=== PATIENT | female | born 1955 | race Caucasian/White ===

== ENCOUNTER → 2018-04-02 10:24 | Outpatient (CLI) | payer SELFPAY ==
--- NOTE | 2018-04-02 10:29 | CT_ITS ---
STUDY: CT ABDOMEN AND PELVIS WITHOUT CONTRAST REASON FOR EXAM: Female, 62 years old. Left flank pain. RADIATION DOSAGE (If Supplied By Facility): CTDIvol = ( 15.55 ) mGy, DLP = ( 722.75 ) mGycm TECHNIQUE: Transaxial images were obtained from the dome of the diaphragm to the symphysis pubis without oral contrast, and without intravenous contrast. Sagittal and coronal images were reconstructed. Individualized dose optimization techniques were used for this CT. COMPARISON: None. FINDINGS: The visualized lung bases are unremarkable. Coronary artery calcification. Normal liver. The patient as a history of prior cholecystectomy. Multiple gallstones are seen in the gallbladder fossa most likely secondary to gallstones left behind during the surgical procedure. Normal spleen. Normal pancreas. Normal bilateral adrenal glands. There is evidence of bilateral staghorn calculi in both kidneys. This is worse on the left side. The staghorn calculi extend into the ureteropelvic junction bilaterally. No significant hydronephrosis is seen. Normal visualized stomach. Normal small intestine. There are multiple colonic diverticula consistent with diverticulosis. There are surgical clips in the region of the appendix consistent with a prior appendectomy. There is diffuse atherosclerotic calcification of the abdominal aorta and its major visceral ranch is, without a demonstrated aneurysm. Normal inferior vena cava. There is borderline retroperitoneal lymphadenopathy with enlarged nodes no greater than 10mm in the short axis diameter. Normal urinary bladder. Calcified uterine fibroids. Normal abdominal wall. Normal osseous structures. CT/Abdomen/Pelvis without Cont IMPRESSION: Bilateral staghorn calculi with no significant hydronephrosis. Gallstones are seen within the gallbladder fossa. The patient does have a history of prior cholecystectomy. Electronically Signed: Rogelio Perez MD at 11:08 EDT Tel [phone], Service support ,
== END ==
PROVIDERS: Family Provider Family Medicine; PCP Family Medicine; Referring Provider Nurse Practitioner Adult Health; Visit Provider Nurse Practitioner Adult Health
DX: R10.9 Unspecified abdominal pain (principal); N20.0 Calculus of kidney; R31.9 Hematuria, unspecified
CPT/HCPCS: 74176

== ENCOUNTER 2018-06-10 08:58 | Observation (INO) | payer SELFPAY ==
[2018-06-05 11:21] VITALS: BP 148/77; PULSE 76; RESP 17; TEMP 36.8; O2SAT 96; BMI 32.0
--- NOTE | 2018-06-05 11:55 | RAD_ITS ---
STUDY: X-RAY CHEST REASON FOR EXAM: Female, 62 years old. Shortness of breath and dyspnea. TECHNIQUE: PA and lateral views of the chest. COMPARISON: None. FINDINGS: The lungs are clear and expanded. There is no demonstrated pleural abnormality. Normal size heart. A left-sided dual-chamber pacemaker is seen. Normal mediastinum and cordell. Normal visualized pulmonary arteries. Normal visualized aortic arch and descending thoracic aorta. There are degenerative changes of the visualized thoracic spine. Calcific tendinitis of the left shoulder. Multiple calcified gallstones are seen in the gallbladder. RAD/Chest PA and Lateral IMPRESSION: No acute abnormality is seen. Electronically Signed: Rogelio Perez MD at 12:35 EST Tel [phone], Service support ,
[2018-06-05 12:14] LABS: Bacteria 0 SEEN /hpf (None Seen); Mucous, Urine 0 SEEN /hpf (<or=2+)
[2018-06-05 12:29] LABS: Absolute Lymphocyte Count 2.06 X10^3/ul (0.83-4.51); Absolute Neutrophil Count 5.9 X10^3/uL (2.0-7.7); Basophil# 0.05 X10^3/uL; Basophil% 0.6 % (0-1); Eosinophil# 0.44 X10^3/uL; Eosinophils% 4.9 % (0-5); Hematocrit 33.9 % (37-47); Hemoglobin 10.3 g/dl (12.0-15.0); Lymphocyte # 2.06 X10^3/ul (4.0); Lymphocyte % 22.7 % (19-41); Mean Corp Hgb Conc 30.4 g/gl (32-36); Mean Corpuscular Hgb 25.9 pg (27.0-32.0); Mean Corpuscular Volume 85.2 fL (81-99); Mean Platelet Vol. 9.3 fl (6.2-12.0); Monocyte# 0.57 X10^3/uL; Monocyte% 6.3 % (0-10); Neutrophil # 5.93 X10^3/uL (2.7-7.7); Neutrophil % 65.3 % (47-70); Platelet Count 347 K/mm3 (150-450); RBC Distribution Width CV 14.2 % (11.6-14.6); RBC Distribution Width SD 44.1 fl (35.1-43.9); Red Blood Count 3.98 M/mm3 (4.2-5.4); White Blood Count 9.1 K/mm3 (4.4-11.0)
[2018-06-05 12:32] LABS: POSITIVE COUNT NO; POSITIVE DIFFERENTIAL NO; POSITIVE MORPHOLOGY NO
[2018-06-05 12:44] LABS: Anion Gap 7 (5-15); BUN 23 mg/dL (7-18); BUN/Creat Ratio 25.8 RATIO (10-20); Chloride 109 mmol/L (98-107); Creatinine, Serum 0.89 mg/dL (0.55-1.02); EST Glomerular Filtration Rate 68 mL/min (>60); Est Glom Filt Rate - Afr Amer 83 mL/min (>60); Estimated Creatinine Clearance 49.46 ml/min; Glucose 147 mg/dL (74-106); Potassium 4.2 mmol/L (3.5-5.1); Sodium Level 143 mmol/L (136-145)
[2018-06-05 13:01] LABS: Color, Urine Yellow (Yellow); Glucose, Dipstick Normal (Normal); Ketone-Dipstick 5 mg/dl (Negative); Leukocyte Esterase-Dipstick 100 /ul (Negative); Nitrite-Dipstick Negative (Negative); Occult Blood-Urine 250 /ul (Negative); Protein-Dipstick 100 mg/dl (Negative); Urine Bilirubin Dipstick Negative (Negative); Urine Clarity Clear (Clear); Urine Urobilinogen Normal (Normal)
[2018-06-05 13:10] LABS: Red Blood Cells-Urine > 100 SEEN /hpf (0-5); Squamous Epithelial Cells - UA 5-10 SEEN /hpf (5-10); White Blood Cells 0-5 SEEN /hpf (0-5)
[2018-06-07] VITALS (10 sets, daily range): BP systolic 115–169; BP diastolic 57–77; PULSE 60–76; RESP 14–18; TEMP 35.9–36.7; O2SAT 93–100; BMI 32.0
[2018-06-07 10:06] LABS: Bedside Glucose 138 mg/dL (70-110)
[2018-06-07] MEDS: Cefazolin 2 GM in 0.9% Normal Saline 100 ML IV (13:20)
--- NOTE | 2018-06-07 17:16 | PCM.OPRPT ---
Report of Operation Date of Procedure: 06/07/18 Pre-Operative Diagnosis: Large left staghorn calculi branching Post-Operative Diagnosis: The same Surgery/Procedure Performed:: Cystoscopy left ureteroscopy laser lithotripsy of stone at the UPJ, percutaneous axis of the left kidney 2 tracts were performed, percutaneous nephrostolithotomy for a large staghorn branching calculus, nephrostogram, placement of a stent and placement of nephrostomy tube Description of Surgical Findings:: 62-year-old female has a very large stone in the left kidney she has a bifid system single ureter and then at the UPJ there was a stone and then she had stone fragments in the lower pole of the left kidney and then a long fragment in the upper pole of the left kidney. She was taken back to the operating room after smooth induction of general anesthesia was placed supine on the table I then went into the bladder with a 21 Senegalese rigid cystourethroscope advanced a wire all the way up wire hit the stone was impacted would go past the stone I then left the wire in place went in with a axis sheath but the access sheath up to the stone and then went in with the ureteroscope and then started lasering the stone, and then I tried to reposition the access sheath but in doing this small tear occurred in the renal pelvis near the UPJ junction area I then went back in with the laser lasered some more until is able to get past the stone blocking the UPJ area I found the upper pole of the left kidney we then left the axis sheath then we repositioned the patient then face down on the lithotripter table and then using to regulation technique I established the first axis tube to the upper pole of the kidney I then came down to the upper pole and using ultrasonic lithotripter remove the stone completely and once I did this in a went to the pelvis and remove the stone as much as possible the pelvis I then left the tract in and then performed a second track in the lower pole of the kidney this track went into the lower pole calyx with a lot of fragments in the lower pole calyx I used ultrasonic lithotripter to get rid of all these fragments and then went into the pelvis and then recognized that there was a tear in the pelvis and some of the fragments were migrated outside the kidney and through the tear on the outside the kidney did my best attempt to retrieve as many of the fragments as possible but was not able to get all the fragments of fragments escaped outside the kidney through this small tear in the renal pelvis right above the UPJ after completing laser lithotripsy and ultrasonic lithotripsy of all the stones in the lower pole and in the UPJ area I then attempted to place a stent top down but because of the disruption of the UPJ and disruption of the pelvis it was very difficult to do this so decided to leave the nephrostomy tube which we did a nephrostogram that confirmed extravasation from the renal pelvis and then flipped the patient back prone face up the urethra vaginal area prepped and draped in usual sterile fashion went into the bladder with a 21 Senegalese rigid ureteroscope advanced a wire up into the kidney on the left side however I wanted to make 100% sure that the wire was in the kidney and not in through the UPJ area of disruption so I performed ureteroscopy and I got to the upper pole of the kidney confirmed this by retrograde in the left the wire in there and then over the wire I was placed a 6 Senegalese by 26 cm stent pulled the wire the stent coiled in the kidney and the upper pole of the kidney and nicely this will bridge the area nicely allow the tear the renal pelvis to heal properly the stones that fell out to the renal pelvis would not be needed to be retrieved I explained this to the family. All the major fragments were removed at this point because of the tear in the UPJ probably will need to leave the stent in for at least 6 weeks to make sure that the kidney heals up properly and want to bring her back for ureteroscopy to inspect the kidney then make sure that there is no permanent injury to the kidney and to make sure that the kidney is repaired healed a properly over the stent. We left the nephrostomy tube and the patient left the catheter the patient patient's anesthetic is currently being reversed blood loss is relatively minimal and was able to get all the stones out few fragments are still in both kidneys I may have to these may require some subsequent treatment down the road probably will perform laser lithotripsy in about 6 weeks in the left kidney and then proceed with the treatment of the stones in the right kidney. Type of Anesthesia:: General Drains: nephrostomy tube, stent - Admit VTE Documentation VTE Present on Admission: No
[2018-06-07 17:50] LABS: Bedside Glucose 232 mg/dL (70-110)
[2018-06-07] MEDS: Insulin Lispro 100 UNIT/ML INSULN.PEN SC (18:00)
[2018-06-07 18:01] LABS: Hematocrit 29.2 % (37-47); Hemoglobin 8.9 g/dl (12.0-15.0); Mean Corp Hgb Conc 30.5 g/gl (32-36); Mean Corpuscular Volume 85.4 fL (81-99); Platelet Count 306 K/mm3 (150-450); RBC Distribution Width CV 14.3 % (11.6-14.6); RBC Distribution Width SD 44.3 fl (35.1-43.9); Red Blood Count 3.42 M/mm3 (4.2-5.4); Scan Indicated on CBC? Y/N NO; White Blood Count 14.3 K/mm3 (4.4-11.0)
[2018-06-07 18:12] LABS: Anion Gap 8 (5-15); BUN 19 mg/dL (7-18); BUN/Creat Ratio 20.6 RATIO (10-20); Calcium,Total 7.8 mg/dL (8.5-10.1); Chloride 109 mmol/L (98-107); Creatinine, Serum 0.92 mg/dL (0.55-1.02); EST Glomerular Filtration Rate 65 mL/min (>60); Est Glom Filt Rate - Afr Amer 79 mL/min (>60); Estimated Creatinine Clearance 47.84 ml/min; Glucose 256 mg/dL (74-106); Potassium 3.9 mmol/L (3.5-5.1); Sodium Level 142 mmol/L (136-145)
[2018-06-07] MEDS: Ketorolac 15 MG/ML Vial IV (18:41)
[2018-06-07] MEDS: Lactated Ringers 1,000 ML 125 ML IV (18:43)
[2018-06-07] MEDS: Metoclopramide 10 MG/2 ML Vial IV (19:29)
[2018-06-07] MEDS: Insulin Human 75/25 Kwickpen 20 UNIT SC (19:31)
[2018-06-07 19:45] LABS: Bedside Glucose 231 mg/dL (70-110)
[2018-06-07] MEDS: Cefazolin 1 GM/50 ML BAG IV (21:30)
[2018-06-07] MEDS: Ondansetron 4 MG/2 ML Vial IV (21:40)
[2018-06-07] MEDS: Lisinopril 20 MG Tablet PO (23:39)
[2018-06-08] VITALS (15 sets, daily range): BP systolic 111–147; BP diastolic 49–72; PULSE 71–92; RESP 16–83; TEMP 36.4–37.6; O2SAT 92–100
[2018-06-08] MEDS: Morphine 2 MG/ML Syringe IV (02:05)
[2018-06-08] MEDS: Lactated Ringers 1,000 ML 125 ML IV ×3 (02:06→22:36)
[2018-06-08] MEDS: Ketorolac 15 MG/ML Vial IV ×3 (05:38→22:23)
[2018-06-08] MEDS: Cefazolin 1 GM/50 ML BAG IV (05:38)
[2018-06-08] MEDS: Ondansetron 4 MG/2 ML Vial IV (05:49)
[2018-06-08 07:55] LABS: Hematocrit 23.7 % (37-47); Mean Corp Hgb Conc 29.5 g/gl (32-36); Mean Corpuscular Hgb 25.9 pg (27.0-32.0); Mean Corpuscular Volume 87.8 fL (81-99); Mean Platelet Vol. 9.8 fl (6.2-12.0); Platelet Count 274 K/mm3 (150-450); RBC Distribution Width CV 13.8 % (11.6-14.6); RBC Distribution Width SD 42.8 fl (35.1-43.9); Scan Indicated on CBC? Y/N NO
[2018-06-08 08:07] LABS: Anion Gap 8 (5-15); BUN 25 mg/dL (7-18); BUN/Creat Ratio 20.2 RATIO (10-20); Calcium,Total 7.7 mg/dL (8.5-10.1); Chloride 109 mmol/L (98-107); Creatinine, Serum 1.24 mg/dL (0.55-1.02); EST Glomerular Filtration Rate 47 mL/min (>60); Est Glom Filt Rate - Afr Amer 56 mL/min (>60); Glucose 223 mg/dL (74-106); Potassium 4.5 mmol/L (3.5-5.1); Sodium Level 144 mmol/L (136-145)
--- NOTE | 2018-06-08 08:58 | PCM.PN.BLA ---
Progress Note s/p perc for v large left kidney stone needed two percs to complete procedure had nephrostomy tube, and pollock urine is clear, no more bleeding but h/h very low plan to give her two units of PRBC then d/c pollock and can get around after blood leave Nephrostomy tube open and draining has a stent in as well.
[2018-06-08] MEDS: Insulin Human 75/25 Kwickpen 20 UNIT SC ×2 (09:11→17:10)
[2018-06-08] MEDS: amLODIPine 10 MG Tablet PO (09:12)
[2018-06-08] MEDS: Metoprolol(XL)Succ 25 MG Tablet PO (09:12)
[2018-06-08] MEDS: Docusate Sodium 100 MG Capsule 200 MG PO ×2 (09:12→22:25)
[2018-06-08] MEDS: Lisinopril 20 MG Tablet PO ×2 (09:13→22:28)
[2018-06-08 11:26] LABS: Bedside Glucose 172 mg/dL (70-110)
[2018-06-08] MEDS: 0.9% NaCl Peripheral Flush Adult/Peds IV (13:20)
--- NOTE | 2018-06-08 16:30 | NURSING ---
Charge nurse, Rosibel, assuming care of patient.
[2018-06-08 16:41] LABS: Bedside Glucose 214 mg/dL (70-110)
[2018-06-08] MEDS: Glucerna Shake 120 ML LIQUID PO ×2 (17:21→22:25)
[2018-06-08] MEDS: Atorvastatin Calcium 40 MG Tablet PO (22:25)
[2018-06-08] MEDS: Insulin Lispro 100 UNIT/ML INSULN.PEN SC (22:27)
[2018-06-08 22:50] LABS: Bedside Glucose 177 mg/dL (70-110)
[2018-06-09] VITALS (10 sets, daily range): BP systolic 121–171; BP diastolic 59–85; PULSE 79–95; RESP 14–16; TEMP 36.8–37.7; O2SAT 85–96
[2018-06-09 06:36] LABS: Bedside Glucose 180 mg/dL (70-110)
[2018-06-09 06:36] LABS: Absolute Lymphocyte Count 1.87 X10^3/ul (0.83-4.51); Absolute Neutrophil Count 8.9 X10^3/uL (2.0-7.7); Basophil# 0.03 X10^3/uL; Basophil% 0.3 % (0-1); Eosinophil# 0.11 X10^3/uL; Eosinophils% 0.9 % (0-5); Hematocrit 27.5 % (37-47); Hemoglobin 8.7 g/dl (12.0-15.0); Lymphocyte # 1.87 X10^3/ul (4.0); Lymphocyte % 15.6 % (19-41); Mean Corp Hgb Conc 31.6 g/gl (32-36); Mean Corpuscular Hgb 26.7 pg (27.0-32.0); Mean Corpuscular Volume 84.4 fL (81-99); Mean Platelet Vol. 9.4 fl (6.2-12.0); Monocyte# 1.05 X10^3/uL; Monocyte% 8.8 % (0-10); Neutrophil # 8.88 X10^3/uL (2.7-7.7); Neutrophil % 74.1 % (47-70); Platelet Count 235 K/mm3 (150-450); RBC Distribution Width CV 14.9 % (11.6-14.6); RBC Distribution Width SD 46.5 fl (35.1-43.9); Red Blood Count 3.26 M/mm3 (4.2-5.4)
[2018-06-09 07:09] LABS: POSITIVE COUNT NO; POSITIVE DIFFERENTIAL NO; POSITIVE MORPHOLOGY NO
[2018-06-09 07:28] LABS: Anion Gap 7 (5-15); BUN 19 mg/dL (7-18); BUN/Creat Ratio 23.1 RATIO (10-20); Chloride 107 mmol/L (98-107); Creatinine, Serum 0.82 mg/dL (0.55-1.02); EST Glomerular Filtration Rate 75 mL/min (>60); Est Glom Filt Rate - Afr Amer 90 mL/min (>60); Estimated Creatinine Clearance 53.68 ml/min; Glucose 190 mg/dL (74-106); Potassium 3.9 mmol/L (3.5-5.1); Sodium Level 141 mmol/L (136-145)
--- NOTE | 2018-06-09 08:37 | PCM.PN.BLA ---
Progress Note Postop day #2 status post percutaneous removal of large staghorn calculus yesterday received 2 units of packed red blood cells and some fluid overnight had to be straight cathed for 800 cc this morning has been able to urinate. Nephrostomy tube is not really putting out any urine must be some obstruction in the tip of the catheter. Schmidt catheter is out patient's been able to urinate this morning. Her creatinine is normal. H&H is stable. Plan to get a CAT scan to evaluate the kidney to make sure the kidney is okay stent is in good position and then will plan to remove remove the nephrostomy tube tomorrow she may be oh to go home tomorrow once she can wean off oxygen we will Hep-Lock her fluids regular diet and can she can ambulate.
--- NOTE | 2018-06-09 08:39 | CT_ITS ---
STUDY: CT ABDOMEN AND PELVIS WITHOUT CONTRAST REASON FOR EXAM: Female, 62 years old. Staghorn calculi removal RADIATION DOSAGE (If Supplied By Facility): CTDIvol = ( 19.37 ) mGy, DLP = ( 972.71 ) mGycm TECHNIQUE: Transaxial images were obtained from the dome of the diaphragm to the symphysis pubis without oral contrast, and without intravenous contrast. Sagittal and coronal images were reconstructed. Individualized dose optimization techniques were used for this CT. COMPARISON: April 02, 2018. FINDINGS: The visualized lung bases is a mild pleural effusions, left slightly more than right. Bilateral basilar atelectasis. The visualized portions of the heart are within normal limits. Normal liver. Patient has a history of cholecystectomy. Stable probable gallstones at the gallbladder fossa. No significant dilatation of the extrahepatic biliary system. Normal spleen. Normal pancreas. Normal bilateral adrenal glands. Stable staghorn calculi of the right kidney. Status post surgical removal of large staghorn calculus at the pelvis of the left kidney. Remaining calculi in the left kidney are noted measuring up to 1.2 cm. Left percutaneous nephrostomy catheter is noted with tip at the renal pelvis. A left ureteral stent is in place. Gas within the left pelvicalyceal system and the left retroperitoneal space, likely postsurgically related. Mild left perinephric stranding. Normal visualized stomach. Normal small intestine. Normal colon. The appendix is not visualized. Mildly calcified abdominal aorta. Normal inferior vena cava. Subcentimeter nodes in the retroperitoneum. There is a small amount of intraluminal gas in the urinary bladder. Normal abdominal wall. Degenerative vertebral changes. CT/Abdomen/Pelvis without Cont IMPRESSION: Stable right renal calculi. Postsurgical changes of the left kidney is noted with remaining nonobstructive calculi. Left percutaneous nephrostomy and left ureteral stents are in place. Postsurgical changes in the left retroperitoneum. Focal intraluminal gas in the urinary bladder may be post surgically related as well. Stable calculi within the gallbladder fossa with previous cholecystectomy. Small pleural effusions bilaterally with basilar atelectasis. Subcentimeter retroperitoneal nodes. Electronically Signed: Angel Craig DO at 10:28 EST Tel [phone], Service support ,
[2018-06-09] MEDS: Insulin Human 75/25 Kwickpen 20 UNIT SC ×2 (08:40→15:59)
[2018-06-09] MEDS: Docusate Sodium 100 MG Capsule 200 MG PO ×2 (08:40→21:44)
[2018-06-09] MEDS: Metoprolol(XL)Succ 25 MG Tablet PO (08:41)
[2018-06-09] MEDS: amLODIPine 10 MG Tablet PO (08:41)
[2018-06-09] MEDS: Lisinopril 20 MG Tablet PO ×2 (08:42→21:44)
[2018-06-09] MEDS: Insulin Lispro 100 UNIT/ML INSULN.PEN SC ×4 (08:45→21:44)
[2018-06-09] MEDS: Ketorolac 15 MG/ML Vial IV (08:45)
[2018-06-09] MEDS: 0.9% NaCl Peripheral Flush Adult/Peds IV (08:45)
[2018-06-09 08:46] LABS: Bedside Glucose 193 mg/dL (70-110)
[2018-06-09] MEDS: Glucerna Shake 120 ML LIQUID PO ×4 (09:51→21:43)
[2018-06-09 11:20] LABS: Bedside Glucose 301 mg/dL (70-110)
--- NOTE | 2018-06-09 14:00 | NURSING ---
Pt. ambulates with SBA of nurse one lap around [facility] hallway. Tolerates well.
[2018-06-09 16:15] LABS: Bedside Glucose 266 mg/dL (70-110)
[2018-06-09] MEDS: Acetaminophen 500 MG Tablet PO (17:16)
[2018-06-09] MEDS: Atorvastatin Calcium 40 MG Tablet PO (21:44)
[2018-06-09 21:51] LABS: Bedside Glucose 217 mg/dL (70-110)
--- NOTE | 2018-06-10 | CALC_PTH ---
PATIENT: LATOSHA LOYOLA LOC: [facility]2 U#:[id number] AGE/SX: 62/F ROOM: [facility] [place] RE06/10/[address]: Dr. Zenon Alvarado MD : 1955 BED: 1 DIS: 06/10/2018 SPEC #: [id number] RECD: 06/10/18 13:29 STATUS: MINOR CASTRO #: [id number] ANNA: 06/10/18 00:[address]: Zenon Alvarado DEPT: SURGICAL PATHOLOGY RECD BY: Adolfo Banda ENTERED: 06/10/18 13:29 SP TYPE: Calculi OTHR DR: Dr. Gianluca Sol, DO Tissues: CALCULI Procedures: Surgery Specimen Level I HEADER OPERATION: Left percutaneous nephrostolithomy, cysto, left ureteroscopy PRE-OP DIAGNOSIS: Calculus of kidney, microscopic hematuria TISSUE SUBMITTED: Calculus of kidney GROSS DIAGNOSIS Calculus of kidney, removal: Fragments of unremarkable calculi (gross diagnosis only). AM:chavo 06/11/18 COMMENT The calculus is submitted in its entirety for chemical stone analysis. The results from this study will be reported separately. GROSS DESCRIPTION Received in fixative is one container labeled with the patient's name and designated left kidney stones. The specimen consists of multiple irregular chalky-yellow calculi that in aggregate measure 1 x 0.5 x 0.4 cm. The specimen is submitted in its entirety for chemical stone analysis. / AM:chavo 06/10/18 CPT: 23861
[2018-06-10 02:34] VITALS: BP 158/78; PULSE 87; RESP 16; TEMP 37.2; O2SAT 93
[2018-06-10 07:44] VITALS: BP 159/81; PULSE 92; RESP 18; TEMP 37; O2SAT 94
--- NOTE | 2018-06-10 07:46 | DCINST_ITS ---
Discharge Diet: Light diet - advance as tolerated Discharge Activity: Return to Normal Activity Call your doctor if your incision/area has: Sudden Increased Bleeding Call your doctor if you observe: Fever of 101 or Higher Suture Line Care: Avoid Pulling/Pushing, Avoid Pinching/Bending Additional Instructions: keep back covered and dry. Allergies/Adverse Reactions: Allergies No Known Allergies Allergy (Verified 06/05/18 11:09) Medications to take at Discharge Amlodipine [Norvasc] 10 mg PO DAILY 06/05/18 Aspirin [Adult Aspirin] 81 mg PO DAILY 06/05/18 Atorvastatin Calcium [Lipitor] 40 mg PO QHS 06/05/18 Insulin NPH Hum/Reg Insulin Hm [Humulin 70/30 Kwikpen] 20 unit SQ BID 06/05/18 Lisinopril 20 mg PO BID 06/05/18 Metformin HCl 1,000 mg PO BID 06/05/18 Metoprolol Succinate [Toprol Xl] 25 mg PO DAILY 06/05/18 Nitroglycerin [Nitrostat] 0.4 mg SL PRN PRN 06/05/18 Prasugrel Hydrochloride [Effient] 10 mg PO DAILY 06/05/18 Primary Care Physician: Gianluca Sol DO [Primary Care Provider] - Test Results: Test results from this visit will be discussed in further detail at your follow- up appointment, if applicable. Please Follow Up With: Zenon Alvarado MD When: in 2 weeks, please call to make an appointment.
--- NOTE | 2018-06-10 07:47 | PCM.DC.SUM ---
Discharge Date and Diagnosis Date of Admission: 06/07/18 Date of Discharge: 06/10/18 Hospital Course and Treatment Operations: - - percutaneous remove of left large staghorn calculus Procedures: None Summary of Care Provided: The patient is a 62 year old female with complete staghorn calculus s/p perc, long difficult procedure with difficult anatomy , bifid system needed 2 units of PRBC after surgery. nephrostomy tube clamped. stent in place ct scan with no hydronephrosis, 3 fragments each 4mm in size still in the kidney will need ureteroscopy to clean up fragment later will go home today with stent and family. - Physical Exam General: Alert, Oriented x3, Cooperative HEENT: Atraumatic, PERRLA, EOMI, Normocephalic Neck: Supple, No JVD, Negative Carotid Bruits Lungs: Clear to auscultation, Normal air movement Cardiovascular: Regular rate, No murmurs Abdomen: Bowel Sounds Present, Soft, Non Tender Extremities: No edema, Capillary Refill Less than 3 Seconds Skin: No rashes, No breakdown Musculoskeletal: No Tenderness to Palpation of Joints or Extremities Neurological: Cranial nerves II-XII grossly intact Psych/Mental Status: Normal Affect, Appropriate Vital Signs Temp Pulse Resp BP Pulse Ox 98.6 F 92 18 159/81 H 94 06/10/18 07:44 06/10/18 07:44 06/10/18 07:44 06/10/18 07:44 06/10/18 07:44 Oxygen Flow Rate (L/min) 2 Oxygen Delivery Method Room Air Weight: 76.884 kg Body Mass Index (BMI) 32.0 Finger Stick Blood Glucose 232 Intake and Output for Last 24 Hours 06/08/18 06/09/18 06/10/18 23:59 23:59 23:59 Intake Total 3423 / 3423 3544 / 3544 400 / 400 Output Total 890 / 890 2385 / 2385 575 / 575 Balance 2533 / 2533 1159 / 1159 -175 / -175 POC Glucose 06/09/18 06/09/18 06/09/18 21:30 15:58 11:15 POC Glucose 217 H 266 H 301 H 06/09/18 08:29 POC Glucose 193 H Discharge Diet: Light diet - advance as tolerated Discharge Activity: Return to Normal Activity Call your doctor if your incision/area has: Sudden Increased Bleeding Call your doctor if you observe: Fever of 101 or Higher Suture Line Care: Avoid Pulling/Pushing, Avoid Pinching/Bending Home Medications: Medications to take at Discharge Amlodipine [Norvasc] 10 mg PO DAILY 06/05/18 Aspirin [Adult Aspirin] 81 mg PO DAILY 06/05/18 Atorvastatin Calcium [Lipitor] 40 mg PO QHS 06/05/18 Insulin NPH Hum/Reg Insulin Hm [Humulin 70/30 Kwikpen] 20 unit SQ BID 06/05/18 Lisinopril 20 mg PO BID 06/05/18 Metformin HCl 1,000 mg PO BID 06/05/18 Metoprolol Succinate [Toprol Xl] 25 mg PO DAILY 06/05/18 Nitroglycerin [Nitrostat] 0.4 mg SL PRN PRN 06/05/18 Prasugrel Hydrochloride [Effient] 10 mg PO DAILY 06/05/18 Acetaminophen [Tylenol Extra Strength] 500 mg PO Q4H PRN PRN #20 tablet 06/10/18 Ibuprofen 600 mg PO Q6H PRN PRN #20 tablet 06/10/18 Following Prescrptions Were Given to Patient: Acetaminophen [Tylenol Extra Strength] 500 mg PO Q4H PRN PRN #20 tablet PRN Reason: Pain Ibuprofen 600 mg PO Q6H PRN PRN #20 tablet PRN Reason: Pain Primary Care Physician: Gianluca Sol DO [Primary Care Provider] - Please Follow Up With: Zenon Alvarado MD When: in 2 weeks, please call to make an appointment. Additional Instructions: keep back covered and dry. Medical Necessity - Tobacco Use Smoking Status: Never smoker Meaningful Use Info Meaningful Use Diagnoses (Choose all that apply): None applicable
[2018-06-10 07:50] VITALS: O2SAT 94
[2018-06-10] MEDS: Docusate Sodium 100 MG Capsule 200 MG PO (07:52)
[2018-06-10] MEDS: Acetaminophen 500 MG Tablet PO (07:52)
[2018-06-10 07:53] VITALS: BP 159/81; PULSE 92
[2018-06-10] MEDS: Metoprolol(XL)Succ 25 MG Tablet PO (07:53)
[2018-06-10] MEDS: amLODIPine 10 MG Tablet PO (07:53)
[2018-06-10] MEDS: Lisinopril 20 MG Tablet PO (07:53)
[2018-06-10] MEDS: Insulin Lispro 100 UNIT/ML INSULN.PEN SC (07:54)
[2018-06-10] MEDS: Insulin Human 75/25 Kwickpen 20 UNIT SC (07:54)
[2018-06-10] MEDS: Glucerna Shake 120 ML LIQUID PO (07:55)
[2018-06-10 08:05] LABS: Bedside Glucose 192 mg/dL (70-110)
[2018-06-10 09:00] VITALS: BP 159/81; PULSE 92; RESP 18; TEMP 37; O2SAT 94
[2018-06-19 20:07] LABS: Ca Oxalate, Monohydrate 17 % (.); Uric Acid 80 % (.)
--- OUTSIDE RECORDS SUMMARY | 2018-08-02 04:09 | XMS RPT_ITS ---
:1955 Author Organization [place] Care Team Providers Name Role Phone CAROLA FREEMAN MD Admitting Unavailable CAROLA FREEMAN MD Attending Unavailable PHYSICIAN, NONE Primary Care Unavailable CAROLA FREEMAN MD Consulting Unavailable FATUMA QUESADA MD Consulting Unavailable RADHA JERONIMO MD Consulting Unavailable GIANLUCA QUARLES Admitting Unavailable GIANLUCA QUARLES Attending Unavailable GIANLUCA QUARLES Primary Care Unavailable GIANLUCA QUARLES Consulting Unavailable PROVIDER, UNKNOWN Consulting Unavailable DR YASH MICHAEL Admitting Unavailable DR YASH MICHAEL Attending Unavailable GIANLUCA QUARLES Referring Unavailable DR YASH MICHAEL Primary Care Unavailable GIANLUCA QUARLES Consulting Unavailable PROVIDER, UNKNOWN Consulting Unavailable Zenon Alvarado Attending Unavailable Zenon Alvarado Referring Unavailable Gianluca Quarles Primary Care Unavailable Zenon Alvarado Admitting Unavailable Gee, Lorrie Vu Attending Unavailable Gee, Lorrie M Referring Unavailable Gianluca Quarles Primary Care Unavailable PROBLEMS PROBLEMS DATE TYPE CONDITION / CODE ATTENDING STATUS SOURCE 04/08/2018 Unknown R10.9 - Unspecified Gee, Active [place] abdominal pain / Lorrie M [facility] R10.9(ICD-10) Hospital Repository 10/30/2017 Admitting Hydronephrosis with GIANLUCA QUARLES Active Leonel Garcia Diagnosis renal and ureteral [facility] obstruction / Repository N132(ICD-10) 10/30/2017 Principle Hydronephrosis with GIANLUCA QUARLES Active Leonel Garcia Diagnosis renal and ureteral [facility] obstruction / Repository N132(ICD-10) 10/30/2017 Secondary Fatty (change of) GIANLUCA QUARLES Active Leonel Garcia Diagnosis liver, not elsewhere [facility] Hospital K760(ICD-10) Repository PROCEDURES PROCEDURES No Procedure Records FoundRESULTS RESULTS DISCHARGE SUMMARY Observed: 06/16/2018 Status: F Source: [place] 1:18 PM [facility] REPOSITORY [facility] Medical Records Department [address] [place] [address] Discharge Summary 06/10/18 0747 MR#: [id number] Acct: [id number] Name: LATOSHA LOYOLA Rep #: [id number] : 1955 62 From: Zenon Alvarado MD PCP: Gianluca Quarles MD Status: DIS SOFYA Y Location: [place] [address] ADDENDUM by Zenon Alvarado MD on 06/16/18 at 1318 Code Visit stone was very large 5cm 06/16/18 1318 <Electronically signed by Zenon Alvarado MD> Date Zenon Alvarado MD cc: Zenon Alvarado MD; Gianlcua Quarles MD * Signed Discharge Date and Diagnosis Date of Admission: 06/07/18 Date of Discharge: 06/10/18 Hospital Course and Treatment Operations: - - percutaneous remove of left large staghorn calculus Procedures: None Summary of Care Provided: The patient is a 62 year old female with complete staghorn calculus s/p perc, long difficult procedure with difficult anatomy , bifid system needed 2 units of PRBC after surgery. nephrostomy tube clamped. stent in place ct scan with no hydronephrosis, 3 fragments each 4mm in size still in the kidney will need ureteroscopy to clean up fragment later will go home today with stent and family. - Physical Exam General: Alert, Oriented x3, Cooperative HEENT: Atraumatic, PERRLA, EOMI, Normocephalic Neck: Supple, No JVD, Negative Carotid Bruits Lungs: Clear to auscultation, Normal air movement Cardiovascular: Regular rate, No murmurs Abdomen: Bowel Sounds Present, Soft, Non Tender Extremities: No edema, Capillary Refill Less than 3 Seconds Skin: No rashes, No breakdown Musculoskeletal: No Tenderness to Palpation of Joints or Extremities Neurological: Cranial nerves II-XII grossly intact Psych/Mental Status: Normal Affect, Appropriate Vital Signs Temp Pulse Resp BP Pulse Ox 98.6 F 92 18 159/81 H 94 06/10/18 07:44 06/10/18 07:44 06/10/18 07:44 06/10/18 07:44 06/10/18 07:44 Oxygen Flow Rate (L/min) 2 Oxygen Delivery Method Room Air Weight: 76.884 kg Body Mass Index (BMI) 32.0 Finger Stick Blood Glucose 232 Intake and Output for Last 24 Hours Intake Total 3423 / 3423 3544 / 3544 400 / 400 Output Total 890 / 890 2385 / 2385 575 / 575 Balance 2533 / 2533 1159 / 1159 -175 / -175 POC Glucose POC Glucose 217 H 266 H 301 H POC Glucose 193 H Discharge Diet: Light diet - advance as tolerated Discharge Activity: Return to Normal Activity Call your doctor if your incision/area has: Sudden Increased Bleeding Call your doctor if you observe: Fever of 101 or Higher Suture Line Care: Avoid Pulling/Pushing, Avoid Pinching/Bending Home Medications: Medications to take at Discharge Amlodipine [Norvasc] 10 mg PO DAILY 06/05/18 Aspirin [Adult Aspirin] 81 mg PO DAILY 06/05/18 Atorvastatin Calcium [Lipitor] 40 mg PO QHS 06/05/18 Insulin NPH Hum/Reg Insulin Hm [Humulin 70/30 Kwikpen] 20 unit SQ BID 06/05/18 Lisinopril 20 mg PO BID 06/05/18 Metformin HCl 1,000 mg PO BID 06/05/18 Metoprolol Succinate [Toprol Xl] 25 mg PO DAILY 06/05/18 Nitroglycerin [Nitrostat] 0.4 mg SL PRN PRN 06/05/18 Prasugrel Hydrochloride [Effient] 10 mg PO DAILY 06/05/18 Acetaminophen [Tylenol Extra Strength] 500 mg PO Q4H PRN PRN #20 tablet 06/10/18 Ibuprofen 600 mg PO Q6H PRN PRN #20 tablet 06/10/18 Following Prescrptions Were Given to Patient: Acetaminophen [Tylenol Extra Strength] 500 mg PO Q4H PRN PRN #20 tablet PRN Reason: Pain Ibuprofen 600 mg PO Q6H PRN PRN #20 tablet PRN Reason: Pain Primary Care Physician: Gianluca Quarles, [Primary Care Provider] - Please Follow Up With: Zenon Alvarado MD When: in 2 weeks, please call to make an appointment. Additional Instructions: keep back covered and dry. Medical Necessity - Tobacco Use Smoking Status: Never smoker Meaningful Use Info Meaningful Use Diagnoses (Choose all that apply): None applicable 06/10/18 0750 <Electronically signed by Zenon Alvarado MD> Date Zenon Alvarado MD Cosigner Signature (if applicable): Date CC: Zenon Alvarado MD; Gianluca Quarles MD Signed DISCHARGE INSTRUCTION Observed: 06/10/2018 Status: F Source: [place] 7:46 AM [facility] REPOSITORY [facility] Medical Records Department [address] [place] [address] Instructions for Home/Discharge Instructions 06/10/18 0745 MR#: [id number] Acct: [id number] Name: LATOSHA LOYOLA Rep #: [id number] : 1955 62 From: Zenon Alvarado MD PCP: Gianluca Quarles MD Status: REG [facility] Discharge Diet: Light diet - advance as tolerated Discharge Activity: Return to Normal Activity Call your doctor if your incision/area has: Sudden Increased Bleeding Call your doctor if you observe: Fever of 101 or Higher Suture Line Care: Avoid Pulling/Pushing, Avoid Pinching/Bending Additional Instructions: keep back covered and dry. Allergies/Adverse Reactions: Allergies No Known Allergies Allergy (Verified 06/05/18 11:09) Medications to take at Discharge Amlodipine [Norvasc] 10 mg PO DAILY 06/05/18 Aspirin [Adult Aspirin] 81 mg PO DAILY 06/05/18 Atorvastatin Calcium [Lipitor] 40 mg PO QHS 06/05/18 Insulin NPH Hum/Reg Insulin Hm [Humulin 70/30 Kwikpen] 20 unit SQ BID 06/05/18 Lisinopril 20 mg PO BID 06/05/18 Metformin HCl 1,000 mg PO BID 06/05/18 Metoprolol Succinate [Toprol Xl] 25 mg PO DAILY 06/05/18 Nitroglycerin [Nitrostat] 0.4 mg SL PRN PRN 06/05/18 Prasugrel Hydrochloride [Effient] 10 mg PO DAILY 06/05/18 Primary Care Physician: Gianluca Quarles DO [Primary Care Provider] - Test Results: Test results from this visit will be discussed in further detail at your follow-up appointment, if applicable. Please Follow Up With: Zenon Alvarado MD When: in 2 weeks, please call to make an appointment. 06/10/18 0746 <Electronically signed by Zenon Alvarado MD> Date Zenon Alvarado MD CC: Gianluca Quarles MD BEDSIDE GLUCOSE Collected: 06/10/2018 Status: F Source: [place] 7:43 AM [facility] REPOSITORY TYPE CODE TESTS RESULT OUT OF REFERENCE UNITS RANGE LAB L501.080 70-110 mg/dL High BEDSIDE GLU 192 Result Comment: MANAGEMENT OF PATIENT CARE PER NURSING PROTOCOL Performed By: #### L501.080 #### [facility] Point of Care [address] [place] [address] CALCULI/STONE Observed: 06/10/2018 Status: F Source: [place] 12:00 AM [facility] REPOSITORY Patient: LATOSHA LOYOLA : 1955 (62/F) Acct Num: [id number] Phys: Christiano FERNANDES,Pablo Unit Num: [id number] Loc: MS2 [id number] Specimen: [id number] Received: 06/10/18 - 9 Spec Type: Calculi TISSUES 1 TISSUES: CALCULI COMMENT The calculus is submitted in its entirety for chemical stone analysis. The results from this study will be reported separately. GROSS DIAGNOSIS Calculus of kidney, removal: Fragments of unremarkable calculi (gross diagnosis only). AM: 06/11/18 GROSS DESCRIPTION Received in fixative is one container labeled with the patient's name and designated left kidney stones. The specimen consists of multiple irregular chalky-yellow calculi that in aggregate measure 1 x 0.5 x 0.4 cm. The specimen is submitted in its entirety for chemical stone analysis. / AM: 06/10/18 CPT: 78145 HEADER OPERATION: Left percutaneous nephrostolithomy, cysto, left ureteroscopy PRE-OP DIAGNOSIS: Calculus of kidney, microscopic hematuria TISSUE SUBMITTED: Calculus of kidney Signed [facility] 06/11/18 <signature on file> Performed By: #### PCALC #### [facility] [address] [place], [address] BEDSIDE GLUCOSE Collected: 06/09/2018 Status: F Source: [place] 9:30 PM [facility] REPOSITORY TYPE CODE TESTS RESULT OUT OF REFERENCE UNITS RANGE LAB L501.080 70-110 mg/dL High BEDSIDE GLU 217 Result Comment: MANAGEMENT OF PATIENT CARE PER NURSING PROTOCOL Performed By: #### L501.080 #### [facility] Point of Care [address] [place] [address] BEDSIDE GLUCOSE Collected: 06/09/2018 Status: F Source: [place] 3:58 PM [facility] REPOSITORY TYPE CODE TESTS RESULT OUT OF REFERENCE UNITS RANGE LAB L501.080 70-110 mg/dL High BEDSIDE GLU 266 Result Comment: MANAGEMENT OF PATIENT CARE PER NURSING PROTOCOL Performed By: #### L501.080 #### [facility] Point of Care [address] [place] [address] BEDSIDE GLUCOSE Collected: 06/09/2018 Status: F Source: [place] 11:15 AM [facility] REPOSITORY TYPE CODE TESTS RESULT OUT OF REFERENCE UNITS RANGE LAB L501.080 70-110 mg/dL High BEDSIDE GLU 301 Result Comment: MANAGEMENT OF PATIENT CARE PER NURSING PROTOCOL Performed By: #### L501.080 #### [facility] Point of Care [address] [place] [address] ABDOMEN/PELVIS WITHOUT Observed: 06/09/2018 Status: F Source: [place] CONT 8:41 AM [facility] REPOSITORY [facility] Imaging Services [address] [place] [address] Abdomen/Pelvis without Cont MR#: [id number] Acct: [id number] Name: LATOSHA LOYOLA Rep #: [id number] : 1955 F 62 From: Angel Craig DO PCP: Gianluca Quarles MD Status: [facility] Study: Abdomen/Pelvis without Cont Date of Exam: 06/09/18 Exam# [id number] Ordering Dr: Zenon Alvarado MD STUDY: CT ABDOMEN AND PELVIS WITHOUT CONTRAST REASON FOR EXAM: Female, 62 years old. Staghorn calculi removal RADIATION DOSAGE (If Supplied By Facility): CTDIvol = ( 19.37 ) mGy, DLP = ( 972.71 ) mGycm TECHNIQUE: Transaxial images were obtained from the dome of the diaphragm to the symphysis pubis without oral contrast, and without intravenous contrast. Sagittal and coronal images were reconstructed. Individualized dose optimization techniques were used for this CT. COMPARISON: April 02, 2018. FINDINGS: The visualized lung bases is a mild pleural effusions, left slightly more than right. Bilateral basilar atelectasis. The visualized portions of the heart are within normal limits. Normal liver. Patient has a history of cholecystectomy. Stable probable gallstones at the gallbladder fossa. No significant dilatation of the extrahepatic biliary system. Normal spleen. Normal pancreas. Normal bilateral adrenal glands. Stable staghorn calculi of the right kidney. Status post surgical removal of large staghorn calculus at the pelvis of the left kidney. Remaining calculi in the left kidney are noted measuring up to 1.2 cm. Left percutaneous nephrostomy catheter is noted with tip at the renal pelvis. A left ureteral stent is in place. Gas within the left pelvicalyceal system and the left retroperitoneal space, likely postsurgically related. Mild left perinephric stranding. Normal visualized stomach. Normal small intestine. Normal colon. The appendix is not visualized. Mildly calcified abdominal aorta. Normal inferior vena cava. Subcentimeter nodes in the retroperitoneum. There is a small amount of intraluminal gas in the urinary bladder. Normal abdominal wall. Degenerative vertebral changes. CT/Abdomen/Pelvis without Cont IMPRESSION: Stable right renal calculi. Postsurgical changes of the left kidney is noted with remaining nonobstructive calculi. Left percutaneous nephrostomy and left ureteral stents are in place. Postsurgical changes in the left retroperitoneum. Focal intraluminal gas in the urinary bladder may be post surgically related as well. Stable calculi within the gallbladder fossa with previous cholecystectomy. Small pleural effusions bilaterally with basilar atelectasis. Subcentimeter retroperitoneal nodes. Electronically Signed: Angel Craig DO at 10:28 EST Tel [phone], Service support , CC: Zenon Alvarado MD; Gianluca Quarles MD Career Coach: Signed BEDSIDE GLUCOSE Collected: 06/09/2018 Status: F Source: [place] 8:29 AM [facility] REPOSITORY TYPE CODE TESTS RESULT OUT OF REFERENCE UNITS RANGE LAB L501.080 70-110 mg/dL High BEDSIDE GLU 193 Result Comment: MANAGEMENT OF PATIENT CARE PER NURSING PROTOCOL Performed By: #### L501.080 #### [facility] Point of Care [address] [place], [place] [id number] BEDSIDE GLUCOSE Collected: 06/09/2018 Status: F Source: [place] 6:28 AM [facility] REPOSITORY TYPE CODE TESTS RESULT OUT OF REFERENCE UNITS RANGE LAB L501.080 70-110 mg/dL High BEDSIDE GLU 180 Result Comment: MANAGEMENT OF PATIENT CARE PER NURSING PROTOCOL Performed By: #### L501.080 #### [facility] Point of Care [address] [place], [place] [id number] CBC W/DIFF, AUTOMATED Collected: 06/09/2018 Status: F Source: [place] 5:50 AM [facility] REPOSITORY TYPE CODE TESTS RESULT OUT OF RANGE REFERENCE UNITS LAB L100.1000 4.4-11.0 K/mm3 High WBC 12.0 LAB L100.1200 4.2-5.4 M/mm3 Low RBC 3.26 LAB L100.1300 12.0-15.0 g/dl Low HGB 8.7 LAB L100.1400 37-47 % Low HCT 27.5 LAB L100.1500 81-99 fL Normal MCV 84.4 LAB L100.1600 27.0-32.0 pg Low MCH 26.7 LAB L100.1700 32-36 g/gl Low MCHC 31.6 LAB L100.1810 11.6-14.6 % High RDW CV 14.9 LAB L100.1820 35.1-43.9 fl High RDW SD 46.5 LAB L100.1900 150-450 K/mm3 Normal PLT 235 LAB L100.2000 6.2-12.0 fl Normal MPV 9.4 LAB L100.2100 47-70 % High NEUT% 74.1 LAB L100.2200 19-41 % Low LY% 15.6 LAB L100.2300 0-10 % Normal MONO% 8.8 LAB L100.2400 0-5 % Normal EO% 0.9 LAB L100.2500 0-1 % Normal BASO% 0.3 LAB L100.2550 0.0-0.9 % Normal IM GRAN % 0.300 Result Comment: IG% - Immature Granulocytes (promyelocytes, myelocytes and metamyelocytes) > 1% indicates that a LEFT SHIFT is Present. LAB L100.2620 2.0-7.7 X10 3/uL High Absolute Neut 8.9 LAB L100.2720 0.83-4.51 X10 3/ul Normal Absolute Lymph 1.87 Performed By: #### L100.0100 #### [facility] [address] [facility] [place], [address] BASIC METABOLIC Collected: 06/09/2018 Status: F Source: [place] PROFILE (BMP) 5:50 AM [facility] REPOSITORY TYPE CODE TESTS RESULT OUT OF RANGE REFERENCE UNITS LAB L501.0100 74-106 mg/dL High GLU 190 Result Comment: Fasting Glucose result greater than or equal to 126 mg/dL suggests DIABETES MELLITUS per A.D.A. criteria. Please note revised GLUCOSE reference range effective 2017. LAB L501.1000 7-18 mg/dL High BUN 19 LAB L501.1100 0.55-1.02 mg/dL Normal CREAT,SERUM 0.82 Result Comment: The validity of the calculated GFR AND GFRAA in patients over 70 years has not been determined. Clinical correlation is essential. LAB L501.1110 >60 mL/min Normal EST GFR 75 Result Comment: Non- GFR Calc LAB L501.1115 >60 mL/min Normal EST GFR - AA 90 Result Comment: GFR Calc LAB L501.1255 ml/min Normal Estimated CRCL 53.68 LAB L501.1300 10-20 RATIO High BUN/CRE 23.1 LAB L501.2200 8.5-10 mg/dL Low .1 CA 8.0 LAB L501.5300 136-14 mmol/L Normal 5 NA 141 LAB L501.5600 3.5-5. mmol/L Normal 1 K 3.9 LAB L501.5900 98-107 mmol/L Normal CL 107 LAB L501.6100 21.0-3 mmol/L Normal 2.0 CO2 27.0 LAB L501.6200 5-15 Normal GAP 7 Performed By: #### L500.2500 #### [facility] [address] [place], [address] BEDSIDE GLUCOSE Collected: 06/08/2018 Status: F Source: [place] 10:22 PM [facility] REPOSITORY TYPE CODE TESTS RESULT OUT OF REFERENCE UNITS RANGE LAB L501.080 70-110 mg/dL High BEDSIDE GLU 177 Result Comment: MANAGEMENT OF PATIENT CARE PER NURSING PROTOCOL Performed By: #### L501.080 #### [facility] Point of Care [address] [place] [address] BEDSIDE GLUCOSE Collected: 06/08/2018 Status: F Source: [place] 4:19 PM [facility] REPOSITORY TYPE CODE TESTS RESULT OUT OF REFERENCE UNITS RANGE LAB L501.080 70-110 mg/dL High BEDSIDE GLU 214 Result Comment: MANAGEMENT OF PATIENT CARE PER NURSING PROTOCOL Performed By: #### L501.080 #### [facility] Point of Care [address] [address] BEDSIDE GLUCOSE Collected: 06/08/2018 Status: F Source: [place] 11:18 AM [facility] REPOSITORY TYPE CODE TESTS RESULT OUT OF REFERENCE UNITS RANGE LAB L501.080 70-110 mg/dL High BEDSIDE GLU 172 Result Comment: MANAGEMENT OF PATIENT CARE PER NURSING PROTOCOL Performed By: #### L501.080 #### [facility] Point of Care [address] [place] [address] CBC-COMPLETE BLOOD CNT Collected: 06/08/2018 Status: F Source: [place] NO DIFF 7:04 AM [facility] REPOSITORY TYPE CODE TESTS RESULT OUT OF RANGE REFERENCE UNITS LAB L100.1000 4.4-11.0 K/mm3 High WBC 13.0 LAB L100.1200 4.2-5.4 M/mm3 Low RBC 2.70 LAB L100.1300 12.0-15.0 g/dl Low HGB 7.0 LAB L100.1400 37-47 % Low HCT 23.7 LAB L100.1500 81-99 fL Normal MCV 87.8 LAB L100.1600 27.0-32.0 pg Low MCH 25.9 LAB L100.1700 32-36 g/gl Low MCHC 29.5 LAB L100.1810 11.6-14.6 % Normal RDW CV 13.8 LAB L100.1820 35.1-43.9 fl Normal RDW SD 42.8 LAB L100.1900 150-450 K/mm3 Normal PLT 274 LAB L100.2000 6.2-12.0 fl Normal MPV 9.8 Performed By: #### L100.0500 #### [facility] [address] [place], [place], [address] BASIC METABOLIC Collected: 06/08/2018 Status: F Source: [place] PROFILE (BMP) 7:04 AM [facility] REPOSITORY TYPE CODE TESTS RESULT OUT OF RANGE REFERENCE UNITS LAB L501.0100 74-106 mg/dL High GLU 223 Result Comment: Glucose result greater than or equal to 200 mg/dL suggests DIABETES MELLITUS per A.D.A. criteria. Please note revised GLUCOSE reference range effective 2017. LAB L501.1000 7-18 mg/dL High BUN 25 LAB L501.1100 0.55-1.02 mg/dL High CREAT,SERUM 1.24 Result Comment: The validity of the calculated GFR AND GFRAA in patients over 70 years has not been determined. Clinical correlation is essential. LAB L501.1110 >60 mL/min Low EST GFR 47 Result Comment: Non- GFR Calc LAB L501.1115 >60 mL/min Low EST GFR - AA 56 Result Comment: GFR Calc LAB L501.1255 ml/min Normal Estimated CRCL 35.50 LAB L501.1300 10-20 RATIO High BUN/CRE 20.2 LAB L501.2200 8.5-10 mg/dL Low .1 CA 7.7 LAB L501.5300 136-14 mmol/L Normal 5 NA 144 LAB L501.5600 3.5-5. mmol/L Normal 1 K 4.5 LAB L501.5900 98-107 mmol/L High CL 109 LAB L501.6100 21.0-3 mmol/L Normal 2.0 CO2 27.0 LAB L501.6200 5-15 Normal GAP 8 Performed By: #### L500.2500 #### [facility] [address] [place], [address] BEDSIDE GLUCOSE Collected: 06/07/2018 Status: F Source: [place] 7:25 PM [facility] REPOSITORY TYPE CODE TESTS RESULT OUT OF REFERENCE UNITS RANGE LAB L501.080 70-110 mg/dL High BEDSIDE GLU 231 Result Comment: MANAGEMENT OF PATIENT CARE PER NURSING PROTOCOL Performed By: #### L501.080 #### [facility] Point of Care [address] [place], [place] [id number] CBC-COMPLETE BLOOD CNT Collected: 06/07/2018 Status: F Source: [place] NO DIFF 5:54 PM [facility] REPOSITORY Order Comment: Comments: To be done in PACU TYPE CODE TESTS RESULT OUT OF RANGE REFERENCE UNITS LAB L100.1000 4.4-11.0 K/mm3 High WBC 14.3 LAB L100.1200 4.2-5.4 M/mm3 Low RBC 3.42 LAB L100.1300 12.0-15.0 g/dl Low HGB 8.9 LAB L100.1400 37-47 % Low HCT 29.2 LAB L100.1500 81-99 fL Normal MCV 85.4 LAB L100.1600 27.0-32.0 pg Low MCH 26.0 LAB L100.1700 32-36 g/gl Low MCHC 30.5 LAB L100.1810 11.6-14.6 % Normal RDW CV 14.3 LAB L100.1820 35.1-43.9 fl High RDW SD 44.3 LAB L100.1900 150-450 K/mm3 Normal PLT 306 LAB L100.2000 6.2-12.0 fl Normal MPV 9.0 Performed By: #### L100.0500 #### [facility] [address] [place], [place], [address] BASIC METABOLIC Collected: 06/07/2018 Status: F Source: [place] PROFILE (BMP) 5:54 PM [facility] REPOSITORY Order Comment: Comments: To be done in PACU TYPE CODE TESTS RESULT OUT OF RANGE REFERENCE UNITS LAB L501.0100 74-106 mg/dL High GLU 256 Result Comment: Glucose result greater than or equal to 200 mg/dL suggests DIABETES MELLITUS per A.D.A. criteria. Please note revised GLUCOSE reference range effective 2017. LAB L501.1000 7-18 mg/dL High BUN 19 LAB L501.1100 0.55-1.02 mg/dL Normal CREAT,SERUM 0.92 Result Comment: The validity of the calculated GFR AND GFRAA in patients over 70 years has not been determined. Clinical correlation is essential. LAB L501.1110 >60 mL/min Normal EST GFR 65 Result Comment: Non- GFR Calc LAB L501.1115 >60 mL/min Normal EST GFR - AA 79 Result Comment: GFR Calc LAB L501.1255 ml/min Normal Estimated CRCL 47.84 LAB L501.1300 10-20 RATIO High BUN/CRE 20.6 LAB L501.2200 8.5-10 mg/dL Low .1 CA 7.8 LAB L501.5300 136-14 mmol/L Normal 5 NA 142 LAB L501.5600 3.5-5. mmol/L Normal 1 K 3.9 LAB L501.5900 98-107 mmol/L High CL 109 LAB L501.6100 21.0-3 mmol/L Normal 2.0 CO2 25.0 LAB L501.6200 5-15 Normal GAP 8 Performed By: #### L500.2500 #### [facility] [address] [facility] [place], [address] BEDSIDE GLUCOSE Collected: 06/07/2018 Status: F Source: [place] 5:46 PM [facility] REPOSITORY TYPE CODE TESTS RESULT OUT OF REFERENCE UNITS RANGE LAB L501.080 70-110 mg/dL High BEDSIDE GLU 232 Result Comment: MANAGEMENT OF PATIENT CARE PER NURSING PROTOCOL Performed By: #### L501.080 #### [facility] Point of Care [address] [facility] [place] [address] OPERATIVE REPORT Observed: 06/07/2018 Status: F Source: [place] 5:23 PM [facility] REPOSITORY [facility] Medical Records Department [address] [place] [address] Operative Report 06/07/18 1716 MR#: [id number] Acct: [id number] Name: LATOSHA LOYOLA Rep #: [id number] : 1955 62 From: Zenon Alvarado MD PCP: Gianluca Quarles MD Status: REG [facility] Location: [place] [address] Report of Operation Date of Procedure: 06/07/18 Pre-Operative Diagnosis: Large left staghorn calculi branching Post-Operative Diagnosis: The same Surgery/Procedure Performed:: Cystoscopy left ureteroscopy laser lithotripsy of stone at the UPJ, percutaneous axis of the left kidney 2 tracts were performed, percutaneous nephrostolithotomy for a large staghorn branching calculus, nephrostogram, placement of a stent and placement of nephrostomy tube Description of Surgical Findings:: 62-year-old female has a very large stone in the left kidney she has a bifid system single ureter and then at the UPJ there was a stone and then she had stone fragments in the lower pole of the left kidney and then a long fragment in the upper pole of the left kidney. She was taken back to the operating room after smooth induction of general anesthesia was placed supine on the table I then went into the bladder with a 21 [place] rigid cystourethroscope advanced a wire all the way up wire hit the stone was impacted would go past the stone I then left the wire in place went in with a axis sheath but the access sheath up to the stone and then went in with the ureteroscope and then started lasering the stone, and then I tried to reposition the access sheath but in doing this small tear occurred in the renal pelvis near the UPJ junction area I then went back in with the laser lasered some more until is able to get past the stone blocking the UPJ area I found the upper pole of the left kidney we then left the axis sheath then we repositioned the patient then face down on the lithotripter table and then using to regulation technique I established the first axis tube to the upper pole of the kidney I then came down to the upper pole and using ultrasonic lithotripter remove the stone completely and once I did this in a went to the pelvis and remove the stone as much as possible the pelvis I then left the tract in and then performed a second track in the lower pole of the kidney this track went into the lower pole calyx with a lot of fragments in the lower pole calyx I used ultrasonic lithotripter to get rid of all these fragments and then went into the pelvis and then recognized that there was a tear in the pelvis and some of the fragments were migrated outside the kidney and through the tear on the outside the kidney did my best attempt to retrieve as many of the fragments as possible but was not able to get all the fragments of fragments escaped outside the kidney through this small tear in the renal pelvis right above the UPJ after completing laser lithotripsy and ultrasonic lithotripsy of all the stones in the lower pole and in the UPJ area I then attempted to place a stent top down but because of the disruption of the UPJ and disruption of the pelvis it was very difficult to do this so decided to leave the nephrostomy tube which we did a nephrostogram that confirmed extravasation from the renal pelvis and then flipped the patient back prone face up the urethra vaginal area prepped and draped in usual sterile fashion went into the bladder with a 21 [place] rigid ureteroscope advanced a wire up into the kidney on the left side however I wanted to make 100% sure that the wire was in the kidney and not in through the UPJ area of disruption so I performed ureteroscopy and I got to the upper pole of the kidney confirmed this by retrograde in the left the wire in there and then over the wire I was placed a 6 [place] by 26 cm stent pulled the wire the stent coiled in the kidney and the upper pole of the kidney and nicely this will bridge the area nicely allow the tear the renal pelvis to heal properly the stones that fell out to the renal pelvis would not be needed to be retrieved I explained this to the family. All the major fragments were removed at this point because of the tear in the UPJ probably will need to leave the stent in for at least 6 weeks to make sure that the kidney heals up properly and want to bring her back for ureteroscopy to inspect the kidney then make sure that there is no permanent injury to the kidney and to make sure that the kidney is repaired healed a properly over the stent. We left the nephrostomy tube and the patient left the catheter the patient patient's anesthetic is currently being reversed blood loss is relatively minimal and was able to get all the stones out few fragments are still in both kidneys I may have to these may require some subsequent treatment down the road probably will perform laser lithotripsy in about 6 weeks in the left kidney and then proceed with the treatment of the stones in the right kidney. Type of Anesthesia:: General Drains: nephrostomy tube, stent - Admit VTE Documentation VTE Present on Admission: No 06/07/18 8630 <Electronically signed by Zenon Alvarado MD> Date Zenon Alvarado MD CC: Zenon Alvarado MD; Gianluca Quarles MD Signed BEDSIDE GLUCOSE Collected: 06/07/2018 Status: F Source: [place] 9:54 AM [facility] REPOSITORY TYPE CODE TESTS RESULT OUT OF REFERENCE UNITS RANGE LAB L501.080 70-110 mg/dL High BEDSIDE GLU 138 Result Comment: MANAGEMENT OF PATIENT CARE PER NURSING PROTOCOL Performed By: #### L501.080 #### [facility] Point of Care Marvel Cardenas [place], [place] [id number] CALCULI, URINARY W / Collected: 06/07/2018 Status: F Source: [place] PHOTO 12:00 AM [facility] REPOSITORY Order Comment: Comments: LEFT KIDNEY STONE TYPE CODE TESTS RESULT OUT OF RANGE REFERENCE UNITS LAB L3650.0200 . Normal COLOR [place] LAB L3650.0300 . mm Normal SIZE Comment Result Comment: Specimens received as a mixture of whole stones and fragments. LAB L3650.0400 . mg Normal WEIGHT 248.8 LAB L3650.0500 . Normal . Comment Result Comment: Percentage (Represents the % composition) LAB L3650.0600 . CA OXAL DIHYDR Test not Normal performed LAB L3650.0700 . % CA OXAL 17 Normal [place] LAB L3650.0800 . % CA PHOSPHATE 03 Normal LAB L3650.0900 . MAG POLI PHOS Test not Normal performed LAB L3650.1000 . % URIC ACID 80 Normal LAB L3650.1100 . URIC ACID Test not Normal DIHYD performed LAB L3650.1200 . AMM ACID URATE Test not Normal performed LAB L3650.1300 . NA ACID URATE Test not Normal performed LAB L3650.1400 . CA HYDROG PHOS Test not Normal performed LAB L3650.1500 . CYSTINE Test not Normal performed LAB L3650.1600 . CHOLESTEROL Test not Normal performed LAB L3650.1700 . CA Test not Normal BILIRUBINATE performed LAB L3650.1800 . CA CARBONATE Test not Normal performed LAB L3650.1900 . TRIAMTERENE Test not Normal performed LAB L3650.2000 . NEWBERYITE Test not Normal performed LAB L3650.2100 . DRIED BLOOD Test not Normal performed LAB L3650.2200 . CELL MATERIAL Test not Normal performed LAB L3650.2250 . NIDUS No Nidus Normal visualized LAB L3650.2325 . SHELL Test not Normal performed LAB L3650.2350 . SURFACE Test not Normal CRYSTAL performed LAB L3650.2400 . COMMENT Test not Normal performed LAB L3650.2500 . COMMENT Test not Normal performed LAB L3650.2600 . PHOTO Comment Normal Result Comment: Photograph will follow under separate cover. LAB L3650.2700 . Normal COMMENT Comment Result Comment: Physician questions regarding Calculi Analysis contact [facility] at: [phone]. LAB L3650.2800 . Normal COMMENT Comment Result Comment: Calculi report with photograph will follow via computer, mail or development administrator delivery. LAB L3650.2900 . Normal Disclaimer Comment Result Comment: This test was developed and its performance characteristics determined by [facility]. It has not been cleared or approved by the Food and Drug Administration. Performed at: [address] [id number] [employer]: Mc Cortez MD, Phone: [phone] Performed By: #### L3650.0100 #### [facility] (refer to report for specific site) refer to report for address and phone number CBC W/DIFF, AUTOMATED Collected: 06/05/2018 Status: F Source: [place] 12:00 PM [facility] REPOSITORY TYPE CODE TESTS RESULT OUT OF RANGE REFERENCE UNITS LAB L100.1000 4.4-11.0 K/mm3 Normal WBC 9.1 LAB L100.1200 4.2-5.4 M/mm3 Low RBC 3.98 LAB L100.1300 12.0-15.0 g/dl Low HGB 10.3 LAB L100.1400 37-47 % Low HCT 33.9 LAB L100.1500 81-99 fL Normal MCV 85.2 LAB L100.1600 27.0-32.0 pg Low MCH 25.9 LAB L100.1700 32-36 g/gl Low MCHC 30.4 LAB L100.1810 11.6-14.6 % Normal RDW CV 14.2 LAB L100.1820 35.1-43.9 fl High RDW SD 44.1 LAB L100.1900 150-450 K/mm3 Normal PLT 347 LAB L100.2000 6.2-12.0 fl Normal MPV 9.3 LAB L100.2100 47-70 % Normal NEUT% 65.3 LAB L100.2200 19-41 % Normal LY% 22.7 LAB L100.2300 0-10 % Normal MONO% 6.3 LAB L100.2400 0-5 % Normal EO% 4.9 LAB L100.2500 0-1 % Normal BASO% 0.6 LAB L100.2550 0.0-0.9 % Normal IM GRAN % 0.200 Result Comment: IG% - Immature Granulocytes (promyelocytes, myelocytes and metamyelocytes) > 1% indicates that a LEFT SHIFT is Present. LAB L100.2620 2.0-7.7 X10 3/uL Normal Absolute Neut 5.9 LAB L100.2720 0.83-4.51 X10 3/ul Normal Absolute Lymph 2.06 Performed By: #### L100.0100 #### [facility] [address] [place], [address] BASIC METABOLIC Collected: 06/05/2018 Status: F Source: [place] PROFILE ([facility]) 12:00 PM [facility] REPOSITORY TYPE CODE TESTS RESULT OUT OF RANGE REFERENCE UNITS LAB L501.0100 74-106 mg/dL High GLU 147 Result Comment: Fasting Glucose result greater than or equal to 126 mg/dL suggests DIABETES MELLITUS per A.D.A. criteria. Please note revised GLUCOSE reference range effective 2017. LAB L501.1000 7-18 mg/dL High BUN 23 LAB L501.1100 0.55-1.02 mg/dL Normal CREAT,SERUM 0.89 Result Comment: The validity of the calculated GFR AND GFRAA in patients over 70 years has not been determined. Clinical correlation is essential. LAB L501.1110 >60 mL/min Normal EST GFR 68 Result Comment: Non- GFR Calc LAB L501.1115 >60 mL/min Normal EST GFR - AA 83 Result Comment: GFR Calc LAB L501.1255 ml/min Normal Estimated CRCL 49.46 LAB L501.1300 10-20 RATIO High BUN/CRE 25.8 LAB L501.2200 8.5-10 mg/dL Normal .1 CA 9.0 LAB L501.5300 136-14 mmol/L Normal 5 NA 143 LAB L501.5600 3.5-5. mmol/L Normal 1 K 4.2 LAB L501.5900 98-107 mmol/L High CL 109 LAB L501.6100 21.0-3 mmol/L Normal 2.0 CO2 27.0 LAB L501.6200 5-15 Normal GAP 7 Performed By: #### L500.2500 #### [facility] [address] [place], [address] URINALYSIS, COMPLETE Collected: 06/05/2018 Status: F Source: [place] 12:00 PM [facility] REPOSITORY Order Comment: How was Urine Obtained? CLEAN CATCH TYPE CODE TESTS RESULT OUT OF RANGE REFERENCE UNITS LAB L400.3000 Yellow COLOR Normal Yellow LAB L400.3050 Clear Normal CLARITY Clear LAB L400.3200 Normal mg/dl Normal GLUCOSE, UR Normal LAB L400.3300 Negative mg/dL Normal BILIRUBIN URINE Negative LAB L400.3400 Negative mg/dl High 5 KETONE UR LAB L400.3465 1.002-1.030 Normal SP.GR. DIPSTX 1.020 LAB L400.3550 5.0 - 8.0 pH UR Normal 5.0 LAB L400.3600 Negative mg/dl High PROT DIPSTX 100 LAB L400.3700 Normal mg/dl Normal UROBILI Normal LAB L400.3750 Negative Normal NITRITE UR Negative LAB L400.3780 Negative /ul High OCCULT BLOOD-UR 250 LAB L400.3800 Negative /ul High LEUK ESTERASE 100 LAB L400.4050 0-5 /hpf WBC Normal 0-5 SEEN LAB L400.4100 0-5 /hpf > Normal RBC-UA 100 SEEN LAB L400.4150 5-10 /hpf SQUAM Normal EPI 5-10 SEEN LAB L400.4300 None Seen /hpf 0 Normal BACTERIA SEEN LAB L400.4350 <or=2+ /hpf 0 Normal MUCUS, URINE SEEN Performed By: #### L400.0001 #### [facility] [address] [place], [place], [address] TYPE AND SCREEN Collected: 06/05/2018 Status: F Source: [place] 12:00 PM [facility] REPOSITORY Order Comment: CMV NEG? N Reason for Ordering Blood: Acute Are the blood/blood products to be transfused? N Is the patient having/had surgery? Y Irradiated? N Leukodepleted? Y Type of Surgery: OTHER TYPE CODE TESTS RESULT OUT OF RANGE REFERENCE UNITS LAB B10.0800 B Normal BLOOD TYPE GEL POSITIVE LAB B100.4000 Normal Antibody NEGATIVE Screen Performed By: #### B101.7450 #### [facility] [address] [place], [address] Collected: 06/05/2018 Status: F Source: [place] 12:00 PM [facility] REPOSITORY TYPE CODE TESTS RESULT OUT OF REFERENCE UNITS RANGE LAB U100.0000 [id number] TRANSFUSED PRODUCT: T AND S with Crossmatch, Red Cells COUNT: 2 Performed By: #### U100.0000 #### Non-[facility] - refer to report for specific site CHEST PA AND LATERAL Observed: 06/05/2018 Status: F Source: [place] 11:59 AM [facility] REPOSITORY [facility] Services [address] [place] [address] Chest PA and Lateral MR#: [id number] Acct: [id number] Name: LATOSHA LOYOLA Rep #: [id number] : 1955 F 62 From: Rogelio Perez MD PCP: Gianluca Quarles MD Status: PRE [facility] Study: Chest PA and Lateral Date of Exam: 06/05/18 Exam# [id number] Ordering Dr: Zenon Alvarado MD STUDY: X-RAY CHEST REASON FOR EXAM: Female, 62 years old. Shortness of breath and dyspnea. TECHNIQUE: PA and lateral views of the chest. COMPARISON: None. FINDINGS: The lungs are clear and expanded. There is no demonstrated pleural abnormality. Normal size heart. A left-sided dual-chamber pacemaker is seen. Normal mediastinum and cordell. Normal visualized pulmonary arteries. Normal visualized aortic arch and descending thoracic aorta. There are degenerative changes of the visualized thoracic spine. Calcific tendinitis of the left shoulder. Multiple calcified gallstones are seen in the gallbladder. RAD/Chest PA and Lateral IMPRESSION: No acute abnormality is seen. Electronically Signed: Rogelio Perez MD at 12:35 EST Tel [phone], Service support , CC: Zenon Alvarado MD; Gianluca Quarles MD Career Coach: Signed XR CHEST 2 VIEWS Observed: 05/16/2018 Status: F Source: [facility] 9:38 AM [facility] REPOSITORY ORIGINAL XR CHEST 2 VIEWS CLINICAL STATEMENT: Evaluate for pneumothorax/lead position post pacer/ICD insertion. COMPARISON: 05/15/2018 FINDINGS: The cardiomediastinal contours are normal. The aorta is atherosclerotic. There is a left-sided pacemaker with leads projecting over the RIGHT atrium and RIGHT ventricle. No focal consolidation , pleural effusion, vascular congestion, or pneumothorax is identified. There are mild degenerative changes present in the spine. IMPRESSION: No pneumothorax status post pacer placement. Interpreted By: Sherrell Begum MD Preliminary Report By: Sherrell Begum MD Electronically Signed By: Sherrell Begum MD Dictated Date: 05/16/2018 9:49:12 AM Prelim Date: 05/16/2018 9:49:12 AM Sign Date: 05/16/2018 9:49:52 AM CBC Collected: 05/16/2018 Status: F Source: [facility] 7:04 AM [facility] REPOSITORY TYPE CODE TESTS RESULT OUT OF REFERENCE UNITS RANGE LAB WBC(LOINC) 4.50-10.80 10 3/mcL WBC 10.30 LAB RBCCT(LOINC 4.10-5.30 10 6/mcL ) RBC 4.47 LAB HGB(LOINC) 12.0-16.0 G/dL Hgb 12.1 LAB HCT(LOINC) 34.0-46.0 % Hct 37.3 LAB MCV(LOINC) 80.0-99.0 fL MCV 83.5 LAB MCH(LOINC) 27.0-33.0 pg MCH 27.0 LAB MCHC(LOINC) 32.0-36.0 G/dL MCHC 32.3 LAB RDW(LOINC) 11.5-15.5 % RDW 14.7 LAB PLT(LOINC) 150-450 10 3/mcL Platelet 355 LAB MPV(LOINC) 6.6-10.5 fL MPV 7.9 Performed By: #### ANEU, BMP, CBC, ADIFF, GFR #### [address] [address] .AUTO DIFF Collected: 05/16/2018 Status: F Source: [facility] 7:04 AM [facility] REPOSITORY TYPE CODE TESTS RESULT OUT OF REFERENCE UNITS RANGE LAB LONA(LOINC) 50.0-75.0 % Neutrophil % 62.3 LAB LYM(LOINC) 20.0-40.0 % Lymphocyte % 25.7 LAB MON(LOINC) 2.0-13.0 % Monocyte % 8.7 LAB EO(LOINC) 0.0-6.0 % Eosinophil % 2.5 LAB BAS(LOINC) 0.0-2.5 % Basophil % 0.8 LAB ABLYM(LOIN 0.90-4.32 10 3/mcL C) Lymphocyte, 2.70 Absolute LAB THONG(LOINC 0.09-1.40 10 3/mcL ) Monocyte, 0.90 Absolute LAB AEOS(LOINC 0.00-0.65 10 3/mcL ) Eosinophil, 0.30 Absolute LAB ABAS(LOINC 0.00-0.27 10 3/mcL ) Basophil, 0.10 Absolute Performed By: #### ANEU, BMP, CBC, ADIFF, GFR #### [address] [address] .NEUABS Collected: 05/16/2018 Status: F Source: [facility] 7:04 [facility] REPOSITORY TYPE CODE TESTS RESULT OUT OF REFERENCE UNITS RANGE LAB ANEU(LOINC) 2.25-8.10 10 3/mcL Neutrophil, 6.40 Absolute Performed By: #### ANEU, BMP, CBC, ADIFF, GFR #### [place] [address] BMP Collected: 05/16/2018 Status: F Source: [facility] 7:04 [facility] REPOSITORY TYPE CODE TESTS RESULT OUT OF REFERENCE UNITS RANGE LAB GLU(LOINC) 82-115 mg/dL Glucose High Level 166 LAB NA(LOINC) 136-145 mEq/L Sodium Level 142 LAB K(LOINC) 3.5-5.0 mEq/L Potassium Level 4.2 LAB CL(LOINC) 98-110 mEq/L Chloride 107 LAB CO2(LOINC) 22-32 mEq/L CO2 25 LAB EBAL(LOINC 4.0-15.0 mEq/L ) Electrolyte Balance 10.0 LAB BUN(LOINC) 8.0-22.0 mg/dL BUN 21.0 LAB CRE(LOINC) 0.50-1.20 mg/dL Creatinine Lvl (s) 0.74 LAB BC(LOINC) 10.0-22.0 ratio High BUN/Creatinine 28.4 Ratio LAB CA(LOINC) 8.4-10.1 mg/dL Calcium Lvl 8.5 Performed By: #### ANEU, BMP, CBC, ADIFF, GFR #### [place] [address] .GFR Collected: 05/16/2018 Status: F Source: [facility] 7:04 AM [facility] REPOSITORY TYPE CODE TESTS RESULT OUT OF REFERENCE UNITS RANGE LAB GFRAA(LOINC ml/min/1.73 ) sqm GFR >60 Citizen Of [place] Result Comment: GFR Population mean for , Non- Americans Ages 20-29 = 116 mL/min/1.73 sq.m. Ages 30-39 = 107 mL/min/1.73 sq.m. Ages 40-49 = 99 mL/min/1.73 sq.m. Ages 50-59 = 93 mL/min/1.73 sq.m. Ages 60-69 = 85 mL/min/1.73 sq.m. Ages 70+ = 75 mL/min/1.73 sq.m. Chronic Kidney Disease: Less than 60 mL/min/1.73 square meters End Stage Renal Disease: Less than 15 mL/min/1.73 square meters LAB GFRNO(LOINC) ml/min/1.73sqm GFR Non- >60 Result Comment: GFR Population mean for , Non- Americans Ages 20-29 = 116 mL/min/1.73 sq.m. Ages 30-39 = 107 mL/min/1.73 sq.m. Ages 40-49 = 99 mL/min/1.73 sq.m. Ages 50-59 = 93 mL/min/1.73 sq.m. Ages 60-69 = 85 mL/min/1.73 sq.m. Ages 70+ = 75 mL/min/1.73 sq.m. Chronic Kidney Disease: Less than 60 mL/min/1.73 square meters End Stage Renal Disease: Less than 15 mL/min/1.73 square meters Performed By: #### ANEU, BMP, CBC, ADIFF, GFR #### [place] [id number] [address] [place] [id number] XR CHEST 1 VIEW Observed: 05/15/2018 Status: F Source: [facility] 4:30 PM [facility] REPOSITORY ORIGINAL Chest one view 3:44 PM 05/15/2018 HISTORY: ICD insertion COMPARISON: Outside exam 05/13/2018 ICD overlies axillary aspect of the LEFT upper lobe. Wires are at the RIGHT atrium and the RIGHT ventricular apex. No pneumothorax is visible. The heart and pulmonary vessels are normal. The lungs are c lear and there is no pleural fluid seen. Interpreted By: Darren Copeland MD Preliminary Report By: Darren Copeland MD Electronically Signed By: Darren Copeland MD Dictated Date: 05/15/2018 4:06:07 PM Prelim Date: 05/15/2018 4:06:07 PM Sign Date: 05/15/2018 4:06:43 PM MG Collected: 05/15/2018 Status: F Source: [facility] 7:11 AM [facility] REPOSITORY TYPE CODE TESTS RESULT OUT OF REFERENCE UNITS RANGE LAB MG(LOINC) 1.6-2.4 mg/dL Magnesium Lvl 1.7 Performed By: #### TSH, THYAB, CBC, ANEU, FT4, MG, ADIFF, TSIG, FT3, CMP, GFR #### [place] [id number] [address] [place] [id number] CMP Collected: 05/15/2018 Status: F Source: [facility] 7:11 AM [facility] REPOSITORY TYPE CODE TESTS RESULT OUT OF REFERENCE UNITS RANGE LAB GLU(LOINC) 82-115 mg/dL Glucose High Level 178 LAB NA(LOINC) 136-145 mEq/L Sodium Level 144 LAB K(LOINC) 3.5-5.0 mEq/L Potassium Level 3.9 LAB CL(LOINC) 98-110 mEq/L Chloride 109 LAB CO2(LOINC) 22-32 mEq/L CO2 28 LAB EBAL(LOINC 4.0-15.0 mEq/L ) Electrolyte Balance 7.0 LAB BUN(LOINC) 8.0-22.0 mg/dL BUN 20.0 LAB CRE(LOINC) 0.50-1.20 mg/dL Creatinine Lvl (s) 0.80 LAB BC(LOINC) 10.0-22.0 ratio High BUN/Creatinine 25.0 Ratio LAB CA(LOINC) 8.4-10.1 mg/dL Low Calcium Lvl 8.1 LAB PROT(LOINC 6.0-8.5 G/dL ) Total Protein 6.5 LAB ALB(LOINC) 3.2-4.8 G/dL Low Albumin Level 3.0 LAB GLB(LOINC) 1.5-3.8 G/dL Globulin 3.5 LAB AG(LOINC) 0.9-1.6 ratio A/G Ratio 0.9 LAB BILT(LOINC 0.2-1.2 mg/dL ) Bili Total 0.3 LAB AP(LOINC) 38-126 U/L Alk Phos 72 LAB AST(LOINC) 8-34 U/L AST/SGOT 13 LAB ALT(LOINC) 10-49 U/L ALT/SGPT 29 Performed By: #### TSH, THYAB, CBC, ANEU, FT4, MG, ADIFF, TSIG, FT3, CMP, GFR #### [place] [address] .GFR Collected: 05/15/2018 Status: F Source: [facility] 7:11 AM [facility] REPOSITORY TYPE CODE TESTS RESULT OUT OF REFERENCE UNITS RANGE LAB GFRAA(LOINC ml/min/1.73 ) sqm GFR >60 Citizen Of [place] Result Comment: GFR Population mean for , Non- Americans Ages 20-29 = 116 mL/min/1.73 sq.m. Ages 30-39 = 107 mL/min/1.73 sq.m. Ages 40-49 = 99 mL/min/1.73 sq.m. Ages 50-59 = 93 mL/min/1.73 sq.m. Ages 60-69 = 85 mL/min/1.73 sq.m. Ages 70+ = 75 mL/min/1.73 sq.m. Chronic Kidney Disease: Less than 60 mL/min/1.73 square meters End Stage Renal Disease: Less than 15 mL/min/1.73 square meters LAB GFRNO(LOINC) ml/min/1.73sqm GFR Non- >60 Result Comment: GFR Population mean for , Non- Americans Ages 20-29 = 116 mL/min/1.73 sq.m. Ages 30-39 = 107 mL/min/1.73 sq.m. Ages 40-49 = 99 mL/min/1.73 sq.m. Ages 50-59 = 93 mL/min/1.73 sq.m. Ages 60-69 = 85 mL/min/1.73 sq.m. Ages 70+ = 75 mL/min/1.73 sq.m. Chronic Kidney Disease: Less than 60 mL/min/1.73 square meters End Stage Renal Disease: Less than 15 mL/min/1.73 square meters Performed By: #### TSH, THYAB, CBC, ANEU, FT4, MG, ADIFF, TSIG, FT3, CMP, GFR #### [place] [address] CBC Collected: 05/15/2018 Status: F Source: [facility] 7:11 AM [facility] REPOSITORY TYPE CODE TESTS RESULT OUT OF REFERENCE UNITS RANGE LAB WBC(LOINC) 4.50-10.80 10 3/mcL WBC 9.00 LAB RBCCT(LOINC 4.10-5.30 10 6/mcL ) Low RBC 3.94 LAB HGB(LOINC) 12.0-16.0 G/dL Low Hgb 10.4 LAB HCT(LOINC) 34.0-46.0 % Low Hct 32.6 LAB MCV(LOINC) 80.0-99.0 fL MCV 82.8 LAB MCH(LOINC) 27.0-33.0 pg Low MCH 26.3 LAB MCHC(LOINC) 32.0-36.0 G/dL Low MCHC 31.8 LAB RDW(LOINC) 11.5-15.5 % RDW 14.5 LAB PLT(LOINC) 150-450 10 3/mcL Platelet 333 LAB MPV(LOINC) 6.6-10.5 fL MPV 8.1 Performed By: #### TSH, THYAB, CBC, ANEU, FT4, MG, ADIFF, TSIG, FT3, CMP, GFR #### [place] [id number] .AUTO DIFF Collected: 05/15/2018 Status: F Source: [facility] 7:11 AM [facility] REPOSITORY TYPE CODE TESTS RESULT OUT OF REFERENCE UNITS RANGE LAB LONA(LOINC) 50.0-75.0 % Neutrophil % 59.9 LAB LYM(LOINC) 20.0-40.0 % Lymphocyte % 28.2 LAB MON(LOINC) 2.0-13.0 % Monocyte % 7.4 LAB EO(LOINC) 0.0-6.0 % Eosinophil % 3.9 LAB BAS(LOINC) 0.0-2.5 % Basophil % 0.6 LAB ABLYM(LOIN 0.90-4.32 10 3/mcL C) Lymphocyte, 2.50 Absolute LAB THONG(LOINC 0.09-1.40 10 3/mcL ) Monocyte, 0.70 Absolute LAB AEOS(LOINC 0.00-0.65 10 3/mcL ) Eosinophil, 0.30 Absolute LAB ABAS(LOINC 0.00-0.27 10 3/mcL ) Basophil, 0.10 Absolute Performed By: #### TSH, THYAB, CBC, ANEU, FT4, MG, ADIFF, TSIG, FT3, CMP, GFR #### [address] [address] .NEUABS Collected: 05/15/2018 Status: F Source: [facility] 7:11 AM [facility] REPOSITORY TYPE CODE TESTS RESULT OUT OF REFERENCE UNITS RANGE LAB ANEU(LOINC) 2.25-8.10 10 3/mcL Neutrophil, 5.40 Absolute Performed By: #### TSH, THYAB, CBC, ANEU, FT4, MG, ADIFF, TSIG, FT3, CMP, GFR #### [address] [address] TSH Collected: 05/15/2018 Status: F Source: [facility] 7:11 AM [facility] REPOSITORY TYPE CODE TESTS RESULT OUT OF RANGE REFERENCE UNITS LAB TSH(LOINC) 0.360-3.740 mcIU/mL TSH 0.880 Result Comment: Please note as of 01/20/17 new pediatric reference intervals were added for this test. Performed By: #### TSH, THYAB, CBC, ANEU, FT4, MG, ADIFF, TSIG, FT3, CMP, GFR #### [address] [address] FT4 Collected: 05/15/2018 Status: F Source: [facility] 7:11 AM [facility] REPOSITORY TYPE CODE TESTS RESULT OUT OF RANGE REFERENCE UNITS LAB FT4(LOINC) 0.60-1.70 ng/dL Free T4 1.22 Result Comment: Please note as of 01/20/17 new pediatric reference intervals were added for this test. Performed By: #### TSH, THYAB, CBC, ANEU, FT4, MG, ADIFF, TSIG, FT3, CMP, GFR #### [place] [id number] FT3 Collected: 05/15/2018 Status: F Source: [facility] 7:11 AM [facility] REPOSITORY TYPE CODE TESTS RESULT OUT OF RANGE REFERENCE UNITS LAB FT3(LOINC) 2.30-4.20 pg/mL Free T3 2.69 Result Comment: Please note as of 01/20/17 new pediatric reference intervals were added for this test. Performed By: #### TSH, THYAB, CBC, ANEU, FT4, MG, ADIFF, TSIG, FT3, CMP, GFR #### [place] [id number] THYAB Collected: 05/15/2018 Status: F Source: [facility] 7:11 AM [facility] REPOSITORY TYPE CODE TESTS RESULT OUT OF REFERENCE UNITS RANGE LAB THYRG(LOIN 0-40 IU/mL C) Thyroglobulin Ab <20 LAB MCRSO(LOIN 0-35 IU/mL C) Microsomal Ab <10 Result Comment: This result represents Anti-TPO antibodies which are synonymous with microsomal antibodies. Performed By: #### TSH, THYAB, CBC, ANEU, FT4, MG, ADIFF, TSIG, FT3, CMP, GFR #### [address] [address] TSI Collected: 05/15/2018 Status: F Source: [facility] 7:11 AM [facility] REPOSITORY TYPE CODE TESTS RESULT OUT OF REFERENCE UNITS RANGE LAB TSI(LOINC) <150 Thyroid Stim. <13 Imm-Glob. Result Comment: Performed By: [facility] [address] [place] [address] [employer]: Tonia Harris#: [id number] Phone#: Performed By: #### TSH, THYAB, CBC, ANEU, FT4, MG, ADIFF, TSIG, FT3, CMP, GFR #### [place] [address] MG Collected: 05/14/2018 Status: F Source: [facility] 11:04 AM [facility] REPOSITORY Order Comment: Add to prev blood draw TYPE CODE TESTS RESULT OUT OF REFERENCE UNITS RANGE LAB MG(LOINC) 1.6-2.4 mg/dL Magnesium Lvl 1.7 Performed By: #### MG, PHOS #### [place] [address] PHOS Collected: 05/14/2018 Status: F Source: [facility] 11:04 AM [facility] REPOSITORY Order Comment: Add to prev blood draw TYPE CODE TESTS RESULT OUT OF REFERENCE UNITS RANGE LAB PHOS(LOINC 2.5-4.5 mg/dL ) Phosphorus 3.4 Performed By: #### MG, PHOS #### [place] [address] TROPI Collected: 05/14/2018 Status: F Source: [facility] 9:22 AM [facility] REPOSITORY TYPE CODE TESTS RESULT OUT OF REFERENCE UNITS RANGE LAB TROPI(LOINC 0.000-0.040 ng/mL ) Troponin I 0.028 Result Comment: Troponin I reference ranges (03/16/14): 0.00-0.040 ng/mL Negative and non-diagnostic. >0.040 ng/mL Consistent with cardiac damage, increased clinical risk and possibility of myocardial infarction. Serial measurements, a rise & fall in test results, clinical history, appropriate symptoms and/or ECG changes may help assess possibility of MN. *Other non-acute coronary syndrome conditions such as CHF, myocarditis, pulmonary emboli, sepsis and cardiac surgery could result in myocardial damage and increased troponin levels. Performed By: #### TROPI #### [place] [address] CBC Collected: 05/14/2018 Status: F Source: [facility] 3:09 AM [facility] REPOSITORY TYPE CODE TESTS RESULT OUT OF REFERENCE UNITS RANGE LAB WBC(LOINC) 4.50-10.80 10 3/mcL WBC 8.90 LAB RBCCT(LOINC 4.10-5.30 10 6/mcL ) Low RBC 3.80 LAB HGB(LOINC) 12.0-16.0 G/dL Low Hgb 10.3 LAB HCT(LOINC) 34.0-46.0 % Low Hct 31.5 LAB MCV(LOINC) 80.0-99.0 fL MCV 82.9 LAB MCH(LOINC) 27.0-33.0 pg MCH 27.0 LAB MCHC(LOINC) 32.0-36.0 G/dL MCHC 32.5 LAB RDW(LOINC) 11.5-15.5 % RDW 14.3 LAB PLT(LOINC) 150-450 10 3/mcL Platelet 314 LAB MPV(LOINC) 6.6-10.5 fL MPV 8.0 Performed By: #### TROPI, ADIFF, ANEU, A1C, GFR, LIPID, CBC, BMP, TSH #### [place] [address] .AUTO DIFF Collected: 05/14/2018 Status: F Source: [facility] 3:09 AM [facility] REPOSITORY TYPE CODE TESTS RESULT OUT OF REFERENCE UNITS RANGE LAB LONA(LOINC) 50.0-75.0 % Neutrophil % 65.5 LAB LYM(LOINC) 20.0-40.0 % Lymphocyte % 24.4 LAB MON(LOINC) 2.0-13.0 % Monocyte % 7.3 LAB EO(LOINC) 0.0-6.0 % Eosinophil % 2.2 LAB BAS(LOINC) 0.0-2.5 % Basophil % 0.6 LAB ABLYM(LOIN 0.90-4.32 10 3/mcL C) Lymphocyte, 2.20 Absolute LAB THONG(LOINC 0.09-1.40 10 3/mcL ) Monocyte, 0.60 Absolute LAB AEOS(LOINC 0.00-0.65 10 3/mcL ) Eosinophil, 0.20 Absolute LAB ABAS(LOINC 0.00-0.27 10 3/mcL ) Basophil, 0.00 Absolute Performed By: #### TROPI, ADIFF, ANEU, A1C, GFR, LIPID, CBC, BMP, TSH #### [address] [address] .NEUABS Collected: 05/14/2018 Status: F Source: [facility] 3:09 AM [facility] REPOSITORY TYPE CODE TESTS RESULT OUT OF REFERENCE UNITS RANGE LAB ANEU(LOINC) 2.25-8.10 10 3/mcL Neutrophil, 5.80 Absolute Performed By: #### TROPI, ADIFF, ANEU, A1C, GFR, LIPID, CBC, BMP, TSH #### [place] [address] BMP Collected: 05/14/2018 Status: F Source: [facility] 3:09 AM [facility] REPOSITORY TYPE CODE TESTS RESULT OUT OF REFERENCE UNITS RANGE LAB GLU(LOINC) 82-115 mg/dL Glucose High Level 211 LAB NA(LOINC) 136-145 mEq/L Sodium Level 143 LAB K(LOINC) 3.5-5.0 mEq/L Potassium Level 3.7 LAB CL(LOINC) 98-110 mEq/L Chloride 106 LAB CO2(LOINC) 22-32 mEq/L CO2 27 LAB EBAL(LOINC 4.0-15.0 mEq/L ) Electrolyte Balance 10.0 LAB BUN(LOINC) 8.0-22.0 mg/dL BUN 21.0 LAB CRE(LOINC) 0.50-1.20 mg/dL Creatinine Lvl (s) 0.81 LAB BC(LOINC) 10.0-22.0 ratio High BUN/Creatinine 25.9 Ratio LAB CA(LOINC) 8.4-10.1 mg/dL Low Calcium Lvl 8.0 Performed By: #### TROPI, ADIFF, ANEU, A1C, GFR, LIPID, CBC, BMP, TSH #### [address] [address] .GFR Collected: 05/14/2018 Status: F Source: [facility] 3:09 AM [facility] REPOSITORY TYPE CODE TESTS RESULT OUT OF REFERENCE UNITS RANGE LAB GFRAA(LOINC ml/min/1.73 ) sqm GFR >60 Citizen Of [place] Result Comment: GFR Population mean for , Non- Americans Ages 20-29 = 116 mL/min/1.73 sq.m. Ages 30-39 = 107 mL/min/1.73 sq.m. Ages 40-49 = 99 mL/min/1.73 sq.m. Ages 50-59 = 93 mL/min/1.73 sq.m. Ages 60-69 = 85 mL/min/1.73 sq.m. Ages 70+ = 75 mL/min/1.73 sq.m. Chronic Kidney Disease: Less than 60 mL/min/1.73 square meters End Stage Renal Disease: Less than 15 mL/min/1.73 square meters LAB GFRNO(LOINC) ml/min/1.73sqm GFR Non- >60 Result Comment: GFR Population mean for , Non- Americans Ages 20-29 = 116 mL/min/1.73 sq.m. Ages 30-39 = 107 mL/min/1.73 sq.m. Ages 40-49 = 99 mL/min/1.73 sq.m. Ages 50-59 = 93 mL/min/1.73 sq.m. Ages 60-69 = 85 mL/min/1.73 sq.m. Ages 70+ = 75 mL/min/1.73 sq.m. Chronic Kidney Disease: Less than 60 mL/min/1.73 square meters End Stage Renal Disease: Less than 15 mL/min/1.73 square meters Performed By: #### TROPI, ADIFF, ANEU, A1C, GFR, LIPID, CBC, BMP, TSH #### [place] [address] TROPI Collected: 05/14/2018 Status: F Source: [facility] 3:09 AM [facility] REPOSITORY TYPE CODE TESTS RESULT OUT OF REFERENCE UNITS RANGE LAB TROPI(LOINC 0.000-0.040 ng/mL ) Troponin I 0.034 Result Comment: Troponin I reference ranges (03/16/14): 0.00-0.040 ng/mL Negative and non-diagnostic. >0.040 ng/mL Consistent with cardiac damage, increased clinical risk and possibility of myocardial infarction. Serial measurements, a rise & fall in test results, clinical history, appropriate symptoms and/or ECG changes may help assess possibility of MN. *Other non-acute coronary syndrome conditions such as CHF, myocarditis, pulmonary emboli, sepsis and cardiac surgery could result in myocardial damage and increased troponin levels. Performed By: #### TROPI, ADIFF, ANEU, A1C, GFR, LIPID, CBC, BMP, TSH #### [address] [address] TSH Collected: 05/14/2018 Status: F Source: [facility] 3:09 AM [facility] REPOSITORY TYPE CODE TESTS RESULT OUT OF RANGE REFERENCE UNITS LAB TSH(LOINC) 0.360-3.740 mcIU/mL Low TSH 0.330 Result Comment: Please note as of 01/20/17 new pediatric reference intervals were added for this test. Performed By: #### TROPI, ADIFF, ANEU, A1C, GFR, LIPID, CBC, BMP, TSH #### [address] [address] LIPID Collected: 05/14/2018 Status: F Source: [facility] 3:09 AM [facility] REPOSITORY TYPE CODE TESTS RESULT OUT OF REFERENCE UNITS RANGE LAB CHOL(LOINC 50-199 mg/dL ) Cholesterol 85 Result Comment: Cholesterol Reference Interval: Less than 200 Desirable 200-239 Borderline high risk 240 and above High risk LAB TRIG(LOINC) 3-149 mg/dL Triglycerides High 198 Result Comment: Triglyceride Reference Interval: Less than 150 Normal 150-199 Borderline high risk 200-499 High risk 500 or higher Very high risk LAB HD(LOINC) 40-59 mg/dL HDL Low Cholesterol 22 Result Comment: HDL Reference Interval: Less than 40 Low - high risk 60 or above Optimal/lowers risk LAB LDL(LOINC) 0-129 mg/dL LDL Cholesterol 23 Result Comment: LDL is a calculated result and requires a 12-hr fast. LDL Reference Interval: Less than 100 Optimal 100-129 Near or above optimal 130-159 Borderline high risk 160-189 High risk 190 and above Very high risk Performed By: #### TROPI, ADIFF, ANEU, A1C, GFR, LIPID, CBC, BMP, TSH #### [address] [address] A1C Collected: 05/14/2018 Status: F Source: [facility] 3:09 AM [facility] REPOSITORY TYPE CODE TESTS RESULT OUT OF RANGE REFERENCE UNITS LAB A1C(LOINC) 4.0-6.0 % High Hgb A1c 8.9 Performed By: #### TROPI, ADIFF, ANEU, A1C, GFR, LIPID, CBC, BMP, TSH #### [address] [address] FT4 Collected: 05/14/2018 Status: F Source: [facility] 3:09 AM [facility] REPOSITORY TYPE CODE TESTS RESULT OUT OF RANGE REFERENCE UNITS LAB FT4(LOINC) 0.60-1.70 ng/dL Free T4 1.20 Result Comment: Please note as of 01/20/17 new pediatric reference intervals were added for this test. Performed By: #### FT3, FT4 #### [address] [address] FT3 Collected: 05/14/2018 Status: F Source: [facility] 3:09 AM [facility] REPOSITORY TYPE CODE TESTS RESULT OUT OF RANGE REFERENCE UNITS LAB FT3(LOINC) 2.30-4.20 pg/mL Low Free T3 2.06 Result Comment: Please note as of 01/20/17 new pediatric reference intervals were added for this test. Performed By: #### FT3, FT4 #### [place] [address] CBC Collected: 05/13/2018 Status: F Source: [facility] 10:46 PM [facility] REPOSITORY TYPE CODE TESTS RESULT OUT OF REFERENCE UNITS RANGE LAB WBC(LOINC) 4.50-10.80 10 3/mcL WBC 10.20 LAB RBCCT(LOINC 4.10-5.30 10 6/mcL ) Low RBC 3.63 LAB HGB(LOINC) 12.0-16.0 G/dL Low Hgb 9.8 LAB HCT(LOINC) 34.0-46.0 % Low Hct 30.2 LAB MCV(LOINC) 80.0-99.0 fL MCV 83.1 LAB MCH(LOINC) 27.0-33.0 pg MCH 27.0 LAB MCHC(LOINC) 32.0-36.0 G/dL MCHC 32.5 LAB RDW(LOINC) 11.5-15.5 % RDW 14.2 LAB PLT(LOINC) 150-450 10 3/mcL Platelet 308 LAB MPV(LOINC) 6.6-10.5 fL MPV 7.9 Performed By: #### GFR, ADIFF, ANEU, CBC, BMP #### [place] [address] .AUTO DIFF Collected: 05/13/2018 Status: F Source: [facility] 10:46 PM [facility] REPOSITORY TYPE CODE TESTS RESULT OUT OF REFERENCE UNITS RANGE LAB LOAN(LOINC) 50.0-75.0 % Neutrophil % 71.7 LAB LYM(LOINC) 20.0-40.0 % Lymphocyte % 20.4 LAB MON(LOINC) 2.0-13.0 % Monocyte % 6.2 LAB EO(LOINC) 0.0-6.0 % Eosinophil % 1.4 LAB BAS(LOINC) 0.0-2.5 % Basophil % 0.3 LAB ABLYM(LOIN 0.90-4.32 10 3/mcL C) Lymphocyte, 2.10 Absolute LAB THONG(LOINC 0.09-1.40 10 3/mcL ) Monocyte, 0.60 Absolute LAB AEOS(LOINC 0.00-0.65 10 3/mcL ) Eosinophil, 0.10 Absolute LAB ABAS(LOINC 0.00-0.27 10 3/mcL ) Basophil, 0.00 Absolute Performed By: #### GFR, ADIFF, ANEU, CBC, BMP #### [place] [address] .NEUABS Collected: 05/13/2018 Status: F Source: [facility] 10:46 [facility] REPOSITORY TYPE CODE TESTS RESULT OUT OF REFERENCE UNITS RANGE LAB ANEU(LOINC) 2.25-8.10 10 3/mcL Neutrophil, 7.30 Absolute Performed By: #### GFR, ADIFF, ANEU, CBC, BMP #### [place] [address] BMP Collected: 05/13/2018 Status: F Source: [facility] 10:46 [facility] REPOSITORY TYPE CODE TESTS RESULT OUT OF REFERENCE UNITS RANGE LAB GLU(LOINC) 82-115 mg/dL Glucose High Level 272 LAB NA(LOINC) 136-145 mEq/L Sodium Level 142 LAB K(LOINC) 3.5-5.0 mEq/L Potassium Level 3.7 LAB CL(LOINC) 98-110 mEq/L Chloride 105 LAB CO2(LOINC) 22-32 mEq/L CO2 25 LAB EBAL(LOINC 4.0-15.0 mEq/L ) Electrolyte Balance 12.0 LAB BUN(LOINC) 8.0-22.0 mg/dL BUN High 23.0 LAB CRE(LOINC) 0.50-1.20 mg/dL Creatinine Lvl (s) 0.91 LAB BC(LOINC) 10.0-22.0 ratio High BUN/Creatinine 25.3 Ratio LAB CA(LOINC) 8.4-10.1 mg/dL Low Calcium Lvl 7.9 Performed By: #### GFR, ADIFF, ANEU, CBC, BMP #### [place] [address] .GFR Collected: 05/13/2018 Status: F Source: [facility] 10:46 PM [facility] REPOSITORY TYPE CODE TESTS RESULT OUT OF REFERENCE UNITS RANGE LAB GFRAA(LOINC ml/min/1.73 ) sqm GFR >60 Citizen Of [place] Result Comment: GFR Population mean for , Non- Americans Ages 20-29 = 116 mL/min/1.73 sq.m. Ages 30-39 = 107 mL/min/1.73 sq.m. Ages 40-49 = 99 mL/min/1.73 sq.m. Ages 50-59 = 93 mL/min/1.73 sq.m. Ages 60-69 = 85 mL/min/1.73 sq.m. Ages 70+ = 75 mL/min/1.73 sq.m. Chronic Kidney Disease: Less than 60 mL/min/1.73 square meters End Stage Renal Disease: Less than 15 mL/min/1.73 square meters LAB GFRNO(LOINC) ml/min/1.73sqm GFR Non- >60 Result Comment: GFR Population mean for , Non- Americans Ages 20-29 = 116 mL/min/1.73 sq.m. Ages 30-39 = 107 mL/min/1.73 sq.m. Ages 40-49 = 99 mL/min/1.73 sq.m. Ages 50-59 = 93 mL/min/1.73 sq.m. Ages 60-69 = 85 mL/min/1.73 sq.m. Ages 70+ = 75 mL/min/1.73 sq.m. Chronic Kidney Disease: Less than 60 mL/min/1.73 square meters End Stage Renal Disease: Less than 15 mL/min/1.73 square meters Performed By: #### GFR, ADIFF, ANEU, CBC, BMP #### [facility] [address] [place] [id number] TROPI Collected: 05/13/2018 Status: F Source: [facility] 10:46 PM [facility] REPOSITORY TYPE CODE TESTS RESULT OUT OF REFERENCE UNITS RANGE LAB TROPI(LOINC 0.000-0.040 ng/mL ) Troponin I 0.028 Result Comment: Troponin I reference ranges (03/16/14): 0.00-0.040 ng/mL Negative and non-diagnostic. >0.040 ng/mL Consistent with cardiac damage, increased clinical risk and possibility of myocardial infarction. Serial measurements, a rise & fall in test results, clinical history, appropriate symptoms and/or ECG changes may help assess possibility of MN. *Other non-acute coronary syndrome conditions such as CHF, myocarditis, pulmonary emboli, sepsis and cardiac surgery could result in myocardial damage and increased troponin levels. Performed By: #### TROPI #### [place] [address] TSH Collected: 05/13/2018 Status: F Source: [facility] 10:46 PM [facility] REPOSITORY TYPE CODE TESTS RESULT OUT OF RANGE REFERENCE UNITS LAB TSH(LOINC) 0.360-3.740 mcIU/mL Low TSH 0.260 Result Comment: Please note as of 01/20/17 new pediatric reference intervals were added for this test. Performed By: #### TSH #### [address] [address] TROPONIN Collected: 05/13/2018 Status: F Source: [facility] 4:35 PM [facility] REPOSITORY TYPE CODE TESTS RESULT OUT OF REFERENCE UNITS RANGE LAB TROPONIN 0.00 - 0.05 ng/ml I(LOINC) TROPONIN I 0.01 Result Comment: Elevated troponin (above the 99th percentile) usually indicates myocardial ischemia. Results must be interpreted within the clinical setting. 1.Non-ischemic pathology can also cause elevated troponin levels (e.g., acute pulmonary embolism, myocarditis, pericarditis, heart failure, intracranial injury, rhabdomyolisis, sepsis, shock and renal insufficiency). 2.Approximately 1% of healthy adults have elevated troponin levels. 3.Analytical false positive results rarely occur(due to multiple interferences such as heterophile antibodies). Performed By: #### [id number] #### [facility],[address] [place] [address] CHEST 1 VIEW Observed: 05/13/2018 Status: F [facility] REPOSITORY [place] [address] Patient: LATOSHA LOYOLA Phone#: : [phone] Age: 62 Gender: F Pt. Type: ER Account: [id number] Location: [id number] Ordering: YASH MICHAEL Exam Date: 05/13/2018/13:26 Family Phys: GIANLUCA QUARLES Charge Code: 370249 Physician: [place] Order #: [id number] DLP Dose#: PROCEDURE: X-RAY CHEST 1 VIEW COMPARISON: [facility], XR, CHEST AP, 12/21/2016, 3:13. INDICATIONS: Shortness of breath FINDINGS: LUNGS: Streaky right lower lobe infiltrate or atelectasis is present. No other acute abnormality is identified. VASCULATURE: Normal. Unremarkable pulmonary vasculature. CARDIAC: Normal. No cardiac silhouette abnormality or cardiomegaly. MEDIASTINUM: Normal. No visible mass or adenopathy. PLEURA: Normal. No effusion or pleural thickening. BONES: Normal. No fracture or visible bony lesion. OTHER: Negative. CONCLUSION: 1. Streaky right lower lobe infiltrate and/or atelectasis. Dictated by: Nubia Nguyen MD on 05/13/2018 at 13:49 Approved by: Nubia Nguyen MD on 05/13/2018 at 13:49 CBC Collected: 05/13/2018 Status: F Source: [facility] 1:36 PM [facility] REPOSITORY TYPE CODE TESTS RESULT OUT OF RANGE REFERENCE UNITS LAB CBC(LOINC) CBC Result Comment: CBC-COMPLETE BLOOD COUNT LAB WBC(LOINC) 4.5 - 10.8 x 10EE3/UL WBC High 14.4 LAB RBC(LOINC) 4.10 - x 10EE6/UL 5.30 RBC Low 3.84 LAB HEMOGLOBIN(LOINC 12.0 - g/dl ) 16.0 Low HEMOGLOBIN 10.4 LAB HEMATOCRIT(LOINC 34.0 - % ) 46.0 Low HEMATOCRIT 31.6 LAB MCV(LOINC) 80 - 99 fl MCV 82 LAB MCH(LOINC) 27 - 33 pg MCH 27 LAB MCHC(LOINC) 32 - 36 X10 3 MCHC 33 LAB RDW/CV(LOINC) 12.0 - % 15.6 RDW/CV 14.5 LAB PLATELET(LOINC) 150 - 450 x10EE3/UL PLATELET 350 LAB MPV(LOINC) 6.6 - 10.5 fl MPV 7.7 Result Comment: AUTOMATED DIFFERENTIAL LAB NEUT %(LOINC) 46.0 - 76.0 % NEUT % High 76.3 LAB LYMPH %(LOINC) 20.0 - 45.0 % Low LYMPH % 14.2 LAB MONOS %(LOINC) 0.0 - 10.0 % MONOS % 5.8 LAB EO %(LOINC) 0.0 - 7.0 % EO % 2.4 LAB BASO %(LOINC) 0.0 - 2.0 % BASO % 1.3 LAB Lymph #(LOINC) 0.80 - 2.80 x10EE3/U L Lymph # 2.00 LAB Neut #(LOINC) 1.50 - 7.10 x10EE3/U L Neut # High 11.00 LAB [place] #(LOINC) 0.20 - 1.00 x10EE3/U L [place] # 0.80 LAB EO #(LOINC) 0.00 - 0.50 x10EE3/U L EO # 0.30 LAB Baso #(LOINC) 0.00 - 0.10 x10EE3/U L Baso # High 0.20 LAB MANUAL DIFF(LOINC) MANUAL DIFF N/A LAB MORPHOLOGY(LOINC ) MORPHOLOGY N/A Result Comment: {CD] Performed By: #### [id number] #### [facility],[address] [place] [address] TROPONIN Collected: 05/13/2018 Status: F Source: [facility] 1:36 PM [facility] REPOSITORY TYPE CODE TESTS RESULT OUT OF REFERENCE UNITS RANGE LAB TROPONIN 0.00 - 0.05 ng/ml I(LOINC) TROPONIN I 0.01 Result Comment: Elevated troponin (above the 99th percentile) usually indicates myocardial ischemia. Results must be interpreted within the clinical setting. 1.Non-ischemic pathology can also cause elevated troponin levels (e.g., acute pulmonary embolism, myocarditis, pericarditis, heart failure, intracranial injury, rhabdomyolisis, sepsis, shock and renal insufficiency). 2.Approximately 1% of healthy adults have elevated troponin levels. 3.Analytical false positive results rarely occur(due to multiple interferences such as heterophile antibodies). Performed By: #### [id number] #### [facility],[address] [place] [address] CMP WITH EGFR Collected: 05/13/2018 Status: F Source: [facility] 1:36 PM [facility] REPOSITORY TYPE CODE TESTS RESULT OUT OF RANGE REFERENCE UNITS LAB CMP with eGFR(LOINC) CMP with eGFR Result Comment: COMPREHENSIVE METABOLIC PANEL LAB SODIUM(LOINC) 136 - 145 mmol/l SODIUM 137 LAB POTASSIUM(LOINC) 3.5 - 5.1 mmol/L POTASSIUM 3.9 LAB CHLORIDE(LOINC) 98 - 107 mmol/L CHLORIDE 101 LAB CO2(LOINC) 21.0 - mmol/L 31.0 CO2 25.5 LAB GLUCOSE(LOINC) 74 - 106 mg/dl GLUCOSE High 210 LAB BUN(LOINC) 6 - 20 mg/dl BUN High 21 LAB CREATININE(LOINC) 0.6 - 1.2 mg/dl CREATININE 0.9 LAB AST/SGOT(LOINC) 13 - 39 U/L AST/SGOT 27 LAB ALK PHOS(LOINC) 38 - 126 U/L ALK PHOS 58 LAB CALCIUM(LOINC) 8.6 - mg/dl 10.2 CALCIUM 8.8 LAB TOTAL 6.4 - 8.3 g/dl PROTEIN(LOINC) TOTAL PROTEIN 6.6 LAB ALBUMIN(LOINC) 3.4 - 4.8 g/dL ALBUMIN 3.8 LAB GLOBULIN(LOINC) 1.5 - 3.8 G/DL GLOBULIN 2.8 LAB A/G RATIO(LOINC) 0.9 - 1.6 A/G RATIO 1.4 LAB TOTAL BILI(LOINC) 0.0 - 1.5 mg/dl TOTAL BILI 0.4 LAB B/C RATIO(LOINC) 0 - 30 ratio B/C RATIO 23 LAB ALT/SGPT(LOINC) 8 - 35 U/L ALT/SGPT 32 LAB ANION GAP(LOINC) 10 - 20 mmol/L ANION GAP 14 LAB AGE(LOINC) years AGE 62 LAB eGFR(LOINC) 60 - 999 ML/MINUTE eGFR >60 LAB eGFR(AA)(LOINC) 60 - 999 ML/MINUTE eGFR(AA) >60 Result Comment: ACCORDING TO THE NATIONAL KIDNEY DISEASE EDUCATION PROGRAM(NKDE), A NORMAL eGFR IS A VALUE GREATER THAN OR EQUAL TO 60 ML/MIN/1.73 SQ METERS. CHRONIC KIDNEY DISEASE: <60mL/MIN/1.73 SQ METERS KIDNEY FAILURE: <15mL/MIN/1.73 SQ METERS THIS TEST SHOULD ONLY BE USED FOR PATIENTS 18 YEARS OF AGE AND OLDER. Performed By: #### [id number] #### [place] [address] MAGNESIUM Collected: 05/13/2018 Status: F Source: [facility] 1:36 PM [facility] REPOSITORY TYPE CODE TESTS RESULT OUT OF REFERENCE UNITS RANGE LAB MAGNESIUM( 1.6 - 2.6 mg/dl LOINC) Low MAGNESIUM 1.2 Performed By: #### [id number] #### [place] [address] D-DIMER, QUANTITATIVE Collected: 05/13/2018 Status: F Source: [facility] 1:36 PM [facility] REPOSITORY TYPE CODE TESTS RESULT OUT OF REFERENCE UNITS RANGE LAB D-DIMER, QUANTITATI VE(LOINC) D-DIMER, QUANTITATIVE Result Comment: QUANT D-DIMER LAB D-DIMER QUANT(LOINC) 0 - 230 ng/ml D-DIMER QUANT 173 Performed By: #### [id number] #### [place] [address] BNP (B-TYPE NATRIURETIC Collected: 05/13/2018 Status: F Source: [facility] PEPTIDE) 1:36 PM [facility] REPOSITORY TYPE CODE TESTS RESULT OUT OF RANGE REFERENCE UNITS LAB BNP(LOINC) 1 - 100 pg/ml BNP 90 Performed By: #### [id number] #### [place] [address] EMERGENCY REPORT Observed: 05/13/2018 Status: F Source: [facility] 1:02 PM [facility] EMERGENCY ROOM REPORT NAME ACCOUNT SEX AGE ADMIT DISCHARGE PT MED. RECORD# NUMBER DATE DATE TYPE LATOSHA LYOOLA [id number] F 62 05/13/18 05/13/18 3 [place] [id number] ROOM: ER DATE OF : 1955 DICTATING PHYSICIAN: Yash Michael CHIEF COMPLAINT: Chest pain and dizziness. HISTORY OF PRESENT ILLNESS: The patient states that this morning she felt fine, but earlier this afternoon she began getting a little bit of chest discomfort, but more significantly weakness, dizziness, and lightheadedness. She took a nitroglycerin and then felt worse after that. Squad was called, and upon their arrival she had a heart rate in the 30s, blood pressure was generally okay. She has not had any recent injury or trauma, fever or chills, nausea or vomiting. She was up and around earlier in the day without complaints. PAST MEDICAL HISTORY: Significant for coronary artery disease. She has a history of hypertension, diabetes. She has had stents placed at [facility] earlier this year. PAST SURGICAL HISTORY: She has had previous cholecystectomy, , and coronary stent placement. MEDICATIONS: Per med rec list. ALLERGIES: No known drug allergies. SOCIAL HISTORY: She is Zoroastrian. She lives at home. She does not smoke or drink alcohol. REVIEW OF SYSTEMS: Negative for any lung disease, bowel or bladder symptoms. No pain or swelling to her extremities. No bleeding disorders. PHYSICAL EXAMINATION: This is a 62-year-old mildly obese female awake, alert, appropriate, appears pale, but not toxic appearing. Her skin is pink, warm, and dry. HEENT: All within normal limits. Neck is supple without any JVD. Lungs are clear without crackles or wheezes. Cardiac exam is very slow regular rhythm without any ectopy or murmurs. No chest wall tenderness. Abdomen is soft and nontender. She moves all extremities appropriately without any focal weaknesses. Good peripheral pulses. Good capillary refill. Vital signs: Temperature 97.1, pulse 35, respirations 16, blood pressure 147/58. DIAGNOSTIC DATA: EKG showed Mobitz type II second-degree block with about a 3:1 Page 1 of 2 [facility] Report rate. No obvious acute ST or T changes. A number of laboratory studies was obtained and showed a CBC with a white count of 14,400, unremarkable differential, H&H 10.4 and 31.6. Troponin was 0.01. D-dimer was 170. CMP: Glucose 210, otherwise essentially all normal. EMERGENCY DEPARTMENT COURSE AND TREATMENT: Her O2 saturation was 95%. She had an IV placed. She was given a 500 mL bolus. DIAGNOSIS: Mobitz type II second-degree block. PLAN/DISPOSITION: I discussed the case with Dr. Freeman at [facility]. The patient will be transferred there for further management, possible pacemaker placement. Dictated By: Yash Michael MD 05/13/18 17:14 JOB #: [id number] Transcribed By: am 05/13/18 19:59 Electronically signed by: HAYDEE Michael M.D. 05/31/18 07:29 Page 2 of 2 NIRSUYAPA ANSARIHELEN RAMEY Emergency Room Report ABDOMEN/PELVIS WITHOUT Observed: 04/02/2018 Status: F Source: LEILANI CONT 10:29 AM [facility] REPOSITORY 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 Left flank pain. RADIATION DOSAGE (If Supplied By Facility): CTDIvol = ( 15.55 ) mGy, DLP = ( 722.75 ) mGycm TECHNIQUE: Transaxial images were obtained from the dome of the diaphragm to the symphysis pubis without oral contrast, and without intravenous contrast. Sagittal and coronal images were reconstructed. Individualized dose optimization techniques were used for this CT. COMPARISON: None. FINDINGS: The visualized lung bases are unremarkable. Coronary artery calcification. Normal liver. The patient as a history of prior cholecystectomy. Multiple gallstones are seen in the gallbladder fossa most likely secondary to gallstones left behind during the surgical procedure. Normal spleen. Normal pancreas. Normal bilateral adrenal glands. There is evidence of bilateral staghorn calculi in both kidneys. This is worse on the left side. The staghorn calculi extend into the ureteropelvic junction bilaterally. No significant hydronephrosis is seen. Normal visualized stomach. Normal small intestine. There are multiple colonic diverticula consistent with diverticulosis. There are surgical clips in the region of the appendix consistent with a prior appendectomy. There is diffuse atherosclerotic calcification of the abdominal aorta and its major visceral ranch is, without a demonstrated aneurysm. Normal inferior vena cava. There is borderline retroperitoneal lymphadenopathy with enlarged nodes no greater than 10mm in the short axis diameter. Normal urinary bladder. Calcified uterine fibroids. Normal abdominal wall. Normal osseous structures. CT/Abdomen/Pelvis without Cont IMPRESSION: Bilateral staghorn calculi with no significant hydronephrosis. Gallstones are seen within the gallbladder fossa. The patient does have a history of prior cholecystectomy. Electronically Signed: Rogelio Perez MD at 11:08 EDT Tel [phone], Service support , CC: Gianluca Quarles MD; Lorrie Flynn NP Career Coach: Signed US KIDNEY Observed: 10/30/2017 Status: F Source: LEONEL JOSE 9:42 AM [place] [id number] Patient: LATOSHA LOYOLA Phone#: : 1955 Age: 61 Gender: F Pt. Type: Out Account: [id number] Location: [facility] Ordering: GIANLUCA QUARLES Exam Date: 10/30/2017/8:45 Family Phys: Charge Code: [id number] Physician: [place] Order #: [id number] DLP Dose#: PROCEDURE: KIDNEY ULTRASOUND COMPARISON: [facility], [place], KUB W/O CON, 10/12/2013, 5:18. INDICATIONS: Kidney Stones TECHNIQUE: Ultrasound examination was performed of the kidneys and bladder. FINDINGS: RIGHT KIDNEY: There is normal renal parenchymal echogenicity. There are shadowing stones in the kidney. These stones very in size between 1.2 and 2.5 cm. LEFT KIDNEY: Normal renal parenchymal echogenicity. Shadowing stones in the left kidney. Stones measure between 1.2 x 1.7 cm. There is mild hydronephrosis. OTHER: Diffuse hepatic increased parenchymal echogenicity is incidentally noted, this finding is nonspecific but most often associated with fatty infiltration. CONCLUSION: 1. Bilateral nephrolithiasis. 2. Mild left hydronephrosis. 3. Fat infiltration of liver. Dictated by: Osiris Sams MD on 10/30/2017 at 13:10 Approved by: Osiris Sams MD on 10/30/2017 at 13:10 ALLERGIES ALLERGIES DATE TYPE / CODE NAME / CODE REACTION SEVERITY SOURCE 06/05/2018 Drug No Known Unknown [place] Allergy/044657295(S Allergies/F0019 [facility] NOMED CT) 80202(RXNORM) Hospital Repository Miscellaneous No Known Moderate [facility] Allergy/[id number](S Allergies (Severity [facility] NOMED CT) Modifier) Hospital (Qualifier Repository Value) ENCOUNTERS ENCOUNTERS ADMIT/DISCHARGE ACCOUNT NUMBER ADMITTING ENCOUNTER LOCATION SOURCE CLASS 06/10/2018/06/10/20 [id number] [facility] [address] ding:[id number] Repository : [id number]: 1 05/13/2018/05/16/20 [id number] [facility] Inpatient ABuilding:SAM Grady MD, [facility] Encounter URoom: Health 0315Bed: A [facility] Repository 05/13/2018/05/13/[id number] ALEC Emergency [facility]in[address] [place] [address] Room: ERBed: [facility] Repository 04/02/2018 [id number] [facility] ding:CT Repository 10/30/2017/10/31/19 [id number] GIANLUCA QUARLES Ambulatory [address] Repository PAYERS PAYERS ENCOUNTER GUARANTOR PAYER SUBSCRIBER SOURCE 06/10/2018 LATOSHA A Primary Insurance:[facility] LATOSHA A [place] [id number] TR PACKAGE PLANPolicy RABERDOB: [address], Number: [id number] [address]Iks: [id number] Repository Date:2018-04-08 (HP) 06/10/2018 Secondary NOT GIVENUNK [place] Insurance:SELF PAY [facility] [place] Number: Effective Repository Date:2018-04-08 05/13/2018 LATOSHA KAROLINE Primary LATOSHA [facility] RABERDOB: Insurance:SELF RABERDOB: [facility] [place] [id number] PAYPolicy Number: [id number] Repository [facility] Effective [address], Date:2018-05-[address] [place] [id number]: [id number] Name:[id number] [place] [id number]: (HP) (HP) () 04/02/2018 LATOSHA A Primary NOT GIVENUNK [place] [id number] TR Insurance:SELF PAY [address] [address]Oab: Number: Effective Repository Date:2018-04-02 (HP) 10/30/2017 LATOSHA KAROLINE Primary LATOSHA [facility]INE [facility] RAB[facility]: Insurance:RADIOLOGY RABERDOB: [facility] [id number] PACKAGEPolicy Number: [id number] Effective Date: [address] Repository [address] [place] [address] [id number]: [phone] [phone] ()
== END 2018-06-10 08:59 | disposition home or self-care (01) ==
LOC: SDC 09:02
PROVIDERS: Admitting Provider Urology; Family Provider Family Medicine; PCP Family Medicine; Referring Provider Urology; Visit Provider Urology
PROC: (CPT 50081; principal; 2018-06-07 11:20)
DX: N20.0 Calculus of kidney (principal); N20.2 Calculus of kidney with calculus of ureter; E11.9 Type 2 diabetes mellitus without complications; Z79.899 Other long term (current) drug therapy; Z79.4 Long term (current) use of insulin; Z79.82 Long term (current) use of aspirin; E78.49 Other hyperlipidemia; I10 Essential (primary) hypertension
CPT/HCPCS: 00862; 50081; 50395; 36415; 36430; 71046; 74176; 76000; 80048; 81001; 82360; 82962; 85025; 85027; 86850; 86900; 86920; 86922; 88300; 96361; 96365; 96366; 96375; 96376; 97802; 99218; J7120; P9040; A4216; C1758; C1769; C2617; G0378; G0379; J2405

== ENCOUNTER → 2018-09-16 07:41 | Outpatient (CLI) | payer SELFPAY, OTHER ==
[2018-06-07 19:34] VITALS: BMI 32.0
--- NOTE | 2018-09-16 07:50 | CT_ITS ---
STUDY: CT ABDOMEN AND PELVIS WITHOUT CONTRAST REASON FOR EXAM: Female, 62 years old. History of kidney stones. History of recent lithotripsy. RADIATION DOSAGE (If Supplied By Facility): CTDIvol = ( 13.22 ) mGy, DLP = ( 660.99 ) mGycm TECHNIQUE: Transaxial images were obtained from the dome of the diaphragm to the symphysis pubis without oral contrast, and without intravenous contrast. Sagittal and coronal images were reconstructed. Individualized dose optimization techniques were used for this CT. COMPARISON: Comparison is made with prior study dated June 09, 2018. FINDINGS: Minimal linear scarring along the posterior medial segment of the right lower lobe. Coronary artery calcification. A pacemaker device is seen. Normal liver. There are multiple gallstones. Stable 1 cm hypodensity in the superior anterior aspect of the spleen. Calcified splenic granulomas. Normal pancreas. Normal bilateral adrenal glands. There is a 1.2 cm calculus in the upper pole of the right kidney. Adjacent to this, there is a 2 mm calculus. There is evidence of a large staghorn calculus involving the right renal pelvis extending to the mid and lower pole calyces of the right kidney. 2 mm calculus in the upper pole Q except left kidney. Linear scarring with calcification in the posterior aspect of the left kidney at the level of the midpole. Nonobstructive calculi are also seen in the lower pole calyx of the left kidney. The calculus seen in the lower pole calyx of the left kidney has decreased in size as compared to prior study. Normal visualized stomach. Normal small intestine. There are multiple colonic diverticula consistent with diverticulosis. The appendix is visualized and appears normal. There is diffuse atherosclerotic calcification of the abdominal aorta and the major visceral branches, without a demonstrated aneurysm. Normal inferior vena cava. There is borderline retroperitoneal lymphadenopathy with enlarged nodes no greater than 10mm in the short axis diameter. Normal urinary bladder. Calcified fibroid uterus. There is a small umbilical hernia containing fat. There are mild degenerative changes of the visualized lumbar spine. CT/Abdomen/Pelvis without Cont IMPRESSION: Stable appearance of the large right staghorn calculus. Stable calculus in the upper pole of the right kidney. Interval decrease in size of the calculus in the lower pole of the left kidney. There is no evidence of ureteral obstruction at this time. Multiple gallstones. Electronically Signed: Rogelio Perez, at 8:35 EDT , Service support ,
== END ==
PROVIDERS: Family Provider Family Medicine; PCP Family Medicine; Referring Provider Urology; Visit Provider Urology
DX: N20.0 Calculus of kidney (principal)
CPT/HCPCS: 74176

== ENCOUNTER 2020-07-15 23:58 | Emergency (ER) | payer OTHER, SELFPAY ==
[2018-06-07 19:34] VITALS: BMI 32.0
[2020-07-15 23:59] VITALS: BP 142/73; PULSE 96; RESP 22; TEMP 36.2; O2SAT 85; BMI 33.2
[2020-07-16] VITALS (9 sets, daily range): BP systolic 118–131; BP diastolic 67–74; PULSE 79–89; RESP 16–93; TEMP 36.1–36.6; O2SAT 16–96
--- NOTE | 2020-07-16 00:20 | RAD_ITS ---
STUDY: X-RAY CHEST REASON FOR EXAM: Female, 64 years old. Sob TECHNIQUE: Single AP portable view of the chest. COMPARISON: June 05, 2019 chest x-ray FINDINGS: There is a patchy right lower lobe infiltrate. There is no demonstrated pleural abnormality. There is mild cardiac enlargement. There is a left-sided pacemaker with leads overlying the region of ventricle. Normal mediastinum and cordell. Normal visualized pulmonary arteries. There is atherosclerotic calcification of the aortic arch with tortuosity. Normal visualized thoracic spine. Normal visualized ribs, clavicles, and shoulders. There is no demonstrated abnormality of the visualized soft tissue structures of the upper abdomen. RAD/Chest 1 View (Portable) IMPRESSION: Right lower lobe infiltrate. Pacemaker Mild cardiomegaly. Electronically Signed: Tamara Foote MD at 1:14 EST Tel , Service support ,
--- NOTE | 2020-07-16 00:20 | EKG12_ITS ---
Test Reason : DYSRHYTHMIA Blood Pressure : / mmHG Vent. Rate : 096 BPM Atrial Rate : 096 BPM P-R Int : 138 ms QRS Dur : 204 ms QT Int : 452 ms P-R-T Axes : 075 -77 090 degrees QTc Int : 571 ms Atrial-sensed ventricular-paced rhythm Abnormal ECG Confirmed by ANA PAULA FERNANDES, LALO ([id number]), rewrite editor LYNN MAYBERRY ([id number]) on 07/19/2020 9:53:32 AM Referred By: Confirmed By:LALO GOSS MD
--- NOTE | 2020-07-16 00:20 | ED.VIS.GEN ---
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 She tells me that she was laying in bed but not asleep when she is developed a sudden onset of shortness of breath with cough and a rattling in her chest. She denies feeling like she aspirated. She states her symptoms have gotten significantly better but she still feels a tight in her chest. Nursing notes she was about 85% on room air upon arrival. She denies any pain. She felt fine throughout the day. No history of DVT PE. She cannot tell me why she has a pacemaker other than she had a mild heart attack. She sees cardiology at [facility]. Past Medical History - Allergies and Home Meds Allergies/Adverse Reactions: Allergies No Known Allergies Allergy (Verified 07/15/20 23:58) Primary Care Physician: Gianluca Sol DO [Primary Care Provider] - 1 Week Past Medical History: - - Pretension diabetes coronary artery disease Surgical History: pacemaker implantation Lives: Spouse/ Significant Other Smoking Status: Never smoker Drugs: None Review of Systems General: Denies: Chills, Fever, Sweats Eyes: Denies: Visual changes - bilaterally, Diplopia ENT: Denies: Rhinorrhea, Sore throat Cardiovascular: Denies: Chest pain, Palpitations Respiratory: Reports: Dyspnea, Cough. Denies: Dyspnea on exertion Gastrointestinal: Denies: Abdominal pain, Nausea, Vomiting, Diarrhea, Melena, Hematochezia Genitourinary: Denies: Dysuria, Hematuria, Frequency Musculoskeletal: Denies: Back pain, Extremity Pain Skin: Denies: Rash, Wounds Neurological: Denies: Headache, Weakness, Numbness Physical Exam Vital Signs/Narrative: Vital Signs Temp Pulse Resp BP Pulse Ox 07/16/20 00:13 18 93 07/15/20 23:59 97.2 F L 96 22 H 142/73 H 85 Inital Vital Signs reviewed: Yes General: Well nourished, Well developed, No Acute Distress Head: Normocephalic, Atraumatic Eyes: Perrl, EOMI ENT: Moist mucous membranes, No rhinorrhea Neck: Supple, Nontender Cardiovascular: Regular rate, Regular rhythm, No murmurs Respiratory: No distress, CTA bilaterally, Chest nontender Abdomen: Soft, Nontender, Nondistended, Normal bowel sounds Back: Nontender, Normal Inspection Extremities: Nontender, No edema Skin: Normal color, No rash Neurological: Alert, Oriented x3, Cranial nerves II-XII grossly intact, Normal Strength, Normal Sensation Psychological: Normal affect, Normal Mood Diagnostic/Tx/Re-eval Clinical Impression(s) from Imaging Studies Chest X-Ray 07/16/20 00:20 IMPRESSION: Right lower lobe infiltrate. Pacemaker Mild cardiomegaly. Electronically Signed: Tamara Foote MD at 1:14 EST Tel , Service support , Laboratory Last Values WBC 11.9 K/mm3 (4.4-11.0) H 07/16/20 00:08 RBC 4.20 M/mm3 (4.2-5.4) 07/16/20 00:08 Hgb 11.1 g/dL (12.0-15.0) L 07/16/20 00:08 Hct 37.5 % (37-47) 07/16/20 00:08 MCV 89.3 fL (81-99) 07/16/20 00:08 MCH 26.4 pg (27.0-32.0) L 07/16/20 00:08 MCHC 29.6 g/dL (32-36) L 07/16/20 00:08 RDW Std Deviation 45.8 fl (35.1-43.9) H 07/16/20 00:08 RDW Coeff of Brianne 14.1 % (11.6-14.6) 07/16/20 00:08 Plt Count 312 K/mm3 (150-450) 07/16/20 00:08 MPV 9.9 fl (6.2-12.0) 07/16/20 00:08 Immature Gran % (Auto) 0.700 % (0.0-0.9) 07/16/20 00:08 Neut % (Auto) 73.3 % (47-70) H 07/16/20 00:08 Lymph % (Auto) 17.2 % (19-41) L 07/16/20 00:08 [place] % (Auto) 5.4 % (0-10) 07/16/20 00:08 Eos % (Auto) 2.9 % (0-5) 07/16/20 00:08 Baso % (Auto) 0.5 % (0-1) 07/16/20 00:08 Absolute Neuts (auto) 8.7 X10^3/uL (2.0-7.7) H 07/16/20 00:08 Absolute Lymphs (auto) 2.04 X10^3/uL (0.83-4.51) 07/16/20 00:08 Nucleated RBC % 0 % (0-5) 07/16/20 00:08 D-Dimer Quant (PE/DVT) 0.59 FEU/ug/m (0.27-0.49) H* 07/16/20 00:08 Sodium 136 mmol/L (136-145) 07/16/20 00:08 Potassium 4.3 mmol/L (3.5-5.1) 07/16/20 00:08 Chloride 104 mmol/L (98-107) 07/16/20 00:08 Carbon Dioxide 27.0 mmol/L (21.0-32.0) 07/16/20 00:08 Anion Gap 5 (5-15) 07/16/20 00:08 BUN 23 mg/dL (7-18) H 07/16/20 00:08 Creatinine 1.08 mg/dL (0.55-1.02) H 07/16/20 00:08 Estim Creat Clear Calc 39.71 ml/min 07/16/20 00:08 Est GFR (MDRD) Af Amer 66 mL/min (>60) 07/16/20 00:08 Est GFR (MDRD) Non-Af 54 mL/min (>60) L 07/16/20 00:08 BUN/Creatinine Ratio 21.3 RATIO (10-20) H 07/16/20 00:08 Glucose 260 mg/dL (74-106) H 07/16/20 00:08 Lactic Acid 3.5 mmol/L (0.4-1.9) H* 07/16/20 00:08 Calcium 8.9 mg/dL (8.5-10.1) 07/16/20 00:08 Total Bilirubin 0.30 mg/dL (0.20-1.00) 07/16/20 00:08 AST 27 U/L (15-37) 07/16/20 00:08 ALT 53 U/L (13-56) 07/16/20 00:08 Alkaline Phosphatase 83 U/L (45-117) 07/16/20 00:08 Troponin I 0.077 ng/mL (<0.045) H 07/16/20 00:08 Total Protein 7.2 g/dL (6.4-8.2) 07/16/20 00:08 Albumin 3.5 g/dL (3.2-5.0) 07/16/20 00:08 Globulin 3.7 g/dL (2.2-4.2) 07/16/20 00:08 Albumin/Globulin Ratio 0.9 RATIO (0.9-2.4) 07/16/20 00:08 - EKG Initial EKG Interpretation: - - EKG demonstrates a atrially sensed ventricularly paced rhythm at a rate of 96. - Medical Decision Making My interpretation of the single view portable chest x-ray is right lower lobe infiltrate. Covid test is negative. White count slightly elevated 11.5. Lactic acid is elevated at 3.5. She does not appear to be in shock so I suspect that this is more likely due to her hypoxia. Her troponin is slightly elevated which I would again suspect is related to the hypoxia (type II). Patient received Rocephin azithromycin. Her breathing was significantly improved after a breathing treatment. At rest she is 90 to 91% now. Plan will be admission into the hospital. Upon the hospitalist evaluation patient is now 99% on room air. She ambulated without hypoxemia. Hospitalist recommends outpatient management with albuterol MDI and Augmentin. I think that this is reasonable. ED Disposition - Plan for ED Patient: Diagnosis: Pneumonia, Bronchospasm, acute Instructions: ED Pneumonia (Adult) Prescriptions: Amox/Clavulanate Tablet [Augmentin Tablet] 875 mg PO Q12H #20 tab Prescription Printed Referrals: Gianluca Sol DO [Primary Care Provider] - 1 Week
[2020-07-16] MEDS: Ipratropium/Albuterol Sulfate 3 ML AMPUL.NEB INHALATION (00:25)
[2020-07-16 00:26] LABS: Absolute Lymphocyte Count 2.04 X10^3/uL (0.83-4.51); Absolute Neutrophil Count 8.7 X10^3/uL (2.0-7.7); Basophil# 0.06 X10^3/uL; Basophil% 0.5 % (0-1); Eosinophil# 0.34 X10^3/uL; Eosinophils% 2.9 % (0-5); Hematocrit 37.5 % (37-47); Hemoglobin 11.1 g/dL (12.0-15.0); Lymphocyte # 2.04 X10^3/ul (4.0); Lymphocyte % 17.2 % (19-41); Mean Corp Hgb Conc 29.6 g/dL (32-36); Mean Corpuscular Hgb 26.4 pg (27.0-32.0); Mean Corpuscular Volume 89.3 fL (81-99); Mean Platelet Vol. 9.9 fl (6.2-12.0); Monocyte# 0.64 X10^3/uL; Monocyte% 5.4 % (0-10); NRBC Flagged by Analyzer 0 % (0-5); Neutrophil # 8.69 X10^3/uL (2.7-7.7); Neutrophil % 73.3 % (47-70); Platelet Count 312 K/mm3 (150-450); RBC Distribution Width CV 14.1 % (11.6-14.6); RBC Distribution Width SD 45.8 fl (35.1-43.9); White Blood Count 11.9 K/mm3 (4.4-11.0)
[2020-07-16 00:34] LABS: D-Dimer Quantitative (DVT/PE) 0.59 FEU/ug/m (0.27-0.49)
[2020-07-16 00:39] LABS: ALB/GLOB Ratio 0.9 RATIO (0.9-2.4); AST(SGOT) 27 U/L (15-37); Alanine Aminotransfer ALT/SGPT 53 U/L (13-56); Albumin, Serum 3.5 g/dL (3.2-5.0); Alkaline Phosphatase 83 U/L (45-117); Anion Gap 5 (5-15); BUN 23 mg/dL (7-18); BUN/Creat Ratio 21.3 RATIO (10-20); Calcium,Total 8.9 mg/dL (8.5-10.1); Chloride 104 mmol/L (98-107); Creatinine, Serum 1.08 mg/dL (0.55-1.02); EST Glomerular Filtration Rate 54 mL/min (>60); Est Glom Filt Rate - Afr Amer 66 mL/min (>60); Estimated Creatinine Clearance 39.71 ml/min; Globulin 3.7 g/dL (2.2-4.2); Glucose 260 mg/dL (74-106); Potassium 4.3 mmol/L (3.5-5.1); Protein, Total 7.2 g/dL (6.4-8.2); Sodium Level 136 mmol/L (136-145)
[2020-07-16] MEDS: Ceftriaxone 1 GM/50 ML BAG IV (01:36)
[2020-07-16 01:44] LABS: Lactic Acid 3.5 mmol/L (0.4-1.9)
--- NOTE | 2020-07-16 03:17 | HP.PCM_ITS ---
History of Present Illness The patient is a 64 year old F [] Past Medical History Allergies No Known Allergies Allergy (Verified 07/15/20 23:58) Home Medications: Ambulatory Orders Medication Instructions Recorded Amlodipine [Norvasc] 10 mg PO DAILY 06/05/18 Aspirin [Adult Aspirin] 81 mg PO DAILY 06/05/18 Atorvastatin Calcium [Lipitor] 40 mg PO QHS 06/05/18 Insulin NPH Hum/Reg Insulin Hm 2 - 2.5 unit SQ DAILY 06/05/18 [Humulin 70/30 Kwikpen] Lisinopril 20 mg PO BID 06/05/18 Metformin HCl 1,000 mg PO BID 06/05/18 Metoprolol Succinate [Toprol Xl] 25 mg PO DAILY 06/05/18 Nitroglycerin [Nitrostat] 0.4 mg SL PRN PRN 06/05/18 Acetaminophen [Tylenol Extra 500 mg PO Q4H PRN PRN #20 tablet 06/10/18 Strength] Ibuprofen 600 mg PO Q6H PRN PRN #20 tablet 06/10/18 glipiZIDE [Glucotrol] 10 mg PO BIDAC 07/16/20 Surgical History: pacemaker implantation Lives: Spouse/ Significant Other Smoking Status: Never smoker Tobacco Use: Non-smoker Drugs: None - Physical Exam Vitals/I&O's: Vital Signs Temp Pulse Resp BP Pulse Ox 97.8 F 86 20 H 131/67 H 94 07/16/20 01:05 07/16/20 01:05 07/16/20 01:05 07/16/20 01:05 07/16/20 01:05 Oxygen Flow Rate (L/min) 3 Oxygen Delivery Method Nasal Cannula Weight: 79.8 kg Body Mass Index (BMI) 33.2 Finger Stick Blood Glucose 232 Intake and Output for Last 24 Hours 07/14/20 07/15/20 07/16/20 23:59 23:59 23:59 Intake Total 50 / 50 Balance 50 / 50 Microbiology Past 72 Hours 07/16/20 01:35 Mucosa - Nose SARS-CoV-2 Antigen (Rapid) - Final Laboratory Results 07/16/20 00:08: WBC 11.9 H, RBC 4.20, Hgb 11.1 L, Hct 37.5, MCV 89.3, MCH 26.4 L , MCHC 29.6 L, RDW Std Deviation 45.8 H, RDW Coeff of Brianne 14.1, Plt Count 312, MPV 9.9, Immature Gran % (Auto) 0.700, Neut % (Auto) 73.3 H, Lymph % (Auto) 17.2 L, [place] % (Auto) 5.4, Eos % (Auto) 2.9, Baso % (Auto) 0.5, Absolute Neuts (auto) 8.7 H, Absolute Lymphs (auto) 2.04, Nucleated RBC % 0 07/16/20 00:08: D-Dimer Quant (PE/DVT) 0.59 H* 07/16/20 00:08: Sodium 136, Potassium 4.3, Chloride 104, Carbon Dioxide 27.0, Anion Gap 5, BUN 23 H, Creatinine 1.08 H, Estim Creat Clear Calc 39.71, Est GFR (MDRD) Af Amer 66, Est GFR (MDRD) Non-Af 54 L, BUN/Creatinine Ratio 21.3 H, Glucose 260 H, Calcium 8.9, Total Bilirubin 0.30, AST 27, ALT 53, Alkaline Phosphatase 83, Troponin I 0.077 H, Total Protein 7.2, Albumin 3.5, Globulin 3.7, Albumin/Globulin Ratio 0.9 07/16/20 00:08: Lactic Acid 3.5 H* 07/16/20 01:35: Troponin I 0.095 H Assessment/Plan All Active Problems Pneumonia (Acute) Bronchospasm, acute (Acute)
[2020-07-16] MEDS: INHALER, ASSIST DEVICES 1 EACH SPACER INHALATION (03:59)
[2020-07-16 05:18] LABS: Reflex Lactate? Y
--- NOTE | 2020-07-16 07:09 | ED.RN ---
pt was d/c, sepsis screen cancelled per md.
[2020-07-16 08:33] LABS: Bedside Glucose 243 mg/dL (70-110)
== END 2020-07-16 08:26 | disposition home or self-care (01) ==
PROVIDERS: Emergency Provider Emergency Medicine; PCP Family Medicine
DX: J18.9 Pneumonia, unspecified organism (principal); J98.01 Acute bronchospasm; R09.02 Hypoxemia; I25.10 Atherosclerotic heart disease of native coronary artery without angina pectoris; E11.9 Type 2 diabetes mellitus without complications; Z79.82 Long term (current) use of aspirin; Z79.4 Long term (current) use of insulin; Z79.899 Other long term (current) drug therapy; I25.2 Old myocardial infarction; Z95.0 Presence of cardiac pacemaker
CPT/HCPCS: 71045; 80053; 82962; 83605; 84484; 85025; 85379; 87040; 87426; 93005; 94640; 96365; 96366; 96367; 99251; 99285; J7050; A4216; G0463

== ENCOUNTER 2020-11-20 22:32 | Inpatient (IN) | payer OTHER, SELFPAY ==
[2020-11-20 22:33] VITALS: BP 173/94; PULSE 91; RESP 25; TEMP 36.1; O2SAT 95; BMI 26.7
[2020-11-20 22:35] VITALS: BP 173/94; PULSE 83; PULSE 91; RESP 12; RESP 25; RESP 28; TEMP 36.1; O2SAT 95; O2SAT 97
[2020-11-20 22:41] VITALS: O2SAT 95
--- NOTE | 2020-11-20 22:44 | CPS ---
pt placed on bipap on arrival to er-pt was on 10 l/p cpap -
--- NOTE | 2020-11-20 22:49 | EKG12_ITS ---
Test Reason : SOB Blood Pressure : / mmHG Vent. Rate : 083 BPM Atrial Rate : 083 BPM P-R Int : 150 ms QRS Dur : 210 ms QT Int : 502 ms P-R-T Axes : 074 -75 086 degrees QTc Int : 589 ms Atrial-sensed ventricular-paced rhythm Abnormal ECG Confirmed by SANJANA FERNANDES, MU ([id number]), visual effects editor LYNN MAYBERRY ([id number]) on 11/23/2020 9:17:50 AM Referred By: LUCINA Confirmed By:MU ALLAN MD
--- NOTE | 2020-11-20 22:51 | EDS_ITS ---
HPI History of Present Illness Chief Complaint: Shortness of Breath Narrative Narrative: Patient comes emergency department with 1 hour of shortness of breath. She stated she did have shortness of breath prior to this last hour. It came on gradually. She feels like she has some wheezing and tightness. Called EMS who brought her in on BiPAP as her pulse ox was in the 70s. Patient denies a history of smoking or COPD. Recent visit to the emergency department in July of this year for acute bronchospasm. Had a full work-up and was able to be discharged home. She followed up with her steel box toe inserter. She had a cardiac cath in early September with 2 stents. She had a history of 2 stents prior to this. She has been taking her medications normally. She does have a cardiac pacemaker. She sees her steel box toe inserter in [facility]. She denies any chest pain at this time. She feels much relieved on BiPAP. Denies any recent leg swelling. [facility] Medical History Diabetes ICD (implantable cardioverter-defibrillator) in place Home Medications aspirin [Adult Aspirin] 81 mg PO DAILY 06/05/18 [History Last Taken 06/02/18] atorvastatin 40 mg PO QHS 06/05/18 [History Last Taken Unknown] insulin NPH and regular human [Humulin 70/30 Kwikpen] 2 - 2.5 unit SQ DAILY 06/05/18 [History Last Taken Unknown] metformin 1,000 mg PO BID 06/05/18 [History Last Taken Unknown] metoprolol succinate [Toprol Xl] 25 mg PO DAILY 06/05/18 [History Last Taken 06/07/18 07:00] nitroglycerin [Nitrostat] 0.4 mg SUBLINGUAL PRN PRN 06/05/18 [History Last Taken Unknown] acetaminophen 500 mg PO Q4H PRN PRN #20 tablet 06/10/18 [Rx Last Taken Unknown] ibuprofen 600 mg PO Q6H PRN PRN #20 tab 06/10/18 [Rx Last Taken Unknown] amoxicillin-pot clavulanate 875 mg PO Q12H #20 tab 07/16/20 [Rx Last Taken Unknown] glipizide 10 mg PO BIDAC 07/16/20 [History Last Taken Unknown] clopidogrel 75 mg PO DAILY 11/21/20 [History Last Taken Unknown] Allergy/AdvReac Type Severity Reaction Status Date / Time No Known Allergies Allergy Verified 11/20/20 22:35 Surgical History History of cardiac catheterization History of cardiac defibrillator placement History of heart artery stent Social History Smoking Status: Never smoker ROS ROS ED ROS Narrative ROS General: Denies fever, chills, sweats Eyes: Denies visual changes, blurred vision, double vision ENT: Denies ear pain, rhinorrhea, sore throat Cardiovascular: Denies chest pain, palpitations, heart racing Respiratory: See HPI GI: Denies abdominal pain, nausea, vomiting, diarrhea, constipation, melena : Denies dysuria, hematuria, frequency Musculoskeletal: Denies myalgias, arthralgias, neck pain, back pain Skin: Denies rash, abscess, abrasions Neuro: Denies headache, weakness, paresthesia Psych: Denies depression, anxiety Endo: Denies polyuria, polydipsia, polyphagia Heme: Denies easy bruising, easy bleeding, lymphadenopathy Allergy: Denies hives, swelling EXAM Physical Exam Narrative Exam Narrative: Vital signs reviewed General: Well-nourished well-developed Head: Normocephalic atraumatic Eyes: Pupils equal round and reactive to light extraocular movements intact ENT: TMs clear no hemotympanum no trauma Neck: Nontender full range of motion Cardiovascular: Regular rate rhythm no murmurs normal S1-S2 Respiratory: Patient is on BiPAP and does not appear in severe distress while on BiPAP. She has diffuse wheezes and suspected crackles throughout all lung silva. Able to speak in short sentences while on BiPAP. Abdomen: Soft nontender nondistended normal bowel sounds no masses Back: Nontender no CVA tenderness Extremities: Nontender active range of motion ?4 extremities no trauma Skin: Normal color no trauma Neuro alert oriented cranial nerves II through XII intact normal strength sensation reflexes Const Vital Signs: 11/20/20 22:33 11/20/20 22:35 11/20/20 22:41 Temperature 97 F L 97 F L Temperature Source Temporal Temporal Pulse Rate 91 83 Respiratory Rate 25 H 28 H Respiratory Effort Short of Breath Accessory Muscle Use Respiratory Pattern Tachypnea Blood Pressure 173/94 H 173/94 H Blood Pressure Mean 120 120 Pulse Ox 95 97 Oxygen Delivery Method Bi-pap Bi-pap Bi-pap Oxygen Flow Rate (L/min) 10 10 Fraction of Inspired Oxygen (FIO2) 50 11/20/20 22:53 11/20/20 23:01 11/20/20 23:05 Temperature Temperature Source Pulse Rate 91 Respiratory Rate 16 Respiratory Effort Respiratory Pattern Blood Pressure Blood Pressure Mean Pulse Ox 95 Oxygen Delivery Method Bi-pap Oxygen Flow Rate (L/min) Fraction of Inspired Oxygen (FIO2) 35 11/20/20 23:35 11/21/20 00:34 Temperature 97.8 F 97.9 F Temperature Source Temporal Temporal Pulse Rate 90 70 Respiratory Rate 20 H 18 Respiratory Effort Respiratory Pattern Blood Pressure 142/60 H 143/66 H Blood Pressure Mean 87 91 Pulse Ox 100 100 Oxygen Delivery Method Bi-pap Bi-pap Oxygen Flow Rate (L/min) Fraction of Inspired Oxygen (FIO2) MDM MDM MDM Narrative Medical decision making narrative: EKG obtained upon arrival shows a paced rhythm at a rate of 83. Lab work and chest x-ray obtained. Patient continued on BiPAP and given albuterol nebulizer treatment x3 and Atrovent nebulizer treatment x1. Given dose of Lasix IV. On reevaluation after treatment the patient's lungs are completely clear. Lab work shows a chronic leukocytosis just above 12,000. She has a chronically elevated troponin of 0.09. Chest x- ray shows suspected right lower lobe pneumonia interpreted by myself. I do not see any acute evidence of heart failure. BNP is pending however. Patient given a dose of Rocephin and azithromycin. Remains on BiPAP. On reevaluation she feels much better satting 99%. At this time due to the fact that the patient had respiratory failure with significant bronchospasm and a suspected pneumonia I feel she will need to be admitted. Covid testing was negative. Discussed with the hospitalist will be admitted Lab Data Labs: Laboratory Results - last 24 hr 11/20/20 11/20/20 22:50 22:50 WBC 12.0 H RBC 3.82 L Hgb 10.1 L Hct 33.6 L MCV 88.0 MCH 26.4 L MCHC 30.1 L RDW Std Deviation 49.4 H RDW Coeff of Brianne 15.5 H Plt Count 295 MPV 9.9 Immature Gran % (Auto) 1.300 H Neut % (Auto) 75.8 H Lymph % (Auto) 14.5 L [place] % (Auto) 4.7 Eos % (Auto) 3.4 Baso % (Auto) 0.3 Absolute Neuts (auto) 9.1 H Absolute Lymphs (auto) 1.75 Nucleated RBC % 0 Sodium 141 Potassium 3.9 Chloride 107 Carbon Dioxide 24.0 Anion Gap 10 BUN 41 H Creatinine 1.43 H Estim Creat Clear Calc 40.09 Est GFR (MDRD) Af Amer 47 L Est GFR (MDRD) Non-Af 39 L BUN/Creatinine Ratio 28.7 H Glucose 222 H Calcium 9.0 Troponin I 0.092 H Radiography Diagnostic Testing: Radiology Impression Chest X-Ray 11/20/20 22:55 IMPRESSION: Right basilar airspace opacity probably representing pneumonia. Electronically Signed: Ramon Kennedy MD at 23:42 EDT , Service support , Critical Care Time Critical Care Time: Yes Critical care time (excluding procedures): 30-74 minutes, Including time spent:, Discussing w/Patient &/or Family/Glove Machine Operator, Discussing w/Consultants and Performing Direct Patient Care at Bedside Discharge Plan Triage Chief Complaint: Shortness of Breath ED Provider: Shayan Jacobs Dx/Rx/DC Orders Prescriptions: No Action atorvastatin 40 MG tablet 40 mg PO QHS RF: 0 aspirin [Adult Aspirin Regimen] 81 MG tablet,delayed release (DR/EC) 81 mg PO DAILY RF: 0 metformin 1,000 MG tablet 1,000 mg PO BID RF: 0 nitroglycerin [Nitrostat] 0.4 MG tablet, sublingual 0.4 mg sublingual PRN PRN (Reason: CHEST PAIN) RF: 0 metoprolol succinate [Toprol XL] 25 MG tablet extended release 24 hr 25 mg PO DAILY RF: 0 Humulin 70/30 U-100 KwikPen 100 UNIT/ML insulin pen 2 - 2.5 unit SQ DAILY RF: 0 acetaminophen 500 MG tablet 500 mg PO Q4H PRN PRN (Reason: Pain) Qty: 20 RF: 0 ibuprofen 600 MG tablet 600 mg PO Q6H PRN PRN (Reason: Pain) Qty: 20 RF: 0 glipizide 10 MG tablet 10 mg PO BIDAC RF: 0 amoxicillin-pot clavulanate 875 MG tablet 875 mg PO Q12H Qty: 20 RF: 0 clopidogrel 75 mg tablet 75 mg PO DAILY RF: 0 Primary Care Provider: Gianluca Sol
[2020-11-20 22:53] VITALS: O2SAT 95
--- NOTE | 2020-11-20 22:55 | RAD_ITS ---
STUDY: X-RAY CHEST REASON FOR EXAM: Female, 64 years old. chest pain TECHNIQUE: AP portable chest. COMPARISON: July 16, 2020. June 05, 2018. FINDINGS: Patchy opacity right lung base. No effusions. No pneumothorax. Normal size heart. Normal mediastinum and cordell. Normal visualized pulmonary arteries. Normal visualized aortic arch and descending thoracic aorta. Normal visualized thoracic spine. Normal visualized ribs, clavicles, and shoulders. Cardiac pacemaker left hemithorax. There is no demonstrated abnormality of the visualized soft tissue structures of the upper abdomen. RAD/Chest 1 View (Portable) IMPRESSION: Right basilar airspace opacity probably representing pneumonia. Electronically Signed: Ramon Kennedy MD at 23:42 EDT , Service support ,
[2020-11-20] MEDS: Albuterol 2.5 MG/3 ML VIAL.NEB. INHALATION ×3 (23:00)
[2020-11-20] MEDS: Ipratropium/Albuterol Sulfate 3 ML AMPUL.NEB INHALATION (23:00)
[2020-11-20 23:01] VITALS: PULSE 91; RESP 16
[2020-11-20] MEDS: Aspirin 81 MG TAB.CHEW 324 MG PO (23:03)
[2020-11-20] MEDS: Furosemide 40 MG/4 ML Vial IV (23:04)
[2020-11-20 23:19] LABS: Absolute Lymphocyte Count 1.75 X10^3/uL (0.83-4.51); Absolute Neutrophil Count 9.1 X10^3/uL (2.0-7.7); Basophil# 0.04 X10^3/uL; Basophil% 0.3 % (0-1); Eosinophil# 0.41 X10^3/uL; Eosinophils% 3.4 % (0-5); Hematocrit 33.6 % (37-47); Hemoglobin 10.1 g/dL (12.0-15.0); Lymphocyte # 1.75 X10^3/ul (0.83-4.51); Lymphocyte % 14.5 % (19-41); Mean Corp Hgb Conc 30.1 g/dL (32-36); Mean Corpuscular Hgb 26.4 pg (27.0-32.0); Mean Platelet Vol. 9.9 fl (6.2-12.0); Monocyte# 0.56 X10^3/uL; Monocyte% 4.7 % (0-10); NRBC Flagged by Analyzer 0 % (0-5); Neutrophil # 9.11 X10^3/uL (2.7-7.7); Neutrophil % 75.8 % (47-70); Platelet Count 295 K/mm3 (150-450); RBC Distribution Width CV 15.5 % (11.6-14.6); RBC Distribution Width SD 49.4 fl (35.1-43.9); Red Blood Count 3.82 M/mm3 (4.2-5.4)
[2020-11-20 23:20] LABS: Anion Gap 10 (5-15); BUN 41 mg/dL (7-18); BUN/Creat Ratio 28.7 RATIO (10-20); Chloride 107 mmol/L (98-107); Creatinine, Serum 1.43 mg/dL (0.55-1.02); EST Glomerular Filtration Rate 39 mL/min (>60); Est Glom Filt Rate - Afr Amer 47 mL/min (>60); Estimated Creatinine Clearance 40.09 ml/min; Glucose 222 mg/dL (74-106); Potassium 3.9 mmol/L (3.5-5.1); Sodium Level 141 mmol/L (136-145)
[2020-11-20 23:35] VITALS: BP 142/60; PULSE 90; RESP 20; TEMP 36.6; O2SAT 100
[2020-11-20] MEDS: Morphine 2 MG/ML Syringe IV (23:59)
[2020-11-21] VITALS (17 sets, daily range): BP systolic 116–143; BP diastolic 54–72; PULSE 67–89; RESP 12–20; TEMP 36.1–36.7; O2SAT 97–100; BMI 31.7
[2020-11-21 01:04] LABS: BNP,B-Type NATRIURETIC PEPTIDE 1369.9 pg/mL (0-100)
--- NOTE | 2020-11-21 01:06 | HP.PCM.HOS_ITS ---
HPI - General General Date of Admission: 11/21/20 HPI Narrative LATOSHA LOYOLA, is a 64 F with a significant history of CAD status post 4 stents; permanent pacemaker with ICD; diabetes mellitus; and hypertension who presents with shortness of breath that started on the same day of presentation. Her shortness of breath started gradually and and worsen precipitously while sitting in a chair. When paramedics arrived her oxygen saturation was 70%. Patient was placed on BiPAP and arrived to the hospital. Associated with symptoms is wheezes. Patient had no chills or fever. For the past 2 weeks patient has noticed swelling of her bilateral legs. Also she has a wound on her left andrews. Patient was on the BiPAP and signaled his to provide information. [facility] Medical History Diabetes ICD (implantable cardioverter-defibrillator) in place Home Medications aspirin [Adult Aspirin] 81 mg PO DAILY 06/05/18 [History Last Taken 06/02/18] atorvastatin 40 mg PO QHS 06/05/18 [History Last Taken Unknown] insulin NPH and regular human [Humulin 70/30 Kwikpen] 2 - 2.5 unit SQ DAILY 06/05/18 [History Last Taken Unknown] metformin 1,000 mg PO BID 06/05/18 [History Last Taken Unknown] metoprolol succinate [Toprol Xl] 25 mg PO DAILY 06/05/18 [History Last Taken 06/07/18 07:00] nitroglycerin [Nitrostat] 0.4 mg SUBLINGUAL PRN PRN 06/05/18 [History Last Taken Unknown] acetaminophen 500 mg PO Q4H PRN PRN #20 tablet 06/10/18 [Rx Last Taken Unknown] ibuprofen 600 mg PO Q6H PRN PRN #20 tab 06/10/18 [Rx Last Taken Unknown] amoxicillin-pot clavulanate 875 mg PO Q12H #20 tab 07/16/20 [Rx Last Taken Unknown] glipizide 10 mg PO BIDAC 07/16/20 [History Last Taken Unknown] clopidogrel 75 mg PO DAILY 11/21/20 [History Last Taken Unknown] Allergy/AdvReac Type Severity Reaction Status Date / Time No Known Allergies Allergy Verified 11/20/20 22:35 Family History (Updated 11/21/20 @ 01:[address] Shane Jerome MD) Other Brain aneurysm CVA (cerebral vascular accident) Diabetes Surgical History History of cardiac catheterization History of cardiac defibrillator placement History of heart artery stent Social History Smoking Status: Never smoker ROS ROS Narrative 12 point review of system is negative except as stated in HPI Vital Signs Vital Signs Vital Signs: 11/20/20 22:33 11/20/20 22:35 11/20/20 22:41 Temperature 97 F L 97 F L Temperature Source Temporal Temporal Pulse Rate 91 83 Respiratory Rate 25 H 28 H Respiratory Effort Short of Breath Accessory Muscle Use Respiratory Pattern Tachypnea Blood Pressure 173/94 H 173/94 H Blood Pressure Mean 120 120 Pulse Ox 95 97 Oxygen Delivery Method Bi-pap Bi-pap Bi-pap Oxygen Flow Rate (L/min) 10 10 Fraction of Inspired Oxygen (FIO2) 50 11/20/20 22:53 11/20/20 23:01 11/20/20 23:05 Temperature Temperature Source Pulse Rate 91 Respiratory Rate 16 Respiratory Effort Respiratory Pattern Blood Pressure Blood Pressure Mean Pulse Ox 95 Oxygen Delivery Method Bi-pap Oxygen Flow Rate (L/min) Fraction of Inspired Oxygen (FIO2) 35 11/20/20 23:35 11/21/20 00:34 Temperature 97.8 F 97.9 F Temperature Source Temporal Temporal Pulse Rate 90 70 Respiratory Rate 20 H 18 Respiratory Effort Respiratory Pattern Blood Pressure 142/60 H 143/66 H Blood Pressure Mean 87 91 Pulse Ox 100 100 Oxygen Delivery Method Bi-pap Bi-pap Oxygen Flow Rate (L/min) Fraction of Inspired Oxygen (FIO2) Physical Exam Narrative Alert and oriented x3 Nontraumatic; normocephalic Lung with mild rales Heart sounds S1-S2. No murmur, gallop or rubs. Abdomen bowel sounds present soft, nontender nondistended Extremity without edema cyanosis or clubbing. Lab / Micro Data Result Diagrams: 11/20/20 22:50 11/20/20 22:50 Labs: Laboratory Results - last 24 hr 11/20/20 11/20/20 11/20/20 22:50 22:50 22:50 WBC 12.0 H RBC 3.82 L Hgb 10.1 L Hct 33.6 L MCV 88.0 MCH 26.4 L MCHC 30.1 L RDW Std Deviation 49.4 H RDW Coeff of Brianne 15.5 H Plt Count 295 MPV 9.9 Immature Gran % (Auto) 1.300 H Neut % (Auto) 75.8 H Lymph % (Auto) 14.5 L [place] % (Auto) 4.7 Eos % (Auto) 3.4 Baso % (Auto) 0.3 Absolute Neuts (auto) 9.1 H Absolute Lymphs (auto) 1.75 Nucleated RBC % 0 Sodium 141 Potassium 3.9 Chloride 107 Carbon Dioxide 24.0 Anion Gap 10 BUN 41 H Creatinine 1.43 H Estim Creat Clear Calc 40.09 Est GFR (MDRD) Af Amer 47 L Est GFR (MDRD) Non-Af 39 L BUN/Creatinine Ratio 28.7 H Glucose 222 H Calcium 9.0 Troponin I 0.092 H B-Natriuretic Peptide 1369.9 H Micro: Microbiology 11/20/20 22:56 SARS-CoV-2 Antigen (Rapid) - Final Interface Orders Radiology Impression Chest X-Ray 11/20/20 22:55 IMPRESSION: Right basilar airspace opacity probably representing pneumonia. Electronically Signed: Ramon Kennedy MD at 23:42 EDT , Service support , Assessment & Plan Assessment/Plan (1) Respiratory failure: QUALIFIERS: Chronicity: acute Respiratory failure complication: hypoxia Qualified Code(s): J96.01 - Acute respiratory failure with hypoxia (2) Acute hypoxemic respiratory failure: (3) Heart failure: QUALIFIERS: Heart failure chronicity: acute Heart failure type: unspecified Qualified Code(s): I50.9 - Heart failure, unspecified (4) Acute renal insufficiency: (5) Diabetes: QUALIFIERS: Diabetes mellitus complication status: without complication Diabetes mellitus intermediate manager insulin use: with half-way use Diabetes mellitus type: type 2 Qualified Code(s): E11.9 - Type 2 diabetes mellitus without complications; Z79.4 - exterminator helper termite (current) use of insulin PLAN: Acute hypoxemic respiratory failure secondary to acute heart failure CXR independently interpreted by myself showed bibasilar infiltrates and near consolidation at's right base. Radiologist impression of chest x-ray: Right basilar airspace opacity probably representing pneumonia. Place on monitored bed on PCU BiPAP started pre-Hospitalization continued. Get ABG. Received ceftriaxone and azithromycin at the emergency department. Received breathing treatment at the emergency department. Get procalcitonin. Emergency department lab reviewed showed elevated BNP. Received Lasix 40 mg IV in the emergency department. Lasix 40 mg twice daily ordered. Supplement potassium. Per patient's patient had echocardiogram at [facility] around July 2020. Obtain records from [facility]. Weight on admission to the floor; and then daily Strict I&O's EKG independently reviewed confirms paced rhythm Monitor electrolytes and renal function Fluid restriction of 1500 mls daily Cardiac and diabetic diet as ordered CHRIS Creatinine of 1.43 up. Review of old records show creatinine of 07/16/2020 was 1.08. CHRIS likely secondary to cardiorenal syndrome. Lasix as above. Trend BMP. Elevated troponin Received aspirin 325 mg at the emergency department. Aspirin and Plavix continued. Trend troponin Left leg wound Declined examination at the emergency department. Wound care consult. Diabetes mellitus Patient with hyperglycemia on presentation Glipizide continued Accu-Chek with correction scale insulin ordered. Cardiac and diabetic diet as ordered DVT prophylaxis Subcutaneous Lovenox. Visit Charges Inpatient E&M: 92267 Init Hosp L3
[2020-11-21] MEDS: Ceftriaxone 1 GM/50 ML BAG IV (01:14)
[2020-11-21 01:40] LABS: Allen Test Positive; Base Excess -3 mmol/L (-2 to +2); Bicarbonate 22.3 mmol/L (22-26); Blood Gas Specimen Type ART; FI02 35; O2 Delivery Device BiPAP; PO2 124 mmHG (75-100); SITE L Radial; SO2 99 % (95-99); Total Carbon Dioxide 24 mmol/L; pCO2 39.8 mmHg (35-45); pH 7.36 (7.35-7.45)
[2020-11-21] MEDS: Acetaminophen 500 MG Tablet PO ×5 (02:02→21:10)
[2020-11-21 05:39] LABS: Absolute Lymphocyte Count 1.46 X10^3/uL (0.83-4.51); Absolute Neutrophil Count 8.6 X10^3/uL (2.0-7.7); Basophil# 0.03 X10^3/uL; Basophil% 0.3 % (0-1); Eosinophil# 0.08 X10^3/uL; Eosinophils% 0.7 % (0-5); Hematocrit 31.8 % (37-47); Hemoglobin 9.6 g/dL (12.0-15.0); Lymphocyte # 1.46 X10^3/ul (0.83-4.51); Lymphocyte % 13.5 % (19-41); Mean Corp Hgb Conc 30.2 g/dL (32-36); Mean Corpuscular Hgb 26.3 pg (27.0-32.0); Mean Corpuscular Volume 87.1 fL (81-99); Mean Platelet Vol. 9.2 fl (6.2-12.0); Monocyte% 5.5 % (0-10); NRBC Flagged by Analyzer 0 % (0-5); Neutrophil # 8.61 X10^3/uL (2.7-7.7); Neutrophil % 79.5 % (47-70); Platelet Count 278 K/mm3 (150-450); RBC Distribution Width CV 15.4 % (11.6-14.6); RBC Distribution Width SD 48.9 fl (35.1-43.9); Red Blood Count 3.65 M/mm3 (4.2-5.4); White Blood Count 10.8 K/mm3 (4.4-11.0)
[2020-11-21 05:54] LABS: Anion Gap 9 (5-15); BUN 42 mg/dL (7-18); BUN/Creat Ratio 32.6 RATIO (10-20); Calcium,Total 8.9 mg/dL (8.5-10.1); Chloride 108 mmol/L (98-107); Creatinine, Serum 1.29 mg/dL (0.55-1.02); EST Glomerular Filtration Rate 44 mL/min (>60); Est Glom Filt Rate - Afr Amer 53 mL/min (>60); Estimated Creatinine Clearance 33.25 ml/min; Glucose 184 mg/dL (74-106); Potassium 3.3 mmol/L (3.5-5.1); Sodium Level 141 mmol/L (136-145)
[2020-11-21] MEDS: Enoxaparin 80 MG/0.8 ML Syringe SC ×2 (06:18→21:06)
[2020-11-21] MEDS: Potassium Chloride Oral Tablet 20 MEQ 40 MEQ PO ×2 (06:18→17:16)
[2020-11-21 06:37] LABS: Magnesium 1.5 mg/dL (1.6-2.6)
[2020-11-21] MEDS: Magnesium Sulfate 4gm/100mL 4 GM/100 ML IV.SOLN. IV (06:58)
[2020-11-21] MEDS: Insulin Lispro 100 UNIT/ML INSULN.PEN SC ×3 (06:58→21:05)
[2020-11-21 07:11] LABS: Bedside Glucose 155 mg/dL (70-110)
[2020-11-21] MEDS: Metoprolol(XL)Succ 25 MG Tablet PO (08:45)
[2020-11-21] MEDS: 0.9% Saline Lock 10 ML Syringe IV (08:45)
[2020-11-21] MEDS: glipiZIDE 10 MG Tablet PO ×2 (08:46→17:16)
[2020-11-21] MEDS: Clopidogrel Bisulfate 75 MG Tablet PO (08:46)
[2020-11-21] MEDS: Furosemide 40 MG/4 ML Vial IV ×2 (08:46→17:16)
[2020-11-21] MEDS: Aspirin 81 MG TAB.CHEW PO (08:46)
--- NOTE | 2020-11-21 11:24 | PCM.CONS.C ---
Assessment & Plan Assessment/Plan (1) NSTEMI (non-ST elevated myocardial infarction): PLAN: 64-year-old patient, admitted with symptoms of chest pain As known cardiac history with a history of PCI. And a pacemaker done at [facility] She had a history of diabetes, hypertension history of acute hypoxic respiratory failure and acute renal insufficiency Patient seen and evaluated today at bedside at bedside at time of evaluation She has no active symptoms of chest pain. On review of the electrocardiogram she had a paced cardiac rhythm And the cardiac biomarkers showed elevated high sensitive troponin 3.9 Plan and recommendation; 1. I reviewed and discussed all her current medication will continue the current treatment including the Lovenox 2. Requested the record of the pacemaker as well as the coronary stent from [place] 3. Patient will be evaluated with coronary angiography to assess for progression of CAD and evaluate for patency of coronary stent. (2) Diabetes: QUALIFIERS: Diabetes mellitus type: type 2 Diabetes mellitus intermediate teacher insulin use: with care home use Diabetes mellitus complication status: without complication Qualified Code(s): E11.9 - Type 2 diabetes mellitus without complications; Z79.4 - nursing home (current) use of insulin (3) Acute hypoxemic respiratory failure: (4) Acute renal insufficiency: HPI Consult Data Date of Consult: 11/21/20 HPI Narrative HPI Narrative: LATOSHA LOYOLA, is a 64 F who presents symptoms of chest pain shortness of breath Cardiac consultation requested for evaluation of CAD and assessment for progression of coronary artery disease Patient had a history of PCI and stent. In a different facility no records available. [facility] Medical History Diabetes ICD (implantable cardioverter-defibrillator) in place Home Medications aspirin [Adult Aspirin] 81 mg PO DAILY 06/05/18 [History Last Taken 06/02/18] atorvastatin 40 mg PO QHS 06/05/18 [History Last Taken Unknown] insulin NPH and regular human [Humulin 70/30 Kwikpen] 2 - 2.5 unit SQ DAILY 06/05/18 [History Last Taken Unknown] metformin 1,000 mg PO BID 06/05/18 [History Last Taken Unknown] metoprolol succinate [Toprol Xl] 25 mg PO DAILY 06/05/18 [History Last Taken 06/07/18 07:00] nitroglycerin [Nitrostat] 0.4 mg SUBLINGUAL PRN PRN 06/05/18 [History Last Taken Unknown] acetaminophen 500 mg PO Q4H PRN PRN #20 tablet 06/10/18 [Rx Last Taken Unknown] ibuprofen 600 mg PO Q6H PRN PRN #20 tab 06/10/18 [Rx Last Taken Unknown] amoxicillin-pot clavulanate 875 mg PO Q12H #20 tab 07/16/20 [Rx Last Taken Unknown] glipizide 10 mg PO BIDAC 07/16/20 [History Last Taken Unknown] clopidogrel 75 mg PO DAILY 11/21/20 [History Last Taken Unknown] Allergy/AdvReac Type Severity Reaction Status Date / Time No Known Allergies Allergy Verified 11/20/20 22:35 Family History (Updated 11/21/20 @ 01:[address] Shane Jerome MD) Other Brain aneurysm CVA (cerebral vascular accident) Diabetes Surgical History History of cardiac catheterization History of cardiac defibrillator placement History of heart artery stent Social History Smoking Status: Never smoker ROS ROS Narrative 12 point review of system is negative except as stated in HPI Physical Exam Const no apparent distress HEENT hearing grossly normal bilaterally Neck supple Chest inspection of chest normal and palpation of chest normal Resp Resp Narrative: Chest examination diminished air entry bilateral with mild bilateral inspiratory rales Auscultation: rales bilateral and diminished lung sounds Cardio Cardio Narrative: Cardiac examination underlying cardiac rhythm is paced rhythm patient had a history of a pacemaker in the left into the infraclavicular area. There is no murmur No gallop or pericardial rub GI normal to inspection, nondistended, normoactive bowel sounds and soft to palpation Neuro oriented x3, moves all extremities and no focal motor deficits
[2020-11-21 11:51] LABS: Bedside Glucose 221 mg/dL (70-110)
--- NOTE | 2020-11-21 15:05 | PCM.PN.HOSP ---
Subjective Subjective Patient was seen and examined. Denied any chest pain. at the bedside. All questions answered. No dizziness or palpitation. Objective Data Objective Data Vital Signs: Vital Signs Temp Pulse Resp BP Pulse Ox 98.1 F 69 18 116/54 L 97 11/21/20 14:22 11/21/20 14:22 11/21/20 14:22 11/21/20 14:22 11/21/20 14:22 Oxygen Flow Rate (L/min) 2 Oxygen Delivery Method Room Air Weight: 75.9 kg Body Mass Index (BMI) 31.7 Intake & Output: Intake and Output for Last 24 Hours 11/19/20 11/20/20 11/21/20 23:59 23:59 23:59 Intake Total 765 / 765 Balance 765 / 765 Lab / Micro Data Result Diagrams: 11/21/20 05:26 11/21/20 05:26 Labs: Laboratory Results - last 24 hr 11/20/20 11/20/20 11/20/20 22:50 22:50 22:50 WBC 12.0 H RBC 3.82 L Hgb 10.1 L Hct 33.6 L MCV 88.0 MCH 26.4 L MCHC 30.1 L RDW Std Deviation 49.4 H RDW Coeff of Brianne 15.5 H Plt Count 295 MPV 9.9 Immature Gran % (Auto) 1.300 H Neut % (Auto) 75.8 H Lymph % (Auto) 14.5 L Candler % (Auto) 4.7 Eos % (Auto) 3.4 Baso % (Auto) 0.3 Absolute Neuts (auto) 9.1 H Absolute Lymphs (auto) 1.75 Nucleated RBC % 0 Sodium 141 Potassium 3.9 Chloride 107 Carbon Dioxide 24.0 Anion Gap 10 BUN 41 H Creatinine 1.43 H Estim Creat Clear Calc 40.09 Est GFR (MDRD) Af Amer 47 L Est GFR (MDRD) Non-Af 39 L BUN/Creatinine Ratio 28.7 H Glucose 222 H Calcium 9.0 Magnesium Troponin I 0.092 H B-Natriuretic Peptide 1369.9 H Procalcitonin POC Glucose 11/21/20 11/21/20 11/21/20 02:40 02:40 05:26 WBC 10.8 RBC 3.65 L Hgb 9.6 L Hct 31.8 L MCV 87.1 MCH 26.3 L MCHC 30.2 L RDW Std Deviation 48.9 H RDW Coeff of Brianne 15.4 H Plt Count 278 MPV 9.2 Immature Gran % (Auto) 0.500 Neut % (Auto) 79.5 H Lymph % (Auto) 13.5 L Candler % (Auto) 5.5 Eos % (Auto) 0.7 Baso % (Auto) 0.3 Absolute Neuts (auto) 8.6 H Absolute Lymphs (auto) 1.46 Nucleated RBC % 0 Sodium Potassium Chloride Carbon Dioxide Anion Gap BUN Creatinine Estim Creat Clear Calc Est GFR (MDRD) Af Amer Est GFR (MDRD) Non-Af BUN/Creatinine Ratio Glucose Calcium Magnesium Troponin I 1.380 H* B-Natriuretic Peptide Procalcitonin 0.10 H POC Glucose 11/21/20 11/21/20 11/21/20 05:26 05:26 05:26 WBC RBC Hgb Hct MCV MCH MCHC RDW Std Deviation RDW Coeff of Brianne Plt Count MPV Immature Gran % (Auto) Neut % (Auto) Lymph % (Auto) Candler % (Auto) Eos % (Auto) Baso % (Auto) Absolute Neuts (auto) Absolute Lymphs (auto) Nucleated RBC % Sodium 141 Potassium 3.3 L Chloride 108 H Carbon Dioxide 24.0 Anion Gap 9 BUN 42 H Creatinine 1.29 H Estim Creat Clear Calc 33.25 Est GFR (MDRD) Af Amer 53 L Est GFR (MDRD) Non-Af 44 L BUN/Creatinine Ratio 32.6 H Glucose 184 H Calcium 8.9 Magnesium 1.5 L Troponin I 3.320 H* B-Natriuretic Peptide Procalcitonin POC Glucose 11/21/20 11/21/20 11/21/20 06:55 08:00 11:40 WBC RBC Hgb Hct MCV MCH MCHC RDW Std Deviation RDW Coeff of Brianne Plt Count MPV Immature Gran % (Auto) Neut % (Auto) Lymph % (Auto) Candler % (Auto) Eos % (Auto) Baso % (Auto) Absolute Neuts (auto) Absolute Lymphs (auto) Nucleated RBC % Sodium Potassium Chloride Carbon Dioxide Anion Gap BUN Creatinine Estim Creat Clear Calc Est GFR (MDRD) Af Amer Est GFR (MDRD) Non-Af BUN/Creatinine Ratio Glucose Calcium Magnesium Troponin I 3.990 H* B-Natriuretic Peptide Procalcitonin POC Glucose 155 H 221 H Micro: Microbiology 11/20/20 22:56 Interface Orders SARS-CoV-2 Antigen (Rapid) - Final ABG Data ABG results: ABG 11/21/20 01:36 Specimen Type ART Sample Site L Radial pH 7.36 Bicarbonate Actual 22.3 Total CO2 24 Base Excess -3 L O2 Saturation 99 O2 % 35 ABG pCO2 39.8 ABG pO2 124 H Jj Test Positive O2 Delivery Device BiPAP Clinical Comments bipap 21/02. 35% Radiography Diagnostic Testing: Radiology Impression Chest X-Ray 11/20/20 22:55 IMPRESSION: Right basilar airspace opacity probably representing pneumonia. Electronically Signed: Ramon Kennedy MD at 23:42 EDT , Service support , Physical Exam Narrative Physical exam: General: Alert, Oriented x3, Cooperative, No apparent distress, Well developed HEENT: Atraumatic Oral: Moist Mucosa Neck: Supple Lungs: Clear to auscultation Cardiovascular: HS I+II, regular, no murmurs Abdomen: Bowel Sounds Present, Soft, Non Tender Extremities: Bilateral leg edema, Kalia wraps on Skin: No rashes, No breakdown Neurological: Grossly intact Psych/Mental Status: Appropriate Assessment & Plan Assessment/Plan (1) Respiratory failure: QUALIFIERS: Chronicity: acute Respiratory failure complication: hypoxia Qualified Code(s): J96.01 - Acute respiratory failure with hypoxia (2) Acute hypoxemic respiratory failure: (3) Heart failure: QUALIFIERS: Heart failure type: unspecified Heart failure chronicity: acute Qualified Code(s): I50.9 - Heart failure, unspecified (4) Acute renal insufficiency: (5) Diabetes: QUALIFIERS: Diabetes mellitus type: type 2 Diabetes mellitus fci insulin use: with keno terminal operator use Diabetes mellitus complication status: without complication Qualified Code(s): E11.9 - Type 2 diabetes mellitus without complications; Z79.4 - long term care social worker (current) use of insulin (6) NSTEMI (non-ST elevated myocardial infarction): (7) Anemia: (8) Hypokalemia: PLAN: 1. Acute hypoxemic respiratory failure secondary to acute heart failure, resolving Off BiPAP, on 2 L of oxygen, wean off oxygen for SPO2 more than 94 2. Acute NSTEMI, EKG shows no acute ST changes, paced rhythmn Cardiology consulted; patient will be going for cardiac cath in a.m. Continue on Lovenox, aspirin, beta-eric, statin 3. Acute on chronic CHF, unknown EF Admitting BNP of is elevated Patient has improved on Lasix, continue with CHF protocol Will get 2d-ECHO in am 4. CHRIS on CKD, unclear stage Creatinine appears to be improving; currently 1.29, improved from 1.43 We will continue to trend in a.m. 5. Hypokalemia, replace, recheck in a.m. 6. Chronic left leg wound, wound RN consulted 7. Type 2 DM, blood sugars are slightly elevated, glipizide, will add insulin sliding scale Continue on a cardiac-calorie controlled diet Visit Charges Inpatient E&M: 73879 Subs Hosp L2
--- NOTE | 2020-11-21 15:14 | ECHOCS_ITS ---
Reason For Study: CHF Procedure This was a 2D Doppler, Color Flow transthoracic echocardiogram. The study was technically difficult. Contrast injection was performed. Exam performed portable in patient room. Left Ventricle Normal LV size. Moderate concentric left ventricular hypertrophy. The estimated ejection fraction is 30 %. There is moderate global hypokinesis of the left ventricle. Right Ventricle Normal RV size. ICD or pacer leads identified within the right ventricle. Normal systolic function. Atria Normal left atrium. Normal right atrium. Mitral Valve There is mild to moderate mitral annular calcification. Mild-Moderate (1-2+) eccentric mitral valve insufficiency. Tricuspid Valve Normal tricuspid valve. Mild (1+) tricuspid valve insufficiency. Pulmonary artery systolic pressure is 34 mmHg. Aortic Valve Trisinus/trileaflet aortic valve. Mild focal aortic valve calcification. Pulmonic Valve Normal pulmonic valve. Great Vessels Normal aortic root. The pulmonary artery is normal size. Inferior vena cava collapse with respiration. Pericardium/Pleural No pericardial effusion. Medication Diluted definity 4ml given slow IV push to enhance endocardial definition. MMode/2D Measurements & Calculations LVIDd: 5.9 cm IVSd: 1.4 cm LVOT diam: 2.0 cm LVIDs: 5.0 cm LVPWd: 1.4 cm FS: 14.5 % LVOT area: 3.2 cm2 Ao root diam: 3.0 cm LAV(MOD-bp): 57.3 ml LA A4 area: 18.6 cm2 LA dimension: 4.2 cm LAV(MOD-bp) Indexed: 32.8 ml/m2 LAV(MOD-sp2): 62.9 ml LAV(MOD-sp4): 53.4 ml RA A4 area: 12.2 cm2 Time Measurements MV dec time: 0.16 sec Doppler Measurements & Calculations MV E max gonzalez: 101.6 cm/sec Lat Peak E' Gonzalez: 3.1 cm/sec Med Peak E' Gonzalez: 4.6 cm/sec MV A max gonzalez: 111.6 cm/sec E/E' lat: 32.4 E/E' med: 22.1 MV E/A: 0.91 MV V2 max: 142.8 cm/sec MV P1/2t max gonzalez: 139.8 cm/sec Ao V2 max: 219.4 cm/sec MV max P.2 mmHg MV P1/2t: 48.0 msec Ao max P.3 mmHg MV V2 mean: 83.3 cm/sec MV dec slope: 853.9 cm/sec2 Ao V2 mean: 137.7 cm/sec MV mean P.4 mmHg Ao mean P.0 mmHg MV V2 VTI: 31.0 cm MVA(P1/2t): 4.6 cm2 Ao V2 VTI: 46.1 cm MVA(VTI): 2.3 cm2 ERNESTINA(I,D): 1.6 cm2 ERNESTINA(V,D): 1.5 cm2 LV V1 max: 99.6 cm/sec MR max gonzalez: 431.8 cm/sec SV(LVOT): 71.9 ml LV V1 max P.0 mmHg MR max P.6 mmHg LV V1 mean P.8 mmHg MR mean gonzalez: 320.0 cm/sec LV V1 mean: 60.1 cm/sec MR mean P.2 mmHg LV V1 VTI: 22.3 cm MR VTI: 167.4 cm PA V2 max: 73.2 cm/sec TR max gonzalez: 270.1 cm/sec TR max P.2 mmHg ECHO/Echo Complete W/ Contrast Interpretation Summary Normal LV size. Moderate concentric left ventricular hypertrophy. The estimated ejection fraction is 30 %. There is moderate global hypokinesis of the left ventricle. Pulmonary artery systolic pressure is 34 mmHg. Mild-Moderate (1-2+) eccentric mitral valve insufficiency. Contrast injection was performed. Ordering Physician: Bernice Hernandez Referring Physician: Gianluca Sol Performed By: Evans Daniels RCS
[2020-11-21 17:36] LABS: Bedside Glucose 157 mg/dL (70-110)
[2020-11-21] MEDS: Atorvastatin Calcium 40 MG Tablet PO (21:06)
[2020-11-21 21:21] LABS: Bedside Glucose 217 mg/dL (70-110)
[2020-11-22] VITALS (20 sets, daily range): BP systolic 131–156; BP diastolic 58–105; PULSE 62–80; RESP 12–18; TEMP 36.1–36.8; O2SAT 95–99
[2020-11-22] MEDS: Acetaminophen 500 MG Tablet PO ×5 (02:15→21:36)
[2020-11-22 05:39] LABS: Absolute Lymphocyte Count 1.87 X10^3/uL (0.83-4.51); Absolute Neutrophil Count 3.8 X10^3/uL (2.0-7.7); Basophil# 0.04 X10^3/uL; Basophil% 0.6 % (0-1); Eosinophil# 0.56 X10^3/uL; Hematocrit 34.9 % (37-47); Hemoglobin 10.4 g/dL (12.0-15.0); Lymphocyte # 1.87 X10^3/ul (0.83-4.51); Lymphocyte % 26.8 % (19-41); Mean Corp Hgb Conc 29.8 g/dL (32-36); Mean Corpuscular Hgb 26.1 pg (27.0-32.0); Mean Corpuscular Volume 87.5 fL (81-99); Mean Platelet Vol. 9.6 fl (6.2-12.0); Monocyte# 0.65 X10^3/uL; Monocyte% 9.3 % (0-10); NRBC Flagged by Analyzer 0 % (0-5); Neutrophil # 3.83 X10^3/uL (2.7-7.7); Neutrophil % 54.7 % (47-70); Platelet Count 308 K/mm3 (150-450); RBC Distribution Width CV 15.8 % (11.6-14.6); RBC Distribution Width SD 50.2 fl (35.1-43.9); Red Blood Count 3.99 M/mm3 (4.2-5.4)
[2020-11-22] MEDS: Aspirin 81 MG TAB.CHEW PO (05:51)
[2020-11-22] MEDS: Metoprolol(XL)Succ 25 MG Tablet PO (05:51)
[2020-11-22] MEDS: Clopidogrel Bisulfate 75 MG Tablet PO (05:51)
--- NOTE | 2020-11-22 05:55 | EKG12_ITS ---
Test Reason : AM EKG Blood Pressure : / mmHG Vent. Rate : 076 BPM Atrial Rate : 076 BPM P-R Int : 160 ms QRS Dur : 210 ms QT Int : 498 ms P-R-T Axes : 054 -82 084 degrees QTc Int : 560 ms Normal sinus rhythm with sinus arrhythmia Left axis deviation Left bundle branch block Abnormal ECG When compared with ECG of 20-NOV-2020 22:38, MANUAL COMPARISON REQUIRED, DATA IS UNCONFIRMED Confirmed by SANJANA FERNANDES, MU ([id number]), newspaper editor LYNN MAYBERRY ([id number]) on 11/23/2020 9:47:33 AM Referred By: FEI Confirmed By:MU ALLAN MD
[2020-11-22 06:00] LABS: ALB/GLOB Ratio 0.9 RATIO (0.9-2.4); AST(SGOT) 33 U/L (15-37); Alanine Aminotransfer ALT/SGPT 43 U/L (13-56); Albumin, Serum 3.2 g/dL (3.2-5.0); Alkaline Phosphatase 39 U/L (45-117); Anion Gap 7 (5-15); BUN 42 mg/dL (7-18); BUN/Creat Ratio 40.8 RATIO (10-20); Calcium,Total 8.8 mg/dL (8.5-10.1); Chloride 110 mmol/L (98-107); Creatinine, Serum 1.03 mg/dL (0.55-1.02); EST Glomerular Filtration Rate 57 mL/min (>60); Est Glom Filt Rate - Afr Amer 69 mL/min (>60); Estimated Creatinine Clearance 41.64 ml/min; Globulin 3.7 g/dL (2.2-4.2); Glucose 122 mg/dL (74-106); Potassium 3.4 mmol/L (3.5-5.1); Protein, Total 6.9 g/dL (6.4-8.2); Sodium Level 141 mmol/L (136-145)
[2020-11-22 06:06] LABS: Bedside Glucose 122 mg/dL (70-110)
[2020-11-22] MEDS: Potassium Chloride Oral Tablet 20 MEQ 40 MEQ PO ×2 (06:12→17:33)
[2020-11-22] MEDS: 0.9% Normal Saline 1,000 ML 15 ML IV (08:48)
[2020-11-22] MEDS: 0.9% Saline Lock 10 ML Syringe IV ×2 (08:48→17:36)
--- NOTE | 2020-11-22 08:57 | NURSING ---
Report called to Circulation Man.
--- NOTE | 2020-11-22 09:51 | PN.CARD_ITS ---
Subjective Subjective Patient seen and evaluated. Appears to be doing well. Objective Data Vital Signs: Vital Signs Temp Pulse Resp BP Pulse Ox 97.2 F L 73 18 137/74 H 99 11/22/20 05:49 11/22/20 07:54 11/22/20 05:49 11/22/20 05:49 11/22/20 05:49 Oxygen Flow Rate (L/min) 2 Oxygen Delivery Method Room Air Weight: 166 lb 0.129 oz Body Mass Index (BMI) 31.7 Intake & Output: Intake and Output for Last 24 Hours 11/20/20 11/21/20 11/22/20 23:59 23:59 23:59 Intake Total 1245 / 1245 45 / 45 Output Total 450 / 450 Balance 795 / 795 45 / 45 Lab / Micro Data Result Diagrams: 11/22/20 05:14 11/22/20 05:14 Labs: Laboratory Results - last 24 hr 11/21/20 11/21/20 11/21/20 11:40 17:11 21:01 WBC RBC Hgb Hct MCV MCH MCHC RDW Std Deviation RDW Coeff of Brianne Plt Count MPV Immature Gran % (Auto) Neut % (Auto) Lymph % (Auto) Todd % (Auto) Eos % (Auto) Baso % (Auto) Absolute Neuts (auto) Absolute Lymphs (auto) Nucleated RBC % Sodium Potassium Chloride Carbon Dioxide Anion Gap BUN Creatinine Estim Creat Clear Calc Est GFR (MDRD) Af Amer Est GFR (MDRD) Non-Af BUN/Creatinine Ratio Glucose Calcium Total Bilirubin AST ALT Alkaline Phosphatase Total Protein Albumin Globulin Albumin/Globulin Ratio POC Glucose 221 H 157 H 217 H 11/22/20 11/22/20 11/22/20 05:14 05:14 05:54 WBC 7.0 RBC 3.99 L Hgb 10.4 L Hct 34.9 L MCV 87.5 MCH 26.1 L MCHC 29.8 L RDW Std Deviation 50.2 H RDW Coeff of Brianne 15.8 H Plt Count 308 MPV 9.6 Immature Gran % (Auto) 0.600 Neut % (Auto) 54.7 Lymph % (Auto) 26.8 Todd % (Auto) 9.3 Eos % (Auto) 8.0 H Baso % (Auto) 0.6 Absolute Neuts (auto) 3.8 Absolute Lymphs (auto) 1.87 Nucleated RBC % 0 Sodium 141 Potassium 3.4 L Chloride 110 H Carbon Dioxide 24.0 Anion Gap 7 BUN 42 H Creatinine 1.03 H Estim Creat Clear Calc 41.64 Est GFR (MDRD) Af Amer 69 Est GFR (MDRD) Non-Af 57 L BUN/Creatinine Ratio 40.8 H Glucose 122 H Calcium 8.8 Total Bilirubin 0.30 AST 33 ALT 43 Alkaline Phosphatase 39 L Total Protein 6.9 Albumin 3.2 Globulin 3.7 Albumin/Globulin Ratio 0.9 POC Glucose 122 H Micro: Microbiology 11/20/20 22:56 Interface Orders SARS-CoV-2 Antigen (Rapid) - Final Cardiology Labs/Tests 11/22/20 05:14: WBC 7.0, RBC 3.99 L, Hgb 10.4 L, Hct 34.9 L, MCV 87.5, MCH 26.1 L, MCHC 29.8 L, Plt Count 308, MPV 9.6, Immature Gran % (Auto) 0.600, Neut % (Auto) 54.7, Lymph % (Auto) 26.8, Todd % (Auto) 9.3, Eos % (Auto) 8.0 H, Baso % (Auto) 0.6, Absolute Neuts (auto) 3.8, Nucleated RBC % 0 11/22/20 05:14: Sodium 141, Potassium 3.4 L, Chloride 110 H, Carbon Dioxide 24.0, Anion Gap 7, BUN 42 H, Creatinine 1.03 H, Est GFR (MDRD) Af Amer 69, Est GFR (MDRD) Non-Af 57 L, BUN/Creatinine Ratio 40.8 H, Glucose 122 H, Calcium 8.8, Total Bilirubin 0.30 Rhythm: EKG: ECHO: Stress Test: Cardiac Cath: PCI: CT Surgery: Holter monitor: EPS: PPM: CXR: Chest CT Scan: Physical Exam Const oriented x3 and healthy appearing Orientation / Consciousness: awake HEENT normocephalic Eyes PERRL and conjunctivae normal Neck supple, no JVD and no carotid bruits Chest inspection of chest normal Resp normal respiratory effort and clear to auscultation bilaterally Cardio Palpation: normal PMI Rate: regular rate Rhythm: regular rhythm Heart Sounds: S1 normal and S2 normal Peripheral Pulses: pulses 2+ throughout GI normal to inspection, nondistended, normoactive bowel sounds Extremity normal to inspection and no clubbing, cyanosis or edema Psych mental status grossly normal Assessment & Plan Assessment/Plan (1) NSTEMI (non-ST elevated myocardial infarction): PLAN: Patient presented with a non-ST elevation myocardial infarction and underwent a cardiac catheterization which demonstrated the following: Normal left main coronary artery. Left anterior descending artery with previously placed stent which is patent. Left circumflex artery with mid 70% stenosis. Dominant right coronary artery with no high-grade stenosis. Left ventricular systolic dysfunction with anterior hypokinesis present. Based on the above angiographic findings the patient will be considered for angioplasty and stenting of the left circumflex artery. (2) Heart failure: QUALIFIERS: Heart failure type: unspecified Heart failure chronicity: acute Qualified Code(s): I50.9 - Heart failure, unspecified PLAN: Patient appears to have had systolic heart failure and underwent diuresis. Appears to be doing better at this time. * We will continue with low-dose diuretics as well as an FRANDY inhibitor. * We will also continue with the beta-eric. * * Thank you for allowing me to participate in the care of your patient. Please don't hesitate to call if any issues arise.
--- NOTE | 2020-11-22 10:45 | EKG12_ITS ---
Test Reason : PCI Blood Pressure : / mmHG Vent. Rate : 074 BPM Atrial Rate : 074 BPM P-R Int : 158 ms QRS Dur : 208 ms QT Int : 500 ms P-R-T Axes : 061 -78 086 degrees QTc Int : 555 ms Normal sinus rhythm Left axis deviation Left bundle branch block Abnormal ECG When compared with ECG of 22-NOV-2020 06:05, MANUAL COMPARISON REQUIRED, DATA IS UNCONFIRMED Confirmed by SANJANA FERNANDES, MU ([id number]), legal editor LYNN MAYBERRY ([id number]) on 11/23/2020 9:40:34 AM Referred By: ANN Confirmed By:MU ALLAN MD
[2020-11-22] MEDS: Furosemide 40 MG/4 ML Vial IV ×2 (10:53→17:33)
--- NOTE | 2020-11-22 10:56 | CL.I_ITS ---
Patient Name: LATOSHA LOYOLA Study Date: 11/22/2020 Performing: Sue Mcfarland MD Ht: 61 inches 155 cm : 1955 Wt: 165.6 lbs 75 kg Age: 64 Gender: female BSA: 1.74 PROCEDURE(S) PERFORMED [id number] W OR WO PTCA, SINGLE CORONARY ARTERY CLINICAL PROFILE AND CO-MORBIDITIES Indications: Suspected CAD Heart Failure: NYHA Class: 3, Newly Diagnosed: Yes, Heart Failure Type: Systolic CONCLUSIONS Successful JOLLY to mLCx RECOMMENDATIONS DESCRIPTION OF PROCEDURE The patient arrived to the procedure lab. The risks and benefits of the procedure as well as a full d escription of our services here and current unavailability of surgical backup were fully explained to the patient and/or their significant other prior to the catheterization. The Timeout was completed, verifying the correct patient and procedure. The patient's procedural site was prepped and draped in the usual fashion. Local anesthetic was given subcutaneously to right radial region with Lidocaine 2% Using a modified Seldinger technique,arterial access was obtained via the right radial artery, a 6Fr sheath was inserted. Left Coronary Artery selective angiography was performed in multiple views usin g a 5 Fr. 4.0 Henry catheter. Right Coronary Artery selective angiography was then performed in multi ple views using a 5 Fr. 4.0 Henry catheter. Left Ventriculography was performed in SMITH projection usi ng a 5 Fr. Pigtail catheter. LV to AO pullback pressures were then recorded.The images were reviewed and options discussed. A decision was then made to proceed with an Intervention, IVUS o r other adjunct procedure. XB 3.0 Guide catheter was inserted and engaged into the LCA. BMW Guide wire was advanced to the 1 st OM. [id number] ORSIRO Drug Eluting stent was inserted. Drug Eluting stent was advanced across the lesi on in the first obtuse marginal, proximal. Angiogram performed post stent deployment. The arterial sheath was pulled and a TR Band was applied for hemostasis-10cc air INTERVENTION INFORMATION LESION SITE: Circumflex (Mid) Lesion Complexity: High/C, chronic total occlusion: No, lesion at bifurcation: Yes, thrombus present: No, lesion length: 10 mm, culprit lesion: Yes, Previously treated lesion: No Pre Stenosis: 80 % Pre intervention IWONA flow: 3 PROCEDURE: Drug Eluting Stent Post Stenosis: 0 % Post intervention IWONA flow: 3 Lesion Devices: Esqueda .014 BMW [place] Straight 190cm Cardinal 6 Fr XB3.0 100cm Guide Catheter COMPLICATIONS No Complications PROCEDURE MEDICATIONS Versed 1 mg IV Fentanyl 50 mcg IV Fentanyl 25 mcg IV Fentanyl 25 mcg IV Oxygen: 2 L/min via nasal cannula Heparin diluted in 23cc Heparinized saline. Patient given 10cc IA of this solution. 11/22/2020 09:36: 42 Heparin 5000 unit(s) IV 11/22/2020 09:52:41 Verapamil 2.5mg, Ntg 100mcgs, 2000 units of Heparin diluted in 23cc Heparinized saline. Patient give n 10cc IA of this solution. 11/22/2020 09:36:42 SUMMARY OF HEMODYNAMIC DATA Time AIR REST ECG 09:18:37 AO 135/69 (98) SA 09:38:39 LV 156/13, 26 09:45:44 LV 157/13, 24 09:45:51 LV 157/15, 27 09:46:50 LVp 159/13, 09:46:58 AOp 154/71 (105) 09:47:03 Signed By Sue Mcfarland MD On 11/22/2020 10:56:00 Sue Mcfarland MD
[2020-11-22] MEDS: 0.9% Normal Saline 1,000 ML 80 ML IV (11:29)
[2020-11-22 11:55] LABS: Bedside Glucose 137 mg/dL (70-110)
[2020-11-22] MEDS: glipiZIDE 10 MG Tablet PO ×2 (12:04→17:32)
--- NOTE | 2020-11-22 13:23 | CRPHASE1 ---
Patient Communication PHII Cardiac Rehab Discussed with Patient:: Yes Guide to Cardiac Rehab Given to Patient:: Yes Cardiac Rehab Facility Choice List Given to Patient:: Yes Choice Program [facility] PHII:: Communication Given to CR, Refer to [facility] Choice Program Other:: Communication Given to CR, With permission faxed order and referral information Media Manager:: Karly Mcfarland Refer Phase II Cardiac Rehab:: Yes Sessions:: 36 sessions - 3 days/wk, 12 weeks Cardiac Rehabilitation Info Cardiac Rehabilitation Program Information: Cardiac Rehabilitation is important for patients like you who are recovering from a heart problem. Cardiac rehabilitation programs are recognized as integral to the continued care of the patient with coronary heart disease. The cardiac rehabilitation program is designed to optimize a patient's physical, psychological, and social functioning. Health care team coordinator scheduler work in cardiac rehabilitation programs and assist you with getting the treatments you need to get stronger and healthier - like exercise, healthy eating habits, and medications. Cardiac rehabilitation has been show to help people with heart problems live longer and have better life enjoyment than people who do not go to cardiac rehabilitation. Please contact the Cardiac Rehabilitation Program at [facility] at in two weeks if you have not heard from them.
--- NOTE | 2020-11-22 13:23 | CRPH1.INSTRU ---
General Education CAD and cardiac anatomy and function:: Patient communicates acknowledgment Explanation of diagnoses and procedures:: Patient communicates acknowledgment Sign/Symptoms of OR:: Patient communicates acknowledgment Antiplatelet therapy: Patient communicates acknowledgment Proper use of NTG-SL: Patient communicates acknowledgment Emergency procedures and activation of EMS: Patient communicates acknowledgment Compliance of all prescribed medications: Patient communicates acknowledgment Dyslipidemia Patient Dyslipidemia Risk Factors Are:: Total Cholesterol, Triglycerides, HDL, LDL Recommendations Include:: Lipid profile not available Dyslipidemia Response Code:: Patient communicates acknowledgment Overweight/Obesity Patient Overweight/Obesity Risk Factors Are:: Obesity - > or = 30 Recommendations Include:: Weight loss of 5-10%, Reduced calorie diet, Exercise 5-7 times/week Overweight/Obesity:: Patient communicates acknowledgment Diabetes Patient Diabetes Risk Factors Are:: Elevated blood sugars, Post-op hyperglycemia Recommendations Include:: Maintain fasting blood sugars 70-110 md/dL, Maintain HgbA1c of 6% or less, Monitor blood sugar as prescribed, Diabetic dietary guidelines, Decrease/maintain body weight Diabetes:: Patient communicates acknowledgment
--- NOTE | 2020-11-22 13:24 | NURSING ---
wound photo: left lower leg
--- NOTE | 2020-11-22 14:05 | CASEMGMT ---
IAN PONCE Assessment: Face to Face with pt for initial transition planning/care coordination assessment. RN ROSARIO introduced self and role at [facility], pt voices understanding and consents to assessment. Pt is A/O x4 and answers all questions appropriately at this time. Pt sitting up in chair with at bedside in no distress. Care providers, pharmacy, and demographics verified/updated. Admitting Dx: acute hypoxemic resp failure PCP: Sweta Specialists: lonnie Luna Preferred Pharmacy: [facility] Insurance: [employer] Prescription Benefit: no LW/HPOA: Pt denies having a LW/DPOA. LNOK: Yahir Yan, ; Kristen Bustos, friend Living Arrangements: Pt lives with and 4 children in a two story house with no steps to enter. Pt is I in ADL's and denies concerns at home. 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 DME/HHC/SNF: Pt denies having any DME at home, denies previous SNF stays or HHC. Pt has wound that she was supposed to see for for the first time tomorrow. Pt states she has been using creams at home. Denies need for HHC upon dc for wound. Pt states no concerns with going home at time of dc. Pt states no further concerns/needs. CM to follow. Advised pt to ask CM if any further question/concerns/needs arise, voices understanding. Pt Goal: Home Plan: Home with family support.
[2020-11-22 16:46] LABS: Bedside Glucose 175 mg/dL (70-110)
--- NOTE | 2020-11-22 17:12 | PCM.CONS.GEN ---
Assessment & Plan Assessment/Plan (1) Chronic ulcer of left leg with fat layer exposed: (2) Eschar of lower leg: (3) Other specified peripheral vascular diseases: (4) Venous insufficiency of both lower extremities: PLAN: I reviewed and discussed his case today. Her diagnostic data was also reviewed. It appears she has a chronic ulcer without infection. The following work up and care recommendations were made: Dressing: Daily dressing change left leg with Santyl applied nickel thickness covered with gauze Wash: Soap and water Debridement: This procedure will be considered after I gain a better understanding of her limb perfusion. Offload: Avoid direct pressure to the ulcer site. It is okay to apply light compression and to alternate between elevation for edema management and dangling due Vascular: She has nonpalpable pulses and evidence of tissue loss to left leg in combination with hairless presentation of the lower extremities. I recommend noninvasive arterial vascular study; ordered. She does not appear to have critical limb ischemia. If she is staying in the hospital this time will be ordered for in-house. If she is going to be discharged today or tomorrow this can also be done in outpatient setting. She understands pending the results, additional testing. intervention, or consults may be warranted. Edema: Her edema may be secondary to venous insufficiency versus cardiac etiology (acute on chronic CHF). I recommend venous Doppler with reflux evaluation; the exam with reflux can only be done in the outpatient setting. Infection: She was reassured no local signs of infection are noted today. She will be monitored for redness, systemic illness, streaking or odor development. Antibiotics are not recommended. Pain: Reviewed options and she will continue to dangle the involved limb as needed Imaging: X-ray of the left leg ordered due to chronicity of ulcer Labs: No leukocytosis noted (WBC 7.0). Host factors: Her medical comorbidities complicate her case and healing potential. It is noted she is a diabetic (hemoglobin A1c results pending), kidney injury, and recent acute cardiac issues. I also recommend nutritional supplementation to optimize healing. She understands she is at risk for continued delayed healing and even limb loss. Medical and management per hospitalist and cardiology are noted. It is noted she had a cardiac cath performed and is on anticoagulation medication at this time. I answered all the patient's questions. I will continue to follow her closely while in house and her wound management plan will be initiated. At time of discharge, I recommend she follows up at the wound healing center. Thank you for the consultation. Please not hesitate to call if you have any questions. Komal Riley DPM, [facility] [phone] HPI Consult Data Date of Consult: 11/22/20 HPI Narrative HPI Narrative: LATOSHA LOYOLA, is a 64 F who was seen bedside this evening for chronic left leg ulcer. The onset was mid June 2020. She denies trauma. Her discomfort is aching and intermittent. She had a wound that slowly and progressively increased in size over the past several months. She denies redness or odor. Direct pressure irritates this site. Partial relief is noted by dangling the leg. She denies claudication however reports she is not able to ambulate for even 1 block at a time due to fatigue and chest discomfort. It is noted she was admitted for cardiac issues and had a cardiac cath performed this morning. [facility] Medical History (Updated 11/22/20 @ 17:[address] Komal Riley DPM) Atherosclerosis of coronary artery without angina pectoris Diabetes ICD (implantable cardioverter-defibrillator) in place Home Medications aspirin [Adult Aspirin] 81 mg PO DAILY 06/05/18 [History Last Taken 06/02/18] atorvastatin 40 mg PO QHS 06/05/18 [History Last Taken Unknown] insulin NPH and regular human [Humulin 70/30 Kwikpen] 2 - 2.5 unit SQ DAILY 06/05/18 [History Last Taken Unknown] metformin 1,000 mg PO BID 06/05/18 [History Last Taken Unknown] metoprolol succinate [Toprol Xl] 25 mg PO DAILY 06/05/18 [History Last Taken 06/07/18 07:00] nitroglycerin [Nitrostat] 0.4 mg SUBLINGUAL PRN PRN 06/05/18 [History Last Taken Unknown] acetaminophen 500 mg PO Q4H PRN PRN #20 tablet 06/10/18 [Rx Last Taken Unknown] ibuprofen 600 mg PO Q6H PRN PRN #20 tab 06/10/18 [Rx Last Taken Unknown] amoxicillin-pot clavulanate 875 mg PO Q12H #20 tab 07/16/20 [Rx Last Taken Unknown] glipizide 10 mg PO BIDAC 07/16/20 [History Last Taken Unknown] clopidogrel 75 mg PO DAILY 11/21/20 [History Last Taken Unknown] Allergy/AdvReac Type Severity Reaction Status Date / Time No Known Allergies Allergy Verified 11/20/20 22:35 Family History (Updated 11/21/20 @ 01:[address] Shane Jerome MD) Other Brain aneurysm CVA (cerebral vascular accident) Diabetes Surgical History (Updated 11/22/20 @ 12:27 by Isaura Yang) History of cardiac catheterization History of cardiac defibrillator placement History of coronary artery stent placement Social History Smoking Status: Never smoker ROS Constitutional Constitutional: Reports fatigue; Denies chills Cardiovascular Cardiovascular: Reports edema and pedal edema; Denies vomiting Gastrointestinal Gastrointestinal: Denies nausea or vomiting Musculoskeletal Musculoskeletal: Reports difficulty walking, extremity pain and muscle cramps Neurologic Neurologic: Reports paresthesias Physical Exam Const alert and oriented x3 General Appearance: cooperative HEENT normocephalic Extremity Extremity Narrative: No calf tenderness Non palpable pulses DP and PT bilateral Toes are warm to palpate and the capillary fill time is less than 3 seconds to all digits bilateral Muscle wasting noted General Extremity: edema and no tenderness to palpation of joints or extremities; Negative for cyanosis Skin Skin Narrative: no purulence, no streaking, no odor, no infection. Skin discontinuity anterior lateral mid left leg with eschar well adhered without bogginess. There is also peripheral fibrous tissue. There is no adjacent crepitus. The adjacent skin is hairless and atrophic distal to the tibial tuberosity bilateral General Skin Exam: Negative for erythema Neuro Neuro Narrative: lack of normal epicritic sensation via light touch is consistent with neuropathy status Psych cooperative and affect normal Lab / Micro Data Result Diagrams: 11/22/20 05:14 11/22/20 05:14 Labs: Laboratory Results - last 24 hr 11/21/20 11/21/20 11/22/20 17:11 21:01 05:14 WBC 7.0 RBC 3.99 L Hgb 10.4 L Hct 34.9 L MCV 87.5 MCH 26.1 L MCHC 29.8 L RDW Std Deviation 50.2 H RDW Coeff of Brianne 15.8 H Plt Count 308 MPV 9.6 Immature Gran % (Auto) 0.600 Neut % (Auto) 54.7 Lymph % (Auto) 26.8 [place] % (Auto) 9.3 Eos % (Auto) 8.0 H Baso % (Auto) 0.6 Absolute Neuts (auto) 3.8 Absolute Lymphs (auto) 1.87 Nucleated RBC % 0 Sodium Potassium Chloride Carbon Dioxide Anion Gap BUN Creatinine Estim Creat Clear Calc Est GFR (MDRD) Af Amer Est GFR (MDRD) Non-Af BUN/Creatinine Ratio Glucose Calcium Total Bilirubin AST ALT Alkaline Phosphatase Total Protein Albumin Globulin Albumin/Globulin Ratio POC Glucose 157 H 217 H 11/22/20 11/22/20 11/22/20 05:14 05:54 11:47 WBC RBC Hgb Hct MCV MCH MCHC RDW Std Deviation RDW Coeff of Brianne Plt Count MPV Immature Gran % (Auto) Neut % (Auto) Lymph % (Auto) [place] % (Auto) Eos % (Auto) Baso % (Auto) Absolute Neuts (auto) Absolute Lymphs (auto) Nucleated RBC % Sodium 141 Potassium 3.4 L Chloride 110 H Carbon Dioxide 24.0 Anion Gap 7 BUN 42 H Creatinine 1.03 H Estim Creat Clear Calc 41.64 Est GFR (MDRD) Af Amer 69 Est GFR (MDRD) Non-Af 57 L BUN/Creatinine Ratio 40.8 H Glucose 122 H Calcium 8.8 Total Bilirubin 0.30 AST 33 ALT 43 Alkaline Phosphatase 39 L Total Protein 6.9 Albumin 3.2 Globulin 3.7 Albumin/Globulin Ratio 0.9 POC Glucose 122 H 137 H 11/22/20 16:41 WBC RBC Hgb Hct MCV MCH MCHC RDW Std Deviation RDW Coeff of Brianne Plt Count MPV Immature Gran % (Auto) Neut % (Auto) Lymph % (Auto) [place] % (Auto) Eos % (Auto) Baso % (Auto) Absolute Neuts (auto) Absolute Lymphs (auto) Nucleated RBC % Sodium Potassium Chloride Carbon Dioxide Anion Gap BUN Creatinine Estim Creat Clear Calc Est GFR (MDRD) Af Amer Est GFR (MDRD) Non-Af BUN/Creatinine Ratio Glucose Calcium Total Bilirubin AST ALT Alkaline Phosphatase Total Protein Albumin Globulin Albumin/Globulin Ratio POC Glucose 175 H
--- NOTE | 2020-11-22 17:20 | PCM.PN.HOSP ---
Subjective Subjective Patient complain of ulcer over the left leg mainly on the medial side ongoing for 3 to 4 months states worsening. Patient had cardiac cath in the morning and had PCI of circumflex artery. Denies any chest pain or shortness of breath. Objective Data Objective Data Vital Signs: Vital Signs Temp Pulse Resp BP Pulse Ox 98.2 F 74 16 140/71 H 97 11/22/20 16:42 11/22/20 16:42 11/22/20 16:42 11/22/20 16:42 11/22/20 16:42 Oxygen Flow Rate (L/min) 2 Oxygen Delivery Method Room Air Weight: 166 lb 0.129 oz Body Mass Index (BMI) 31.7 Intake & Output: Intake and Output for Last 24 Hours 11/20/20 11/21/20 11/22/20 23:59 23:59 23:59 Intake Total 1245 / 1245 200.5 / 200.5 Output Total 450 / 450 Balance 795 / 795 200.5 / 200.5 Lab / Micro Data Result Diagrams: 11/22/20 05:14 11/22/20 05:14 Labs: Laboratory Results - last 24 hr 11/21/20 11/21/20 11/22/20 17:11 21:01 05:14 WBC 7.0 RBC 3.99 L Hgb 10.4 L Hct 34.9 L MCV 87.5 MCH 26.1 L MCHC 29.8 L RDW Std Deviation 50.2 H RDW Coeff of Brianne 15.8 H Plt Count 308 MPV 9.6 Immature Gran % (Auto) 0.600 Neut % (Auto) 54.7 Lymph % (Auto) 26.8 [place] % (Auto) 9.3 Eos % (Auto) 8.0 H Baso % (Auto) 0.6 Absolute Neuts (auto) 3.8 Absolute Lymphs (auto) 1.87 Nucleated RBC % 0 Sodium Potassium Chloride Carbon Dioxide Anion Gap BUN Creatinine Estim Creat Clear Calc Est GFR (MDRD) Af Amer Est GFR (MDRD) Non-Af BUN/Creatinine Ratio Glucose Calcium Total Bilirubin AST ALT Alkaline Phosphatase Total Protein Albumin Globulin Albumin/Globulin Ratio POC Glucose 157 H 217 H 11/22/20 11/22/20 11/22/20 05:14 05:54 11:47 WBC RBC Hgb Hct MCV MCH MCHC RDW Std Deviation RDW Coeff of Brianne Plt Count MPV Immature Gran % (Auto) Neut % (Auto) Lymph % (Auto) [place] % (Auto) Eos % (Auto) Baso % (Auto) Absolute Neuts (auto) Absolute Lymphs (auto) Nucleated RBC % Sodium 141 Potassium 3.4 L Chloride 110 H Carbon Dioxide 24.0 Anion Gap 7 BUN 42 H Creatinine 1.03 H Estim Creat Clear Calc 41.64 Est GFR (MDRD) Af Amer 69 Est GFR (MDRD) Non-Af 57 L BUN/Creatinine Ratio 40.8 H Glucose 122 H Calcium 8.8 Total Bilirubin 0.30 AST 33 ALT 43 Alkaline Phosphatase 39 L Total Protein 6.9 Albumin 3.2 Globulin 3.7 Albumin/Globulin Ratio 0.9 POC Glucose 122 H 137 H 11/22/20 16:41 WBC RBC Hgb Hct MCV MCH MCHC RDW Std Deviation RDW Coeff of Brianne Plt Count MPV Immature Gran % (Auto) Neut % (Auto) Lymph % (Auto) [place] % (Auto) Eos % (Auto) Baso % (Auto) Absolute Neuts (auto) Absolute Lymphs (auto) Nucleated RBC % Sodium Potassium Chloride Carbon Dioxide Anion Gap BUN Creatinine Estim Creat Clear Calc Est GFR (MDRD) Af Amer Est GFR (MDRD) Non-Af BUN/Creatinine Ratio Glucose Calcium Total Bilirubin AST ALT Alkaline Phosphatase Total Protein Albumin Globulin Albumin/Globulin Ratio POC Glucose 175 H Micro: Microbiology 11/20/20 22:56 Interface Orders SARS-CoV-2 Antigen (Rapid) - Final Radiography Diagnostic Testing: Radiology Impression Echocardiogram 11/21/20 15:14 Interpretation Summary Normal LV size. Moderate concentric left ventricular hypertrophy. The estimated ejection fraction is 30 %. There is moderate global hypokinesis of the left ventricle. Pulmonary artery systolic pressure is 34 mmHg. Mild-Moderate (1-2+) eccentric mitral valve insufficiency. Contrast injection was performed. Ordering Physician: Bernice Hernandez Referring Physician: Gianluca Sol Performed By: Evans Daniels RCS Physical Exam Narrative General: Alert, Oriented x3, Cooperative HEENT: Atraumatic, PERRLA, EOMI, Normocephalic Oral: No Gingival or Mucosal Lesions/ Ulcerations Neck: Supple, No JVD, Negative Carotid Bruits Lungs: Air entry diminished in bilateral lung bases. No crepitation/rhonchi Cardiovascular: Regular rate, Regular Rhythm, Normal S1, Normal S2, No murmurs Abdomen: Bowel Sounds Present, Soft, Non Tender, Non-Distended : No renal angle tenderness. No suprapubic tenderness. Extremities: No edema, Capillary Refill Less than 3 Seconds Skin: Ulcer covered with slough and black necrotic patch just proximal to left ankle surrounding with redness consistent with a venous stasis ulcer. Tenderness present. Wound dressing done. Musculoskeletal: No Tenderness to Palpation of Joints or Extremities Neurological: Cranial nerves II-XII grossly intact, Deep Tendon Reflexes 2+/4 and Symmetrical, Neuro grossly intact Psych/Mental Status: Normal Affect, Appropriate. Assessment & Plan Assessment/Plan (1) Respiratory failure: QUALIFIERS: Chronicity: acute Respiratory failure complication: hypoxia Qualified Code(s): J96.01 - Acute respiratory failure with hypoxia (2) Acute hypoxemic respiratory failure: (3) Heart failure: QUALIFIERS: Heart failure type: unspecified Heart failure chronicity: acute Qualified Code(s): I50.9 - Heart failure, unspecified (4) Acute renal insufficiency: (5) Diabetes: QUALIFIERS: Diabetes mellitus type: type 2 Diabetes mellitus exterminator termite insulin use: with exterminator termite use Diabetes mellitus complication status: without complication Qualified Code(s): E11.9 - Type 2 diabetes mellitus without complications; Z79.4 - terminal carman (current) use of insulin (6) NSTEMI (non-ST elevated myocardial infarction): (7) Anemia: (8) Hypokalemia: PLAN: 1. Acute hypoxemic respiratory failure secondary to acute heart failure, resolving Off BiPAP, on 2 L of oxygen, wean off oxygen for SPO2 more than 94 2. Acute NSTEMI, EKG shows no acute ST changes, paced rhythmn Cardiology consulted; patient had cardiac cath in the morning which showed mid left circumflex 70% stenosis. LAD with previous stent patent. Dominant RCA with no high-grade stenosis. LV systolic dysfunction with anterior hypokinesis. PCI Continue on aspirin, beta-eric, statin Lovenox held for cardiac cath. 3. Acute on chronic systolic heart failure with EF 30%. Patient had echo which showed concentric moderate LVH with global hypokinesis, RVSP 34 mmHg. Mild to moderate MR. Admitting BNP of is elevated Patient has improved on Lasix, continue with CHF protocol 4. CHRIS on CKD, stage IIIb Creatinine appears to be improving; currently 1.03, improved from 1.43 Monitor kidney function. 5. Hypokalemia, K3.4 potassium replaced. 6. Chronic left leg andrews anterior venous stasis ulcer: Wound photo reviewed. Horizontal Boring Mill Operator consulted. 7. Type 2 DM, blood sugars are slightly elevated, glipizide, will add insulin sliding scale Continue on a cardiac-calorie controlled diet Visit Charges Inpatient E&M: 92369 Subs Hosp L2
[2020-11-22] MEDS: Insulin Lispro 100 UNIT/ML INSULN.PEN SC ×2 (17:31→21:35)
--- NOTE | 2020-11-22 18:20 | RAD_ITS ---
STUDY: X-RAY - LEFT TIBIA AND FIBULA REASON FOR EXAM: Female, 64 years old. Leg pain, chronic ulcer TECHNIQUE: 2 view(s) of the tibia and fibula were obtained. COMPARISON: None. FINDINGS: Normal visualized tibia. Normal visualized fibula. Atherosclerotic vascular calcifications noted RAD/Tibia & Fibula 2 Views IMPRESSION: No demonstrated fracture or suspicious osseous lesion Electronically Signed: Arjun Sutton MD at 8:53 EDT , Service support ,
[2020-11-22] MEDS: Atorvastatin Calcium 40 MG Tablet PO (21:36)
[2020-11-22 21:46] LABS: Bedside Glucose 232 mg/dL (70-110)
[2020-11-23] VITALS (7 sets, daily range): BP systolic 122–132; BP diastolic 55–74; PULSE 66–87; RESP 12–18; TEMP 35.6–36.8; O2SAT 95–98
[2020-11-23] MEDS: Acetaminophen 500 MG Tablet PO ×3 (02:09→10:36)
[2020-11-23 06:04] LABS: Hematocrit 35.1 % (37-47); Hemoglobin 10.7 g/dL (12.0-15.0); Mean Corp Hgb Conc 30.5 g/dL (32-36); Mean Corpuscular Hgb 26.4 pg (27.0-32.0); Mean Corpuscular Volume 86.5 fL (81-99); Mean Platelet Vol. 9.3 fl (6.2-12.0); Platelet Count 313 K/mm3 (150-450); RBC Distribution Width CV 15.7 % (11.6-14.6); RBC Distribution Width SD 49.7 fl (35.1-43.9); Red Blood Count 4.06 M/mm3 (4.2-5.4); White Blood Count 7.9 K/mm3 (4.4-11.0)
[2020-11-23 06:46] LABS: Bedside Glucose 144 mg/dL (70-110)
[2020-11-23 06:49] LABS: ALB/GLOB Ratio 0.9 RATIO (0.9-2.4); AST(SGOT) 24 U/L (15-37); Alanine Aminotransfer ALT/SGPT 38 U/L (13-56); Albumin, Serum 3.4 g/dL (3.2-5.0); Alkaline Phosphatase 42 U/L (45-117); Anion Gap 5 (5-15); BUN 38 mg/dL (7-18); BUN/Creat Ratio 38.2 RATIO (10-20); Calcium,Total 8.8 mg/dL (8.5-10.1); Chloride 109 mmol/L (98-107); EST Glomerular Filtration Rate 60 mL/min (>60); Est Glom Filt Rate - Afr Amer 72 mL/min (>60); Estimated Creatinine Clearance 42.89 ml/min; Globulin 3.8 g/dL (2.2-4.2); Glucose 169 mg/dL (74-106); Potassium 3.8 mmol/L (3.5-5.1); Protein, Total 7.2 g/dL (6.4-8.2); Sodium Level 143 mmol/L (136-145)
--- NOTE | 2020-11-23 06:50 | PN_ITS ---
Subjective Subjective This 64-year-old female was seen bedside this morning for follow-up of left leg ulcer with rest pain. She denies fever, chill, nausea, vomiting. She has continued left leg pain that is moderate and constant. She continues to dangle her left leg for pain control. Objective Data Objective Data Vital Signs: Vital Signs Temp Pulse Resp BP Pulse Ox 96.0 F L 71 18 131/71 H 98 11/23/20 03:30 11/23/20 03:30 11/23/20 03:30 11/23/20 03:30 11/23/20 03:30 Oxygen Flow Rate (L/min) 2 Oxygen Delivery Method Room Air Weight: 71.1 kg Body Mass Index (BMI) 31.7 Intake & Output: Intake and Output for Last 24 Hours 11/21/20 11/22/20 11/23/20 23:59 23:59 23:59 Intake Total 1245 / 1245 1040.5 / 1440.5 600 / 600 Output Total 450 / 450 Balance 795 / 795 1040.5 / 1440.5 600 / 600 Lab / Micro Data Result Diagrams: 11/23/20 05:42 11/23/20 05:42 Labs: Laboratory Results - last 24 hr 11/22/20 11/22/20 11/22/20 11:47 16:41 21:31 WBC RBC Hgb Hct MCV MCH MCHC RDW Std Deviation RDW Coeff of Brianne Plt Count MPV Sodium Potassium Chloride Carbon Dioxide Anion Gap BUN Creatinine Estim Creat Clear Calc Est GFR (MDRD) Af Amer Est GFR (MDRD) Non-Af BUN/Creatinine Ratio Glucose Calcium Total Bilirubin AST ALT Alkaline Phosphatase Total Protein Albumin Globulin Albumin/Globulin Ratio POC Glucose 137 H 175 H 232 H 11/23/20 11/23/20 11/23/20 05:42 05:42 06:33 WBC 7.9 RBC 4.06 L Hgb 10.7 L Hct 35.1 L MCV 86.5 MCH 26.4 L MCHC 30.5 L RDW Std Deviation 49.7 H RDW Coeff of Brianne 15.7 H Plt Count 313 MPV 9.3 Sodium 143 Potassium 3.8 Chloride 109 H Carbon Dioxide 29.0 Anion Gap 5 BUN 38 H Creatinine 1.00 Estim Creat Clear Calc 42.89 Est GFR (MDRD) Af Amer 72 Est GFR (MDRD) Non-Af 60 BUN/Creatinine Ratio 38.2 H Glucose 169 H Calcium 8.8 Total Bilirubin 0.30 AST 24 ALT 38 Alkaline Phosphatase 42 L Total Protein 7.2 Albumin 3.4 Globulin 3.8 Albumin/Globulin Ratio 0.9 POC Glucose 144 H Micro: Microbiology 11/20/20 22:56 Interface Orders SARS-CoV-2 Antigen (Rapid) - Final Radiography Diagnostic Testing: Radiology Impression Echocardiogram 11/21/20 15:14 Interpretation Summary Normal LV size. Moderate concentric left ventricular hypertrophy. The estimated ejection fraction is 30 %. There is moderate global hypokinesis of the left ventricle. Pulmonary artery systolic pressure is 34 mmHg. Mild-Moderate (1-2+) eccentric mitral valve insufficiency. Contrast injection was performed. Ordering Physician: Bernice Hernandez Referring Physician: Gianluca Sol Performed By: Evans Daniels RCS Physical Exam Const alert and oriented x3 General Appearance: cooperative HEENT normocephalic Extremity Extremity Narrative: No calf tenderness (neg gabby and wu signs, left) Muscle wasting noted General Extremity: edema Skin Skin Narrative: no purulence, no streaking, no odor, no infection. Dressing to left lower extremity is clean, dry, and intact without strikethrough. General Skin Exam: Negative for erythema Psych cooperative and affect normal Assessment & Plan Assessment/Plan (1) Chronic ulcer of left leg with fat layer exposed: (2) Eschar of lower leg: (3) Other specified peripheral vascular diseases: (4) Venous insufficiency of both lower extremities: PLAN: I reviewed and discussed his case today. Her diagnostic data was also reviewed. It appears she has a chronic ulcer without infection. The following work up and care recommendations were made: Dressing: Daily dressing change left leg with Santyl applied nickel thickness covered with gauze. This order was placed yesterday. Wash: Soap and water Debridement: This procedure will be considered after I gain a better understanding of her limb perfusion. Offload: Avoid direct pressure to the ulcer site. It is okay to apply light compression and to alternate between elevation for edema management and dangling due Vascular: She has nonpalpable pulses and evidence of tissue loss to left leg in combination with hairless presentation of the lower extremities. I recommend noninvasive arterial vascular study; ordered and the test is still pending. Edema: Her edema may be secondary to venous insufficiency versus cardiac etiology (acute on chronic CHF). I recommend venous Doppler with reflux e valuation; the exam with reflux can only be done in the outpatient setting. Infection: She was reassured no local signs of infection are noted today. She will be monitored for redness, systemic illness, streaking or odor development. Antibiotics are not recommended. Pain: Reviewed options and she will continue to dangle the involved limb as needed Imaging: X-ray of the left leg were reviewed and there is no fracture, dislocation, soft tissue emphysema, foreign body, or adjacent osseous destruc tion near the ulcer site. It is noted she has significant vessel calcification but the leg and thigh level. Labs: No leukocytosis noted (WBC 7.9). Host factors: Her medical comorbidities complicate her case and healing potential. It is noted she is a diabetic (hemoglobin A1c results still pending) , kidney injury, and recent acute cardiac issues. She had a recent cardiac cath with PCI of circumflex artery. She continues on anticoagulation medication. It is noted her EF is 30%. Nutrition: I also recommend nutritional supplementation to optimize healing; Mani ordered. She understands she is at risk for continued delayed healing and even limb loss. Medical and management per hospitalist and cardiology are noted. It is noted she had a cardiac cath performed during this admission, and is on anticoagulation medication at this time. I answered all the patient's questions. I will continue to follow her closely while in house. At time of discharge, I recommend she follows up at the wound healing center. Discharge planning process. Her lower extremity limb is stable. If possible, I recommend completion of arterial studies prior to discharge. Please do not hesitate to call if you have any questions. Komal Riley DPM, [facility] [phone]
--- NOTE | 2020-11-23 08:16 | PN.CARD_ITS ---
Subjective Subjective Patient seen and evaluated. Appears to be doing well. Objective Data Vital Signs: Vital Signs Temp Pulse Resp BP Pulse Ox 96.0 F L 69 18 131/71 H 98 11/23/20 03:30 11/23/20 07:18 11/23/20 03:30 11/23/20 03:30 11/23/20 03:30 Oxygen Flow Rate (L/min) 2 Oxygen Delivery Method Room Air Weight: 156 lb 11.979 oz Body Mass Index (BMI) 31.7 Intake & Output: Intake and Output for Last 24 Hours 11/21/20 11/22/20 11/23/20 23:59 23:59 23:59 Intake Total 1245 / 1245 1040.5 / 1440.5 600 / 600 Output Total 450 / 450 Balance 795 / 795 1040.5 / 1440.5 600 / 600 Lab / Micro Data Result Diagrams: 11/23/20 05:42 11/23/20 05:42 Labs: Laboratory Results - last 24 hr 11/22/20 11/22/20 11/22/20 11:47 16:41 21:31 WBC RBC Hgb Hct MCV MCH MCHC RDW Std Deviation RDW Coeff of Brianne Plt Count MPV Sodium Potassium Chloride Carbon Dioxide Anion Gap BUN Creatinine Estim Creat Clear Calc Est GFR (MDRD) Af Amer Est GFR (MDRD) Non-Af BUN/Creatinine Ratio Glucose Calcium Total Bilirubin AST ALT Alkaline Phosphatase Total Protein Albumin Globulin Albumin/Globulin Ratio POC Glucose 137 H 175 H 232 H 11/23/20 11/23/20 11/23/20 05:42 05:42 06:33 WBC 7.9 RBC 4.06 L Hgb 10.7 L Hct 35.1 L MCV 86.5 MCH 26.4 L MCHC 30.5 L RDW Std Deviation 49.7 H RDW Coeff of Brianne 15.7 H Plt Count 313 MPV 9.3 Sodium 143 Potassium 3.8 Chloride 109 H Carbon Dioxide 29.0 Anion Gap 5 BUN 38 H Creatinine 1.00 Estim Creat Clear Calc 42.89 Est GFR (MDRD) Af Amer 72 Est GFR (MDRD) Non-Af 60 BUN/Creatinine Ratio 38.2 H Glucose 169 H Calcium 8.8 Total Bilirubin 0.30 AST 24 ALT 38 Alkaline Phosphatase 42 L Total Protein 7.2 Albumin 3.4 Globulin 3.8 Albumin/Globulin Ratio 0.9 POC Glucose 144 H Micro: Microbiology 11/20/20 22:56 Interface Orders SARS-CoV-2 Antigen (Rapid) - Final Cardiology Labs/Tests 11/23/20 05:42: WBC 7.9, RBC 4.06 L, Hgb 10.7 L, Hct 35.1 L, MCV 86.5, MCH 26.4 L, MCHC 30.5 L, Plt Count 313, MPV 9.3 11/23/20 05:42: Sodium 143, Potassium 3.8, Chloride 109 H, Carbon Dioxide 29.0, Anion Gap 5, BUN 38 H, Creatinine 1.00, Est GFR (MDRD) Af Amer 72, Est GFR (MDRD) Non-Af 60, BUN/Creatinine Ratio 38.2 H, Glucose 169 H, Calcium 8.8, Total Bilirubin 0.30 Rhythm: EKG: ECHO: Stress Test: Cardiac Cath: PCI: CT Surgery: Holter monitor: EPS: PPM: CXR: Chest CT Scan: Radiography Diagnostic Testing: Radiology Impression Echocardiogram 11/21/20 15:14 Interpretation Summary Normal LV size. Moderate concentric left ventricular hypertrophy. The estimated ejection fraction is 30 %. There is moderate global hypokinesis of the left ventricle. Pulmonary artery systolic pressure is 34 mmHg. Mild-Moderate (1-2+) eccentric mitral valve insufficiency. Contrast injection was performed. Ordering Physician: Bernice Hernandez Referring Physician: Gianluca Sol Performed By: Evans Daniels RCS Assessment & Plan Assessment/Plan (1) History of coronary artery stent placement: PLAN: Patient is status post angioplasty and stenting of the left circumflex artery. Did well and will be discharged for outpatient follow-up. Cardiac rehab instructions given. (2) NSTEMI (non-ST elevated myocardial infarction): PLAN: Patient presented with a non-ST elevation myocardial infarction and underwent a cardiac catheterization which demonstrated the following: Normal left main coronary artery. Left anterior descending artery with previously placed stent which is patent. Left circumflex artery with mid 70% stenosis. Dominant right coronary artery with no high-grade stenosis. Left ventricular systolic dysfunction with anterior hypokinesis present. Based on the above angiographic findings the patient underwent angioplasty and stenting of the left circumflex artery. (3) Heart failure: QUALIFIERS: Heart failure type: unspecified Heart failure chronicity: acute Qualified Code(s): I50.9 - Heart failure, unspecified PLAN: Patient appears to have had systolic heart failure and underwent diuresis. Appears to be doing better at this time. * We will continue with low-dose diuretics as well as an FRANDY inhibitor. * We will also continue with the beta-eric. * * Thank you for allowing me to participate in the care of your patient. Please don't hesitate to call if any issues arise.
[2020-11-23 08:30] LABS: Hemoglobin A1c 7.8 % (3.8-5.6)
[2020-11-23] MEDS: Potassium Chloride Oral Tablet 20 MEQ 40 MEQ PO (08:30)
[2020-11-23] MEDS: glipiZIDE 10 MG Tablet PO (08:30)
[2020-11-23] MEDS: Aspirin 81 MG TAB.CHEW PO (08:31)
[2020-11-23] MEDS: Juven (unflavored) Packet 1 PACKET PO (08:31)
[2020-11-23] MEDS: Collagenase 30gm Tube 1 APPLIC TOPICAL (09:43)
--- NOTE | 2020-11-23 09:56 | NURSING ---
Left message with Jl at the wound healing center for referral. Jl to call patient with appt time.
--- NOTE | 2020-11-23 10:00 | EKG12_ITS ---
Test Reason : AM EKG Blood Pressure : / mmHG Vent. Rate : 069 BPM Atrial Rate : 069 BPM P-R Int : 168 ms QRS Dur : 208 ms QT Int : 526 ms P-R-T Axes : 040 -73 091 degrees QTc Int : 563 ms Normal sinus rhythm Left axis deviation Left bundle branch block Abnormal ECG Confirmed by ANA PAULA FERNANDES, LALO ([id number]), tape editor LYNN MAYBERRY ([id number]) on 11/24/2020 10:22:03 AM Referred By: MARTHA Confirmed By:LALO GOSS MD
[2020-11-23] MEDS: Metoprolol(XL)Succ 25 MG Tablet PO (10:05)
[2020-11-23] MEDS: Clopidogrel Bisulfate 75 MG Tablet PO (10:05)
[2020-11-23] MEDS: Furosemide 40 MG Tablet PO (10:06)
--- NOTE | 2020-11-23 11:18 | PCM.DC ---
Discharge Instructions Diet Discharge Diet: Low fat / Low cholesterol, 1800 Calorie Control Diet and 2000 mg Sodium Diet Activity Discharge Activity: Return to Normal Activity and May Not Drive Dressing / Incision Call your doctor if you observe: Fever of 101 or Higher, Coldness, Increased Pain, Numbness or Tingling, Change in Color, Inability to urinate, Inability to have a bowel movement, Using more than one pad per hour, Shortness of breath, Dizziness, Fainting spells, Swelling in the ankles, Chest pain, Increased palpitations (irregular heartbeat), Calf discomfort and Uncontrolled pain Follow Up Care Test Results: Test results from this visit will be discussed in further detail at your follow-up appointment, if applicable. Discharge Plan Admission Admit Date/Time: 11/21/20 01:03 Primary Reason for Your Visit: NSTEMI Attending Provider: Howie Corona Primary Care Provider: Gianluca Sol Consulting Providers: Jez Jim ; Komal Riley Instructions Patient Instructions: Wound Care Additional Instructions / Restrictions: Change left leg dressing daily; apply santyl (nickel thickness) and cover with gauze and kerlix. Alternate between left leg elevation and dangling to control both edema and lower limb pain. Weightbear as tolerated with protective shoes. Take nutritional supplementation 1-2 times daily to optimize your healing. Follow up at the wound healing center within 1-2 weeks after hospital discharge; call [phone]. Discharge Orders/Prescriptions Prescriptions: New furosemide 40 mg Tablet 40 mg PO BID@1000,1800 Qty: 60 RF: 0 spironolactone 25 mg tablet 12.5 mg PO DAILY 30 Days Qty: 30 RF: 0 Continued atorvastatin 40 MG tablet 40 mg PO QHS RF: 0 nitroglycerin [Nitrostat] 0.4 MG tablet, sublingual 0.4 mg sublingual PRN PRN (Reason: CHEST PAIN) RF: 0 metoprolol succinate [Toprol XL] 25 MG tablet extended release 24 hr 25 mg PO DAILY RF: 0 Humulin 70/30 U-100 KwikPen 100 UNIT/ML insulin pen 2 - 2.5 unit SQ DAILY RF: 0 acetaminophen 500 MG tablet 500 mg PO Q4H PRN PRN (Reason: Pain) Qty: 20 RF: 0 glipizide 10 MG tablet 10 mg PO BIDAC RF: 0 clopidogrel 75 mg tablet 75 mg PO DAILY RF: 0 aspirin [Adult Aspirin Regimen] 81 MG tablet,delayed release (DR/EC) 81 mg PO DAILY Qty: 30 RF: 1 metformin 1,000 MG tablet 1,000 mg PO BID Qty: 0 RF: 0 Discontinued ibuprofen 600 MG tablet 600 mg PO Q6H PRN PRN (Reason: Pain) Qty: 20 RF: 0 amoxicillin-pot clavulanate 875 MG tablet 875 mg PO Q12H Qty: 20 RF: 0 Referrals / Follow Up: Gianluca Sol, [Primary Care Provider] - In 1 Week Komal Riley DPM [STAFF PHYSICIAN] - In 1 Week (In wound center) Óscar Dickinson MD [STAFF PHYSICIAN] - Within 2 Weeks (FOR NSTEMI) Disposition Disposition (needs filled in before D/C Order can be placed): Home, self care
[2020-11-23 11:36] LABS: Bedside Glucose 345 mg/dL (70-110)
[2020-11-23] MEDS: Insulin Lispro 100 UNIT/ML INSULN.PEN SC (12:06)
--- NOTE | 2020-11-23 12:37 | PHA.DC.MC ---
Pharmacy Service has performed discharge medication reconciliation and counseling for this patient. 1. FUROSEMIDE 40MG PO BID 2. SPIRONOLACTONE 12.5MG PO DAILY The patient's discharge medication list was reviewed for discrepancies and discrepancies were resolved. Home Medications Humulin 70/30 U-100 KwikPen 2 - 2.5 unit SQ DAILY 06/05/18 atorvastatin 40 mg PO QHS 06/05/18 metoprolol succinate [Toprol XL] 25 mg PO DAILY 06/05/18 nitroglycerin [Nitrostat] 0.4 mg SUBLINGUAL PRN PRN 06/05/18 acetaminophen 500 mg PO Q4H PRN PRN #20 tablet 06/10/18 glipizide 10 mg PO BIDAC 07/16/20 clopidogrel 75 mg PO DAILY 11/21/20 aspirin [Adult Aspirin Regimen] 81 mg PO DAILY #30 tab 11/23/20 furosemide 40 mg PO BID@1000,1800 #60 tab 11/23/20 metformin 1,000 mg PO BID #0 tab 11/23/20 spironolactone 12.5 mg PO DAILY 30 Days #30 tab 11/23/20 The patient was counseled on the following discharge medications and changes in medications for homegoing were reviewed. The Reason for Use, instructions for use, and potential side effects were reviewed for all new medications. The patient's questions regarding all of their medications were answered. The patient was able to verbally demonstrate an understanding of their discharge medications. Patient counseled by pharmacy intake technician
--- NOTE | 2020-11-23 16:57 | PCM.DC.SUM ---
Providers Date of Admission: 11/21/20 Primary Care Physician: Dr. Gianluca Sol, Consultations 11/21/20 01:40 Consult: Onc/Wound/equipment installation professional Routine Comment: Reason for Consult:: left leg wound 11/21/20 04:32 Consult: Cardiology Routine Consulting Provider: Jez Jim Reason for Consult: nstemi EMERGENT Consult: No MD Notified: Yes Date Notified:: 11/21/20 Time Notified: 04:33 Method of Notification: Verbal Method of Consult:: In-Person 11/22/20 13:21 Consult: Podiatry Routine Consulting Provider: Komal Riley Reason for Consult: Left leg wound around ankle.chornic for 3-4 months EMERGENT Consult: No MD Notified: Yes Date Notified:: 11/22/20 Time Notified: 13:22 Method of Notification: Text Reason For Visit: ACUTE HYPOXEMIC RESPIRATORY FAILURE Diagnosis Discharge Diagnosis (1) History of coronary artery stent placement: Status: Acute Code(s): Z95.5 - Presence of coronary angioplasty implant and graft (2) NSTEMI (non-ST elevated myocardial infarction): Status: Acute Code(s): I21.4 - Non-ST elevation (NSTEMI) myocardial infarction (3) Heart failure: Status: Acute Code(s): I50.9 - Heart failure, unspecified Qualifiers: Heart failure type: unspecified Heart failure chronicity: acute Qualified Code(s): I50.9 - Heart failure, unspecified Medications at Discharge Home Medications Humulin 70/30 U-100 KwikPen 2 - 2.5 unit SQ DAILY 06/05/18 atorvastatin 40 mg PO QHS 06/05/18 metoprolol succinate [Toprol XL] 25 mg PO DAILY 06/05/18 nitroglycerin [Nitrostat] 0.4 mg SUBLINGUAL PRN PRN 06/05/18 acetaminophen 500 mg PO Q4H PRN PRN #20 tablet 06/10/18 glipizide 10 mg PO BIDAC 07/16/20 clopidogrel 75 mg PO DAILY 11/21/20 aspirin [Adult Aspirin Regimen] 81 mg PO DAILY #30 tab 11/23/20 furosemide 40 mg PO BID@1000,1800 #60 tab 11/23/20 metformin 1,000 mg PO BID #0 tab 11/23/20 spironolactone 12.5 mg PO DAILY 30 Days #30 tab 11/23/20 Hospital Course Summary of Care Provided Minutes Spent on Discharge: 35 Hospital Course: This is a 64-year-old [employer] woman who came to ER with shortness of breath, pulse ox 70% on room air further admitted with acute hypoxic respiratory failure. Patient has history of coronary artery status post 4 stents, permanent pacemaker. ? ? 1. Acute hypoxemic respiratory failure secondary to acute heart failure, resolved Off BiPAP, on 2 L of oxygen, wean off oxygen for SPO2 more than 94. Hypoxia resolved. 2. Acute NSTEMI, EKG shows no acute ST changes, paced rhythmn Cardiology consulted; patient had cardiac cath in the morning which showed mid left circumflex 70% stenosis.? LAD with previous stent patent.? Dominant RCA with no high-grade stenosis.? LV systolic dysfunction with anterior hypokinesis.? PCI Continue on? aspirin, beta-darwin, statin Lovenox held for cardiac cath. Patient has above medications. 3. Acute on chronic systolic heart failure with EF 30%.? Patient had echo which showed concentric moderate LVH with global hypokinesis, RVSP 34 mmHg.? Mild to moderate MR. Admitting BNP of is elevated Patient has improved on Lasix, continue with CHF protocol. His prescription given for Lasix and spironolactone. ? 4. CHRIS on CKD, stage IIIb Creatinine appears to be improving; currently 1.03, improved from 1.43 Monitor kidney function. 5. Hypokalemia, K3.4 potassium replaced. Potassium supplement discontinued 6. Chronic left leg andrews anterior venous stasis ulcer: Wound photo reviewed.? Automotive T[employer] Technician consulted. 7. Type 2 DM, blood sugars are slightly elevated, glipizide, will add insulin sliding scale Continue on a cardiac-calorie controlled diet Discharge medication reconciliation done. Discharge follow-up instructions completed. Discharge process discussed with the patient and all questions were answered to patient's satisfaction. Discharge medications discussed with the patient and the . Total time spent, exact 35 minutes on discharge meds reconciliation, examination, coordination of care with nurses and ancillary staff, review of imaging and blood test and discussion with the patient on follow-up instructions Physical Exam Narrative Seen and examined. Does not have acute chest pain or shortness of breath. Patient and her 's questions regarding cardiac medications and wound care explained in detail. General: Alert, Oriented x3, Cooperative HEENT: Atraumatic, PERRLA, EOMI, Normocephalic Oral: No Gingival or Mucosal Lesions/ Ulcerations Neck: Supple, No JVD, Negative Carotid Bruits Lungs: Air entry diminished in bilateral lung bases. No crepitation/rhonchi Cardiovascular: Regular rate, Regular Rhythm, Normal S1, Normal S2, No murmurs Abdomen: Bowel Sounds Present, Soft, Non Tender, Non-Distended : No renal angle tenderness. No suprapubic tenderness. Extremities: No edema, Capillary Refill Less than 3 Seconds Skin: Venous ulcer proximal to left ankle surrounding with redness. Debridement done. Wound dressing with saline irrigation, Santyl ointment and Adaptic dressing.. Musculoskeletal: No Tenderness to Palpation of Joints or Extremities Neurological: Cranial nerves II-XII grossly intact, Deep Tendon Reflexes 2+/4 and Symmetrical, Neuro grossly intact Psych/Mental Status: Normal Affect, Appropriate. ABG / Lab / Microbiology Data Result Diagrams: 11/23/20 05:42 11/23/20 05:42 Laboratory: Laboratory Results - last 24 hr 11/22/20 11/23/20 11/23/20 21:31 05:42 05:42 WBC 7.9 RBC 4.06 L Hgb 10.7 L Hct 35.1 L MCV 86.5 MCH 26.4 L MCHC 30.5 L RDW Std Deviation 49.7 H RDW Coeff of Brianne 15.7 H Plt Count 313 MPV 9.3 Sodium 143 Potassium 3.8 Chloride 109 H Carbon Dioxide 29.0 Anion Gap 5 BUN 38 H Creatinine 1.00 Estim Creat Clear Calc 42.89 Est GFR (MDRD) Af Amer 72 Est GFR (MDRD) Non-Af 60 BUN/Creatinine Ratio 38.2 H Glucose 169 H Hemoglobin A1c Calcium 8.8 Total Bilirubin 0.30 AST 24 ALT 38 Alkaline Phosphatase 42 L Total Protein 7.2 Albumin 3.4 Globulin 3.8 Albumin/Globulin Ratio 0.9 POC Glucose 232 H 11/23/20 11/23/20 11/23/20 05:42 06:33 11:23 WBC RBC Hgb Hct MCV MCH MCHC RDW Std Deviation RDW Coeff of Brianne Plt Count MPV Sodium Potassium Chloride Carbon Dioxide Anion Gap BUN Creatinine Estim Creat Clear Calc Est GFR (MDRD) Af Amer Est GFR (MDRD) Non-Af BUN/Creatinine Ratio Glucose Hemoglobin A1c 7.8 H Calcium Total Bilirubin AST ALT Alkaline Phosphatase Total Protein Albumin Globulin Albumin/Globulin Ratio POC Glucose 144 H 345 H Microbiology: Microbiology 11/20/20 22:56 Interface Orders SARS-CoV-2 Antigen (Rapid) - Final Radiography Diagnostic Testing: Radiology Impression Echocardiogram 11/21/20 15:14 Interpretation Summary Normal LV size. Moderate concentric left ventricular hypertrophy. The estimated ejection fraction is 30 %. There is moderate global hypokinesis of the left ventricle. Pulmonary artery systolic pressure is 34 mmHg. Mild-Moderate (1-2+) eccentric mitral valve insufficiency. Contrast injection was performed. Ordering Physician: Bernice Hernandez Referring Physician: Gianluca Sol Performed By: Evans Daniels RCS Tibia/Fibula X-Ray 11/22/20 18:20 IMPRESSION: No demonstrated fracture or suspicious osseous lesion Electronically Signed: Arjun Sutton MD at 8:53 EDT , Service support , D/C Instructions Discharge Diet: Low fat / Low cholesterol, 1800 Calorie Control Diet and 2000 mg Sodium Diet Discharge Activity: Return to Normal Activity and May Not Drive Call your doctor if you observe: Fever of 101 or Higher, Coldness, Increased Pain, Numbness or Tingling, Change in Color, Inability to urinate, Inability to have a bowel movement, Using more than one pad per hour, Shortness of breath, Dizziness, Fainting spells, Swelling in the ankles, Chest pain, Increased palpitations (irregular heartbeat), Calf discomfort and Uncontrolled pain Meaningful Use Info Meaningful Use Diagnoses (Choose all that apply): AMI AMI/Post PCI/Angioplasty Aspirin given w/in 24hrs of arrival?: Yes ASA at discharge?: Yes Antiplatelet Therapy at Discharge:: Yes Statins at discharge?: Yes Kalia/ARB at discharge?: No Reason Kalia/ARB not ordered:: Worsening renal dysfunctn and Worsening renal function Beta Darwin at discharge?: Yes Done w/ Acute VA measure.: Yes Documented LVEF (%): 30 Discharge Plan Admission Admit Date/Time: 11/21/20 01:03 Primary Reason for Your Visit: NSTEMI Attending Provider: Howie Corona Primary Care Provider: Gianluca Sol Consulting Providers: Jez Jim ; Komal Riley Instructions Patient Instructions: Wound Care Additional Instructions / Restrictions: Change left leg dressing daily; apply santyl (nickel thickness) and cover with gauze and kerlix. Alternate between left leg elevation and dangling to control both edema and lower limb pain. Weightbear as tolerated with protective shoes. Take nutritional supplementation 1-2 times daily to optimize your healing. Follow up at the wound healing center within 1-2 weeks after hospital discharge; call [phone]. Discharge Orders/Prescriptions Prescriptions: New furosemide 40 mg Tablet 40 mg PO BID@1000,1800 Qty: 60 RF: 0 spironolactone 25 mg tablet 12.5 mg PO DAILY 30 Days Qty: 30 RF: 0 Continued atorvastatin 40 MG tablet 40 mg PO QHS RF: 0 nitroglycerin [Nitrostat] 0.4 MG tablet, sublingual 0.4 mg sublingual PRN PRN (Reason: CHEST PAIN) RF: 0 metoprolol succinate [Toprol XL] 25 MG tablet extended release 24 hr 25 mg PO DAILY RF: 0 Humulin 70/30 U-100 KwikPen 100 UNIT/ML insulin pen 2 - 2.5 unit SQ DAILY RF: 0 acetaminophen 500 MG tablet 500 mg PO Q4H PRN PRN (Reason: Pain) Qty: 20 RF: 0 glipizide 10 MG tablet 10 mg PO BIDAC RF: 0 clopidogrel 75 mg tablet 75 mg PO DAILY RF: 0 aspirin [Adult Aspirin Regimen] 81 MG tablet,delayed release (DR/EC) 81 mg PO DAILY Qty: 30 RF: 1 metformin 1,000 MG tablet 1,000 mg PO BID Qty: 0 RF: 0 Discontinued ibuprofen 600 MG tablet 600 mg PO Q6H PRN PRN (Reason: Pain) Qty: 20 RF: 0 amoxicillin-pot clavulanate 875 MG tablet 875 mg PO Q12H Qty: 20 RF: 0 Referrals / Follow Up: Óscar Dickinson MD [STAFF PHYSICIAN] - 12/24/20 11:30 am (FOR NSTEMI) Komal Riley DPM [STAFF PHYSICIAN] - 12/01/20 9:00 am (Please come 15 minutes early to your appointment. ) Gianluca Sol DO [Primary Care Provider] - 11/29/20 10:00 am Disposition Disposition (needs filled in before D/C Order can be placed): Home, self care Visit Charges Inpatient E&M: 33255 Disch Hosp
--- NOTE | 2020-11-24 14:53 | CASEMGMT ---
RN CM Discharge Follow Up Phone Call: IRENA: Durga Strata: 3 Call Date: 11.24.20 Discharge Date: 11.23.20 Time of Call:[id number] Duration:<1 min Admitting Dx: acute hypoxemic resp failure RN CM completed follow up phone call after recent hospitalization. Pt stated while in the hospital that the phone number is a message phone and ok to leave messages on it, but no one will answer it. Left message with call back info for this CM.
--- NOTE | 2020-11-29 10:51 | CL.D_ITS ---
Patient Name: LATOSHA LOYOLA Study Date: 11/22/2020 Performing: Óscar Dickinson MD Ht: 61.02 inches 155 cm : 1955 Wt: 165.35 lbs 75 kg Age: 64 Gender: female BSA: 1.74 PROCEDURE(S) PERFORMED [id number] W OR WO PTCA, SINGLE CORONARY ARTERY CLINICAL PROFILE AND INDICATIONS Indications: Suspected CAD Heart Failure: NYHA Class: 3, Newly Diagnosed: Yes, Heart Failure Type: Systolic CONCLUSIONS Moderate left ventricular systolic dysfunction with anterior hypokinesis and apical hypokinesis. RECOMMENDATIONS Referred for immediate PCI DESCRIPTION OF PROCEDURE The patient arrived to the procedure lab. The risks and benefits of the procedure as well as a full d escription of our services here and current unavailability of surgical backup were fully explained to the patient and/or their significant other prior to the catheterization. The Timeout was completed, verifying the correct patient and procedure. The patient's procedural site was prepped and draped in the usual fashion. Local anesthetic was given subcutaneously to right radial region with Lidocaine 2% . Using a modified Seldinger technique, arterial access was obtained via the right radial artery, a 6 Fr sheath was inserted. Left Coronary Artery selective angiography was performed in multiple views u sing a 5 Fr. 4.0 [place] catheter. Right Coronary Artery selective angiography was then performed in mu ltiple views using a 5 Fr. 4.0 [place] catheter. Left Ventriculography was performed in SMITH projection using a 5 Fr. Pig[place] catheter. LV to AO pullback pressures were then recorded.The arterial sheath was pulled and a TR Band was applied for hemostasis-10cc air CORONARY ANGIOGRAPHY DOMINANCE: Right Dominant LEFT HEART ASSESSMENT Left Ventricular Ejection Fraction: by LV Gram 40 % Anterior Hypokinesis - Moderate Depressed Left Ventricular systolic function LEFT MAIN: No significant disease noted LEFT ANTERIOR DESCENDING ARTERY: Previously placed stent is patent CIRCUMFLEX ARTERY: MID CIRC: 75 % Stenosis RIGHT CORONARY ARTERY: Mild luminal irregularities less than 30% COMPLICATIONS No Complications PROCEDURE MEDICATIONS Versed 1 mg IV Fentanyl 50 mcg IV Fentanyl 25 mcg IV Fentanyl 25 mcg IV Oxygen: 2 L/min via nasal cannula Heparin diluted in 23cc Heparinized saline. Patient given 10cc IA of this solution. 11/22/2020 09:36: 42 Heparin 5000 unit(s) IV 11/22/2020 09:52:41 Verapamil 2.5mg, Ntg 100mcgs, 2000 units of Heparin diluted in 23cc Heparinized saline. Patient give n 10cc IA of this solution. 11/22/2020 09:36:42 SUMMARY OF HEMODYNAMIC DATA Time AIR REST ECG 09:18:37 AO 135/69 (98) SA 09:38:39 LV 156/13, 09:45:44 LV 157/13, 09:45:51 LV 157/15, 27 09:46:50 LVp 159/13, 09:46:58 AOp 154/71 (105) 09:47:03 Signed By Óscar Dickinson MD On 11/29/2020 10:50:35 Óscar Dickinson MD
== END 2020-11-23 14:32 | disposition home or self-care (01) | DRG 246 ==
LOC: ED 11-21 01:04 → PCU 11-21 01:05
PROVIDERS: Internal Medicine; Podiatrist; Specialist; Admitting Provider Hospitalist; Emergency Provider Emergency Medicine; PCP Family Medicine; Visit Provider Internal Medicine
DX: I21.4 Non-ST elevation (NSTEMI) myocardial infarction (principal); J96.01 Acute respiratory failure with hypoxia; I50.23 Acute on chronic systolic (congestive) heart failure; I13.0 Hypertensive heart and chronic kidney disease with heart failure and stage 1 through stage 4 chronic kidney disease, or unspecified chronic kidney disease; N17.9 Acute kidney failure, unspecified; L97.822 Non-pressure chronic ulcer of other part of left lower leg with fat layer exposed; E11.22 Type 2 diabetes mellitus with diabetic chronic kidney disease; N18.32 Chronic kidney disease, stage 3b; I83.028 Varicose veins of left lower extremity with ulcer other part of lower leg; E11.51 Type 2 diabetes mellitus with diabetic peripheral angiopathy without gangrene; E11.65 Type 2 diabetes mellitus with hyperglycemia; E87.6 Hypokalemia; I25.10 Atherosclerotic heart disease of native coronary artery without angina pectoris; Z20.822 Contact with and (suspected) exposure to COVID-19; Z79.82 Long term (current) use of aspirin; Z79.4 Long term (current) use of insulin; Z79.899 Other long term (current) drug therapy; Z95.5 Presence of coronary angioplasty implant and graft; Z95.810 Presence of automatic (implantable) cardiac defibrillator
CPT/HCPCS: 36415; 36600; 71045; 73590; 80048; 80053; 82803; 82962; 83036; 83735; 83880; 84145; 84484; 85025; 85027; 87426; 92928; 93005; 93306; 93458; 94002; 94640; 97162; 97165; 97802; 99152; 99153; 99251; 99285; J7030; J7050; Q9957; A4216; C1769; C1874; C1887; C1894; C8929; C9600; G0463; J1940; Q9967

== ENCOUNTER 2020-12-01 09:13 | Outpatient (RCR) | payer OTHER, SELFPAY ==
[2020-11-21 01:54] VITALS: BMI 31.7
[2020-12-01 09:45] VITALS: BP 131/57; PULSE 75; RESP 18; TEMP 36.3; BMI 31.7
--- NOTE | 2020-12-01 10:52 | PCM.WC.PN ---
History of Present Illness Date of Service: 12/01/20 Chief Complaint: left leg ulcer History of Wound: This 65-year-old patient with multiple comorbidities was previously seen at [facility] for chronic left leg ulcer that started this past winter approximately 5 months ago. She has had delays in healing. She has rest pain and claudication. The ulcer looks like a scab and is also yellow. She did not get her noninvasive vascular studies yet. She needs an updated order. She has been applying Santyl daily as advised. She denies odor, redness, fever, chill, nausea, vomiting. She has to dangle her legs to control the pain. Progress of Wound: stable Objective Data Objective Data Vital Signs: Vital Signs Temp Pulse Resp BP 97.3 F L 75 18 131/57 H 12/01/20 09:45 12/01/20 09:45 12/01/20 09:45 12/01/20 09:45 Body Mass Index (BMI) 31.7 Physical Exam Const alert and oriented x3 General Appearance: cooperative HEENT normocephalic Extremity Extremity Narrative: No calf tenderness Diminished pulses Muscle wasting noted General Extremity: edema and no tenderness to palpation of joints or extremities; Negative for cyanosis Skin Skin Narrative: no purulence, no streaking, no odor, no infection. No hair. Skin is atrophic and thin. Ulcer is fibrous with partial central moist eschar which was removed with underlying fibrous tissue. No deep tissue exposure. No bogginess or fluctuance on palpation. General Skin Exam: Negative for erythema Neuro Neuro Narrative: Epicritic sensation intact to light touch Psych cooperative and affect normal Debridement Note Debridement Note Post-Debridement Measurements and Additional Note: Post-Debridement Measurements/Treatment - Nurse 1 - General Ulcer Assessment Start: 12/01/20 09:20 Freq: Status: Active Protocol: [email or web address].LOWEXT Activity Type Activity Date Activity User E-Sign Co-Sign Detail Recorded Client Recorded Date Recorded By Document 12/01/20 09:45 DL Desktop 12/01/20 09:58 DL 12/01/20 09:45 - Today's Visit Information Type of service Initial Visit Arrival Mode Ambulatory Transfer Assistance None Patient Identification Verified (Name & Yes ) Patient Requires Transmission-Based No Precautions Finger Stick Blood Sugar(mg/dl) (if 71 indicated): Blood Sugar Stated by Patient Height and Weight Body Mass Index (BMI) 31.7 BMI Classification Obese Vital Signs Temperature (97.8 F-99.1 F) 97.3 F L Temperature Source Temporal Pulse Rate (60-100) 75 Pulse Location Monitor Respiratory Rate (12-18) 18 Respiratory rate source Observation Blood Pressure (90/60-120/80) 131/57 H Blood Pressure Mean (mm Hg) 81 Source Monitor Pain Scale: 0-10 Numeric Is Patient Pain Free? Yes Communication Assessment Preferred language Macedonian Able to Read Yes Able to Write Yes Communication Tools None Right Hearing Abillity Normal Left Hearing Abillity Normal Visual Assistive Devices Glasses Teaching Assessment Preferences Verbal,Written, Demonstration Barriers to Learning None Readiness To Learn Good Willingness to Engage in Self Management Med Activies Readiness to Engage in Self Management Med Activities Anxiety Level Calm Cooperation Cooperative Perception Coherent Interest in Health Problem Asks Questions Education Importance Acknowledges Need Does Patient Smoke tobacco or other No substances Smoking Status Never smoker Is Patient Diabetic Yes Functional Assessment Recent Decline in Ability to Perform Denies Any Declines Culture/Worship/Real Estate Account Executive Cultural/Worship Needs that may affect No Treatment Plan Would you allow our hospital child's nurse to No meet you for the purpose of spiritual/ emotional support? Real Estate Account Executive to contact place of moravian No Teaching: Wound Center Discharge Instructions -Person Taught Patient,Family Dressing Your Wound -Person Taught Patient,Family *Infection -Person Taught Patient,Family *Welcome to the Wound Center -Person Taught Patient,Family WC - Nurse 1 - General Ulcer Measurement Start: 12/01/20 09:20 Freq: Status: Active Protocol: Activity Type Activity Date Activity User E-Sign Co-Sign Detail Recorded Client Recorded Date Recorded By Document 12/01/20 09:45 DL Desktop 12/01/20 09:58 DL 12/01/20 09:45 Wound Center Nurse 1 #1 LLE -Current Size (cm) - Length 6.4 -Current Size (cm) - Width 7 -Current Size (cm) - Depth 0.1 -Total Square Cm 44.8 -Photo Taken Yes -Exudate Amt Medium -Exudate Type Serosanguineous -Wound Margin Distinct, Outline Attached -Granulation Amt None Present (0 %) -Necrosis Amt Small (1-33%) -Necrotic Tissue Type Adherent Slough -Structure Exposed N/A -Texture (Gloria-wound Skin Appearance) Localized Edema ,Scarring -Moisture (Gloria-wound Skin Appearance) No Abnormality -Color (Gloria-wound Skin Appearance) Erythema -Temperature (Gloria-wound Skin No Abnormality Appearance) (Pt Warm) -Tenderness on Palpation (Gloria-wound No Skin Appearance) -Ulcer Cleansing Wound Cleanser -Foul Odor after Cleansing No -Anesthetic Used 5% Lidocaine Gel Right Calf (cm) 31 Right Ankle (cm) 20 Left Calf (cm) 32.5 Left Ankle (cm) 22 WC - Nurse 2 - General Ulcer CM Notes Start: 12/01/20 09:20 Freq: Status: Active Protocol: Activity Type Activity Date Activity User E-Sign Co-Sign Detail Recorded Client Recorded Date Recorded By Document 12/01/20 10:24 PL [id number] 12/01/20 10:26 PL 12/01/20 10:24 Wound Center Nurse 2 #1 LLE -Time 09:39 -Correct Patient Yes -Correct Side, Site, Position Yes -Correct Procedure Yes -Procedure Performed Yes -Type of Procedure Debridement -Clinical Debridement Epidermis / Dermis -Tissue Removed Epidermis, Dermis -Post Debridement (cm) - Length 6.4 -Post Debridement (cm) - Width 7.0 -Post Debridement (cm) - Depth 0.1 -Total Square (Post) (cm) 44.80 -Area of Debridement (cm) - Length 6.4 -Area of Debridement (cm) - Width 7.0 -Total Square (Area) (cm) 44.80 -Tunneling No -Undermining/Tunneling No -Circular Undermining No -Wound/Ulcer Outcome Not Healed -Ulcer Cleansing Rinsed/ Irrigated with Saline -Foul Odor after Cleansing No -Bioengineered Tissue No -Debridement - Open, 1st 20sq cm Yes -Debridement, Open, ea addt'l 20sq cm 2 or part thereof Pain Scale: 0-10 Numeric Is Patient Pain Free? Yes Wound debrided: Wound Grade/Stage: Type of Debridement: Selective debridement Anesthesia Used: 4% Lidocaine Solution Depth: in the subcutaneous layer Percentage of wound debrided: 100 Instrument Used: #15 blade Tissue Removed: fibrous, devitalized eschar, biofilm, slough Severity: Fat Layer Exposed Amount of bleeding with debridement: Mild Bleeding Controlled with: Pressure Patient tolerated procedure: Patient tolerated procedure well Assessment/Plan Assessment/Plan (1) Other specified peripheral vascular diseases: CODE(S): I73.89 - Other specified peripheral vascular diseases (2) Chronic ulcer of left leg with fat layer exposed: CODE(S): L97.922 - Non-pressure chronic ulcer of unspecified part of left lower leg with fat layer exposed (3) Eschar of lower leg: CODE(S): R23.4 - Changes in skin texture PLAN: I reviewed and discussed her case today. The following work up and care recommendations were made: Dressing: Daily dressing change left leg with Santyl applied nickel thickness covered with gauze.? An updated prescription was provided for refills. Wash: Soap (antibacterial) and water Debridement: Selective debridement was performed as noted. The remaining eschar was crosshatched to allow better collagenase penetration. Offload: Avoid direct pressure to the ulcer site.? It is okay to apply light compression and to alternate between elevation for edema management and dangling due? Vascular: She has nonpalpable pulses and evidence of tissue loss to left leg in combination with hairless presentation of the lower extremities.? I recommend noninvasive arterial vascular study; the order was previously provided and she does not know what happened. I provided her with an updated order that we will help her get scheduled. Edema: Her edema may be secondary to venous insufficiency versus cardiac etiology (acute on chronic CHF).? I recommend venous Doppler with reflux evaluation; the exam with reflux can only be done in the outpatient setting. Infection: She was reassured no local signs of infection are noted today.? She will be monitored for redness, systemic illness, streaking or odor development.? Antibiotics are not recommended. Pain: Reviewed options and she will continue to dangle the involved limb as needed. She will take [id number] Tylenol occasionally as needed for pain. She was advised on safe use. Imaging: X-ray of the left leg were reviewed and there is no fracture, dislocation, soft tissue emphysema, foreign body, or adjacent osseous destruction near the ulcer site.? It is noted she has significant vessel calcification but the leg and thigh level. Labs: No leukocytosis noted (WBC 7.9). Host factors: Her medical comorbidities complicate her case and healing potential.? It is noted she is a diabetic (hemoglobin A1c results still pending), kidney injury, and recent acute cardiac issues.? She had a recent cardiac cath with PCI of circumflex artery.? She continues on anticoagulation medication.? It is noted her EF is 30%. Nutrition: I also recommend nutritional supplementation to optimize healing; Mani ordered. To return to the wound healing center in 1 week or sooner if she has any infection development which is not noted today. I answered all of her questions. Note: [employer] speech recognition ham smoker software was used to create portions of this document. Sound-alike and misspelled words, as well as other ham smoker errors may be contained in the documentation. The medical decision making level is limited based on data including the review of prior external notes, review of a prior test, or ordering a test. The problems addressed require a low medical decision making level which includes two or more minor problems, a stable chronic illness, or an acute uncomplicated illness or injury.
== END 2020-12-06 23:59 ==
LOC: WC 09:13
PROVIDERS: PCP Family Medicine; Visit Provider Podiatrist
DX: E11.622 Type 2 diabetes mellitus with other skin ulcer (principal); E11.51 Type 2 diabetes mellitus with diabetic peripheral angiopathy without gangrene; L97.822 Non-pressure chronic ulcer of other part of left lower leg with fat layer exposed; R23.4 Changes in skin texture
CPT/HCPCS: 97597; 97598; 99213; G0463

== ENCOUNTER 2020-12-29 10:00 | Outpatient (RCR) | payer SELFPAY ==
[2020-12-07 00:45] VITALS: BP 131/57; PULSE 75; RESP 18; TEMP 36.3
--- NOTE | 2020-12-13 12:53 | ART_ITS ---
Reason For Study: Ulcer left leg Procedure A bilateral lower extremity continuous wave Doppler with analog waveform analysis,segmental pressures,and ankle brachial indexes without exercise. Left Segmental Pressures Left brachial= 132mmHg. Left posterior tibial artery = >254mmHg. Left dorsalis pedis artery = >254mmHg. Left digit = 27 mmHg. The left dorsalis pedis waveforms are monophasic. The left posterior tibial artery waveforms are monophasic. Right Segmental Pressures Right brachial= 148mmHg. Right posterior tibial artery = 85mmHg. Right dorsalis pedis artery = >254mmHg. Right digit = 33 mmHg. The right dorsalis pedis waveforms are monophasic. The right posterior tibial artery waveforms are monophasic. Indices The right ankle brachial index by the dorsalis pedis is NC. The right ankle brachial index by the posterior tibial artery is 0.57. The right digital-brachial index is 0.22. The left ankle brachial index by the dorsalis pedis is NC. The left ankle brachial index by the posterior tibial artery is NC. The left digital-brachial index is 0.18. 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 Abnormal bilateral digital brachial indices Ordering Physician: Komal Riley Referring Physician: Gianluca Sol Performed By: Kristen Evans RVT
[2020-12-15 09:04] VITALS: BP 118/84; PULSE 69; RESP 18; TEMP 35.9; BMI 31.7
--- NOTE | 2020-12-15 11:16 | PCM.WC.PN ---
History of Present Illness Date of Service: 12/15/20 Chief Complaint: left leg ulcer History of Wound: This 65-year-old patient with multiple comorbidities was previously seen at [facility] for chronic left leg ulcer that started this past winter approximately 6 months ago. She has had delays in healing. She has rest pain and claudication. The ulcer looks like a scab and is also yellow. She has been applying Santyl daily as advised. She denies odor, redness, fever, chill, nausea, vomiting. She has to dangle her legs to control the pain. She had her noninvasive vascular studies completed and was promptly referred to vascular surgeon. She reports that she has been contacted by Dr. Chan's office however did not call back yet. Progress of Wound: stable Objective Data Objective Data Vital Signs: Vital Signs Temp Pulse Resp BP 96.6 F L 69 18 118/84 H 12/15/20 09:04 12/15/20 09:04 12/15/20 09:04 12/15/20 09:04 Body Mass Index (BMI) 31.7 Physical Exam Const alert and oriented x3 General Appearance: cooperative HEENT normocephalic Extremity Extremity Narrative: No calf tenderness Diminished pulses Muscle wasting noted General Extremity: edema and no tenderness to palpation of joints or extremities; Negative for cyanosis Skin Skin Narrative: no purulence, no streaking, no odor, no infection. fibrous based ulcer without deep tissue exposure. The skin is atrophic and hairless with adjacent progressive skin discontinuity. Less than 5% of the ulcer is granular. There is no demetria necrosis, bogginess or fluctuance General Skin Exam: Negative for erythema Neuro Neuro Narrative: Hypersensitivity to light touch Psych cooperative and affect normal Debridement Note Debridement Note Post-Debridement Measurements and Additional Note: Post-Debridement Measurements/Treatment - Nurse 1 - General Ulcer Assessment Start: 12/15/20 09:04 Freq: Status: Active Protocol: GALLITO.REBECA Activity Type Activity Date Activity User E-Sign Co-Sign Detail Recorded Client Recorded Date Recorded By Document 12/15/20 09:04 HOLLIS [id number] 12/15/20 09:06 HOLLIS 12/15/20 09:04 - Today's Visit Information Type of service Follow-up Visit (Physician/CLOTH SHRINKER ) Arrival Mode Ambulatory Transfer Assistance None Patient Identification Verified (Name & Yes ) Patient Requires Transmission-Based No Precautions Height and Weight Body Mass Index (BMI) 31.7 BMI Classification Obese Vital Signs Temperature (97.8 F-99.1 F) 96.6 F L Temperature Source Temporal Pulse Rate (60-100) 69 Pulse Location Monitor Respiratory Rate (12-18) 18 Respiratory rate source Observation Blood Pressure (90/60-120/80) 118/84 H Blood Pressure Mean (mm Hg) 95 Source Monitor Position Semi-Fowlers Blood Pressure Location Left Arm History Since Last Visit- (Skip if this is Patient's initial visit) Have you changed medications since your No last visit? Any new allergies or adverse reactions No Had a fall/change in ADL's that may No increase risk of falls Signs or symptoms of abuse and/or No neglect since last visit Have you been in the hospital since your No last visit? Has dressing in place as prescribed Yes Has compression in place as prescribed No Has offloadiing in place as prescribed No Experienced any changes in pain level or No management Left Footwear Regular Shoe Right Footwear Regular Shoe Pain Scale: 0-10 Numeric Is Patient Pain Free? Yes WC - Nurse 1 - General Ulcer Measurement Start: 12/15/20 09:04 Freq: Status: Active Protocol: Activity Type Activity Date Activity User E-Sign Co-Sign Detail Recorded Client Recorded Date Recorded By Document 12/15/20 09:04 HOLLIS [id number] 12/15/20 09:06 HOLLIS 12/15/20 09:04 Wound Center Nurse 1 #1 LLE -Combined with other wound No -Current Size (cm) - Length 6.8 -Current Size (cm) - Width 8 -Current Size (cm) - Depth 0.1 -Total Square Cm 54.4 -Tunneling No -Undermining/Tunneling No -Circular Undermining No -Exudate Amt Medium -Exudate Type Serosanguineous -Wound Margin Distinct, Outline Attached -Granulation Amt Medium (34-66%) -Granulation Quality Supreme,Red -Slough/Fibrin Yes -Necrosis Amt Small (1-33%) -Necrotic Tissue Type Adherent Slough -Structure Exposed N/A -Texture (Gloria-wound Skin Appearance) Assessed -Moisture (Gloria-wound Skin Appearance) Assessed -Color (Gloria-wound Skin Appearance) Assessed, Erythema -Temperature (Gloria-wound Skin No Abnormality Appearance) (Pt Warm) -Tenderness on Palpation (Gloria-wound No Skin Appearance) -Ulcer Cleansing Wound Cleanser -Foul Odor after Cleansing No -Anesthetic Used 4% Lidocaine Solution WC - Nurse 2 - General Ulcer CM Notes Start: 12/15/20 09:04 Freq: Status: Active Protocol: Activity Type Activity Date Activity User E-Sign Co-Sign Detail Recorded Client Recorded Date Recorded By Document 12/15/20 09:10 ALEE [id number] 12/15/20 09:16 ALEE 12/15/20 09:10 Wound Center Nurse 2 -Correct Patient No -Correct Side, Site, Position No -Correct Procedure No -Procedure Performed No -Wound/Ulcer Outcome Not Healed -Debridement - Subq, 1st 20sq cm No Pain Scale: 0-10 Numeric Is Patient Pain Free? Yes WC - Nurse 3 - General Ulcer D/C NN Start: 12/15/20 09:04 Freq: Status: Active Protocol: Activity Type Activity Date Activity User E-Sign Co-Sign Detail Recorded Client Recorded Date Recorded By Document 12/15/20 09:38 DL [id number] 12/15/20 09:40 DL 12/15/20 09:38 Wound Care Nurse 3 #1 LLE -Ulcer Cleansing Rinsed/ Irrigated with Saline -Foul Odor after Cleansing No -Primary Dressing Applied NonAdherent Contact Layer -Primary Dressing Covered/Secured with Dry Gauze & Roll Gauze, Secured with Tape Treatment Response Procedure Tolerated Well Pain Scale: 0-10 Numeric Is Patient Pain Free? No WC - Visit Discharge Discharge Condition Stable Ambulatory Status Ambulatory Accompanied by family Notes: Pt to resume Santyl at home. Assessment/Plan Assessment/Plan (1) Chronic ulcer of left leg with fat layer exposed: CODE(S): L97.922 - Non-pressure chronic ulcer of unspecified part of left lower leg with fat layer exposed (2) Other specified peripheral vascular diseases: CODE(S): I73.89 - Other specified peripheral vascular diseases (3) Left leg pain: CODE(S): M79.605 - Pain in left leg PLAN: I reviewed and discussed her case today. The following work up and care recommendations were made: Dressing: Daily dressing change left leg with Santyl applied nickel thickness covered with gauze. Wash: Soap (antibacterial) and water Debridement: Not performed today Offload: Avoid direct pressure to the ulcer site. It is okay to apply light compression and to alternate between elevation for edema management and dangling due Vascular: She has nonpalpable pulses and evidence of tissue loss to left leg in combination with hairless presentation of the lower extremities. Significant abnormalities noted consistent with severe disease process. Bilateral monophasic waveforms at ankle level with noncompressible vessels. MARY right 0.57 and non compressible left. Right toe brachial index 0.22 and left 0.18. Referral to Dr. Chan provided and she is scheduled for this upcoming Sunday. Edema: Her edema may be secondary to venous insufficiency versus cardiac etiology (acute on chronic CHF). I recommend venous Doppler with reflux evaluation; the exam with reflux can only be done in the outpatient setting. Infection: She was reassured no local signs of infection are noted today. She will be monitored for redness, systemic illness, streaking or odor development. Antibiotics are not recommended. Pain: Reviewed options and she will continue to dangle the involved limb as needed. She will take [id number] Tylenol occasionally as needed for pain. She was advised on safe and proper use. Imaging: X-ray of the left leg were reviewed and there is no fracture, dislocation, soft tissue emphysema, foreign body, or adjacent osseous destruction near the ulcer site. It is noted she has significant vessel calcification but the leg and thigh level. Labs: No leukocytosis noted (WBC 7.9). Host factors: Her medical comorbidities complicate her case and healing potential. It is noted she is a diabetic (hemoglobin A1c results still pending), kidney injury, and recent acute cardiac issues. She had a recent cardiac cath with PCI of circumflex artery. She continues on anticoagulation medication. It is noted her EF is 30%. Nutrition: I also recommend nutritional supplementation to optimize healing; Mani ordered previously provided. To return to the wound healing center in 1 week or sooner if she has any infection development which is not noted today. I answered all of her questions. Note: [employer] speech recognition panama hat hydraulic press operator software was used to create portions of this document. Sound-alike and misspelled words, as well as other panama hat hydraulic press operator errors may be contained in the documentation. The medical decision making level is limited based on data including the review of prior external notes, review of a prior test, or ordering a test. Her daughter is present and helps with her evaluation. The medical decision making level is low. There is noted low risk of morbidity after considering this treatment plan and diagnostic data. The problems addressed require a low medical decision making level which includes two or more minor problems, a stable chronic illness, or an acute uncomplicated illness or injury.
[2020-12-29 10:08] VITALS: BP 138/58; PULSE 79; RESP 18; TEMP 36.3; BMI 31.7
--- NOTE | 2020-12-29 10:22 | WC ---
PT APPLIED EURCERCIN CREAM TO OPEN WOUND THIS WEEK PT STATES SHE STOPPED SANTYL BECAUSE SHE THOUGHT IT MADE THE WOUND LARGER.
--- NOTE | 2020-12-29 10:39 | PCM.WC.PN ---
History of Present Illness Date of Service: 12/29/20 Chief Complaint: left leg ulcer History of Wound: This 65-year-old patient with multiple comorbidities was previously seen at [facility] for chronic left leg ulcer that started this past winter approximately 6 months ago. She has had delays in healing. She has rest pain and claudication. The ulcer looks like a scab and is also yellow. She denies odor, redness, fever, chill, nausea, vomiting. She has to dangle her legs to control the pain. She had her noninvasive vascular studies completed and was promptly referred to vascular surgeon. She completed her appointment with Dr. Chan and did not follow-up for the procedure as advised. She stopped using Santyl and applies Eucerin lotion directly over the wound. She is with her family member today. Progress of Wound: stable Objective Data Objective Data Vital Signs: Vital Signs Temp Pulse Resp BP 97.3 F L 79 18 138/58 H 12/29/20 10:08 12/29/20 10:08 12/29/20 10:08 12/29/20 10:08 Body Mass Index (BMI) 31.7 Physical Exam Const alert and oriented x3 General Appearance: cooperative HEENT normocephalic Extremity Extremity Narrative: No calf tenderness Diminished pulses Muscle wasting noted General Extremity: edema and no tenderness to palpation of joints or extremities; Negative for cyanosis Skin Skin Narrative: no purulence, no streaking, no odor, no infection. fibrous based ulcer without deep tissue exposure. The skin is atrophic and hairless with adjacent progressive skin discontinuity. Less than 5% of the ulcer is granular. There is no demetria necrosis, bogginess or fluctuance General Skin Exam: Negative for erythema Neuro Neuro Narrative: Hypersensitivity to light touch Psych cooperative and affect normal Debridement Note Debridement Note Post-Debridement Measurements and Additional Note: Post-Debridement Measurements/Treatment - Nurse 1 - General Ulcer Assessment Start: 12/15/20 09:04 Freq: Status: Active Protocol: CHEPE Activity Type Activity Date Activity User E-Sign Co-Sign Detail Recorded Client Recorded Date Recorded By Document 12/15/20 09:04 RB [id number] 12/15/20 09:06 RB Document 12/29/20 10:08 RB Desktop 12/29/20 10:18 RB 12/15/20 12/29/20 09:04 10:08 WC - Today's Visit Information Type of service Follow-up Visit Follow-up Visit (Physician/COMPARISON SHOPPER (Physician/COMPARISON SHOPPER ) ) Arrival Mode Ambulatory Ambulatory Transfer Assistance None None Patient Identification Verified (Name & Yes Yes ) Patient Requires Transmission-Based No No Precautions Height and Weight Body Mass Index (BMI) 31.7 31.7 BMI Classification Obese Obese Vital Signs Temperature (97.8 F-99.1 F) 96.6 F L 97.3 F L Temperature Source Temporal Temporal Pulse Rate (60-100) 69 79 Pulse Location Monitor Monitor Respiratory Rate (12-18) 18 18 Respiratory rate source Observation Observation Blood Pressure (90/60-120/80) 118/84 H 138/58 H Blood Pressure Mean (mm Hg) 95 84 Source Monitor Monitor Position Semi-Fowlers Semi-Fowlers Blood Pressure Location Left Arm Left Arm History Since Last Visit- (Skip if this is Patient's initial visit) Have you changed medications since your No No last visit? Any new allergies or adverse reactions No No Had a fall/change in ADL's that may No No increase risk of falls Signs or symptoms of abuse and/or No No neglect since last visit Have you been in the hospital since your No No last visit? Has dressing in place as prescribed Yes Yes Has compression in place as prescribed No No Has offloadiing in place as prescribed No No Experienced any changes in pain level or No No management Left Footwear Regular Shoe Right Footwear Regular Shoe Pain Scale: 0-10 Numeric Is Patient Pain Free? Yes No bilat LE -Description Aching -Intensity 9 -Duration (hours) Chronic -Pain Behavior Rubbing Site -Pain Aggravating Factors ADL's,Sitting -Alleviating Factors/Interventions Medication WC - Nurse 1 - General Ulcer Measurement Start: 12/15/20 09:04 Freq: Status: Active Protocol: Activity Type Activity Date Activity User E-Sign Co-Sign Detail Recorded Client Recorded Date Recorded By Document 12/15/20 09:04 RB [id number] 12/15/20 09:06 RB Document 12/29/20 10:08 RB Desktop 12/29/20 10:18 RB 12/15/20 12/29/20 09:04 10:08 Wound Center Nurse 1 #1 LLE -Combined with other wound No No -Current Size (cm) - Length 6.8 11 -Current Size (cm) - Width 8 11 -Current Size (cm) - Depth 0.1 0.1 -Total Square Cm 54.4 121 -Tunneling No No -Undermining/Tunneling No No -Circular Undermining No No -Exudate Amt Medium Large -Exudate Type Serosanguineous Serosanguineous -Wound Margin Distinct, Flat & Intact Outline Attached -Granulation Amt Medium (34-66%) Medium (34-66%) -Granulation Quality [place],Red [place] -Slough/Fibrin Yes No -Necrosis Amt Small (1-33%) Large (67-100%) -Necrotic Tissue Type Adherent Slough -Structure Exposed N/A N/A -Texture (Gloria-wound Skin Appearance) Assessed Assessed -Moisture (Gloria-wound Skin Appearance) Assessed Assessed -Color (Gloria-wound Skin Appearance) Assessed, Assessed, Erythema Erythema -Temperature (Gloria-wound Skin No Abnormality No Abnormality Appearance) (Pt Warm) (Pt Warm) -Tenderness on Palpation (Gloria-wound No No Skin Appearance) -Ulcer Cleansing Wound Cleanser Wound Cleanser -Foul Odor after Cleansing No No -Anesthetic Used 4% Lidocaine 4% Lidocaine Solution Solution - Nurse 2 - General Ulcer CM Notes Start: 12/15/20 09:04 Freq: Status: Active Protocol: Activity Type Activity Date Activity User E-Sign Co-Sign Detail Recorded Client Recorded Date Recorded By Document 12/15/20 09:10 [id number] 12/15/20 09:16 Document 12/29/20 10:24 [id number] 12/29/20 10:28 12/15/20 12/29/20 09:10 10:24 Wound Center Nurse 2 #1 LLE -Correct Patient No No -Correct Side, Site, Position No No -Correct Procedure No No -Procedure Performed No No -Wound/Ulcer Outcome Not Healed Not Healed -Debridement - Subq, 1st 20sq cm No No Pain Scale: 0-10 Numeric Is Patient Pain Free? Yes Yes - Nurse 3 - General Ulcer D/C NN Start: 12/15/20 09:04 Freq: Status: Active Protocol: Activity Type Activity Date Activity User E-Sign Co-Sign Detail Recorded Client Recorded Date Recorded By Document 12/15/20 09:38 DL [id number] 12/15/20 09:40 DL 12/15/20 09:38 Wound Care Nurse 3 #1 LLE -Ulcer Cleansing Rinsed/ Irrigated with Saline -Foul Odor after Cleansing No -Primary Dressing Applied NonAdherent Contact Layer -Primary Dressing Covered/Secured with Dry Gauze & Roll Gauze, Secured with Tape Treatment Response Procedure Tolerated Well Pain Scale: 0-10 Numeric Is Patient Pain Free? No WC - Visit Discharge Discharge Condition Stable Ambulatory Status Ambulatory Accompanied by family Notes: Pt to resume Santyl at home. Assessment/Plan Assessment/Plan (1) Chronic ulcer of left leg with fat layer exposed: CODE(S): L97.922 - Non-pressure chronic ulcer of unspecified part of left lower leg with fat layer exposed (2) Other specified peripheral vascular diseases: CODE(S): I73.89 - Other specified peripheral vascular diseases (3) Left leg pain: CODE(S): M79.605 - Pain in left leg PLAN: I reviewed and discussed her case today. Her treatment recommendations are as follows: Dressing: Daily dressing change left leg with Santyl applied nickel thickness covered with gauze. Wash: Soap (antibacterial) and water Debridement: Not performed today Offload: Avoid direct pressure to the ulcer site. It is okay to apply light compression and to alternate between elevation for edema management and dangling due Vascular: She has nonpalpable pulses and evidence of tissue loss to left leg in combination with hairless presentation of the lower extremities. Significant abnormalities noted consistent with severe disease process. Bilateral monophasic waveforms at ankle level with noncompressible vessels. MARY right 0.57 and non compressible left. Right toe brachial index 0.22 and left 0.18. Referral to Dr. Chan provided and she completed her consultation. I reviewed his clinical documentation which is noted she does have severe peripheral arterial disease and a left angiogram of the lower extremity is planned. Edema: Her edema may be secondary to venous insufficiency versus cardiac etiology (acute on chronic CHF). I recommend venous Doppler with reflux evaluation; the exam with reflux can only be done in the outpatient setting. Infection: She was reassured no local signs of infection are noted today. She will be monitored for redness, systemic illness, streaking or odor development. Antibiotics are not recommended. Pain: Reviewed options and she will continue to dangle the involved limb as needed. She will take [id number] Tylenol occasionally as needed for pain. She was advised on safe and proper use. Imaging: X-ray of the left leg were reviewed and there is no fracture, dislocation, soft tissue emphysema, foreign body, or adjacent osseous destruction near the ulcer site. It is noted she has significant vessel calcification but the leg and thigh level. Labs: No leukocytosis noted (WBC 7.9). Host factors: Her medical comorbidities complicate her case and healing potential. It is noted she is a diabetic (hemoglobin A1c results still pending), kidney injury, and recent acute cardiac issues. She had a recent cardiac cath with PCI of circumflex artery. She continues on anticoagulation medication. It is noted her EF is 30%. Nutrition: I also recommend nutritional supplementation to optimize healing; Mani ordered previously provided. To return to the wound healing center in 2 week or sooner if she has any infection development which is not noted today. I answered all of her questions. Note: [employer] speech recognition conche loader and unloader software was used to create portions of this document. Sound-alike and misspelled words, as well as other conche loader and unloader errors may be contained in the documentation. 20 minutes was spent on this encounter. This included face to face and non face to face care including preparing for the visit, reviewing the history, performing the exam, counseling and providing education to the patient, family, or caregiver, ordering medications/test/ procedures if indicated as documented, communicating with other healthcare providers, documenting information in the medical record, interpreting / sharing this information when indicated as documented, and care coordination. The medical decision making level is limited based on data including the review of prior external notes, review of a prior test, or ordering a test.
== END 2021-01-05 23:59 ==
LOC: WC 10:00
PROVIDERS: PCP Family Medicine; Referring Provider Podiatrist; Visit Provider Podiatrist
DX: L97.922 Non-pressure chronic ulcer of unspecified part of left lower leg with fat layer exposed (principal); I73.89 Other specified peripheral vascular diseases; E66.9 Obesity, unspecified; Z68.31 Body mass index [BMI] 31.0-31.9, adult
CPT/HCPCS: 93923; 99213; G0463

== ENCOUNTER → 2021-04-21 10:59 | Outpatient (CLI) | payer SELFPAY ==
--- NOTE | 2021-04-21 11:11 | VDLE_ITS ---
Reason For Study: Lag pain RIGHT CFV is compressible, spontaneous, phasic, competent and demonstrates normal augmentation. FV is compressible, spontaneous, phasic, competent and demonstrates normal augmentation. POP V is compressible, spontaneous, phasic, competent and demonstrates normal augmentation. T/P Trunk is compressible. PTV is compressible. RT PerV is compressible. SFJ is competent and measures 0.80 x 0.97 cm. GSV proximal thigh measures 0.36 x 0.38 cm. GSV above knee is competent. GSV at knee measures 0.43 x 0.45 cm. GSV below knee is INCOMPETENT for greater than 0.5 seconds. ASV proximal thigh is INCOMPETENT for greater than 0.5 seconds and measures 0.23 x 0.26 cm. SSV proximal calf is competent and measures 0.17 x 0.18 cm. Procedure This is a venous duplex using B-mode, color flow and spectral Doppler. Exam performed in department. VL/Venous Duplex US, Unilateral Interpretation Summary Right leg with no DVT. Right above-knee greater saphenous is competent. There i s reflux noted below the knee. Accessory saphenous with some reflux but a small measuring 2.6 mm. Ordering Physician: Phillip Chan Referring Physician: Gianluca Sol Performed By: Kristen Evans RVT
== END ==
PROVIDERS: PCP Family Medicine; Referring Provider Surgery Vascular Surgery; Visit Provider Surgery Vascular Surgery
DX: I83.892 Varicose veins of left lower extremity with other complications (principal); I77.1 Stricture of artery; M79.605 Pain in left leg; M79.601 Pain in right arm; L98.8 Other specified disorders of the skin and subcutaneous tissue; I12.0 Hypertensive chronic kidney disease with stage 5 chronic kidney disease or end stage renal disease; I51.9 Heart disease, unspecified; E11.59 Type 2 diabetes mellitus with other circulatory complications
CPT/HCPCS: 93971

== ENCOUNTER → 2021-11-14 | Outpatient (CLI) | payer SELFPAY, OTHER ==
--- NOTE | 2021-11-14 10:07 | ECHOCS_ITS ---
Reason For Study: DYSPNEA/SOB Procedure This was a 2D Doppler, Color Flow transthoracic echocardiogram. The study was technically difficult. Exam performed in department. Left Ventricle Moderately dilated left ventricle. Moderately severe global left ventricular systolic dysfunction. The estimated ejection fraction is 25 %. Stage 1 diastolic dysfunction. There is moderate to severe global hypokinesis of the left ventricle. Right Ventricle Normal RV size. ICD or pacer leads identified within the right ventricle. Normal systolic function. Atria Normal left atrium. Normal right atrium. Mitral Valve There is mild mitral annular calcification. Mild (1+) eccentric mitral valve insufficiency. Tricuspid Valve Normal tricuspid valve. Aortic Valve Trisinus/trileaflet aortic valve. Moderate focal aortic valve calcification. Pulmonic Valve Normal pulmonic valve. Great Vessels Normal aortic root. The pulmonary artery is normal size. Normal inferior vena cava. Pericardium/Pleural No pericardial effusion. Medication 22 gauge I.V. with prn adaptor inserted into right arm. Diluted definity 3ml given slow IV push to enhance endocardial definition. MMode/2D Measurements & Calculations LVIDd: 6.0 cm IVSd: 0.96 cm LVOT diam: 2.0 cm LVIDs: 4.8 cm LVPWd: 1.0 cm RVDd: 3.0 cm FS: 20.0 % LVOT area: 3.2 cm2 Ao root diam: 3.1 cm LAV(MOD-bp): 39.2 ml LVAd ap4: 45.0 cm2 LAV(MOD-bp) Indexed: 23.7 ml/m2 LVLd ap4: 8.8 cm LAV(MOD-sp2): 38.8 ml EDV(MOD-sp4): 188.8 ml LAV(MOD-sp4): 35.9 ml EDV(sp4-el): 195.0 ml LVAs ap4: 37.5 cm2 LVLs ap4: 8.8 cm ESV(MOD-sp4): 129.7 ml ESV(sp4-el): 136.1 ml EF(MOD-sp4): 31.3 % EF(sp4-el): 30.2 % SV(MOD-sp4): 59.1 ml SV(sp4-el): 58.9 ml LA A4 area: 14.8 cm2 LA dimension(2D): 3.4 cm RA A4 area: 10.1 cm2 Time Measurements MV dec time: 0.12 sec Doppler Measurements & Calculations MV E max gonzalez: 50.8 cm/sec Lat Peak E' Gonzalez: 9.6 cm/sec Med Peak E' Gonzalez: 11.5 cm/sec MV A max gonzalez: 128.4 cm/sec E/E' lat: 5.3 E/E' med: 4.4 MV E/A: 0.40 Ao V2 max: 289.9 cm/sec LV V1 max: 83.4 cm/sec SV(LVOT): 57.5 ml Ao max P.7 mmHg LV V1 max P.8 mmHg Ao V2 mean: 206.5 cm/sec LV V1 mean P.4 mmHg Ao mean P.8 mmHg LV V1 mean: 54.7 cm/sec Ao V2 VTI: 65.7 cm LV V1 VTI: 17.9 cm ERNESTINA(I,D): 0.88 cm2 ERNESTINA(V,D): 0.93 cm2 PA V2 max: 98.1 cm/sec ECHO/Echo Complete W/ Contrast Interpretation Summary Moderately dilated left ventricle. Moderately severe global left ventricular systolic dysfunction. The estimated ejection fraction is 25 %. There is moderate to severe global hypokinesis of the left ventricle. Stage 1 diastolic dysfunction. ICD or pacer leads identified within the right ventricle. Contrast injection was performed. Ordering Physician: Óscar Dickinson Referring Physician: SEBASTIEN QUARLES Performed By: Chuyita Lopez RDCS
== END | disposition home or self-care (01) ==
PROVIDERS: PCP Family Medicine; Referring Provider Internal Medicine Cardiovascular Disease; Visit Provider Internal Medicine Cardiovascular Disease
DX: I50.20 Unspecified systolic (congestive) heart failure (principal); R06.00 Dyspnea, unspecified; R06.02 Shortness of breath
CPT/HCPCS: 93306; Q9957; A4216; C8929

== ENCOUNTER → 2022-02-13 | Outpatient (CLI) | payer SELFPAY ==
--- NOTE | 2022-02-13 07:41 | ECHOL_ITS ---
Version 2 Reason For Study: CHf Procedure This was a limited 2D transthoracic echocardiogram. PT scanned in wheelchair, unable to lie down for exam. Re-evaluate EF post Entresto increase. Exam performed in department. Left Ventricle Normal LV size. The estimated ejection fraction is 25 %. There is moderate to severe global hypokinesis of the left ventricle. Right Ventricle Normal RV size. ICD or pacer leads identified within the right ventricle. Normal systolic function. Atria Normal left atrium. Normal right atrium. Mitral Valve There is moderate mitral annular calcification. Mild (1+) eccentric mitral valve insufficiency. Tricuspid Valve Normal tricuspid valve. Mild tricuspid valve insufficiency. Pulmonary artery systolic pressure is 21 mmHg. Aortic Valve Trisinus/trileaflet aortic valve. Pulmonic Valve Normal pulmonic valve. Great Vessels Normal aortic root. The pulmonary artery is normal size. Normal inferior vena cava. Pericardium/Pleural No pericardial effusion. MMode/2D Measurements & Calculations LVIDd: 5.7 cm IVSd: 1.2 cm Ao root diam: 3.2 cm LVIDs: 4.0 cm LVPWd: 1.2 cm RVDd: 3.0 cm FS: 29.1 % LAV(MOD-bp): 38.4 ml LVAd ap4: 32.2 cm2 LVAd ap2: 25.9 cm2 LAV(MOD-bp) Indexed: 23.6 ml/m2 LVLd ap4: 7.3 cm LVLd ap2: 6.8 cm LAV(MOD-sp2): 37.6 ml EDV(MOD-sp4): 123.8 ml EDV(MOD-sp2): 86.6 ml LAV(MOD-sp4): 37.4 ml EDV(sp4-el): 121.2 ml EDV(sp2-el): 84.4 ml LVAs ap4: 23.9 cm2 LVAs ap2: 19.7 cm2 LVLs ap4: 6.6 cm LVLs ap2: 6.7 cm ESV(MOD-sp4): 73.7 ml ESV(MOD-sp2): 52.0 ml ESV(sp4-el): 73.4 ml ESV(sp2-el): 49.7 ml EF(MOD-sp4): 40.4 % EF(MOD-sp2): 40.0 % EF(sp4-el): 39.5 % SV(MOD-sp4): 50.1 ml SV(MOD-sp2): 34.6 ml SV(sp4-el): 47.8 ml LA dimension(2D): 4.0 cm LA A4 area: 13.6 cm2 RA A4 area: 11.3 cm2 Doppler Measurements & Calculations Ao V2 max: 280.6 cm/sec TR max paddy: 217.3 cm/sec Ao max P.5 mmHg TR max P.9 mmHg ECHO/Echo, Limited Study Interpretation Summary Normal LV size. The estimated ejection fraction is 25 %. There is moderate to severe global hypokinesis of the left ventricle. Compared to previous study, the left ventricular systolic function is the same. . Ordering Physician: Saqib Feldman Referring Physician: Gianluca Sol Performed By: Leann Bhat, EZEQUIEL, RVT
== END | disposition home or self-care (01) ==
PROVIDERS: PCP Family Medicine; Referring Provider Nurse Practitioner Family; Visit Provider Nurse Practitioner Family
DX: I50.9 Heart failure, unspecified (principal); I25.2 Old myocardial infarction; I38 Endocarditis, valve unspecified; Z95.0 Presence of cardiac pacemaker
CPT/HCPCS: 93308

== ENCOUNTER 2022-03-07 18:53 | Inpatient (IN) | payer OTHER, SELFPAY ==
[2022-03-07] VITALS (7 sets, daily range): BP systolic 89–101; BP diastolic 52–60; PULSE 86–91; RESP 13–20; TEMP 36.5–36.7; O2SAT 94–99; BMI 26.2
--- NOTE | 2022-03-07 20:51 | EKG12_ITS ---
Test Reason : DYSRHYTHMIA Blood Pressure : / mmHG Vent. Rate : 087 BPM Atrial Rate : 087 BPM P-R Int : 154 ms QRS Dur : 208 ms QT Int : 474 ms P-R-T Axes : 066 -78 100 degrees QTc Int : 570 ms Atrial-sensed ventricular-paced rhythm Abnormal ECG Confirmed by ANA PAULA FERNANDES, LALO ([id number]), editor farm journal LYNN MAYBERRY ([id number]) on 03/09/2022 8:13:19 AM Referred By: TL Confirmed By:LALO GOSS MD
--- NOTE | 2022-03-07 20:53 | EX.ED.DYSGE1 ---
HPI History of Present Illness Chief Complaint: Weakness Informant: patient and family Narrative Narrative: Here with family increasing weakness for the past few days, 2 near syncopal episodes today. No chest pains. No shortness of breath. She has been dealing with right leg wound for the past 10 months followed by podiatry Dr. Valenzuela. Last seen 2 weeks ago. Stated had debridement there. No current antibiotics. History of complete heart block with a pacemaker. History of coronary disease on aspirin and Plavix. The stools are darker however does not look at it. Unclear of any blood. She does take aspirin and Plavix. No history of transfusions. No vomiting or diarrhea. No cough. Prior similar symptoms: No PFSH [facility] Medical History Acute hypoxemic respiratory failure (11/21/20) Atherosclerosis of coronary artery without angina pectoris Chronic ulcer of left leg with fat layer exposed Complete heart block Diabetes Eschar of lower leg HFrEF (heart failure with reduced ejection fraction) History of non-ST elevation myocardial infarction (NSTEMI) (11/21/20) Ischemic cardiomyopathy Old anterior wall myocardial infarction (12/21/16) Peripheral vascular occlusive disease ST elevation (STEMI) myocardial infarction involving left anterior descending coronary artery (12/21/16) Symptomatic bradycardia Venous insufficiency of both lower extremities Home Medications nitroglycerin 0.4 mg sublingual tablet (Nitrostat) 0.4 mg sublingual PRN PRN CHEST PAIN 06/05/18 [History Last Taken Unknown] acetaminophen 500 mg tablet 500 mg PO Q4H PRN PRN Pain #20 TABLETS 06/10/18 [Rx Last Taken Unknown] glipizide 10 mg tablet 10 mg PO BIDAC 07/16/20 [History Last Taken Unknown] metformin 1,000 mg tablet 1,000 mg PO BID DIABETES #0 tabs 11/23/20 [Rx Last Taken Unknown] atorvastatin 40 mg tablet 40 mg PO QHS CHOLESTEROL #90 tabs 03/29/21 [Rx Last Taken Unknown] metoprolol succinate 25 mg tablet,extended release 24 hr (Toprol XL) 25 mg PO DAILY BP #90 tabs 09/27/21 [Rx Last Taken Unknown] sacubitril 49 mg-valsartan 51 mg tablet (Entresto) 1 tab PO BID this is a dose increase #180 tabs 11/17/21 [Rx Last Taken Unknown] clopidogrel 75 mg tablet 75 mg PO DAILY blood thinner 03/08/22 [History Last Taken Unknown] furosemide 40 mg tablet 40 mg PO BID water pill 03/08/22 [History Last Taken Unknown] Allergy/AdvReac Type Severity Reaction Status Date / Time No Known Allergies Allergy Verified 03/07/22 18:53 Family History Other Brain aneurysm CVA (cerebral vascular accident) Diabetes Surgical History History of angioplasty of peripheral vessel (07/26/21) History of cardiac catheterization History of coronary artery stent placement (11/22/20) History of permanent cardiac pacemaker placement (05/15/18) Social History Smoking Status: Never smoker alcohol intake: never substance use type: does not use caffeine: Yes Type: coffee Number of servings: 1 ROS ROS ED Constitutional Constitutional ED: Denies chills, fever(s) or sweats Eyes Eyes: Denies change in vision ENT ENT ED: Denies dysphagia or sore throat Cardiovascular Cardiovascular: Reports other Details: Near syncope ; Denies chest pain, leg edema, palpitations or racing heartbeat Respiratory/Chest Respiratory/Chest: Denies cough, dyspnea or dyspnea on exertion Gastrointestinal Gastrointestinal: Denies abdominal pain, diarrhea, nausea or vomiting Genitourinary Genitourinary ED: Denies dysuria, hematuria or urinary frequency Musculoskeletal Musculoskeletal: Denies back pain, extremity pain or neck pain Integumentary Denies rash or wounds Neurologic Neurologic: Reports weakness; Denies headache(s) or paresthesias EXAM Physical Exam Const Vital Signs: 03/07/22 18:55 03/07/22 19:38 03/07/22 20:36 Temperature 98.1 F 97.7 F L Temperature Source Temporal Temporal Pulse Rate 91 87 89 Respiratory Rate 18 20 H 19 H Blood Pressure 97/58 L 89/52 L Blood Pressure Mean 71 64 Pulse Ox 99 94 98 Oxygen Delivery Method Room Air Room Air 03/07/22 20:51 03/07/22 20:51 03/07/22 21:05 Temperature Temperature Source Pulse Rate 88 87 Respiratory Rate 18 17 Blood Pressure 99/56 L 101/60 Blood Pressure Mean 70 73 Pulse Ox 98 97 98 Oxygen Delivery Method Room Air Room Air Room Air 03/07/22 22:36 03/07/22 23:17 Temperature Temperature Source Pulse Rate 91 86 Respiratory Rate 13 16 Blood Pressure 100/53 L 92/59 L Blood Pressure Mean 68 70 Pulse Ox Oxygen Delivery Method Room Air Positive well nourished and well developed General Appearance ED: well developed and NAD HEENT Reports moist mucous membranes normocephalic and atraumatic Eyes PERRL, EOMs intact bilaterally and conjunctivae normal General Eye ED: Yes normal appearance of both eyes and pale conjunctiva Neck no lymphadenopathy and supple General: Negative for tenderness Chest Wall Chest: Negative for tenderness Resp normal respiratory effort and normal air movement Effort and Inspection: symmetric chest movement; Negative for respiratory distress Cardio regular rate, regular rhythm and no murmurs Peripheral Pulses: pulses 2+ throughout GI normal to inspection, nondistended, normoactive bowel sounds and non-tender Palpation: Negative for guarding or rebound tenderness present Back/Spine no CVA tenderness and no thoracic nor lumbar tenderness Extremity normal to inspection Extremity Narrative: Right lower extremity dressing, patient refused to let me evaluate this. General Extremety ED: Negative for edema or tenderness General Extremity: Negative for edema Neuro oriented x3 and no sensory deficits noted Sensorium / Orientation: awake and alert Skin no rashes or lesions noted and no wounds MDM MDM MDM Narrative Medical decision making narrative: Patient clinically pale, soft blood pressure on arrival she is given 1 L of normal saline. Sepsis labs were ordered. White count returned at 9.5 hemoglobin returned at 6.2. Platelets 478. Initial creatinine also returned at 2.32. Year ago in November creatinine was normal hemoglobin was 10.7 at that time. She agreed with rectal examination and small anterior hemorrhoids nonthrombosed, brown stools on gloved finger. Hemoccult returned negative. She denies any recent vomiting or diarrhea with concerns for prerenal CHRIS. Potassium is 5.6 however EKG did not show any acute findings. Lactic acid returned at 3.3. She continued to decline for me to evaluate her leg wound. Urine returned with signs of infection however she declines any clinical symptoms. Therefore urine culture was added. Chest x-ray reviewed by myself and read by radiology shows no acute process. She was consented for blood transfusion of 2 units to give slowly with her cardiomyopathy history. Records noted echocardiogram 22 days ago EF of 25%. Confirmed with spouse, she is followed by Dr. Dickinson, and there has been discussions for an ICD. I discussed with hospitalist Dr. Jerome for admission. Patient did allow medicine team to evaluate the wound with her daughter removing the dressing. Reported ulcerations posterior with concern for tendon exposure. Multiple with symptomatic anemia CHRIS hyperkalemia and her blood pressure. She will be admitted to ICU. Lab Data Attestation: I reviewed the patient's lab results. Labs: Laboratory Results - last 24 hr 03/07/22 03/07/22 03/07/22 20:10 20:10 20:10 WBC 9.5 RBC 2.51 L Hgb 6.2 L Hct 20.7 L MCV 82.5 MCH 24.7 L MCHC 30.0 L RDW Std Deviation 59.5 H RDW Coeff of Brianne 20.1 H Plt Count 478 H MPV 9.6 Immature Gran % (Auto) 0.500 Neut % (Auto) 75.2 H Lymph % (Auto) 16.0 L Roberts % (Auto) 7.3 Eos % (Auto) 0.7 Baso % (Auto) 0.3 Absolute Neuts (auto) 7.1 Absolute Lymphs (auto) 1.52 Nucleated RBC % 0 Platelet Estimate SLT INC RBC Morphology N CHROM Polychromasia RARE Hypochromasia 2+ Anisocytosis 1+ Microcytosis 1+ Ovalocytes RARE Retic Count Immature Retic Fraction Retic Hgb Equivalent PT 13.7 INR 1.1 APTT 29.7 Sodium 135 L Potassium 5.6 H Chloride 101 Carbon Dioxide 22.0 Anion Gap 12 BUN 99 H Creatinine 2.32 H Estim Creat Clear Calc 18.00 Est GFR (MDRD) Af Amer 27 L Est GFR (MDRD) Non-Af 22 L BUN/Creatinine Ratio 42.7 H Glucose 232 H Lactic Acid Calcium 8.7 Total Bilirubin 0.20 AST 43 H ALT 31 Alkaline Phosphatase 52 Total Protein 7.3 Albumin 3.2 Globulin 4.1 Albumin/Globulin Ratio 0.8 L Folate Urine Color Urine Clarity Urine pH Ur Specific [place] Urine Protein Urine Glucose (UA) Urine Ketones Urine Occult Blood Urine Nitrite Urine Bilirubin Urine Urobilinogen Ur Leukocyte Esterase Urine RBC Urine WBC Ur Squamous Epith Cells Ur Renal Epithelial Cell Urine Bacteria Urine Mucus 03/07/22 03/07/2222 20:10 20:10 20:10 WBC RBC Hgb Hct MCV MCH MCHC RDW Std Deviation RDW Coeff of Brianne Plt Count MPV Immature Gran % (Auto) Neut % (Auto) Lymph % (Auto) Roberts % (Auto) Eos % (Auto) Baso % (Auto) Absolute Neuts (auto) Absolute Lymphs (auto) Nucleated RBC % Platelet Estimate RBC Morphology Polychromasia Hypochromasia Anisocytosis Microcytosis Ovalocytes Retic Count 3.84 H Immature Retic Fraction 28.10 H Retic Hgb Equivalent 24.9 L PT INR APTT Sodium Potassium Chloride Carbon Dioxide Anion Gap BUN Creatinine Estim Creat Clear Calc Est GFR (MDRD) Af Amer Est GFR (MDRD) Non-Af BUN/Creatinine Ratio Glucose Lactic Acid 3.3 H* Calcium Total Bilirubin AST ALT Alkaline Phosphatase Total Protein Albumin Globulin Albumin/Globulin Ratio Folate 13.20 Urine Color Urine Clarity Urine pH Ur Specific [place] Urine Protein Urine Glucose (UA) Urine Ketones Urine Occult Blood Urine Nitrite Urine Bilirubin Urine Urobilinogen Ur Leukocyte Esterase Urine RBC Urine WBC Ur Squamous Epith Cells Ur Renal Epithelial Cell Urine Bacteria Urine Mucus 03/07/22 22:35 WBC RBC Hgb Hct MCV MCH MCHC RDW Std Deviation RDW Coeff of Brianne Plt Count MPV Immature Gran % (Auto) Neut % (Auto) Lymph % (Auto) Roberts % (Auto) Eos % (Auto) Baso % (Auto) Absolute Neuts (auto) Absolute Lymphs (auto) Nucleated RBC % Platelet Estimate RBC Morphology Polychromasia Hypochromasia Anisocytosis Microcytosis Ovalocytes Retic Count Immature Retic Fraction Retic Hgb Equivalent PT INR APTT Sodium Potassium Chloride Carbon Dioxide Anion Gap BUN Creatinine Estim Creat Clear Calc Est GFR (MDRD) Af Amer Est GFR (MDRD) Non-Af BUN/Creatinine Ratio Glucose Lactic Acid Calcium Total Bilirubin AST ALT Alkaline Phosphatase Total Protein Albumin Globulin Albumin/Globulin Ratio Folate Urine Color Yellow Urine Clarity Clear Urine pH 6.0 Ur Specific [place] 1.010 Urine Protein 30 H Urine Glucose (UA) Normal Urine Ketones Negative Urine Occult Blood 10 H Urine Nitrite Negative Urine Bilirubin Negative Urine Urobilinogen Normal Ur Leukocyte Esterase 500 H Urine RBC 0-5 SEEN Urine WBC 25-50 SEEN Ur Squamous Epith Cells 0-5 SEEN Ur Renal Epithelial Cell 0-5 SEEN Urine Bacteria 1+ Urine Mucus 0 SEEN Radiography Diagnostic Testing: Clinical Impression(s) from Imaging Studies Chest X-Ray 03/07/22 22:05 IMPRESSION: 1. Stable mild cardiomegaly. 2. No acute cardiopulmonary abnormality. Electronically Signed: Darren Doll MD at 22:53 EDT , Critical Care Time Critical Care Time: Yes Critical care time (excluding procedures): 30-74 minutes, Discussing w/Patient &/or Family/Hospital Mortician, Discussing w/Consultants, Arranging Admission or Transfer, Performing Direct Patient Care at Bedside and - (45 minutes) Discharge Plan Dx/Rx/DC Orders Clinical Impression: Symptomatic anemia, HFrEF (heart failure with reduced ejection fraction), Ischemic cardiomyopathy, Acute kidney injury, Acute hyperkalemia, Acidosis, lactic, Hypotension Disposition Disposition: Acute Care Hospital [facility] Discharge Date/Time: 03/08/22 01:15
[2022-03-07] MEDS: 0.9% Normal Saline 1,000 ML 999 ML IV (21:04)
[2022-03-07 21:37] LABS: Absolute Lymphocyte Count 1.52 X10^3/uL (0.83-4.51); Absolute Neutrophil Count 7.1 X10^3/uL (2.0-7.7); Basophil# 0.03 X10^3/uL; Basophil% 0.3 % (0-1); Eosinophil# 0.07 X10^3/uL; Eosinophils% 0.7 % (0-5); Hematocrit 20.7 % (37-47); Hemoglobin 6.2 g/dL (12.0-15.0); Lymphocyte # 1.52 X10^3/ul (0.83-4.51); Mean Corpuscular Hgb 24.7 pg (27.0-32.0); Mean Corpuscular Volume 82.5 fL (81-99); Mean Platelet Vol. 9.6 fl (6.2-12.0); Monocyte# 0.69 X10^3/uL; Monocyte% 7.3 % (0-10); NRBC Flagged by Analyzer 0 % (0-5); Neutrophil # 7.13 X10^3/uL (2.7-7.7); Neutrophil % 75.2 % (47-70); POSITIVE MORPHOLOGY YES; Platelet Count 478 K/mm3 (150-450); RBC Distribution Width CV 20.1 % (11.6-14.6); RBC Distribution Width SD 59.5 fl (35.1-43.9); Red Blood Count 2.51 M/mm3 (4.2-5.4); White Blood Count 9.5 K/mm3 (4.4-11.0)
[2022-03-07 21:38] LABS: Differential Indicated SCAN CRITERIA MET
[2022-03-07 21:44] LABS: International Normalized Ratio 1.1; Prothrombin Time (Protime)PT. 13.7 SECONDS (11.7-14.9)
[2022-03-07 21:45] LABS: Partial Thromboplast Time 29.7 Seconds (24.1-36.2)
[2022-03-07 22:02] LABS: ALB/GLOB Ratio 0.8 RATIO (0.9-2.4); AST(SGOT) 43 U/L (15-37); Alanine Aminotransfer ALT/SGPT 31 U/L (13-56); Albumin, Serum 3.2 g/dL (3.2-5.0); Alkaline Phosphatase 52 U/L (45-117); Anion Gap 12 (5-15); BUN 99 mg/dL (7-18); BUN/Creat Ratio 42.7 RATIO (10-20); Calcium,Total 8.7 mg/dL (8.5-10.1); Chloride 101 mmol/L (98-107); Creatinine, Serum 2.32 mg/dL (0.55-1.02); EST Glomerular Filtration Rate 22 mL/min (>60); Est Glom Filt Rate - Afr Amer 27 mL/min (>60); Globulin 4.1 g/dL (2.2-4.2); Glucose 232 mg/dL (74-106); Potassium 5.6 mmol/L (3.5-5.1); Protein, Total 7.3 g/dL (6.4-8.2); Sodium Level 135 mmol/L (136-145)
[2022-03-07 22:05] LABS: Anisocytosis 1+; Platelet Estimate SLT INC (ADEQ); Red Cell Morphology N CHROM NORMAL (NORM C&C)
--- NOTE | 2022-03-07 22:05 | RAD_ITS ---
EXAM: XR CHEST, 2 VIEWS CLINICAL INDICATION: weakness TECHNIQUE: Frontal and lateral views of the chest. This report was created using [employer] report generation technology. COMPARISON: 11/20/2020. FINDINGS: LUNGS AND PLEURAL SPACES: Unremarkable. No consolidation or edema. No pneumothorax. No effusion. HEART: Stable mild cardiomegaly. MEDIASTINUM: Central airways and mediastinal contour are unremarkable. BONES/JOINTS: Unremarkable. SOFT TISSUES: Unremarkable. TUBES, LINES AND DEVICES: No change pacemaker. RAD/Chest PA and Lateral IMPRESSION: 1. Stable mild cardiomegaly. 2. No acute cardiopulmonary abnormality. Electronically Signed: Darren Doll MD at 22:53 EDT ,
[2022-03-07 22:06] LABS: Hypochromasia 2+; Microcytosis 1+; Ovalocyte RARE; Polychromasia RARE
[2022-03-07 22:09] LABS: Lactic Acid 3.3 mmol/L (0.4-1.9)
[2022-03-07 22:43] LABS: Mucous, Urine 0 SEEN /hpf (<or=2+)
[2022-03-07 23:09] LABS: Color, Urine Yellow (Yellow); Glucose, Dipstick Normal (Normal); Ketone-Dipstick Negative (Negative); Leukocyte Esterase-Dipstick 500 /ul (Negative); Nitrite-Dipstick Negative (Negative); Occult Blood-Urine 10 /ul (Negative); Protein-Dipstick 30 mg/dl (Negative); Urine Bilirubin Dipstick Negative (Negative); Urine Clarity Clear (Clear); Urine Urobilinogen Normal (Normal)
[2022-03-07 23:27] LABS: Red Blood Cells-Urine 0-5 SEEN /hpf (0-5); Squamous Epithelial Cells - UA 0-5 SEEN /hpf (5-10); White Blood Cells 25-50 SEEN /hpf (0-5)
[2022-03-07 23:28] LABS: Bacteria 1+ /hpf (None Seen); Renal Epithelial Cells 0-5 SEEN /hpf (0-5)
--- NOTE | 2022-03-07 23:45 | PCM.HP.STD ---
Documented by User: TANMAY Wall 03/08/22 00:09 HPI - General General Date of Admission: 03/07/22 Date of Service: 03/07/22 Chief Complaint: Weakness, near syncope HPI Narrative LATOSHA LOYOLA, is a 66 F who presents with weakness and reports of 2 near syncopal episodes at home. Patient states that she has not been feeling well for the past couple days. Patient does have a chronic stasis ulcer to her right lower leg for which she has been seeing Dr. Valenzuela podiatry outpatient and recently underwent debridement. Upon evaluation in ER patient was noted to be anemic with a hemoglobin of 6.2, baseline around 10. Patient reports that she also has a pacemaker and history of coronary artery disease with stents as well as heart failure with reduced EF, hyperlipidemia and diabetes mellitus type 2. Patient is hypotensive in the ER. FORMERLY [facility], LATER [facility] Medical History Acute hypoxemic respiratory failure (11/21/20) Atherosclerosis of coronary artery without angina pectoris Chronic ulcer of left leg with fat layer exposed Complete heart block Diabetes Eschar of lower leg HFrEF (heart failure with reduced ejection fraction) History of non-ST elevation myocardial infarction (NSTEMI) (11/21/20) Ischemic cardiomyopathy Old anterior wall myocardial infarction (12/21/16) Peripheral vascular occlusive disease ST elevation (STEMI) myocardial infarction involving left anterior descending coronary artery (12/21/16) Symptomatic bradycardia Venous insufficiency of both lower extremities Home Medications nitroglycerin 0.4 mg sublingual tablet (Nitrostat) 0.4 mg sublingual PRN PRN CHEST PAIN 06/05/18 [History Last Taken Unknown] acetaminophen 500 mg tablet 500 mg PO Q4H PRN PRN Pain #20 TABLETS 06/10/18 [Rx Last Taken Unknown] glipizide 10 mg tablet 10 mg PO BIDAC 07/16/20 [History Last Taken Unknown] metformin 1,000 mg tablet 1,000 mg PO BID DIABETES #0 tabs 11/23/20 [Rx Last Taken Unknown] atorvastatin 40 mg tablet 40 mg PO QHS CHOLESTEROL #90 tabs 03/29/21 [Rx Last Taken Unknown] clopidogrel 75 mg tablet 75 mg PO DAILY #90 tabs 03/29/21 [Rx Last Taken Unknown] metoprolol succinate 25 mg tablet,extended release 24 hr (Toprol XL) 25 mg PO DAILY BP #90 tabs 09/27/21 [Rx Last Taken Unknown] sacubitril 49 mg-valsartan 51 mg tablet (Entresto) 1 tab PO BID this is a dose increase #180 tabs 11/17/21 [Rx Last Taken Unknown] furosemide 40 mg tablet 40 mg PO DAILY #180 tabs 03/03/22 [Rx Last Taken Unknown] Allergy/AdvReac Type Severity Reaction Status Date / Time No Known Allergies Allergy Verified 03/07/22 18:53 Family History Other Brain aneurysm CVA (cerebral vascular accident) Diabetes Surgical History History of angioplasty of peripheral vessel (07/26/21) History of cardiac catheterization History of coronary artery stent placement (11/22/20) History of permanent cardiac pacemaker placement (05/15/18) Social History Smoking Status: Never smoker alcohol intake: never substance use type: does not use caffeine: Yes Type: coffee Number of servings: 1 ROS Constitutional Constitutional: Reports chills, fatigue, malaise and weakness; Denies anorexia Cardiovascular Cardiovascular: Reports edema and syncope; Denies chest pain or palpitations Respiratory/Chest Respiratory/Chest: Denies cough, shortness of breath at rest, shortness of breath with exertion or wheezing Gastrointestinal Gastrointestinal: Denies abdominal pain, constipation, diarrhea, nausea or vomiting Genitourinary Genitourinary: Denies dysuria Musculoskeletal Musculoskeletal: Reports extremity pain; Denies back pain or joint pain Integumentary Integumentary: Reports wounds Neurologic Neurologic: Denies abnormal gait, abnormal speech, confusion or dizziness Psychiatric Psychiatric: Denies anxiety or depression Endocrine Endocrinology: Denies change in body appearance Hematologic/Lymphatic Hematologic/Lymphatic: Reports anemia Vital Signs Vital Signs Vital Signs: 03/07/22 18:55 03/07/22 19:38 03/07/22 20:36 Temperature 98.1 F 97.7 F L Temperature Source Temporal Temporal Pulse Rate 91 87 89 Respiratory Rate 18 20 H 19 H Blood Pressure 97/58 L 89/52 L Blood Pressure Mean 71 64 Pulse Ox 99 94 98 Oxygen Delivery Method Room Air Room Air 03/07/22 20:51 03/07/22 20:51 03/07/22 21:05 Temperature Temperature Source Pulse Rate 88 87 Respiratory Rate 18 17 Blood Pressure 99/56 L 101/60 Blood Pressure Mean 70 73 Pulse Ox 98 97 98 Oxygen Delivery Method Room Air Room Air Room Air 03/07/22 22:36 03/07/22 23:17 Temperature Temperature Source Pulse Rate 91 86 Respiratory Rate 13 16 Blood Pressure 100/53 L 92/59 L Blood Pressure Mean 68 70 Pulse Ox Oxygen Delivery Method Room Air Weight Weight: 139 lb Body Mass Index (BMI) 26.2 Physical Exam Const alert, oriented x3 and no apparent distress General Appearance: cooperative HEENT normocephalic and head/scalp atraumatic Eyes conjunctivae normal and no scleral icterus Neck no lymphadenopathy and supple General: trachea midline Resp normal respiratory effort, normal air movement and clear to auscultation bilaterally Cardio regular rate, regular rhythm, S1 normal heart sound and S2 normal heart sound Heart Sounds: murmur GI normal to inspection, nondistended, normoactive bowel sounds, soft to palpation and non-tender Extremity Extremity Narrative: Patient has a large venous stasis ulcer to right lower leg which has recently been debrided General Extremity: edema bilateral lower extremity Details: moderate Skin General Skin Exam: no breakdown Neuro no focal motor deficits and no sensory deficits noted Speech: speech normal Psych thought process normal, cooperative and affect normal Appearance: appropriate Results Lab / Micro Data Result Diagrams: 03/07/22 20:10 03/07/22 20:10 Labs: Laboratory Results - last 24 hr 03/07/22 20:10: WBC 9.5, RBC 2.51 L, Hgb 6.2 L, Hct 20.7 L, MCV 82.5, MCH 24.7 L, MCHC 30.0 L, RDW Std Deviation 59.5 H, RDW Coeff of Brianne 20.1 H, Plt Count 478 H, MPV 9.6, Immature Gran % (Auto) 0.500, Neut % (Auto) 75.2 H, Lymph % (Auto) 16.0 L, [place] % (Auto) 7.3, Eos % (Auto) 0.7, Baso % (Auto) 0.3, Absolute Neuts (auto) 7.1, Absolute Lymphs (auto) 1.52, Nucleated RBC % 0, Platelet Estimate SLT INC, RBC Morphology N CHROM, Polychromasia RARE, Hypochromasia 2+, Anisocytosis 1+, Microcytosis 1+, Ovalocytes RARE 03/07/22 20:10: PT 13.7, INR 1.1, APTT 29.7 03/07/22 20:10: Sodium 135 L, Potassium 5.6 H, Chloride 101, Carbon Dioxide 22.0, Anion Gap 12, BUN 99 H, Creatinine 2.32 H, Estim Creat Clear Calc 18.00, Est GFR (MDRD) Af Amer 27 L, Est GFR (MDRD) Non-Af 22 L, BUN/Creatinine Ratio 42.7 H, Glucose 232 H, Calcium 8.7, Total Bilirubin 0.20, AST 43 H, ALT 31, Alkaline Phosphatase 52, Total Protein 7.3, Albumin 3.2, Globulin 4.1, Albumin/Globulin Ratio 0.8 L 03/07/22 20:10: Lactic Acid 3.3 H* 03/07/22 22:35: Urine Color Yellow, Urine Clarity Clear, Urine pH 6.0, Ur Specific [place] 1.010, Urine Protein 30 H, Urine Glucose (UA) Normal, Urine Ketones Negative, Urine Occult Blood 10 H, Urine Nitrite Negative, Urine Bilirubin Negative, Urine Urobilinogen Normal, Ur Leukocyte Esterase 500 H, Urine RBC 0-5 SEEN, Urine WBC 25-50 SEEN, Ur Squamous Epith Cells 0-5 SEEN, Ur Renal Epithelial Cell 0-5 SEEN, Urine Bacteria 1+, Urine Mucus 0 SEEN 03/07/22 23:35: Crossmatch See Detail Micro: Microbiology 03/07/22 23:20 Stool Stool Occult Blood (DEWAYNE) - Final 03/07/22 21:15 Nasal Secretion SARS-CoV-2 Antigen (Rapid) - Final Radiology Impression Chest X-Ray 03/07/22 22:05 IMPRESSION: 1. Stable mild cardiomegaly. 2. No acute cardiopulmonary abnormality. Electronically Signed: Darren Doll MD at 22:53 EDT , Assessment & Plan Assessment/Plan (1) Acute on chronic anemia: (2) CHRIS (acute kidney injury): PLAN: Plan 1. Acute on Chronic Anemia -Admit to ICU -Hemoglobin 6.2, 2 units packed red blood cells ordered -CBC, CMP, magnesium, phosphorus, iron studies, vitamin B12 and folate ordered -Repeat H&H following administration of PRBCs -Occult stool negative, will repeat x2 -N.p.o. -PT and OT to eval and treat 2. CHRIS -Complicated by patient's heart failure with reduced EF -Patient received 1 L normal saline in ER -Repeat CMP in a.m. -Baseline creatinine 1-1.2, currently 2.3 3. Lactic acidosis -Lactic acid 3.3, will repeat per policy -Normal white blood cell count -Urinalysis shows white blood cells and positive leukocyte Estrace however patient denies urinary symptoms. Urine culture ordered, antibiotics not initiated at this time 4. Chronic heart failure with reduced EF -Continue p.o. Lasix -Patient currently hypotensive, hold sacubitril and valsartan -X1 IV Lasix ordered between packed red blood cell units -Echocardiogram completed 02/13/2022 demonstrates EF 25%, with mild tricuspid valve and mitral valve insufficiency. -Patient has a pacemaker and at latest cardiology visit it was discussed her need for a defibrillator as well. -Daily weights with intake and output 5. CAD with history of stents -Due to history of CAD as well as peripheral venous insufficiency will continue patient on Plavix 6. Diabetes mellitus type 2 -Oral diabetic medications on hold -Every 6 hours blood sugars with sliding scale insulin ordered 7. Chronic stasis ulcer to right lower extremity -Consult wound nurse -Patient reluctant to have dressing changed by anyone other than her daughter who is at bedside however she did allow us to take down the dressing to visualize wound -No signs and symptoms of acute infection noted. Daughter states that wound is consistent with what it normally looks like following debridement -As needed pain medicine ordered DVT prophylaxis-SCDs This patient was seen by JESUS WallC under the supervision of Dr. Jerome. 32 minutes spent in clinical coordination of patient's plan of care. Documented by User: Dr. Shane Jerome MD 03/08/22 00:27 HPI - General General Date of Admission: 03/08/22 FOR[facility]LY [facility], LAT[facility] Medical History Acute hypoxemic respiratory failure (11/21/20) Atherosclerosis of coronary artery without angina pectoris Chronic ulcer of left leg with fat layer exposed Complete heart block Diabetes Eschar of lower leg HFrEF (heart failure with reduced ejection fraction) History of non-ST elevation myocardial infarction (NSTEMI) (11/21/20) Ischemic cardiomyopathy Old anterior wall myocardial infarction (12/21/16) Peripheral vascular occlusive disease ST elevation (STEMI) myocardial infarction involving left anterior descending coronary artery (12/21/16) Symptomatic bradycardia Venous insufficiency of both lower extremities Home Medications nitroglycerin 0.4 mg sublingual tablet (Nitrostat) 0.4 mg sublingual PRN PRN CHEST PAIN 06/05/18 [History Last Taken Unknown] acetaminophen 500 mg tablet 500 mg PO Q4H PRN PRN Pain #20 TABLETS 06/10/18 [Rx Last Taken Unknown] glipizide 10 mg tablet 10 mg PO BIDAC 07/16/20 [History Last Taken Unknown] metformin 1,000 mg tablet 1,000 mg PO BID DIABETES #0 tabs 11/23/20 [Rx Last Taken Unknown] atorvastatin 40 mg tablet 40 mg PO QHS CHOLESTEROL #90 tabs 03/29/21 [Rx Last Taken Unknown] clopidogrel 75 mg tablet 75 mg PO DAILY #90 tabs 03/29/21 [Rx Last Taken Unknown] metoprolol succinate 25 mg tablet,extended release 24 hr (Toprol XL) 25 mg PO DAILY BP #90 tabs 09/27/21 [Rx Last Taken Unknown] sacubitril 49 mg-valsartan 51 mg tablet (Entresto) 1 tab PO BID this is a dose increase #180 tabs 11/17/21 [Rx Last Taken Unknown] furosemide 40 mg tablet 40 mg PO DAILY #180 tabs 03/03/22 [Rx Last Taken Unknown] Allergy/AdvReac Type Severity Reaction Status Date / Time No Known Allergies Allergy Verified 03/07/22 18:53 Family History Other Brain aneurysm CVA (cerebral vascular accident) Diabetes Surgical History History of angioplasty of peripheral vessel (07/26/21) History of cardiac catheterization History of coronary artery stent placement (11/22/20) History of permanent cardiac pacemaker placement (05/15/18) Social History Smoking Status: Never smoker alcohol intake: never substance use type: does not use caffeine: Yes Type: coffee Number of servings: 1 Results Lab / Micro Data Result Diagrams: 03/07/22 20:10 03/07/22 20:10 Assessment & Plan Assessment/Plan (1) Acute on chronic anemia: (2) CHRIS (acute kidney injury): Charges/Coding Addendum Addendum: Patient was seen and examined independently. I agree with assessment and plan by JESUS WallC Patient is a 66-year-old female with a significant history of heart failure with reduced ejection fraction; critical leg ischemia; CAD status post stent who presents emergency department with progressively worsening weakness that started about a week ago. Associated with symptom is near syncope x2 times. Physical exam: General: Well-nourished, well-developed. Head: Normocephalic, atraumatic, no tenderness Eyes: Vision is grossly intact. EOMI ENT, no trauma, moist mucous membranes, no rhinorrhea Neck: Nontender, full range of motion, no spinal tenderness, deformities, step-off CVS: Regular rate and rhythm. S1-S2 present. No murmur, gallop or rub. Respiratory : clear to auscultation bilaterally, chest wall nontender, no wheezing Abdomen: Soft, nontender, nondistended, normal bowel sounds, no masses : Deferred Back: Nontender, no CVA tenderness. Extremities: R leg with necrotic wounds, tender. Left leg with pigmentation and edema 2-3+ Skin: Pale Neuro: Alert, oriented, cranial nerves II through XII grossly intact. Psychiatry: Normal mood. Normal affect. Not depressed. Not anxious. Acute Anemia Hemoglobin presentation was 6.2. Occult stool negative. Repeat occult stool ordered Review of community records shows that on 07/26/2021 her Hgb was 8.9 and Hgb was 29.1 Two units of PRBC ordered at the ED to be transfused. Check H&H one hour after blood transfusion. Iron studies, reticulocytes, LDL, haptoglobin, vitamin B12 and folate ordered. Peripheral smear with blood morphology ordered Ke npo after midnight. GI consult CHRIS Creatinine 2.32 on presentation. Her creatinine on 11/23/20 was 1 and creatinine on 11/22/2020 was 1.03. BUN is severely elevated at 99. BUN/creatinine is 42.7. Likely prerenal. IV hydration and PRBC as above. Trend BMP. CAD sp stent and critical ischemia of R leg Review of records shows balloon angioplasty for R femoral and popliteal artery 07/26/[address] [facility]. From cardiology notes patient had a stent placed in LAD at [facility] for STEMI in 2016. And in September 2020 a drug-eluting stent was placed in mid left anterior descending artery and proximal left anterior descending artery Aspirin and Plavix continued. Diabetes mellitus Patient with hyperglycemia on presentation Hold home metformin and add a hypoglycemic regimen. Accu-Chek with correction scale insulin ordered. Heart failure with reduced ejection fraction Echocardiogram on 02/13/2022 showed EF of 25%. PPM without ICD yet Stable. Follows up with cardiology. Reportedly ICD discussed but not yet placed. Blood pressures are soft. Hold guideline directed medical therapy with parameters. Resume guideline directed medical therapy when blood pressure is stable. Lactic acidosis Multifactorial likely from metformin use and anemia trend. Hyperkalemia Potassium of 5.6 on presentation. Hydrate. Trend BMP Right leg wound Patient and family did not want physicians and [employer] to touch. Daughter removed dressing and re-dressed at the ED. Wound care consult. Reportedly debrided recently. Nurse communication with Dr. Vinson's office to see whether patient is on any current antibiotics Asymptomatic Bacteriuria Clinical monitoring Forty (40) minutes spent independently in clinical coordination of patient's plan of care. DVT Prophylaxis: SCD ordered Visit Charges Inpatient E&M: 63909 Init Hosp L3
[2022-03-08] VITALS (32 sets, daily range): BP systolic 87–121; BP diastolic 54–82; PULSE 72–95; RESP 14–19; TEMP 36.2–36.6; O2SAT 87–100; BMI 27.8
[2022-03-08 00:31] LABS: Platelet Count 479 K/mm3 (150-450); RET-HE 24.9 pg (30-35); Reticulocyte Count 3.84 % (0.5-1.5)
[2022-03-08] MEDS: Ondansetron 4 MG/2 ML Vial IV (00:45)
[2022-03-08 01:28] LABS: Reflex Lactate? Y
[2022-03-08 01:36] LABS: Ferritin 15 ng/mL (8-252); Iron 20 ug/dL (50-170); Iron Binding Capacity,Total 283 ug/dL (250-450); PERCENT IRON SATURATION 7.1 % (15.0-55.0)
[2022-03-08 02:01] LABS: Bedside Glucose 165 mg/dL (74-106)
[2022-03-08] MEDS: Acetaminophen 325 MG Tablet 650 MG PO ×3 (02:01→15:39)
[2022-03-08] MEDS: Insulin Lispro 100 UNIT/ML INSULN.PEN SC (02:03)
[2022-03-08 03:21] LABS: Lactic Acid 2.4 mmol/L (0.4-1.9)
[2022-03-08 05:14] LABS: Absolute Lymphocyte Count 1.63 X10^3/uL (0.83-4.51); Absolute Neutrophil Count 7.1 X10^3/uL (2.0-7.7); Basophil# 0.04 X10^3/uL; Basophil% 0.4 % (0-1); Eosinophil# 0.09 X10^3/uL; Eosinophils% 0.9 % (0-5); Hematocrit 24.9 % (37-47); Hemoglobin 7.4 g/dL (12.0-15.0); Lymphocyte # 1.63 X10^3/ul (0.83-4.51); Mean Corp Hgb Conc 29.7 g/dL (32-36); Mean Corpuscular Hgb 25.5 pg (27.0-32.0); Mean Corpuscular Volume 85.9 fL (81-99); Mean Platelet Vol. 9.2 fl (6.2-12.0); Monocyte# 0.73 X10^3/uL; Monocyte% 7.6 % (0-10); NRBC Flagged by Analyzer 0 % (0-5); Neutrophil # 7.05 X10^3/uL (2.7-7.7); Neutrophil % 73.4 % (47-70); Platelet Count 401 K/mm3 (150-450); RBC Distribution Width CV 18.6 % (11.6-14.6); RBC Distribution Width SD 57.8 fl (35.1-43.9); White Blood Count 9.6 K/mm3 (4.4-11.0)
[2022-03-08 05:32] LABS: ALB/GLOB Ratio 0.8 RATIO (0.9-2.4); AST(SGOT) 49 U/L (15-37); Alanine Aminotransfer ALT/SGPT 33 U/L (13-56); Alkaline Phosphatase 44 U/L (45-117); Anion Gap 8 (5-15); BUN 96 mg/dL (7-18); BUN/Creat Ratio 45.1 RATIO (10-20); Calcium,Total 8.5 mg/dL (8.5-10.1); Chloride 105 mmol/L (98-107); Creatinine, Serum 2.13 mg/dL (0.55-1.02); EST Glomerular Filtration Rate 25 mL/min (>60); Est Glom Filt Rate - Afr Amer 30 mL/min (>60); Glucose 175 mg/dL (74-106); Magnesium 2.5 mg/dL (1.6-2.6); Phosphorus 3.7 mg/dL (2.5-4.9); Potassium 5.4 mmol/L (3.5-5.1); Sodium Level 136 mmol/L (136-145)
[2022-03-08 05:33] LABS: Vitamin B12 480 pg/mL (211-911)
--- NOTE | 2022-03-08 06:57 | EX.PCM.CONCC ---
Assessment & Plan Assessment/Plan (1) Acute kidney injury: (2) Acute hyperkalemia: (3) Ischemic cardiomyopathy: (4) Symptomatic anemia: PLAN: Plan RECOMMENDATIONS: 1. Transfuse PRBCs with follow-up H&H 2. Monitor fluid status closely 3. Wean supplemental oxygen as tolerated 4. No further lactic acid measurements needed 5. Possible iron infusion once sepsis ruled out 6. Possible transfer from the intensive care unit later today pending clinical course IMPRESSIONS: 1. Acute on chronic anemia Patient with a hemoglobin of 6.2 and presyncopal episodes. Blood transfusions have been ordered. We will recheck H&H following administration of PRBCs. Monitor clinically for GI source of bleeding. Patient currently n.p.o. for possible endoscopy if necessary. Patient may benefit from iron infusion, but would be sure patient does not have sepsis prior to administration of iron. 2. Acute kidney injury Clinical suspicion for prerenal etiology. Patient does have elevated potassium at this time, but no EKG changes are noted. Patient's baseline creatinine appears to be approximately 1. Patient will have tenuous volume status given history of systolic CHF. Patient does take an ARB at baseline. May attempt Lasix in between blood units as this could help with volume and also hyperkalemia. If patient fails to improve, we will likely order urine electrolytes and renal ultrasound tomorrow. 3. Chronic systolic CHF/CAD status post stents Patient with a known ejection fraction of 25% with hypotension on presentation. Antihypertensives are currently on hold secondary to borderline blood pressures on presentation. Anticipate patient will have lower systolic pressures given EF. Pacemaker was recently interrogated, so it is likely not necessary to repeat. Could obtain cardiology consult, but defer to hospitalist. 4. Chronic stasis ulcer of the right lower extremity Unable to examine at this time. Wound nurse has been consulted. Hospitalist is not reporting any signs or symptoms of acute infection. If exudate is noted, cultures would be indicated. Patient does not have a significant leukocytosis at this time, but does have a left shift. Some concern patient may have a gastric ulcer secondary to NSAID use related to pain in the extremity. HPI Consult Data Date of Consult: 03/08/22 HPI Narrative Reason for Consultation: Possible sepsis HPI Narrative: LATOSHA LOYOLA is a 66 F, with past medical history listed below, who presents to [facility] on 03/07/2022 secondary to progressive weakness and to near syncopal episodes. Patient had not reported any shortness of breath, chest pain, nausea or vomiting. Patient reportedly does have a right lower extremity leg wound for the last 10 months. Patient is not currently on antibiotics. Patient does have a complex heart history status post pacemaker, but denied any palpitations. Patient reportedly had had darker stools but this was not clarified. Patient does take aspirin and Plavix. Patient has reported intermittent ibuprofen related to leg pain. However, patient states she uses Tylenol most of the time. Patient did have some mild nausea yesterday, but no emesis. No cough is been reported. In the ER, patient was afebrile, but hypotensive at 97/58. Patient was saturating well on room air. Laboratory work-up showed a white blood cell count of 9.5, hemoglobin of 6.2 and platelets of 478. Coagulation studies were within normal limits. Chemistries were remarkable for a potassium of 5.6, BUN of 99 and creatinine of 2.3. Baseline appears to be approximately 1. Glucose was elevated at 232 and reticulocyte panel was elevated. Lactate was elevated at 3.3. UA shows possible infection. Chest x-ray was relatively unremarkable. Given hypotension, patient did receive 1 L of normal saline. Patient did not have any acute EKG changes, so potassium was not addressed. Urine culture has been sent. Patient does have a history of an echocardiogram in the last month showing an EF of 25%. Patient was admitted to the intensive care unit for further evaluation. On my evaluation, patient was able to wake up and interact appropriately. Patient did report using NSAIDs intermittently for lower extremity pain. Patient does not have any history of GI bleed. Patient does have a history of vascular insufficiency and stated that she had a surgery in July to help with blood flow. Patient had refused evaluation of the leg and stated that it was improved from previous. Patient stated that she did not feel any better since being admitted, but was significantly tired from not sleeping overnight. Review of systems otherwise negative from a constitutional, HEENT, respiratory, cardiovascular, GI, genitourinary, musculoskeletal, skin, neurologic, psychiatric and hematologic system unless stated above. [facility] Medical History Acute hypoxemic respiratory failure (11/21/20) Atherosclerosis of coronary artery without angina pectoris Chronic ulcer of left leg with fat layer exposed Complete heart block Diabetes Eschar of lower leg HFrEF (heart failure with reduced ejection fraction) History of non-ST elevation myocardial infarction (NSTEMI) (11/21/20) Ischemic cardiomyopathy Old anterior wall myocardial infarction (12/21/16) Peripheral vascular occlusive disease ST elevation (STEMI) myocardial infarction involving left anterior descending coronary artery (12/21/16) Symptomatic bradycardia Venous insufficiency of both lower extremities Home Medications nitroglycerin 0.4 mg sublingual tablet (Nitrostat) 0.4 mg sublingual PRN PRN CHEST PAIN 06/05/18 [History Last Taken Unknown] acetaminophen 500 mg tablet 500 mg PO Q4H PRN PRN Pain #20 TABLETS 06/10/18 [Rx Last Taken Unknown] glipizide 10 mg tablet 10 mg PO BIDAC blood sugar 07/16/20 [History Last Taken Unknown] metformin 1,000 mg tablet 1,000 mg PO BID DIABETES #0 tabs 11/23/20 [Rx Last Taken Unknown] atorvastatin 40 mg tablet 40 mg PO QHS CHOLESTEROL #90 tabs 03/29/21 [Rx Last Taken Unknown] metoprolol succinate 25 mg tablet,extended release 24 hr (Toprol XL) 25 mg PO DAILY BP #90 tabs 09/27/21 [Rx Last Taken Unknown] sacubitril 49 mg-valsartan 51 mg tablet (Entresto) 1 tab PO BID this is a dose increase #180 tabs 11/17/21 [Rx Last Taken Unknown] clopidogrel 75 mg tablet 75 mg PO DAILY blood thinner 03/08/22 [History Last Taken Unknown] furosemide 40 mg tablet 40 mg PO BID water pill 03/08/22 [History Last Taken Unknown] Allergy/AdvReac Type Severity Reaction Status Date / Time No Known Allergies Allergy Verified 03/07/22 18:53 Family History Other Brain aneurysm CVA (cerebral vascular accident) Diabetes Surgical History History of angioplasty of peripheral vessel (07/26/21) History of cardiac catheterization History of coronary artery stent placement (11/22/20) History of permanent cardiac pacemaker placement (05/15/18) Social History Smoking Status: Never smoker alcohol intake: never substance use type: does not use caffeine: Yes Type: coffee Number of servings: 1 ROS ROS Narrative See HPI Physical Exam Const alert, oriented x3 and no apparent distress Constitutional Narrative: Appears tired. General Appearance: cooperative HEENT normocephalic and head/scalp atraumatic Eyes conjunctivae normal and no scleral icterus Neck no lymphadenopathy and supple General: trachea midline Resp normal respiratory effort, normal air movement, no use of accessory muscles and clear to auscultation bilaterally Cardio regular rate, regular rhythm, S1 normal heart sound, S2 normal heart sound, no rub and no gallops Cardio Narrative: Atrial sensed paced rhythm noted on telemetry Heart Sounds: murmur GI normal to inspection, nondistended, normoactive bowel sounds, soft to palpation and non-tender Extremity Extremity Narrative: Unable to assess right lower extremity wound. Dressing is clean, dry and intact. There does not appear to be any erythema going up the leg General Extremity: edema bilateral lower extremity Details: moderate Skin Skin Narrative: Reported significant lesion of the right lower extremity. Left lower extremity shows old healed wound Neuro no focal motor deficits and no sensory deficits noted Speech: speech normal Psych thought process normal, cooperative and affect normal Appearance: appropriate Lab / Micro Data Attestation: I reviewed the patient's lab results. Result Diagrams: 03/08/22 05:00 03/08/22 05:00 Labs: Laboratory Results - last 24 hr 03/07/22 20:10: WBC 9.5, RBC 2.51 L, Hgb 6.2 L, Hct 20.7 L, MCV 82.5, MCH 24.7 L, MCHC 30.0 L, RDW Std Deviation 59.5 H, RDW Coeff of Brianne 20.1 H, Plt Count 478 H, MPV 9.6, Immature Gran % (Auto) 0.500, Neut % (Auto) 75.2 H, Lymph % (Auto) 16.0 L, [place] % (Auto) 7.3, Eos % (Auto) 0.7, Baso % (Auto) 0.3, Absolute Neuts (auto) 7.1, Absolute Lymphs (auto) 1.52, Nucleated RBC % 0, Diff Path Review May foll, Platelet Estimate SLT INC, RBC Morphology N CHROM, Polychromasia RARE, Hypochromasia 2+, Anisocytosis 1+, Microcytosis 1+, Ovalocytes RARE 03/07/22 20:10: PT 13.7, INR 1.1, APTT 29.7 03/07/22 20:10: Sodium 135 L, Potassium 5.6 H, Chloride 101, Carbon Dioxide 22.0, Anion Gap 12, BUN 99 H, Creatinine 2.32 H, Estim Creat Clear Calc 18.00, Est GFR (MDRD) Af Amer 27 L, Est GFR (MDRD) Non-Af 22 L, BUN/Creatinine Ratio 42.7 H, Glucose 232 H, Calcium 8.7, Total Bilirubin 0.20, AST 43 H, ALT 31, Alkaline Phosphatase 52, Total Protein 7.3, Albumin 3.2, Globulin 4.1, Albumin/Globulin Ratio 0.8 L 03/07/22 20:10: Lactic Acid 3.3 H* 03/07/22 20:10: Folate 13.20 03/07/22 20:10: Retic Count 3.84 H, Immature Retic Fraction 28.10 H, Retic Hgb Equivalent 24.9 L 03/07/22 22:35: Urine Color Yellow, Urine Clarity Clear, Urine pH 6.0, Ur Specific [place] 1.010, Urine Protein 30 H, Urine Glucose (UA) Normal, Urine Ketones Negative, Urine Occult Blood 10 H, Urine Nitrite Negative, Urine Bilirubin Negative, Urine Urobilinogen Normal, Ur Leukocyte Esterase 500 H, Urine RBC 0-5 SEEN, Urine WBC 25-50 SEEN, Ur Squamous Epith Cells 0-5 SEEN, Ur Renal Epithelial Cell 0-5 SEEN, Urine Bacteria 1+, Urine Mucus 0 SEEN 03/07/22 23:35: Blood Type B POSITIVE, Antibody Screen NEGATIVE, Crossmatch See Detail 03/08/22 01:05: Iron 20 L, TIBC 283, Iron Saturation 7.1 L, Ferritin 15 03/08/22 01:42: POC Glucose 165 H 03/08/22 01:55: Lactic Acid 2.4 H* 03/08/22 05:00: WBC 9.6, RBC 2.90 L, Hgb 7.4 L, Hct 24.9 L, MCV 85.9, MCH 25.5 L, MCHC 29.7 L, RDW Std Deviation 57.8 H, RDW Coeff of Brianne 18.6 H, Plt Count 401, MPV 9.2, Immature Gran % (Auto) 0.700, Neut % (Auto) 73.4 H, Lymph % (Auto) 17.0 L, [place] % (Auto) 7.6, Eos % (Auto) 0.9, Baso % (Auto) 0.4, Absolute Neuts (auto) 7.1, Absolute Lymphs (auto) 1.63, Nucleated RBC % 0 03/08/22 05:00: Sodium 136, Potassium 5.4 H, Chloride 105, Carbon Dioxide 23.0, Anion Gap 8, BUN 96 H, Creatinine 2.13 H, Estim Creat Clear Calc 19.60, Est GFR (MDRD) Af Amer 30 L, Est GFR (MDRD) Non-Af 25 L, BUN/Creatinine Ratio 45.1 H, Glucose 175 H, Calcium 8.5, Phosphorus 3.7, Magnesium 2.5, Total Bilirubin 0.30, AST 49 H, ALT 33, Alkaline Phosphatase 44 L, Total Protein 7.0, Albumin 3.0 L, Globulin 4.0, Albumin/Globulin Ratio 0.8 L 03/08/22 05:00: Vitamin B12 480 Micro: Microbiology 03/07/22 23:20 Stool Stool Occult Blood (DEWAYNE) - Final 03/07/22 21:15 Nasal Secretion SARS-CoV-2 Antigen (Rapid) - Final Radiology Impression Chest X-Ray 03/07/22 22:05 IMPRESSION: 1. Stable mild cardiomegaly. 2. No acute cardiopulmonary abnormality. Electronically Signed: Darren Doll MD at 22:53 EDT , Charges/Coding Visit Charges Inpatient E&M: 35343 Init Hosp L2
[2022-03-08 07:20] LABS: Bedside Glucose 127 mg/dL (74-106)
[2022-03-08] MEDS: 0.9% Saline Lock 10 ML Syringe IV ×3 (07:55→21:43)
--- NOTE | 2022-03-08 09:06 | PN.HOSP_ITS ---
Subjective Subjective Follow-up on severe iron deficiency anemia/near syncope: Patient was seen and examined. She was seen in the room with her daughter and . Denied any chest pain or dizziness. Denied any recent use of NSAID. She only takes Tylenol for pain. Objective Data Objective Data Vital Signs: Vital Signs Temp Pulse Resp BP Pulse Ox O2 Del Method O2 Flow Rate 97.5 F L 80 15 105/82 H 100 Room Air 2 03/08/22 08:00 03/08/22 08:00 03/08/22 08:00 03/08/22 08:00 03/08/22 08:00 03/08/22 08:00 03/08/22 07:16 Oxygen Flow Rate (L/min) 2 Oxygen Delivery Method Room Air Weight: 66.7 kg Body Mass Index (BMI) 27.8 Intake & Output: Intake and Output for Last 24 Hours 03/06/22 03/07/22 03/08/22 23:59 23:59 23:59 Intake Total 1000 / 1000 888 / 888 Balance 1000 / 1000 888 / 888 Lab / Micro Data Result Diagrams: 03/08/22 05:00 03/08/22 05:00 Labs: Laboratory Results - last 24 hr 03/07/22 20:10: WBC 9.5, RBC 2.51 L, Hgb 6.2 L, Hct 20.7 L, MCV 82.5, MCH 24.7 L , MCHC 30.0 L, RDW Std Deviation 59.5 H, RDW Coeff of Brianne 20.1 H, Plt Count 478 H, MPV 9.6, Immature Gran % (Auto) 0.500, Neut % (Auto) 75.2 H, Lymph % (Auto) 16.0 L, [place] % (Auto) 7.3, Eos % (Auto) 0.7, Baso % (Auto) 0.3, Absolute Neuts (auto) 7.1, Absolute Lymphs (auto) 1.52, Nucleated RBC % 0, Diff Path Review Adelina rice, Platelet Estimate SLT INC, RBC Morphology N CHROM, Polychromasia RARE, H ypochromasia 2+, Anisocytosis 1+, Microcytosis 1+, Ovalocytes RARE 03/07/22 20:10: PT 13.7, INR 1.1, APTT 29.7 03/07/22 20:10: Sodium 135 L, Potassium 5.6 H, Chloride 101, Carbon Dioxide 22.0, Anion Gap 12, BUN 99 H, Creatinine 2.32 H, Estim Creat Clear Calc 18.00, Est GFR (MDRD) Af Amer 27 L, Est GFR (MDRD) Non-Af 22 L, BUN/Creatinine Ratio 42.7 H, Glucose 232 H, Calcium 8.7, Total Bilirubin 0.20, AST 43 H, ALT 31, Alkaline Phosphatase 52, Total Protein 7.3, Albumin 3.2, Globulin 4.1, Albumin/Globulin Ratio 0.8 L 03/07/22 20:10: Lactic Acid 3.3 H* 03/07/22 20:10: Folate 13.20 03/07/22 20:10: Retic Count 3.84 H, Immature Retic Fraction 28.10 H, Retic Hgb Equivalent 24.9 L 03/07/22 22:35: Urine Color Yellow, Urine Clarity Clear, Urine pH 6.0, Ur Specific [place] 1.010, Urine Protein 30 H, Urine Glucose (UA) Normal, Urine Ketones Negative, Urine Occult Blood 10 H, Urine Nitrite Negative, Urine Bilirubin Negative, Urine Urobilinogen Normal, Ur Leukocyte Esterase 500 H, Urine RBC 0-5 SEEN, Urine WBC 25-50 SEEN, Ur Squamous Epith Cells 0-5 SEEN, Ur Renal Epithelial Cell 0-5 SEEN, Urine Bacteria 1+, Urine Mucus 0 SEEN 03/07/22 23:35: Blood Type B POSITIVE, Antibody Screen NEGATIVE, Crossmatch See Detail 03/08/22 01:05: Iron 20 L, TIBC 283, Iron Saturation 7.1 L, Ferritin 15 03/08/22 01:42: POC Glucose 165 H 03/08/22 01:55: Lactic Acid 2.4 H* 03/08/22 05:00: WBC 9.6, RBC 2.90 L, Hgb 7.4 L, Hct 24.9 L, MCV 85.9, MCH 25.5 L , MCHC 29.7 L, RDW Std Deviation 57.8 H, RDW Coeff of Brianne 18.6 H, Plt Count 401, MPV 9.2, Immature Gran % (Auto) 0.700, Neut % (Auto) 73.4 H, Lymph % (Auto) 17.0 L, [place] % (Auto) 7.6, Eos % (Auto) 0.9, Baso % (Auto) 0.4, Absolute Neuts (auto) 7.1, Absolute Lymphs (auto) 1.63, Nucleated RBC % 0 03/08/22 05:00: Sodium 136, Potassium 5.4 H, Chloride 105, Carbon Dioxide 23.0, Anion Gap 8, BUN 96 H, Creatinine 2.13 H, Estim Creat Clear Calc 19.60, Est GFR (MDRD) Af Amer 30 L, Est GFR (MDRD) Non-Af 25 L, BUN/Creatinine Ratio 45.1 H, Glucose 175 H, Calcium 8.5, Phosphorus 3.7, Magnesium 2.5, Total Bilirubin 0.30, AST 49 H, ALT 33, Alkaline Phosphatase 44 L, Total Protein 7.0, Albumin 3.0 L, Globulin 4.0, Albumin/Globulin Ratio 0.8 L 03/08/22 05:00: Vitamin B12 480 03/08/22 06:59: POC Glucose 127 H Micro: Microbiology 03/07/22 23:20 Stool Stool Occult Blood (DEWAYNE) - Final 03/07/22 21:15 Nasal Secretion SARS-CoV-2 Antigen (Rapid) - Final Radiography Diagnostic Testing: Radiology Impression Chest X-Ray 03/07/22 22:05 IMPRESSION: 1. Stable mild cardiomegaly. 2. No acute cardiopulmonary abnormality. Electronically Signed: Darren Doll MD at 22:53 EDT , Physical Exam Narrative Physical exam: General: Alert, Oriented x3, Cooperative, appears very pale, frail HEENT: Atraumatic Oral: Moist Mucosa Neck: Supple Lungs: Diminished to auscultation Cardiovascular: HS I+II, regular, no murmurs Abdomen: Bowel Sounds Present, Soft, Non Tender Extremities: Bilateral leg edema +2, worse on the right leg, Skin: Right lower leg chronic ulcer, worse in the posterior lateral regions, with some eschar and some places, worse in the posterior region, evidence of hypertrophic scarring. Erythematous scar over the left lower leg. Neurological: Grossly intact Psych/Mental Status: Appropriate Assessment & Plan Assessment/Plan (1) Symptomatic anemia: (2) Acute kidney injury: (3) Acidosis, lactic: PLAN: Plan 1. Acute on chronic anemia, iron deficiency, unclear etiology Patient was admitted with hemoglobin of 6.2, status post 2 units of packed RBCs Previous preadmission hemoglobin was 8.9; hemoglobin now is 7.4 Reticulocyte count is elevated, iron sat is 7.1%, ferritin is 15, iron is 22, TIBC is 283 Will trend H&H, GI consulted Continue on IV PPI BID 2. CHRIS, prerenal/cardiorenal, slowly improving Patient with previous creatinine of 1.0, admitted creatinine of 2.32, creatinine 2.13 Home Entresto and Lasix on hold Trend CMP 3. Acute heart failure with reduced EF/ischemic cardiomyopathy, EF 25%/CAD s/p stents/status post pacemaker/Hyperlipidemia Patient appears fluid overloaded Will check BNPep Home oral Lasix on hold Continue with Lasix IV 20mg Q8h 4. Hyperkalemia, K 5.4, will trend 5. Lactic acidosis likely related to #1, resolving 6. Chronic venous stasis ulcer, worse in the right lower leg, wound RN consulted 7. Type 2 DM, home oral medications on hold, Continue blood glucose checks with insulin sliding scale 8. DVT PPx- SCDs Charges/Coding Visit Charges Inpatient E&M: 12475 Subs Hosp L3
--- NOTE | 2022-03-08 09:25 | CASEMGMT ---
RN ROSARIO Face to Face with patient for initial transition planning/care coordination assessment. RN CM introduced self and role at [facility]. Patient sitting in chair, alert and oriented, and daughter at bedside. Patient willing to participate in assessment and is able to answer all questions appropriately. Care providers, pharmacy, and demographics verified. Patient wishes to discharge home with resumption of home therapy with [facility]. Patient states she has no further needs or concerns at this time. CM to follow for discharge planning needs that may arise. PCP: Sweta Specialists: Lilli, curriculum writer; Dustin, vascular; Teena, site manager Preferred Pharmacy: [email or web address]; [facility] retail at discharge Insurance: none Prescription Benefit: none Living Will/HPOA: none LNOK: , children Living Arrangements: Patient lives with and 4 children in a 2 story home with bed and bath on first floor. No steps to enter. Patient states she is independent with self care but daughters help at times. Transportation: Driving Service DME/HHC: Patient states she has shower chair, raised toilet, cane, walker, and wheelchair. Patient states she is currently active with [facility] for home therapy. Patient declines to review list of other providers and prefers to continue services with [facility]. RN CM called [facility] and updated regarding current admission. CM to send resumption order and discharge instructions when available to [facility]. Daughter states that she has been completing dressing changes and is teachable for further wound care needs. Disposition Plan: Patient to discharge home with resumption of home therapy, family support, and follow-up plans in place. Kristen CASTELLON, RN, CM
--- NOTE | 2022-03-08 09:32 | WOUNDNOTE ---
wound photo: right lower leg
--- NOTE | 2022-03-08 09:32 | WOUNDNOTE ---
wound photo: right lower leg
--- NOTE | 2022-03-08 09:33 | WOUNDNOTE ---
wound photo: right lower leg
[2022-03-08] MEDS: Clopidogrel Bisulfate 75 MG Tablet PO (09:55)
[2022-03-08 09:58] LABS: Hematocrit 28.5 % (37-47); Hemoglobin 8.9 g/dL (12.0-15.0)
[2022-03-08 11:45] LABS: Bedside Glucose 96 mg/dL (74-106)
[2022-03-08 13:53] LABS: Pathologist Review Reviewed
[2022-03-08] MEDS: Furosemide 20 MG/2 ML VIAL IV ×2 (15:31→21:40)
[2022-03-08 18:11] LABS: Bedside Glucose 83 mg/dL (74-106)
--- NOTE | 2022-03-08 18:47 | PCM.CONS.GEN ---
Assessment & Plan Assessment/Plan (1) Symptomatic anemia: PLAN: The differential diagnosis for acute blood loss anemia would be from the GI tract secondary to angiodysplasias, telangiectasias, peptic ulcer disease, neoplasia. She should undergo evaluation of the upper or lower GI tract. She should also undergo capsule endoscopy. She was explained alternatives, risk, benefits include not withstanding bleeding, fracture, sepsis, perforation, need for emergent or . Have an ASA of 3. A long conversation was had with the patient at the bedside and the family at the bedside. HPI Consult Data Date of Consult: 03/08/22 HPI Narrative Reason for Consultation: Anemia HPI Narrative: LATOSHA LOYOLA, is a 66 F who presents with increasing weakness for the past few days, 2 near syncopal episodes today.? No chest pains.? No shortness of breath.? She has been dealing with right leg wound for the past 10 months followed by podiatry Dr. Valenzuela.? Last seen 2 weeks ago.?.? She is not currently antibiotics.? ?She has a history of coronary artery disease with stenting to LAD at [facility] after presenting with an anterior ST elevation myocardial infarction in December 2016.? She subsequently presented with symptomatic bradycardia in May 2018 and had a permanent pacemaker implanted.? In September 2020 she presented again and had a drug-eluting stent placed to the mid left anterior descending artery and a drug-eluting stent to the proximal left anterior descending artery.? In November 2020, she presented with a non-ST elevation myocardial infarction and had a drug-eluting stent placed to the circumflex artery.? The left anterior descending artery stent was patent and the right coronary artery had luminal irregularities.? Ejection fraction at that time was noted to be approximately 40% though a repeat echocardiogram in March 2021 demonstrated an ejection fraction of 33% with wall motion abnormalities noted.? She has also been having problems with distal circulation and had a femoral-popliteal percutaneous angioplasty performed in December 2020 as well as July 2021. She had echocardiogram on 11/14/2021 that showed an ejection fraction of 25%.? On account of such, her Entresto was advanced. In the ED she was noted to be severely anemic. As for her and her daughter that are in the room with her she has been dealing with any of 4 about a year. She says that she did undergo an upper and lower endoscopy and they did not find anything. She does not know she has been on iron therapy. In the ED she discovered to have a hemoglobin of 6.2. Her currently at the transfusion her hemoglobin is up 8.9. She was discovered to have increased BUN/creatinine ratio of 30:1 0.6. [facility] Medical History Acute hypoxemic respiratory failure (11/21/20) Atherosclerosis of coronary artery without angina pectoris Chronic ulcer of left leg with fat layer exposed Complete heart block Diabetes Eschar of lower leg HFrEF (heart failure with reduced ejection fraction) History of non-ST elevation myocardial infarction (NSTEMI) (11/21/20) Ischemic cardiomyopathy Old anterior wall myocardial infarction (12/21/16) Peripheral vascular occlusive disease ST elevation (STEMI) myocardial infarction involving left anterior descending coronary artery (12/21/16) Symptomatic bradycardia Venous insufficiency of both lower extremities Home Medications nitroglycerin 0.4 mg sublingual tablet (Nitrostat) 0.4 mg sublingual PRN PRN CHEST PAIN 06/05/18 [History Last Taken Unknown] acetaminophen 500 mg tablet 500 mg PO Q4H PRN PRN Pain #20 TABLETS 06/10/18 [Rx Last Taken Unknown] glipizide 10 mg tablet 10 mg PO BIDAC blood sugar 07/16/20 [History Last Taken Unknown] metformin 1,000 mg tablet 1,000 mg PO BID DIABETES #0 tabs 11/23/20 [Rx Last Taken Unknown] atorvastatin 40 mg tablet 40 mg PO QHS CHOLESTEROL #90 tabs 03/29/21 [Rx Last Taken Unknown] metoprolol succinate 25 mg tablet,extended release 24 hr (Toprol XL) 25 mg PO DAILY BP #90 tabs 09/27/21 [Rx Last Taken Unknown] sacubitril 49 mg-valsartan 51 mg tablet (Entresto) 1 tab PO BID this is a dose increase #180 tabs 11/17/21 [Rx Last Taken Unknown] clopidogrel 75 mg tablet 75 mg PO DAILY blood thinner 03/08/22 [History Last Taken Unknown] furosemide 40 mg tablet 40 mg PO BID water pill 03/08/22 [History Last Taken Unknown] Allergy/AdvReac Type Severity Reaction Status Date / Time No Known Allergies Allergy Verified 03/07/22 18:53 Family History Other Brain aneurysm CVA (cerebral vascular accident) Diabetes Surgical History History of angioplasty of peripheral vessel (07/26/21) History of cardiac catheterization History of coronary artery stent placement (11/22/20) History of permanent cardiac pacemaker placement (05/15/18) Social History Smoking Status: Never smoker alcohol intake: never substance use type: does not use caffeine: Yes Type: coffee Number of servings: 1 ROS ROS Narrative See HPI Physical Exam Narrative Physical exam: General: Alert, Oriented x3, Cooperative, appears very pale, frail HEENT: Atraumatic Oral: Moist Mucosa Neck: Supple Lungs: Diminished to auscultation Cardiovascular: HS I+II, regular, no murmurs Abdomen: Bowel Sounds Present, Soft, Non Tender Extremities: Bilateral leg edema +2, worse on the right leg, Skin: Right lower leg chronic ulcer, worse in the posterior lateral regions, with some eschar and some places, worse in the posterior region, evidence of hypertrophic scarring. Erythematous scar over the left lower leg. Neurological: Grossly intact Psych/Mental Status: Appropriate Lab / Micro Data Result Diagrams: 03/08/22 09:50 03/08/22 05:00 Labs: Laboratory Results - last 24 hr 03/07/22 20:10: WBC 9.5, RBC 2.51 L, Hgb 6.2 L, Hct 20.7 L, MCV 82.5, MCH 24.7 L, MCHC 30.0 L, RDW Std Deviation 59.5 H, RDW Coeff of Brianne 20.1 H, Plt Count 478 H, MPV 9.6, Immature Gran % (Auto) 0.500, Neut % (Auto) 75.2 H, Lymph % (Auto) 16.0 L, [place] % (Auto) 7.3, Eos % (Auto) 0.7, Baso % (Auto) 0.3, Absolute Neuts (auto) 7.1, Absolute Lymphs (auto) 1.52, Nucleated RBC % 0, Diff Path Review Reviewed, Platelet Estimate SLT INC, RBC Morphology N CHROM, Polychromasia RARE, Hypochromasia 2+, Anisocytosis 1+, Microcytosis 1+, Ovalocytes RARE 03/07/22 20:10: PT 13.7, INR 1.1, APTT 29.7 03/07/22 20:10: Sodium 135 L, Potassium 5.6 H, Chloride 101, Carbon Dioxide 22.0, Anion Gap 12, BUN 99 H, Creatinine 2.32 H, Estim Creat Clear Calc 18.00, Est GFR (MDRD) Af Amer 27 L, Est GFR (MDRD) Non-Af 22 L, BUN/Creatinine Ratio 42.7 H, Glucose 232 H, Calcium 8.7, Total Bilirubin 0.20, AST 43 H, ALT 31, Alkaline Phosphatase 52, Total Protein 7.3, Albumin 3.2, Globulin 4.1, Albumin/Globulin Ratio 0.8 L 03/07/22 20:10: Lactic Acid 3.3 H* 03/07/22 20:10: Folate 13.20 03/07/22 20:10: Retic Count 3.84 H, Immature Retic Fraction 28.10 H, Retic Hgb Equivalent 24.9 L 03/07/22 22:35: Urine Color Yellow, Urine Clarity Clear, Urine pH 6.0, Ur Specific [place] 1.010, Urine Protein 30 H, Urine Glucose (UA) Normal, Urine Ketones Negative, Urine Occult Blood 10 H, Urine Nitrite Negative, Urine Bilirubin Negative, Urine Urobilinogen Normal, Ur Leukocyte Esterase 500 H, Urine RBC 0-5 SEEN, Urine WBC 25-50 SEEN, Ur Squamous Epith Cells 0-5 SEEN, Ur Renal Epithelial Cell 0-5 SEEN, Urine Bacteria 1+, Urine Mucus 0 SEEN 03/07/22 23:35: Blood Type B POSITIVE, Antibody Screen NEGATIVE, Crossmatch See Detail 03/08/22 01:05: Iron 20 L, TIBC 283, Iron Saturation 7.1 L, Ferritin 15 03/08/22 01:42: POC Glucose 165 H 03/08/22 01:55: Lactic Acid 2.4 H* 03/08/22 05:00: WBC 9.6, RBC 2.90 L, Hgb 7.4 L, Hct 24.9 L, MCV 85.9, MCH 25.5 L, MCHC 29.7 L, RDW Std Deviation 57.8 H, RDW Coeff of Brianne 18.6 H, Plt Count 401, MPV 9.2, Immature Gran % (Auto) 0.700, Neut % (Auto) 73.4 H, Lymph % (Auto) 17.0 L, [place] % (Auto) 7.6, Eos % (Auto) 0.9, Baso % (Auto) 0.4, Absolute Neuts (auto) 7.1, Absolute Lymphs (auto) 1.63, Nucleated RBC % 0 03/08/22 05:00: Sodium 136, Potassium 5.4 H, Chloride 105, Carbon Dioxide 23.0, Anion Gap 8, BUN 96 H, Creatinine 2.13 H, Estim Creat Clear Calc 19.60, Est GFR (MDRD) Af Amer 30 L, Est GFR (MDRD) Non-Af 25 L, BUN/Creatinine Ratio 45.1 H, Glucose 175 H, Calcium 8.5, Phosphorus 3.7, Magnesium 2.5, Total Bilirubin 0.30, AST 49 H, ALT 33, Alkaline Phosphatase 44 L, Total Protein 7.0, Albumin 3.0 L, Globulin 4.0, Albumin/Globulin Ratio 0.8 L 03/08/22 05:00: Vitamin B12 480 03/08/22 05:00: B-Natriuretic Peptide 3961.3 H 03/08/22 06:59: POC Glucose 127 H 03/08/22 09:50: Hgb 8.9 L, Hct 28.5 L 03/08/22 11:24: POC Glucose 96 03/08/22 17:51: POC Glucose 83 Micro: Microbiology 03/07/22 23:20 Stool Stool Occult Blood (DEWAYNE) - Final 03/07/22 21:15 Nasal Secretion SARS-CoV-2 Antigen (Rapid) - Final Radiology Impression Chest X-Ray 03/07/22 22:05 IMPRESSION: 1. Stable mild cardiomegaly. 2. No acute cardiopulmonary abnormality. Electronically Signed: Darren Doll MD at 22:53 EDT , Charges/Coding Visit Charges Inpatient E&M: 89752 Init Hosp L2
[2022-03-08] MEDS: Polyethylene Glycol 3350 BOWEL PREP PO (20:14)
[2022-03-08] MEDS: Bisacodyl 5 MG Tablet 20 MG PO (20:14)
[2022-03-08] MEDS: Atorvastatin Calcium 40 MG Tablet PO (21:40)
[2022-03-08 22:56] LABS: Bedside Glucose 139 mg/dL (74-106)
[2022-03-08 23:37] LABS: Hematocrit 30.1 % (37-47); Hemoglobin 9.2 g/dL (12.0-15.0)
[2022-03-09] VITALS (14 sets, daily range): BP systolic 99–125; BP diastolic 59–86; PULSE 76–90; RESP 15–16; TEMP 36.2–37; O2SAT 95–100; BMI 27.8
[2022-03-09] MEDS: Acetaminophen 325 MG Tablet 650 MG PO ×3 (00:42→18:51)
[2022-03-09] MEDS: 0.9% Saline Lock 10 ML Syringe IV ×5 (00:47→21:25)
[2022-03-09] MEDS: Furosemide 20 MG/2 ML VIAL IV ×3 (05:26→21:19)
--- NOTE | 2022-03-09 05:55 | EKG12_ITS ---
Test Reason : AM SERIES Blood Pressure : / mmHG Vent. Rate : 089 BPM Atrial Rate : 089 BPM P-R Int : 144 ms QRS Dur : 200 ms QT Int : 468 ms P-R-T Axes : 082 -80 088 degrees QTc Int : 569 ms Atrial-sensed ventricular-paced rhythm Abnormal ECG When compared with ECG of 07-MAR-2022 21:00, Vent. rate has increased BY 2 BPM Confirmed by RUBA FERNANDES, MALISSA ([id number]), market editor LYNN MAYBERRY ([id number]) on 03/10/2022 2:19:44 PM Referred By: FEI Confirmed By:AMANDA YEH MD
[2022-03-09 06:00] LABS: Absolute Lymphocyte Count 1.28 X10^3/uL (0.83-4.51); Absolute Neutrophil Count 7.6 X10^3/uL (2.0-7.7); Basophil# 0.02 X10^3/uL; Basophil% 0.2 % (0-1); Eosinophil# 0.18 X10^3/uL; Eosinophils% 1.8 % (0-5); Hematocrit 28.3 % (37-47); Hemoglobin 8.7 g/dL (12.0-15.0); Lymphocyte # 1.28 X10^3/ul (0.83-4.51); Lymphocyte % 12.8 % (19-41); Mean Corp Hgb Conc 30.7 g/dL (32-36); Mean Corpuscular Hgb 26.4 pg (27.0-32.0); Mean Platelet Vol. 9.4 fl (6.2-12.0); Monocyte# 0.87 X10^3/uL; Monocyte% 8.7 % (0-10); NRBC Flagged by Analyzer 0 % (0-5); Neutrophil % 75.9 % (47-70); Platelet Count 376 K/mm3 (150-450); RBC Distribution Width CV 18.6 % (11.6-14.6); RBC Distribution Width SD 58.4 fl (35.1-43.9); Red Blood Count 3.29 M/mm3 (4.2-5.4)
[2022-03-09 06:35] LABS: Bedside Glucose 126 mg/dL (74-106)
[2022-03-09 06:44] LABS: ALB/GLOB Ratio 0.7 RATIO (0.9-2.4); AST(SGOT) 29 U/L (15-37); Alanine Aminotransfer ALT/SGPT 26 U/L (13-56); Albumin, Serum 2.9 g/dL (3.2-5.0); Alkaline Phosphatase 44 U/L (45-117); Anion Gap 5 (5-15); BUN 71 mg/dL (7-18); BUN/Creat Ratio 37.6 RATIO (10-20); Calcium,Total 8.8 mg/dL (8.5-10.1); Chloride 107 mmol/L (98-107); Creatinine, Serum 1.89 mg/dL (0.55-1.02); EST Glomerular Filtration Rate 28 mL/min (>60); Est Glom Filt Rate - Afr Amer 34 mL/min (>60); Estimated Creatinine Clearance 22.09 ml/min; Glucose 117 mg/dL (74-106); Potassium 4.8 mmol/L (3.5-5.1); Protein, Total 6.9 g/dL (6.4-8.2); Sodium Level 136 mmol/L (136-145)
--- NOTE | 2022-03-09 09:39 | PN.CC_ITS ---
Assessment & Plan Assessment/Plan (1) Acute kidney injury: (2) Acute hyperkalemia: (3) Ischemic cardiomyopathy: (4) Symptomatic anemia: PLAN: Plan RECOMMENDATIONS: 1. Continue to monitor H&H 2. Await results of endoscopies 3. Okay to proceed with iron infusion from a sepsis standpoint 4. Hemodynamically stable on room air. Will sign off from a critical care perspective IMPRESSIONS: 1. Acute on chronic anemia Patient with a hemoglobin of 6.2 and presyncopal episodes. Patient with appropriate incrementation following PRBC. Monitor clinically for GI source of bleeding. Patient to have endoscopies today. Patient may benefit from iron infusion. Okay to proceed from a critical care standpoint. Low clinical suspicion for sepsis 2. Acute kidney injury Clinical suspicion for prerenal etiology. Patient does have elevated potassium at this time, but no EKG changes are noted. Patient's baseline creatinine appears to be approximately 1. Patient will have tenuous volume status given history of systolic CHF. Patient does take an ARB at baseline. Improving. No indication for renal replacement therapy at this time. 3. Chronic systolic CHF/CAD status post stents Patient with a known ejection fraction of 25% with hypotension on presentation. Antihypertensives are currently on hold secondary to borderline blood pressures on presentation. Anticipate patient will have lower systolic pressures given EF. Pacemaker was recently interrogated, so it is likely not necessary to repeat. Could obtain cardiology consult, but defer to hospitalist. 4. Chronic stasis ulcer of the right lower extremity Unable to examine at this time. Wound nurse has been consulted. Hospitalist is not reporting any signs or symptoms of acute infection. If exudate is noted, cultures would be indicated. Patient does not have a significant leukocytosis at this time, but does have a left shift. Some concern patient may have a gastric ulcer secondary to NSAID use related to pain in the extremity. Subjective Subjective Patient did well overnight. Patient reports subjective improvement in overall condition. Patient's family is at the bedside and feels that she is talking better. Patient continues to deny any melena or hematochezia. No epistaxis is been reported. Patient tolerating room air. Patient reportedly is awaiting timing for endoscopy. Objective Data Objective Data Vital Signs: Vital Signs Temp Pulse Resp BP Pulse Ox O2 Del Method O2 Flow Rate 36.6 C 83 16 104/73 99 Room Air 2 03/09/22 08:46 03/09/22 08:46 03/09/22 08:46 03/09/22 08:46 03/09/22 08:46 03/09/22 09:01 03/08/22 07:16 Oxygen Flow Rate (L/min) 2 Oxygen Delivery Method Room Air Weight: 66.7 kg Body Mass Index (BMI) 27.8 Intake & Output: Intake and Output for Last 24 Hours 03/07/22 03/08/22 03/09/22 23:59 23:59 23:59 Intake Total 1000 / 1000 1098 / 1098 110 / 110 Output Total 250 / 250 Balance 1000 / 1000 848 / 848 110 / 110 Lab / Micro Data Attestation: I reviewed the patient's lab results. Result Diagrams: 03/09/22 05:34 03/09/22 05:34 Labs: Laboratory Results - last 24 hr 03/07/22 20:10: Diff Path Review Reviewed 03/08/22 05:00: B-Natriuretic Peptide 3961.3 H 03/08/22 09:50: Hgb 8.9 L, Hct 28.5 L 03/08/22 11:24: POC Glucose 96 03/08/22 17:51: POC Glucose 83 03/08/22 22:25: POC Glucose 139 H 03/08/22 23:30: Hgb 9.2 L, Hct 30.1 L 03/09/22 05:34: WBC 10.0, RBC 3.29 L, Hgb 8.7 L, Hct 28.3 L, MCV 86.0, MCH 26.4 L, MCHC 30.7 L, RDW Std Deviation 58.4 H, RDW Coeff of Brianne 18.6 H, Plt Count 376, MPV 9.4, Immature Gran % (Auto) 0.600, Neut % (Auto) 75.9 H, Lymph % (Auto) 12.8 L, [place] % (Auto) 8.7, Eos % (Auto) 1.8, Baso % (Auto) 0.2, Absolute Neuts (auto) 7.6, Absolute Lymphs (auto) 1.28, Nucleated RBC % 0 03/09/22 05:34: Sodium 136, Potassium 4.8, Chloride 107, Carbon Dioxide 24.0, Anion Gap 5, BUN 71 H, Creatinine 1.89 H, Estim Creat Clear Calc 22.09, Est GFR (MDRD) Af Amer 34 L, Est GFR (MDRD) Non-Af 28 L, BUN/Creatinine Ratio 37.6 H, Glucose 117 H, Calcium 8.8, Total Bilirubin 0.50, AST 29, ALT 26, Alkaline Phosphatase 44 L, Total Protein 6.9, Albumin 2.9 L, Globulin 4.0, Albumin/Globulin Ratio 0.7 L 03/09/22 06:14: POC Glucose 126 H Micro: Microbiology 03/07/22 22:35 Urine, Clean Catch Urine Culture - Final Mixed Gram Pos & Gram Neg Org 03/07/22 23:20 Stool Stool Occult Blood (DEWAYNE) - Final 03/07/22 21:15 Nasal Secretion SARS-CoV-2 Antigen (Rapid) - Final Physical Exam Const alert, oriented x3 and no apparent distress Constitutional Narrative: Up in the chair and conversing appropriately General Appearance: cooperative HEENT normocephalic and head/scalp atraumatic Eyes conjunctivae normal and no scleral icterus Neck no lymphadenopathy and supple General: trachea midline Resp normal respiratory effort, normal air movement, no use of accessory muscles and clear to auscultation bilaterally Cardio regular rate, regular rhythm, S1 normal heart sound, S2 normal heart sound, no rub and no gallops Cardio Narrative: Atrial sensed paced rhythm noted on telemetry Heart Sounds: murmur systolic III/ high-pitched right sternal border GI normal to inspection, nondistended, normoactive bowel sounds, soft to palpation and non-tender Extremity Extremity Narrative: Bilateral lower extremities are dressed. Dressing is clean, dry and intact General Extremity: edema bilateral lower extremity Details: moderate Skin Skin Narrative: No changes Neuro no focal motor deficits and no sensory deficits noted Speech: speech normal Psych thought process normal, cooperative and affect normal Appearance: appropriate Charges/Coding Visit Charges Inpatient E&M: 08408 Subs Hosp L2
[2022-03-09 11:45] LABS: Bedside Glucose 118 mg/dL (74-106)
--- NOTE | 2022-03-09 12:21 | PCM.PN.HOSP ---
Subjective Subjective Follow-up on severe iron deficiency anemia/near syncope: Patient was seen and examined. Waiting on EGD today. No acute events. Objective Data Objective Data Vital Signs: Vital Signs Temp Pulse Resp BP Pulse Ox O2 Del Method O2 Flow Rate 98 F 76 16 104/73 99 Room Air 2 03/09/22 08:46 03/09/22 11:07 03/09/22 08:46 03/09/22 08:46 03/09/22 08:46 03/09/22 09:01 03/08/22 07:16 Oxygen Flow Rate (L/min) 2 Oxygen Delivery Method Room Air Weight: 66.7 kg Body Mass Index (BMI) 27.8 Intake & Output: Intake and Output for Last 24 Hours 03/07/22 03/08/22 03/09/22 23:59 23:59 23:59 Intake Total 1000 / 1000 1098 / 1098 110 / 110 Output Total 250 / 250 Balance 1000 / 1000 848 / 848 110 / 110 Lab / Micro Data Result Diagrams: 03/09/22 05:34 03/09/22 05:34 Labs: Laboratory Results - last 24 hr 03/07/22 20:10: Diff Path Review Reviewed 03/08/22 17:51: POC Glucose 83 03/08/22 22:25: POC Glucose 139 H 03/08/22 23:30: Hgb 9.2 L, Hct 30.1 L 03/09/22 05:34: WBC 10.0, RBC 3.29 L, Hgb 8.7 L, Hct 28.3 L, MCV 86.0, MCH 26.4 L, MCHC 30.7 L, RDW Std Deviation 58.4 H, RDW Coeff of Brianne 18.6 H, Plt Count 376, MPV 9.4, Immature Gran % (Auto) 0.600, Neut % (Auto) 75.9 H, Lymph % (Auto) 12.8 L, [place] % (Auto) 8.7, Eos % (Auto) 1.8, Baso % (Auto) 0.2, Absolute Neuts (auto) 7.6, Absolute Lymphs (auto) 1.28, Nucleated RBC % 0 03/09/22 05:34: Sodium 136, Potassium 4.8, Chloride 107, Carbon Dioxide 24.0, Anion Gap 5, BUN 71 H, Creatinine 1.89 H, Estim Creat Clear Calc 22.09, Est GFR (MDRD) Af Amer 34 L, Est GFR (MDRD) Non-Af 28 L, BUN/Creatinine Ratio 37.6 H, Glucose 117 H, Calcium 8.8, Total Bilirubin 0.50, AST 29, ALT 26, Alkaline Phosphatase 44 L, Total Protein 6.9, Albumin 2.9 L, Globulin 4.0, Albumin/Globulin Ratio 0.7 L 03/09/22 06:14: POC Glucose 126 H 03/09/22 11:22: POC Glucose 118 H Micro: Microbiology 03/07/22 22:35 Urine, Clean Catch Urine Culture - Final Mixed Gram Pos & Gram Neg Org 03/07/22 23:20 Stool Stool Occult Blood (DEWAYNE) - Final 03/07/22 21:15 Nasal Secretion SARS-CoV-2 Antigen (Rapid) - Final Physical Exam Narrative Physical exam: General: Alert, Oriented x3, Cooperative, appears very pale, frail HEENT: Atraumatic Oral: Moist Mucosa Neck: Supple Lungs: Diminished to auscultation Cardiovascular: HS I+II, regular, no murmurs Abdomen: Bowel Sounds Present, Soft, Non Tender Extremities: Bilateral leg edema +2, worse on the right leg, Skin: Kalia wraps to lower extremities Neurological: Grossly intact Psych/Mental Status: Appropriate Assessment & Plan Assessment/Plan (1) Symptomatic anemia: (2) Acute kidney injury: (3) Acidosis, lactic: PLAN: Plan 1. Acute on chronic anemia, iron deficiency, unclear etiology Patient was admitted with hemoglobin of 6.2, status post 2 units of packed RBCs Previous preadmission hemoglobin was 8.9; hemoglobin now is 8.7 Reticulocyte count is elevated, iron sat is 7.1%, ferritin is 15, iron is 22, TIBC is 283 GI consulted, going for EGD Continue on IV PPI BID 2. CHRIS, prerenal/cardiorenal, slowly improving Patient with previous creatinine of 1.0, admitted creatinine of 2.32, creatinine now is 1.89 Home Entresto and Lasix on hold Trend CMP 3. Acute heart failure with reduced EF/ischemic cardiomyopathy, EF 25%/CAD s/p stents/status post pacemaker/Hyperlipidemia Patient appears fluid overloaded, BNP was more than 3000 Home oral Lasix on hold Continue with Lasix IV 20mg Q8h 4. Hyperkalemia, K 5.4, will trend 5. Lactic acidosis likely related to #1, resolving 6. Chronic venous stasis ulcer, worse in the right lower leg, wound RN consulted 7. Type 2 DM, home oral medications on hold, Continue blood glucose checks with insulin sliding scale 8. DVT PPx- SCDs Charges/Coding Visit Charges Inpatient E&M: 60021 [facility] Hosp L3
[2022-03-09 16:31] LABS: Bedside Glucose 101 mg/dL (74-106)
--- NOTE | 2022-03-09 17:00 | EGD_PTH ---
PATIENT: LATOSHA LOYOLA LOC: [facility] U#:[id number] AGE/SX: 66/F ROOM: [facility] RE03/07/[address]: Dr. Bernice Hernandez MD : [id number] BED: 1 DIS: 03/10/2022 SPEC #: [id number] RECD: 03/09/22 18:12 STATUS: MINOR CASTRO #: [id number] ANNA: 03/09/22 17:[address]: Alfonzo Dee DEPT: SURGICAL PATHOLOGY RECD BY: Yoko Cordoba ENTERED: 03/10/22 07:57 SP TYPE: EGD BIOPSY OTHR DR: MD Dr. Michael Crane MD Dr. Joseph Agyepong, MD Dr. Nolan Byler, DO Dr. 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 AM:chavo 03/14/2022 MICROSCOPIC DESCRIPTION Slides are reviewed. GROSS DESCRIPTION Received in fixative is one container labeled with the patient's name and designated duodenal ulcer. The specimen consists of multiple irregular fragments of light haro soft tissue that in aggregate measure 1 x 0.3 x 0.1 cm. The specimen is totally submitted in one cassette. / SJ:chavo 03/10/2022 TC:5 CPT: 27281
--- NOTE | 2022-03-09 17:56 | OP.CCLET_ITS ---
04/14/2022 Gianluca Sol Re : Upper GI endoscopy procedure for Phyllis Yan Dear Sweta This procedure was performed on March. My impressions and recommendations are as follows: Impressions : - Normal esophagus. - Normal stomach. - Multiple oozing duodenal ulcers with a visible vessel. Treated with bipolar cautery. Biopsied. Recommendations : - Return patient to hospital [facility] for ongoing care. - Resume previous diet. - Continue present medications. - Await pathology results. - Repeat upper endoscopy in 3 months for surveillance based on pathology results. My findings are described in the full procedure note, which is enclosed. If I can be of further assistance, please feel free to contact me at . Sincerely, Alfonzo Dee, 03/09/2022 5:55:35 PM This report has been signed electronically.
--- NOTE | 2022-03-09 17:56 | OP.EGD_ITS ---
Patient Name: Phyllis Yan Procedure Date: 03/09/2022 5:22 PM Date of : 1955 Age: 66 Procedure: Upper GI endoscopy Indications: Acute post hemorrhagic anemia Providers: Alfonzo Dee DO Medicines: Monitored Anesthesia Care Patient Profile: This is a 66 year old female. Refer to note in patient chart for documentation of history and physical. Patient has symptoms. Complications: No immediate complications. Procedure: Pre-Anesthesia Assessment: - Prior to the procedure, a History and Physical was performed, and patient medications and allergies were reviewed. The risks and benefits of the procedure and the sedation options and risks were discussed with the patient. All questions were answered and informed consent was obtained. Patient identification and proposed procedure were verified by the physician in the pre-procedure area. Mental Status Examination: alert and oriented. Airway Examination: normal oropharyngeal airway and neck mobility. Respiratory Examination: clear to auscultation. CV Examination: normal. Prophylactic Antibiotics: The patient does not require prophylactic antibiotics. Prior Anticoagulants: The patient has taken no previous anticoagulant or antiplatelet agents. After reviewing the risks and benefits, the patient was deemed in satisfactory condition to undergo the procedure. The anesthesia plan was to use moderate sedation / analgesia (conscious sedation). Immediately prior to administration of medications, the patient was re-assessed for adequacy to receive sedatives. The heart rate, respiratory rate, oxygen saturations, blood pressure, adequacy of pulmonary ventilation, and response to care were monitored throughout the procedure. The physical status of the patient was re-assessed after the procedure. After obtaining informed consent, the endoscope was passed under direct vision. Throughout the procedure, the patient's blood pressure, pulse, and oxygen saturations were monitored continuously. The colonoscope was introduced through the mouth, and advanced to the second part of duodenum. The upper GI endoscopy was accomplished without difficulty. The patient tolerated the procedure well. Scope In: 5:30:15 PM Scope Out: 5:37:02 PM Total Procedure Duration Time 0 hours 6 minutes 47 seconds Findings: The examined esophagus was normal. The entire examined stomach was normal. Five oozing cratered duodenal ulcers with a visible vessel were found in the duodenal bulb and in the first portion of the duodenum. The largest lesion was 6 mm in largest dimension. Coagulation for hemostasis using bipolar probe was successful. Biopsies were taken with a cold forceps for histology. Verification of patient identification for the specimen was done. Estimated blood loss was minimal. Impression: - Normal esophagus. - Normal stomach. - Multiple oozing duodenal ulcers with a visible vessel. Treated with bipolar cautery. Biopsied. Recommendation: - [facility]. - Resume previous diet. - Continue present medications. - Await pathology results. - Repeat upper endoscopy in 3 months for surveillance based on pathology results. Procedure Code(s): --- Professional --- 04801, 59, Esophagogastroduodenoscopy, flexible, transoral; with control of bleeding, any method 82132, 51, Esophagogastroduodenoscopy, flexible, transoral; with biopsy, single or multiple CPT copyright 2017 [employer]. All rights reserved. The codes documented in this report are preliminary and upon real estate listing consultant review may be revised to meet current compliance requirements. Alfonzo Dee DO 03/09/2022 5:55:35 PM This report has been signed electronically. Number of Addenda: 1 Note Initiated On: 03/09/2022 5:22 PM Addendum Number: 1 Addendum Date: 04/14/2022 6:19:50 AM MAC was used as sedation for this procedure. Alfonzo Dee DO 04/14/2022 6:19:54 AM This report has been signed electronically.
--- NOTE | 2022-03-09 17:58 | OP.COLON_ITS ---
Patient Name: Phyllis Yan Procedure Date: 03/09/2022 5:37 PM Date of : 1955 Age: 66 Procedure: Colonoscopy Indications: Iron deficiency anemia Providers: Alfonzo Dee DO Medicines: Monitored Anesthesia Care Patient Profile: This is a 66 year old female. Refer to note in patient chart for documentation of history and physical. Patient has symptoms. Last Colonoscopy: date unknown. Complications: No immediate complications. Procedure: Pre-Anesthesia Assessment: - Prior to the procedure, a History and Physical was performed, and patient medications and allergies were reviewed. The risks and benefits of the procedure and the sedation options and risks were discussed with the patient. All questions were answered and informed consent was obtained. Patient identification and proposed procedure were verified by the physician in the pre-procedure area. Mental Status Examination: alert and oriented. Airway Examination: normal oropharyngeal airway and neck mobility. Respiratory Examination: clear to auscultation. CV Examination: normal. Prophylactic Antibiotics: The patient does not require prophylactic antibiotics. Prior Anticoagulants: The patient has taken no previous anticoagulant or antiplatelet agents. After reviewing the risks and benefits, the patient was deemed in satisfactory condition to undergo the procedure. The anesthesia plan was to use moderate sedation / analgesia (conscious sedation). Immediately prior to administration of medications, the patient was re-assessed for adequacy to receive sedatives. The heart rate, respiratory rate, oxygen saturations, blood pressure, adequacy of pulmonary ventilation, and response to care were monitored throughout the procedure. The physical status of the patient was re-assessed after the procedure. After I obtained informed consent, the scope was passed under direct vision. Throughout the procedure, the patient's blood pressure, pulse, and oxygen saturations were monitored continuously. The colonoscope was introduced through the anus and advanced to the terminal ileum. The colonoscopy was performed without difficulty. The patient tolerated the procedure well. The quality of the bowel preparation was adequate. Scope In: 5:40:07 PM Scope Out: 5:51:42 PM Total Procedure Duration Time 0 hours 11 minutes 35 seconds Findings: The perianal and digital rectal examinations were normal. A few small-mouthed diverticula were found in the sigmoid colon. Semi-liquid semi-solid solid stool was found in the cecum, precluding visualization. Impression: - Diverticulosis in the sigmoid colon. - Stool in the cecum. - No specimens collected. Recommendation: - Written discharge instructions were provided to the patient. - The signs and symptoms of potential delayed complications were discussed with the patient. - Patient has a contact number available for emergencies. - Return to normal activities tomorrow. - Resume previous diet. - Continue present medications. - Repeat colonoscopy in 5 years for surveillance. Procedure Code(s): --- Professional --- 23124, Colonoscopy, flexible; diagnostic, including collection of specimen(s) by brushing or washing, when performed (separate procedure) CPT copyright 2017 [employer]. All rights reserved. The codes documented in this report are preliminary and upon cook jelly review may be revised to meet current compliance requirements. Alfonzo Dee DO 03/09/2022 5:57:37 PM This report has been signed electronically. Number of Addenda: 1 Note Initiated On: 03/09/2022 5:37 PM Addendum Number: 1 Addendum Date: 04/14/2022 6:20:02 AM MAC was used as sedation for this procedure. Alfonzo Dee DO 04/14/2022 6:20:06 AM This report has been signed electronically.
--- NOTE | 2022-03-09 17:58 | OP.CCLET_ITS ---
04/14/2022 Gianluca Sol Re : Colonoscopy procedure for Phyllis Yan Dear Sweta This procedure was performed on March. My impressions and recommendations are as follows: Impressions : - Diverticulosis in the sigmoid colon. - Stool in the cecum. - No specimens collected. Recommendations : - Written discharge instructions were provided to the patient. - The signs and symptoms of potential delayed complications were discussed with the patient. - Patient has a contact number available for emergencies. - Return to normal activities tomorrow. - Resume previous diet. - Continue present medications. - Repeat colonoscopy in 5 years for surveillance. My findings are described in the full procedure note, which is enclosed. If I can be of further assistance, please feel free to contact me at . Sincerely, Alfonzo Friend, 03/09/2022 5:57:37 PM This report has been signed electronically.
[2022-03-09] MEDS: Lactated Ringers 1,000 ML 15 ML IV (18:19)
--- NOTE | 2022-03-09 18:34 | NURSING ---
Post op pacer check completed and [facility] notified.
[2022-03-09 19:06] LABS: Bedside Glucose 111 mg/dL (74-106)
[2022-03-09] MEDS: Sucralfate 1 GM Tablet PO (21:10)
[2022-03-09] MEDS: Atorvastatin Calcium 40 MG Tablet PO (21:10)
[2022-03-10 03:00] VITALS: BP 115/72; PULSE 78; RESP 16; TEMP 36.2; O2SAT 99
[2022-03-10 04:00] VITALS: PULSE 75
[2022-03-10 04:07] LABS: LDL, Direct 120295 76 mg/dL (0-99)
[2022-03-10 06:02] LABS: Absolute Neutrophil Count 3.7 X10^3/uL (2.0-7.7); Basophil# 0.03 X10^3/uL; Basophil% 0.5 % (0-1); Eosinophil# 0.23 X10^3/uL; Eosinophils% 3.8 % (0-5); Hematocrit 29.5 % (37-47); Hemoglobin 8.8 g/dL (12.0-15.0); Lymphocyte % 21.4 % (19-41); Mean Corp Hgb Conc 29.8 g/dL (32-36); Mean Corpuscular Hgb 26.6 pg (27.0-32.0); Mean Corpuscular Volume 89.1 fL (81-99); Mean Platelet Vol. 9.2 fl (6.2-12.0); Monocyte% 13.2 % (0-10); NRBC Flagged by Analyzer 0 % (0-5); Neutrophil # 3.68 X10^3/uL (2.7-7.7); Neutrophil % 60.4 % (47-70); Platelet Count 383 K/mm3 (150-450); RBC Distribution Width CV 18.8 % (11.6-14.6); RBC Distribution Width SD 61.4 fl (35.1-43.9); Red Blood Count 3.31 M/mm3 (4.2-5.4); White Blood Count 6.1 K/mm3 (4.4-11.0)
[2022-03-10 06:42] LABS: ALB/GLOB Ratio 0.7 RATIO (0.9-2.4); AST(SGOT) 20 U/L (15-37); Alanine Aminotransfer ALT/SGPT 27 U/L (13-56); Albumin, Serum 2.8 g/dL (3.2-5.0); Alkaline Phosphatase 45 U/L (45-117); Anion Gap 8 (5-15); BUN 58 mg/dL (7-18); Calcium,Total 8.6 mg/dL (8.5-10.1); Chloride 107 mmol/L (98-107); Creatinine, Serum 1.87 mg/dL (0.55-1.02); EST Glomerular Filtration Rate 29 mL/min (>60); Est Glom Filt Rate - Afr Amer 35 mL/min (>60); Estimated Creatinine Clearance 22.33 ml/min; Glucose 115 mg/dL (74-106); Potassium 4.3 mmol/L (3.5-5.1); Protein, Total 6.8 g/dL (6.4-8.2); Sodium Level 138 mmol/L (136-145)
[2022-03-10] MEDS: Furosemide 20 MG/2 ML VIAL IV (06:46)
[2022-03-10] MEDS: Sucralfate 1 GM Tablet PO ×2 (06:55→10:26)
[2022-03-10] MEDS: 0.9% Saline Lock 10 ML Syringe IV ×2 (06:55→08:08)
[2022-03-10 08:00] VITALS: PULSE 86
[2022-03-10 08:24] VITALS: BP 100/58; PULSE 91; RESP 18; TEMP 36.6; O2SAT 97
[2022-03-10 08:41] LABS: Bedside Glucose 115 mg/dL (74-106)
[2022-03-10 08:41] LABS: Bedside Glucose 147 mg/dL (74-106)
--- NOTE | 2022-03-10 09:56 | CASEMGMT ---
Addendum entered by Kristen Lunsford 03/10/22 13:48: Clinicals faxed to [facility]. Sharee SOSA CM Addendum entered by Kristen Lunsford 03/10/22 11:21: Call to [facility] in [place] to notify of pt discharge, voice understanding. Pt's clinicals, including d/c summary/facesheet, to be faxed once obtained. Sharee SOSA CM Original Note: This RN CM to room to discuss discharge plan with pt/family. Pt/family state plan [facility] and states no further concerns/needs. CM to follow for any further discharge planning/needs. Sharee SOSA CM
[2022-03-10 11:51] LABS: Bedside Glucose 256 mg/dL (74-106)
--- NOTE | 2022-03-10 11:56 | PCM.DC.SUM ---
Providers Date of Admission: 03/07/22 Date of Discharge: 03/10/22 Primary Care Physician: Dr. Gianluca Sol, Consultations 03/08/22 01:17 Consult: Gastroenterology Routine Consulting Provider: Alfonzo Dee Reason for Consult: anemia EMERGENT Consult: No Notified: Yes Date Notified: 03/08/22 Time Notified: 06:24 Method of Notification: Text Method of Consult:: In-Person Consult: Document Review Specialist / Pulmonary Medicine Routine Consulting Provider: Michael Main Reason for Consult: Anemia EMERGENT Consult: No Notified: Yes Date Notified: 03/08/22 Time Notified: 00:14 Method of Notification: Text Consult: Onc/Wound/supervisor production managing Routine Comment: Reason for Consult:: chronic stasis wound Reason For Visit: ANEMIA, CHRIS Diagnosis Discharge Diagnosis (1) Symptomatic anemia: Status: Acute Code(s): D64.9 - Anemia, unspecified (2) Acute kidney injury: Status: Acute Code(s): N17.9 - Acute kidney failure, unspecified (3) Acidosis, lactic: Status: Resolved Code(s): E87.2 - Acidosis Plan 1. Acute on chronic anemia, iron deficiency 2. CHRIS, prerenal/cardiorenal 3. Acute heart failure with reduced EF/ischemic cardiomyopathy, EF 25% 4. CAD s/p stents 5. status post pacemaker 6. Hyperlipidemia 7. Hyperkalemia, resolved 8. Lactic acidosis 9. Chronic venous stasis ulce 10. Type 2 DM Medications at Discharge Home Medications nitroglycerin 0.4 mg sublingual tablet (Nitrostat) 0.4 mg sublingual PRN PRN CHEST PAIN 06/05/18 acetaminophen 500 mg tablet 500 mg PO Q4H PRN PRN Pain #20 TABLETS 06/10/18 glipizide 10 mg tablet 10 mg PO BIDAC blood sugar 07/16/20 atorvastatin 40 mg tablet 40 mg PO QHS CHOLESTEROL #90 tabs 03/29/21 sacubitril 49 mg-valsartan 51 mg tablet (Entresto) 1 tab PO BID this is a dose increase #180 tabs 11/17/21 clopidogrel 75 mg tablet 75 mg PO DAILY blood thinner 03/08/22 furosemide 40 mg tablet 40 mg PO BID water pill 03/08/22 ferrous sulfate 325 mg (65 mg iron) tablet 325 mg PO BID 30 days #60 tabs 03/10/22 metoprolol succinate 25 mg tablet,extended release 24 hr 12.5 mg PO DAILY 30 days #15 tabs 03/10/22 pantoprazole 40 mg tablet,delayed release 40 mg PO BID 30 days #60 tabs 03/10/22 sucralfate 1 gram tablet 1 g PO 4X/DAY 30 days #120 tabs 03/10/22 Hospital Course Operations None Procedures None Summary of Care Provided Minutes Spent on Discharge: 50 Hospital Course: 66-year-old female with past medical history of CAD status post stents/ischemic cardiomyopathy, EF 25%, chronic severe right lower extremity venous stasis ulcers, who comes in with 2 episodes of near syncope at home. Patient stated that she had not been feeling well. She had recently undergone wound debridement of her right lower extremity. In the emergency room, her vitals showed relative hypotension. Her hemoglobin was 6.2, she was transfused 2 units of packed RBCs. She was admitted to the intensive care unit. Document Review Specialist consulted. She had evidence of acute kidney injury. Her baseline creatinine is 1-1.2. She was admitted with creatinine of 2.3. Her Entresto and Lasix were held. GI was also consulted. Patient was also found to have elevated BNP. Lasix will be resumed after transfusion at 20 mg IV every 8h. The wound nurse was consulted and patient had wound dressings done as well as KALIA-wraps to both legs. Patient has underlining peripheral artery disease and does not tolerate elevation of the legs. Patient underwent colonoscopy and EGD on 03/09/2022. EGD showed multiple oozing duodenal ulcers with a visible vessel that was treated with bipolar cautery. This was also biopsied. Colonoscopy on the same day showed diverticulosis in the sigmoid colon with stool in the cecum. Patient had evidence of hypomagnesemia that was replaced. Her renal function improved was not at baseline. At discharge creatinine was 1.87. Patient was discharged on PPI twice daily, Carafate. She was to hold her aspirin and Plavix for 4 more days. She will follow-up with GI in 2 weeks. She was asked to also hold her Entresto until she follows with her primary care doctor and has repeat blood work done within a week. She was however discharged home on Lasix 40 mg p.o. twice daily. Physical Exam Narrative Physical exam: General: Alert, Oriented x3, Cooperative, appears very pale, frail HEENT: Atraumatic Oral: Moist Mucosa Neck: Supple Lungs: Diminished to auscultation Cardiovascular: HS I+II, regular, no murmurs Abdomen: Bowel Sounds Present, Soft, Non Tender Extremities: Bilateral leg edema +2, worse on the right leg, Skin: Kalia wraps to lower extremities Neurological: Grossly intact Psych/Mental Status: Appropriate Weight / BMI Weight Weight: 66.7 kg Body Mass Index (BMI) 27.8 ABG / Lab / Microbiology Data Result Diagrams: 03/10/22 05:39 03/10/22 05:39 Laboratory: Laboratory Results - last 24 hr 03/09/22 16:11: POC Glucose 101 03/09/22 18:43: POC Glucose 111 H 03/10/22 00:49: POC Glucose 147 H 03/10/22 05:39: WBC 6.1, RBC 3.31 L, Hgb 8.8 L, Hct 29.5 L, MCV 89.1, MCH 26.6 L, MCHC 29.8 L, RDW Std Deviation 61.4 H, RDW Coeff of Brianne 18.8 H, Plt Count 383, MPV 9.2, Immature Gran % (Auto) 0.700, Neut % (Auto) 60.4, Lymph % (Auto) 21.4, Wetzel % (Auto) 13.2 H, Eos % (Auto) 3.8, Baso % (Auto) 0.5, Absolute Neuts (auto) 3.7, Absolute Lymphs (auto) 1.30, Nucleated RBC % 0 03/10/22 05:39: Sodium 138, Potassium 4.3, Chloride 107, Carbon Dioxide 23.0, Anion Gap 8, BUN 58 H, Creatinine 1.87 H, Estim Creat Clear Calc 22.33, Est GFR (MDRD) Af Amer 35 L, Est GFR (MDRD) Non-Af 29 L, BUN/Creatinine Ratio 31.0 H, Glucose 115 H, Calcium 8.6, Total Bilirubin 0.40, AST 20, ALT 27, Alkaline Phosphatase 45, Total Protein 6.8, Albumin 2.8 L, Globulin 4.0, Albumin/Globulin Ratio 0.7 L 03/10/22 06:53: POC Glucose 115 H 03/10/22 11:20: POC Glucose 256 H Microbiology: Microbiology 03/07/22 20:10 Blood Culture (Wb) - Anticubital Right Blood Culture - Preliminary No growth in 48 hours. 03/07/22 21:50 Blood Culture (Wb) - Left Hand Blood Culture - Preliminary No growth in 48 hours. 03/07/22 22:35 Urine, Clean Catch Urine Culture - Final Mixed Gram Pos & Gram Neg Org 03/07/22 23:20 Stool Stool Occult Blood (DEWAYNE) - Final 03/07/22 21:15 Nasal Secretion SARS-CoV-2 Antigen (Rapid) - Final D/C Instructions Discharge Diet: Low fat / Low cholesterol, 2000 mg Sodium Diet and Carb Control Diet Meaningful Use Info Meaningful Use Diagnoses (Choose all that apply): None applicable Discharge Plan Admission Admit Date/Time: 03/07/22 23:32 Primary Reason for Your Visit: Acute GI bleed Attending Provider: Bernice Hernandez Primary Care Provider: Gianluca Sol Consulting Providers: Shane Jerome ; Alfonzo Dee ; Michael Main Instructions Additional Instructions / Restrictions: Take note of changes to your medications. Hold off on aspirin and plavix for 4 more days Keep a log of your blood pressures and show them to your PCP at your follow-up Do not resume your entresto until you have seen your primary care doctor in week and have repeat blood work. Follow-up with your primary care doctor within 1 week Follow-up with your disaster recovery analyst in 2 weeks Discharge Orders/Prescriptions Prescriptions: New sucralfate 1 gram Tablet 1 g PO 4X/DAY 30 Days Qty: 120 0RF pantoprazole 40 mg tablet,delayed release (DR/EC) 40 mg PO BID 30 Days Qty: 60 0RF metoprolol succinate 25 mg tablet extended release 24 hr 12.5 mg PO DAILY 30 Days Qty: 15 0RF ferrous sulfate 325 mg (65 mg iron) tablet 325 mg PO BID 30 Days Qty: 60 0RF Continued atorvastatin 40 mg tablet 40 mg PO QHS Qty: 90 3RF nitroglycerin [Nitrostat] 0.4 MG tablet, sublingual 0.4 mg sublingual PRN PRN (Reason: CHEST PAIN) acetaminophen 500 MG tablet 500 mg PO Q4H PRN PRN (Reason: Pain) Qty: 20 0RF glipizide 10 MG tablet 10 mg PO BIDAC furosemide 40 mg tablet 40 mg PO BID clopidogrel 75 mg tablet 75 mg PO DAILY Entresto 49-51 mg tablet 1 tab PO BID Qty: 180 3RF Discontinued metoprolol succinate [Toprol XL] 25 mg tablet extended release 24 hr 25 mg PO DAILY Qty: 90 3RF metformin 1,000 MG tablet 1,000 mg PO BID Qty: 0 0RF Rx Instructions: Start from 11/25/2020 Referrals / Follow Up: Gianluca Sol DO [Primary Care Provider] - 03/21/22 10:00 am FriendAlfonzo DO [Med Staff - Active Staff] - Within 2 Weeks Disposition Disposition (needs filled in before D/C Order can be placed): Home Health Service Charges/Coding Visit Charges Inpatient E&M: 11434 Disch Hosp
[2022-03-10] MEDS: Insulin Lispro 100 UNIT/ML INSULN.PEN SC (11:57)
--- NOTE | 2022-03-10 12:45 | PHA.DC.MC ---
Pharmacy Service has performed discharge medication reconciliation and counseling for this patient. The patient was counseled on the following discharge medications and changes in medications for homegoing were reviewed. 1. PROTONIX 2. CARAFATE 3. FERROUS SULFATE The Reason for Use, instructions for use, and potential side effects were reviewed for all new medications. The patient's questions regarding all of their medications were answered. The patient was able to verbally demonstrate an understanding of their discharge medications. Home Medications nitroglycerin 0.4 mg sublingual tablet (Nitrostat) 0.4 mg sublingual PRN PRN CHEST PAIN 06/05/18 acetaminophen 500 mg tablet 500 mg PO Q4H PRN PRN Pain #20 TABLETS 06/10/18 glipizide 10 mg tablet 10 mg PO BIDAC blood sugar 07/16/20 atorvastatin 40 mg tablet 40 mg PO QHS CHOLESTEROL #90 tabs 03/29/21 sacubitril 49 mg-valsartan 51 mg tablet (Entresto) 1 tab PO BID this is a dose increase #180 tabs 11/17/21 clopidogrel 75 mg tablet 75 mg PO DAILY blood thinner 03/08/22 furosemide 40 mg tablet 40 mg PO BID water pill 03/08/22 ferrous sulfate 325 mg (65 mg iron) tablet 325 mg PO BID 30 days #60 tabs 03/10/22 metoprolol succinate 25 mg tablet,extended release 24 hr 12.5 mg PO DAILY 30 days #15 tabs 03/10/22 pantoprazole 40 mg tablet,delayed release 40 mg PO BID 30 days #60 tabs 03/10/22 sucralfate 1 gram tablet 1 g PO 4X/DAY 30 days #120 tabs 03/10/22 The patient's discharge medication list was reviewed for discrepancies and discrepancies were resolved.
[2022-03-10 13:22] VITALS: BP 98/62; PULSE 85; RESP 18; TEMP 36.7; O2SAT 98
[2022-03-12 14:23] LABS: Haptoglobin 230 mg/dL (37-355)
== END 2022-03-10 13:55 | disposition home health service (06) | DRG 377 ==
LOC: ED 21:50 → ICU 03-08 00:24 → PCU 03-09 06:20
PROVIDERS: Internal Medicine Gastroenterology; Nurse Practitioner Family; Admitting Provider Hospitalist; Emergency Provider Emergency Medicine; PCP Family Medicine; Visit Provider Internal Medicine
PROC: 0DJD8ZZ Inspection of Lower Intestinal Tract, Via Natural or Artificial Opening Endoscopic (ICD-10-PCS; CPT 45378; principal; 2022-03-09 16:55)
DX: K26.0 Acute duodenal ulcer with hemorrhage (principal); I50.21 Acute systolic (congestive) heart failure; N17.9 Acute kidney failure, unspecified; E87.2 Acidosis; L97.919 Non-pressure chronic ulcer of unspecified part of right lower leg with unspecified severity; D62 Acute posthemorrhagic anemia; E11.21 Type 2 diabetes mellitus with diabetic nephropathy; E11.22 Type 2 diabetes mellitus with diabetic chronic kidney disease; D50.9 Iron deficiency anemia, unspecified; I95.9 Hypotension, unspecified; N18.32 Chronic kidney disease, stage 3b; E11.51 Type 2 diabetes mellitus with diabetic peripheral angiopathy without gangrene; E11.59 Type 2 diabetes mellitus with other circulatory complications; E11.65 Type 2 diabetes mellitus with hyperglycemia; E87.5 Hyperkalemia; I08.1 Rheumatic disorders of both mitral and tricuspid valves; I25.5 Ischemic cardiomyopathy; I25.10 Atherosclerotic heart disease of native coronary artery without angina pectoris; I87.2 Venous insufficiency (chronic) (peripheral); E78.5 Hyperlipidemia, unspecified; K57.30 Diverticulosis of large intestine without perforation or abscess without bleeding; E83.42 Hypomagnesemia; K26.4 Chronic or unspecified duodenal ulcer with hemorrhage; Z79.02 Long term (current) use of antithrombotics/antiplatelets; R55 Syncope and collapse; Z95.0 Presence of cardiac pacemaker; Z95.5 Presence of coronary angioplasty implant and graft
CPT/HCPCS: 36415; 71046; 80053; 81001; 82274; 82607; 82728; 82746; 82962; 83010; 83540; 83550; 83605; 83721; 83735; 83880; 84100; 85014; 85018; 85025; 85045; 85610; 85730; 86850; 86900; 86901; 86920; 86922; 87040; 87086; 87088; 87811; 88305; 93005; 97162; 97166; 97530; 97535; 97802; 99284; J7050; J7120; P9016; A4216; J1940; J2405; J2916

== ENCOUNTER 2022-04-14 23:06 | Inpatient (IN) | payer OTHER, SELFPAY ==
[2022-04-14 23:13] VITALS: BP 71/46; PULSE 109; RESP 19; TEMP 37.1; O2SAT 97; BMI 25.3
--- NOTE | 2022-04-14 23:27 | EDS_ITS ---
HPI History of Present Illness Chief Complaint: Weakness Informant: patient Narrative Narrative: Patient complains of generalized weakness that started today. She does mention that she had a fever of about 102.2 before coming in. She is somewhat slow to answer questions but is awake and alert oriented and clear. She is not a good informant for details. It takes quite a bit of questioning to get out any specifics. She does have some mild chest heaviness. It sounds like she is not short of breath. No nausea vomiting but she has had diarrhea this week. She states she had a little bit of blackness of the diarrhea early on but its been normal light brown and watery since. She her appetite has been down also. She has no abdominal pain. She has a longstanding wound on her right leg from diabetes but it has been improving and not worsening. No change in medications. [facility] Medical History Acute hypoxemic respiratory failure (11/21/20) Atherosclerosis of coronary artery without angina pectoris Chronic ulcer of left leg with fat layer exposed Complete heart block Diabetes Eschar of lower leg HFrEF (heart failure with reduced ejection fraction) History of non-ST elevation myocardial infarction (NSTEMI) (11/21/20) Ischemic cardiomyopathy Old anterior wall myocardial infarction (12/21/16) Peripheral vascular occlusive disease ST elevation (STEMI) myocardial infarction involving left anterior descending coronary artery (12/21/16) Symptomatic bradycardia Venous insufficiency of both lower extremities Home Medications nitroglycerin 0.4 mg sublingual tablet (Nitrostat) 0.4 mg sublingual PRN PRN CHEST PAIN 06/05/18 [History Last Taken Unknown] acetaminophen 500 mg tablet 500 mg PO Q4H PRN PRN Pain #20 TABLETS 06/10/18 [Rx Last Taken Unknown] glipizide 10 mg tablet 10 mg PO BIDAC blood sugar 07/16/20 [History Last Taken Unknown] atorvastatin 40 mg tablet 40 mg PO QHS CHOLESTEROL #90 tabs 03/29/21 [Rx Last Taken Unknown] sacubitril 49 mg-valsartan 51 mg tablet (Entresto) 1 tab PO BID this is a dose increase #180 tabs 11/17/21 [Rx Last Taken Unknown] clopidogrel 75 mg tablet 75 mg PO DAILY blood thinner 03/08/22 [History Last Taken Unknown] furosemide 40 mg tablet 40 mg PO BID water pill 03/08/22 [History Last Taken Unknown] ferrous sulfate 325 mg (65 mg iron) tablet 325 mg PO BID Check with primary doctor 04/15/22 [History Last Taken Unknown] metoprolol succinate 25 mg tablet,extended release 24 hr 12.5 mg PO DAILY Check with primary doctor 04/15/22 [History Last Taken Unknown] pantoprazole 40 mg tablet,delayed release 40 mg PO BID Check with primary doctor 04/15/22 [History Last Taken Unknown] sucralfate 1 gram tablet 1 g PO 4X/DAY Check with primary doctor 04/15/22 [History Last Taken Unknown] Allergy/AdvReac Type Severity Reaction Status Date / Time No Known Allergies Allergy Verified 04/12/22 14:10 Family History Other Brain aneurysm CVA (cerebral vascular accident) Diabetes Surgical History History of angioplasty of peripheral vessel (07/26/21) History of cardiac catheterization History of coronary artery stent placement (11/22/20) History of permanent cardiac pacemaker placement (05/15/18) Social History Smoking Status: Never smoker alcohol intake: never substance use type: does not use caffeine: Yes Type: coffee Number of servings: 1 ROS ROS ED Constitutional Constitutional ED: Reports chills and fever(s) Eyes Eyes: Denies change in vision ENT ENT ED: Denies rhinorrhea Cardiovascular Cardiovascular: Reports chest pain Respiratory/Chest Respiratory/Chest: Denies cough or dyspnea Gastrointestinal Gastrointestinal: Reports diarrhea; Denies abdominal pain, nausea or vomiting Genitourinary Genitourinary ED: Denies dysuria or hematuria Musculoskeletal Musculoskeletal: Denies myalgias Integumentary Reports other Details: Chronic wound right leg but improving slowly Neurologic Neurologic: Denies headache(s) Endocrine Endocrinology: Denies polydipsia or polyuria Hematologic/Lymphatic Hematologic/Lymphatic: Reports easy bleeding and easy bruising Allergic/Immunologic Allergic/Immunologic ED: Denies urticaria EXAM Physical Exam Const Vital Signs: 04/14/22 23:13 04/14/22 23:13 10/07/22 23:21 Temperature 98.8 F Temperature Source Temporal Pulse Rate 109 H Respiratory Rate 19 H Respiratory Effort Normal Normal Respiratory Pattern Normal Blood Pressure 71/46 L Blood Pressure Mean 54 Pulse Ox 97 Oxygen Delivery Method Room Air 04/15/22 00:19 04/15/22 01:00 04/15/22 01:07 Temperature 98.8 F 98 F Temperature Source Oral Oral Pulse Rate 116 H 115 H 115 H Respiratory Rate 24 H 23 H 18 Respiratory Effort Respiratory Pattern Blood Pressure 89/65 L 86/63 L 86/53 L Blood Pressure Mean 73 70 64 Pulse Ox 100 99 98 Oxygen Delivery Method Room Air Room Air Room Air 04/15/22 01:30 Temperature 98 F Temperature Source Oral Pulse Rate 115 H Respiratory Rate 20 H Respiratory Effort Respiratory Pattern Blood Pressure 88/64 L Blood Pressure Mean 72 Pulse Ox 97 Oxygen Delivery Method Room Air Positive well nourished and well developed Constitutional Narrative: Mild pallor. General Appearance ED: well developed and pallor; Negative for cyanotic or diaphoretic HEENT Reports dry mucous membranes Mouth ED: Yes dry mucous membranes Mouth: dry mucous membranes Eyes General Eye ED: Negative for scleral icterus Neck no JVD Resp normal respiratory effort and clear to auscultation bilaterally Cardio regular rhythm and no murmurs Rate: tachycardic GI normal to inspection, nondistended, normoactive bowel sounds, non-tender and non-distended Back/Spine no CVA tenderness Extremity Extremity Narrative: No notable edema. There are dressings on the right lower extremity. These were not taken down acutely. Neuro oriented x3 Neuro Narrative: Patient is slow to answer all questions and answers very quietly. However she is ANO x3. Psych mental status grossly normal Skin no rashes or lesions noted General Skin Exam: pallor; Negative for jaundice MDM MDM MDM Narrative Medical decision making narrative: Patient's blood work shows a slight elevation of her white count. We do not have a fever here. We did take down the dressings on the right lower extremity. The areas open were all moist and draining. The family states this is markedly improved but that looks potentially if infected. White count is up. Hemoglobin is low but she is this is common for her. She states she had a little bit of black stool earlier in the week but none since and she has never seen red blood. I looked over her prior charts and she did have some duodenal ulcers that likely had been oozing. Electrolytes show significant acute kidney injury with a creatinine of 6.67 when her baseline is closer to 1?2. Lactate is elevated at 4.3. Troponin is high at 940. Urine shows some bacteria and cloudy but no white cells nitrites or significant amount of leukocyte esterases. BNP is elevated. She has chronic poor ejection fraction of about 25% on a recent echo. Patient's blood pressure is better now at 90/67. She feels a little bit more energetic. With her low blood pressure, acute kidney injury and history of heart failure she will have to come in the hospital. She has gotten a liter of fluid here. It seems like she likely got a liter by the ambulance. With the other IV fluids that are dripping she has gotten 30 cc/kg. Her blood pressure is better. I do not think she needs pressors at this point. She has significant signs of dehydration and I think repeat fluids will help. She is not having any difficulty with saturations. Her elevated troponin may be due to global poor perfusion from hypotension Lab Data Attestation: I reviewed the patient's lab results. Labs: Laboratory Results - last 24 hr 04/14/22 04/14/22 04/14/22 23:40 23:40 23:40 WBC 12.8 H RBC 3.02 L Hgb 8.0 L Hct 26.8 L MCV 88.7 MCH 26.5 L MCHC 29.9 L RDW Std Deviation 57.4 H RDW Coeff of Brianne 17.5 H Plt Count 392 MPV 9.3 Immature Gran % (Auto) 0.800 Neut % (Auto) 92.0 H Lymph % (Auto) 3.3 L [place] % (Auto) 3.8 Eos % (Auto) 0.0 Baso % (Auto) 0.1 Absolute Neuts (auto) 11.8 H Absolute Lymphs (auto) 0.42 L Nucleated RBC % 0 Differential Comment SCANNED Hypochromasia 1+ Sodium 134 L Potassium 5.0 Chloride 102 Carbon Dioxide 13.0 L Anion Gap 19 H BUN 94 H Creatinine 6.67 H Estim Creat Clear Calc 7.47 Est GFR (MDRD) Af Amer 8 L Est GFR (MDRD) Non-Af 7 L BUN/Creatinine Ratio 14.1 Glucose 271 H Lactic Acid 4.3 H* Calcium 8.1 L Total Bilirubin 0.40 AST 56 H ALT 46 Alkaline Phosphatase 90 Troponin I High Sens 940 H* B-Natriuretic Peptide Total Protein 7.2 Albumin 3.0 L Globulin 4.2 Albumin/Globulin Ratio 0.7 L Urine Color Urine Clarity Urine pH Ur Specific [place] Urine Protein Urine Glucose (UA) Urine Ketones Urine Occult Blood Urine Nitrite Urine Bilirubin Urine Urobilinogen Ur Leukocyte Esterase Urine RBC Urine WBC Ur Squamous Epith Cells Urine Bacteria Urine Mucus 04/14/22 04/15/22 23:40 00:40 WBC RBC Hgb Hct MCV MCH MCHC RDW Std Deviation RDW Coeff of Brianne Plt Count MPV Immature Gran % (Auto) Neut % (Auto) Lymph % (Auto) [place] % (Auto) Eos % (Auto) Baso % (Auto) Absolute Neuts (auto) Absolute Lymphs (auto) Nucleated RBC % Differential Comment Hypochromasia Sodium Potassium Chloride Carbon Dioxide Anion Gap BUN Creatinine Estim Creat Clear Calc Est GFR (MDRD) Af Amer Est GFR (MDRD) Non-Af BUN/Creatinine Ratio Glucose Lactic Acid Calcium Total Bilirubin AST ALT Alkaline Phosphatase Troponin I High Sens B-Natriuretic Peptide > 5000.0 H Total Protein Albumin Globulin Albumin/Globulin Ratio Urine Color Yellow Urine Clarity Sl. Cloudy Urine pH 5.0 Ur Specific [place] 1.015 Urine Protein 30 H Urine Glucose (UA) 50 H Urine Ketones Negative Urine Occult Blood 150 H Urine Nitrite Negative Urine Bilirubin Negative Urine Urobilinogen Normal Ur Leukocyte Esterase 25 H Urine RBC 0-5 SEEN Urine WBC 0-5 SEEN Ur Squamous Epith Cells 0 SEEN Urine Bacteria 3+ Urine Mucus 0 SEEN Radiography Diagnostic Testing: Clinical Impression(s) from Imaging Studies Chest X-Ray 04/15/22 00:21 IMPRESSION: No evidence of active intrathoracic disease. Electronically Signed: Janette Leung MD at 0:49 EDT , Single view chest x-ray looked by me and read by radiology shows no acute process. EKG Initial EKG: Comments: EKG done for history of heart disease and chest pain read by me shows atrial sensed ventricularly paced rhythm from the pacer in the left upper chest. No indication of ST elevation other than that which would be found with the pacer. This is similar to prior EKGs from 09 March of this year Critical Care Time Critical Care Time: Yes Critical care time (excluding procedures): 30-74 minutes, Discussing w/Patient &/or Family/Teacher Of The Emotionally Disturbed, Discussing w/Consultants, Arranging Admission or Transfer, Performing Direct Patient Care at Bedside and - (50 minutes, repeat evaluation, reviewing records, arranging admission, treatment orders charting) Discharge Plan Dx/Rx/DC Orders Clinical Impression: Acute kidney injury, Hypotension, Severe dehydration, Leg wound, right, Anemia, Non-ST elevation CA (NSTEMI) Disposition Disposition: Acute Care Hospital [facility]
[2022-04-14] MEDS: 0.9% Normal Saline 1,000 ML 1000 ML IV (23:37)
[2022-04-14 23:56] LABS: Absolute Lymphocyte Count 0.42 X10^3/uL (0.83-4.51); Absolute Neutrophil Count 11.8 X10^3/uL (2.0-7.7); Basophil# 0.01 X10^3/uL; Basophil% 0.1 % (0-1); Hematocrit 26.8 % (37-47); Lymphocyte # 0.42 X10^3/ul (0.83-4.51); Lymphocyte % 3.3 % (19-41); Mean Corp Hgb Conc 29.9 g/dL (32-36); Mean Corpuscular Hgb 26.5 pg (27.0-32.0); Mean Corpuscular Volume 88.7 fL (81-99); Mean Platelet Vol. 9.3 fl (6.2-12.0); Monocyte# 0.49 X10^3/uL; Monocyte% 3.8 % (0-10); NRBC Flagged by Analyzer 0 % (0-5); Neutrophil # 11.77 X10^3/uL (2.7-7.7); POSITIVE DIFFERENTIAL YES; Platelet Count 392 K/mm3 (150-450); RBC Distribution Width CV 17.5 % (11.6-14.6); RBC Distribution Width SD 57.4 fl (35.1-43.9); Red Blood Count 3.02 M/mm3 (4.2-5.4); White Blood Count 12.8 K/mm3 (4.4-11.0)
[2022-04-14 23:59] LABS: Differential Indicated SCAN CRITERIA MET
[2022-04-15] VITALS (34 sets, daily range): BP systolic 72–102; BP diastolic 51–77; PULSE 103–117; RESP 11–24; TEMP 36.4–37.2; O2SAT 93–100; BMI 28.8
--- NOTE | 2022-04-15 00:21 | RAD_ITS ---
STUDY: X-RAY CHEST REASON FOR EXAM: Female, 66 years old. CP TECHNIQUE: AP portable. 12:19 AM. COMPARISON: 03/07/2022. FINDINGS: LINES/DEVICES: Pacemaker leads unchanged. LUNGS: No consolidation. No pneumothorax. MEDIASTINUM: Aorta atherosclerotic. CARDIAC SILHOUETTE: Not enlarged. BONES AND SOFT TISSUES: No acute abnormalities. RAD/Chest 1 View (Portable) IMPRESSION: No evidence of active intrathoracic disease. Electronically Signed: Janette Leung MD at 0:49 EDT ,
[2022-04-15 00:23] LABS: ALB/GLOB Ratio 0.7 RATIO (0.9-2.4); AST(SGOT) 56 U/L (15-37); Alanine Aminotransfer ALT/SGPT 46 U/L (13-56); Alkaline Phosphatase 90 U/L (45-117); Anion Gap 19 (5-15); BUN 94 mg/dL (7-18); BUN/Creat Ratio 14.1 RATIO (10-20); Calcium,Total 8.1 mg/dL (8.5-10.1); Chloride 102 mmol/L (98-107); Creatinine, Serum 6.67 mg/dL (0.55-1.02); EST Glomerular Filtration Rate 7 mL/min (>60); Est Glom Filt Rate - Afr Amer 8 mL/min (>60); Estimated Creatinine Clearance 7.47 ml/min; Globulin 4.2 g/dL (2.2-4.2); Glucose 271 mg/dL (74-106); Lactic Acid 4.3 mmol/L (0.4-1.9); Protein, Total 7.2 g/dL (6.4-8.2); Sodium Level 134 mmol/L (136-145); Troponin-I HS 940 pg/mL (3.0-54.0)
[2022-04-15 00:44] LABS: Mucous, Urine 0 SEEN /hpf (<or=2+); Squamous Epithelial Cells - UA 0 SEEN /hpf (5-10)
[2022-04-15 00:45] LABS: BNP,B-Type NATRIURETIC PEPTIDE > 5000.0 pg/mL (0-100)
[2022-04-15 00:49] LABS: Color, Urine Yellow (Yellow); Glucose, Dipstick 50 mg/dl (Normal); Ketone-Dipstick Negative (Negative); Leukocyte Esterase-Dipstick 25 /ul (Negative); Nitrite-Dipstick Negative (Negative); Occult Blood-Urine 150 /ul (Negative); Protein-Dipstick 30 mg/dl (Negative); Specific Gravity, Urine 1.015 (1.002-1.030); Urine Bilirubin Dipstick Negative (Negative); Urine Clarity Sl. Cloudy (Clear); Urine Urobilinogen Normal (Normal)
[2022-04-15 00:51] LABS: Differential Comment SCANNED
[2022-04-15 00:52] LABS: Hypochromasia 1+
[2022-04-15 00:56] LABS: Bacteria 3+ /hpf (None Seen); Red Blood Cells-Urine 0-5 SEEN /hpf (0-5); White Blood Cells 0-5 SEEN /hpf (0-5)
--- NOTE | 2022-04-15 01:39 | ED.RN ---
Pt reports pain from diabetic ulcer on R lower leg. Leg from knee down is affected. Weeping serous fluid with area of necrotic tissue. Dr. London notified. Dressed temporarily with 4x4 gauze, adaptic, and cling gauze. Will dress accordingly before admission after assessment by Dr. Jerome.
--- NOTE | 2022-04-15 02:08 | ED.RN ---
Fluid resuscitation documentation d/c by Dr. London due to pt cardiac hx. No more fluids ordered.
--- NOTE | 2022-04-15 02:15 | PCM.HP.STD ---
HPI - General General Date of Admission: 04/15/22 Date of Service: 04/15/22 Chief Complaint: Malaise HPI Narrative LATOSHA LOYOLA, is a 66 F with a significant history of ischemic cardiomyopathy; CAD s/p stent; PAD with chronic right posterior leg wound; diabetes mellitus; and hypertension who presents to the emergency department with 1 week history of persistent malaise. Associated with her symptom is diarrhea with loose stools. 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 Reportedly her stool has malodorous smell to it. Also she reports weakness. Reportedly her temperature on the day of presentation was 102 Fahrenheit at home. She reports chills. She reports anorexia. She reports increased frequency of urination. Family report that the chronic wound of right leg has improved. [facility] Medical History Acute hypoxemic respiratory failure (11/21/20) Atherosclerosis of coronary artery without angina pectoris Chronic ulcer of left leg with fat layer exposed Complete heart block Diabetes Eschar of lower leg HFrEF (heart failure with reduced ejection fraction) History of non-ST elevation myocardial infarction (NSTEMI) (11/21/20) Ischemic cardiomyopathy Old anterior wall myocardial infarction (12/21/16) Peripheral vascular occlusive disease ST elevation (STEMI) myocardial infarction involving left anterior descending coronary artery (12/21/16) Symptomatic bradycardia Venous insufficiency of both lower extremities Home Medications nitroglycerin 0.4 mg sublingual tablet (Nitrostat) 0.4 mg sublingual PRN PRN CHEST PAIN 06/05/18 [History Last Taken Unknown] acetaminophen 500 mg tablet 500 mg PO Q4H PRN PRN Pain #20 TABLETS 06/10/18 [Rx Last Taken Unknown] glipizide 10 mg tablet 10 mg PO BIDAC blood sugar 07/16/20 [History Last Taken Unknown] atorvastatin 40 mg tablet 40 mg PO QHS CHOLESTEROL #90 tabs 03/29/21 [Rx Last Taken Unknown] sacubitril 49 mg-valsartan 51 mg tablet (Entresto) 1 tab PO BID this is a dose increase #180 tabs 11/17/21 [Rx Last Taken Unknown] clopidogrel 75 mg tablet 75 mg PO DAILY blood thinner 03/08/22 [History Last Taken Unknown] furosemide 40 mg tablet 40 mg PO BID water pill 03/08/22 [History Last Taken Unknown] ferrous sulfate 325 mg (65 mg iron) tablet 325 mg PO BID Check with primary doctor 04/15/22 [History Last Taken Unknown] metoprolol succinate 25 mg tablet,extended release 24 hr 12.5 mg PO DAILY Check with primary doctor 04/15/22 [History Last Taken Unknown] pantoprazole 40 mg tablet,delayed release 40 mg PO BID Check with primary doctor 04/15/22 [History Last Taken Unknown] sucralfate 1 gram tablet 1 g PO 4X/DAY Check with primary doctor 04/15/22 [History Last Taken Unknown] Allergy/AdvReac Type Severity Reaction Status Date / Time No Known Allergies Allergy Verified 04/12/22 14:10 Family History Other Brain aneurysm CVA (cerebral vascular accident) Diabetes Surgical History History of angioplasty of peripheral vessel (07/26/21) History of cardiac catheterization History of coronary artery stent placement (11/22/20) History of permanent cardiac pacemaker placement (05/15/18) Social History Smoking Status: Never smoker alcohol intake: never substance use type: does not use caffeine: Yes Type: coffee Number of servings: 1 ROS ROS Narrative Pertinent positives and pertinent negatives as noted in HPI. All other systems were reviewed and are negative Vital Signs Vital Signs Vital Signs: 04/14/22 23:13 04/14/22 23:13 04/14/22 23:21 Temperature 98.8 F Temperature Source Temporal Pulse Rate 109 H Respiratory Rate 19 H Respiratory Effort Normal Normal Respiratory Pattern Normal Blood Pressure 71/46 L Blood Pressure Mean 54 Pulse Ox 97 Oxygen Delivery Method Room Air 04/15/22 00:19 04/15/22 01:00 04/15/22 01:07 Temperature 98.8 F 98 F Temperature Source Oral Oral Pulse Rate 116 H 115 H 115 H Respiratory Rate 24 H 23 H 18 Respiratory Effort Respiratory Pattern Blood Pressure 89/65 L 86/63 L 86/53 L Blood Pressure Mean 73 70 64 Pulse Ox 100 99 98 Oxygen Delivery Method Room Air Room Air Room Air 04/15/22 01:30 04/15/22 02:00 Temperature 98 F 97.6 F L Temperature Source Oral Temporal Pulse Rate 115 H 113 H Respiratory Rate 20 H 24 H Respiratory Effort Respiratory Pattern Blood Pressure 88/64 L 83/63 L Blood Pressure Mean 72 69 Pulse Ox 97 95 Oxygen Delivery Method Room Air Room Air Weight Weight: 69 kg Body Mass Index (BMI) 25.3 Physical Exam Narrative Physical exam: General: Sickly looking middle-aged female. Head: Normocephalic, atraumatic, no tenderness Eyes: Vision is grossly intact. EOMI ENT, no trauma, moist mucous membranes, no rhinorrhea Neck: Nontender, full range of motion CVS: Murmur 4 out of 6. Tachycardia. S1-S2 present. No murmur, gallop or rub. Respiratory : clear to auscultation bilaterally, chest wall nontender, no wheezing Abdomen: Soft, nontender, nondistended, normal bowel sounds, no masses : Deferred Back: Nontender, no CVA tenderness. Extremities: Bilateral leg edema. Left leg wound. Skin: Pallor, left leg wound. Neuro: Lethargic, oriented, cranial nerves II through XII grossly intact. Psychiatry: Appears depressed. Results Lab / Micro Data Result Diagrams: 04/14/22 23:40 04/14/22 23:40 Labs: Laboratory Results - last 24 hr 04/14/22 23:40: WBC 12.8 H, RBC 3.02 L, Hgb 8.0 L, Hct 26.8 L, MCV 88.7, MCH 26.5 L, MCHC 29.9 L, RDW Std Deviation 57.4 H, RDW Coeff of Brianne 17.5 H, Plt Count 392, MPV 9.3, Immature Gran % (Auto) 0.800, Neut % (Auto) 92.0 H, Lymph % (Auto) 3.3 L, Dickson % (Auto) 3.8, Eos % (Auto) 0.0, Baso % (Auto) 0.1, Absolute Neuts (auto) 11.8 H, Absolute Lymphs (auto) 0.42 L, Nucleated RBC % 0, Differential Comment SCANNED, Hypochromasia 1+ 04/14/22 23:40: Sodium 134 L, Potassium 5.0, Chloride 102, Carbon Dioxide 13.0 L, Anion Gap 19 H, BUN 94 H, Creatinine 6.67 H, Estim Creat Clear Calc 7.47, Est GFR (MDRD) Af Amer 8 L, Est GFR (MDRD) Non-Af 7 L, BUN/Creatinine Ratio 14.1, Glucose 271 H, Calcium 8.1 L, Total Bilirubin 0.40, AST 56 H, ALT 46, Alkaline Phosphatase 90, Troponin I High Sens 940 H*, Total Protein 7.2, Albumin 3.0 L, Globulin 4.2, Albumin/Globulin Ratio 0.7 L 04/14/22 23:40: Lactic Acid 4.3 H* 04/14/22 23:40: B-Natriuretic Peptide > 5000.0 H 04/15/22 00:40: Urine Color Yellow, Urine Clarity Sl. Cloudy, Urine pH 5.0, Ur Specific [place] 1.015, Urine Protein 30 H, Urine Glucose (UA) 50 H, Urine Ketones Negative, Urine Occult Blood 150 H, Urine Nitrite Negative, Urine Bilirubin Negative, Urine Urobilinogen Normal, Ur Leukocyte Esterase 25 H, Urine RBC 0-5 SEEN, Urine WBC 0-5 SEEN, Ur Squamous Epith Cells 0 SEEN, Urine Bacteria 3+, Urine Mucus 0 SEEN Micro: Microbiology 04/14/22 23:49 Nasal Secretion SARS-CoV-2 & FLU Antigen (Rapid) - Final Radiology Impression Chest X-Ray 04/15/22 00:21 IMPRESSION: No evidence of active intrathoracic disease. Electronically Signed: Janette Leung MD at 0:49 EDT Reading Location ID and State: [address] [place] [address] Tel , Service support , Assessment & Plan Assessment/Plan (1) Acute kidney injury: (2) Septic shock: (3) Severe dehydration: (4) Hypotension: (5) Leg wound, right: (6) Acute on chronic anemia: PLAN: Plan Sepsis secondary to colitis and right leg infection. The patient presented with sepsis due to (colitis/right leg infection) with acute sepsis related organ dysfunction as evidenced by (hypotension with systolic blood pressure less than 90; and lactic acidosis with lactic acid of 4.3. With lactic acidosis of more than 4 patient is seen septic shock. Received normal saline 30 mL/kg bolus. SIRS criteria: Heart rate more than 90 WBC more than 12,000 Received Zosyn at the emergency department. With severe CHRIS plan is to avoid nephrotoxic's. Cefepime ordered. Trend lactic acid. Enteric and panel and C. difficile ordered. Urinalysis is not impressive. Urine culture and blood culture ordered at the emergency department; follow. Admit intensive care unit. 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 Elevated troponin Patient troponin on presentation was 940. Patient complaining of some discomfort in her chest. EKG showed paced rhythm Unable to determine whether NSTEMI or demand ischemia at this time. Trend troponin. Continue home Plavix. Cardiology consult. CHRIS on chronic kidney disease stage IIIb/anion gap metabolic acidosis. CKD Likely from Diabetic nephropathy Baseline creatinine of 1-1.3 Creatinine on admission was 6.67. BUN over creatinine is 14.1. Received normal saline bolus in the emergency department. Gentle IV hydration. Hold home diuretics. Hold home Entresto. Ultrasound of urinary bladder and kidneys ordered. Acute on chronic anemia/peptic ulcer disease Hemoglobin on presentation was 8.0. EGD on 03/09/2022 showed multiple oozing duodenal ulcer with visible vessel. Treated with bipolar cautery and biopsied. Home Protonix and sucralfate continued. Check occult stools. Trend H&H and CBC. P.o. iron tablets continued. Heart failure with preserved ejection fraction/valvular disease Stable Echocardiogram on 02/13/2022 showed left ventricular ejection fraction of 25%. Mild eccentric mitral valve insufficiency; mild tricuspid valve insufficiency. Pulmonary artery systolic pressure 21 BNP on presentation was more than 5000. Her BNP on 03/08/2022 was 3,961.3. Chest x-ray was visualized and independently interpreted. I agree with radiologist interpretation of no evidence of acute intrathoracic disease. Guideline directed medical therapy held secondary to hypotension Diabetes mellitus Patient with hyperglycemia on presentation Hold home glipizide. Monitor Accu-Cheks Correction scale insulin ordered. Cardiac and diabetic diet ordered. Chronic right leg wound Adaptic dressing ordered. Wound care consult. DVT prophylaxis: SCDs if patient can tolerate. Charges/Coding Visit Charges Inpatient E&M: 60489 Init Hosp L3
--- NOTE | 2022-04-15 02:44 | US_ITS ---
STUDY: RENAL ULTRASOUND - COMPLETE REASON FOR EXAM: Female, 66 years old. CHRIS TECHNIQUE: Ultrasound evaluation of the kidneys was performed with real-time and static sam-scale imaging. COMPARISON: CT abdomen and pelvis 09/16/2018. FINDINGS: RIGHT KIDNEY: Length: 11.7 cm Parenchyma: Large staghorn calculus with shadowing. Hydronephrosis: None. Small amount of perinephric fluid. LEFT KIDNEY: Length: 13.1 cm Parenchyma: Unremarkable. Hydronephrosis: None. BLADDER: Moderately distended. Bladder wall 183 mL. Bilateral ureteral jets visualized. Other: Small amount of free fluid in the right upper abdomen. US/Kidney and Bladder IMPRESSION: Large staghorn calculus in the right kidney. No hydronephrosis. Small amount of perinephric fluid on the right, and small amount of right upper quadrant ascites. Cannot exclude superimposed right renal infection/pyelonephritis. No hydronephrosis on the left. Electronically Signed: Janette Leung MD at 5:29 EDT ,
[2022-04-15 03:49] LABS: Reflex Lactate? Y
[2022-04-15] MEDS: 0.9% Normal Saline 1,000 ML 50 ML IV (03:55)
[2022-04-15] MEDS: 0.9% Saline Lock 10 ML Syringe IV ×3 (03:59→21:35)
[2022-04-15 04:07] LABS: Troponin-I HS 1337 pg/mL (3.0-54.0)
[2022-04-15 04:51] LABS: Lactic Acid 3.7 mmol/L (0.4-1.9)
--- NOTE | 2022-04-15 06:11 | EX.PCM.CONCC ---
Assessment & Plan Assessment/Plan (1) Sepsis: PLAN: Plan RECOMMENDATIONS: 1. Continue empiric antimicrobials. 2. Wound care consultation. 3. Continue to hold home diuretics. 4. Cautious use of fluids given underlying ischemic cardiomyopathy. 5. Encourage incentive spirometer use while in bed and mobilize patient as tolerated. IMPRESSIONS: 1. Sepsis The patient presented to the hospital with sepsis due to possible lower extremity wound infection versus urinary tract source of infection with acute sepsis related organ dysfunction as evidenced by lactic acidemia and acute kidney injury. The patient did receive supplemental IV fluid hydration. At the present time, she is hemodynamically stable. There has been no need for vasopressor support. Plan to continue empiric broad-spectrum antimicrobials and monitor the patient clinically. 2. Troponin elevation Most likely secondary to demand ischemia in the setting of #1. Cardiology consultation is pending. 3. Acute on chronic kidney disease Most likely prerenal in etiology. A cardiorenal etiology is also a possibility in light of her significantly depressed ejection fraction. It is reasonable to continue to hold her home diuretics for now. Continue to monitor urine output and trend creatinine. 4. History of anemia/duodenal ulcers/chronic lower extremity wounds/diabetes mellitus Complicates care, management, recovery and prognosis. Continue home medications as indicated, with the exception of diuretics. Wound care consultation is pending. This note was generated with [employer] dictation software. It may contain incorrect words, spelling, and punctuation that were not noted in checking the note before signing. HPI Consult Data Date of Consult: 04/16/22 HPI Narrative Reason for Consultation: Septic shock HPI Narrative: The patient is a 66-year-old female, with a history as outlined below, who presented to the emergency department on April 15 with diarrhea and malaise. The patient has a known history of coronary artery disease and congestive heart failure. The patient also underwent an upper endoscopy on April 14 which revealed multiple oozing duodenal ulcers with a visible vessel which was treated with cautery and biopsy. Lower endoscopic evaluation revealed diverticulosis. The patient currently denies any abdominal pain, nausea or vomiting. She denies any urinary symptoms including hematuria, dysuria or increased urinary frequency. On presentation to the emergency department, the patient was noted to be afebrile but was hypotensive, tachycardic and tachypneic. Initial laboratory evaluation revealed a white blood cell count of 13,000. Chemistry profile was notable for a bicarbonate of 13 and creatinine of 6.67. Lactate was elevated at 4.3. Troponin was increased at 940 with a BNP of greater than 5000. Urine analysis revealed 3+ urine bacteria with leukocyte esterase and negative nitrites. Initial plain film chest x-ray demonstrated no acute cardiopulmonary process. Renal ultrasound revealed a large staghorn calculus in the right kidney without any hydronephrosis. The patient received supplemental IV fluid hydration along with antimicrobials. She was subsequently admitted to the medical intensive care unit for further management. [facility] Medical History Acute hypoxemic respiratory failure (11/21/20) Atherosclerosis of coronary artery without angina pectoris Chronic ulcer of left leg with fat layer exposed Complete heart block Diabetes Eschar of lower leg HFrEF (heart failure with reduced ejection fraction) History of non-ST elevation myocardial infarction (NSTEMI) (11/21/20) Ischemic cardiomyopathy Old anterior wall myocardial infarction (12/21/16) Peripheral vascular occlusive disease ST elevation (STEMI) myocardial infarction involving left anterior descending coronary artery (12/21/16) Symptomatic bradycardia Venous insufficiency of both lower extremities Home Medications nitroglycerin 0.4 mg sublingual tablet (Nitrostat) 0.4 mg sublingual PRN PRN CHEST PAIN 06/05/18 [History Last Taken Unknown] acetaminophen 500 mg tablet 500 mg PO Q4H PRN PRN Pain #20 TABLETS 06/10/18 [Rx Last Taken Unknown] glipizide 10 mg tablet 10 mg PO BIDAC blood sugar 07/16/20 [History Last Taken Unknown] atorvastatin 40 mg tablet 40 mg PO QHS CHOLESTEROL #90 tabs 03/29/21 [Rx Last Taken Unknown] sacubitril 49 mg-valsartan 51 mg tablet (Entresto) 1 tab PO BID this is a dose increase #180 tabs 11/17/21 [Rx Last Taken Unknown] clopidogrel 75 mg tablet 75 mg PO DAILY blood thinner 03/08/22 [History Last Taken Unknown] furosemide 40 mg tablet 40 mg PO BID water pill 03/08/22 [History Last Taken Unknown] ferrous sulfate 325 mg (65 mg iron) tablet 325 mg PO BID Check with primary doctor 04/15/22 [History Last Taken Unknown] metoprolol succinate 25 mg tablet,extended release 24 hr 12.5 mg PO DAILY Check with primary doctor 04/15/22 [History Last Taken Unknown] pantoprazole 40 mg tablet,delayed release 40 mg PO BID Check with primary doctor 04/15/22 [History Last Taken Unknown] sucralfate 1 gram tablet 1 g PO 4X/DAY Check with primary doctor 04/15/22 [History Last Taken Unknown] Allergy/AdvReac Type Severity Reaction Status Date / Time No Known Allergies Allergy Verified 04/12/22 14:10 Family History Other Brain aneurysm CVA (cerebral vascular accident) Diabetes Surgical History History of angioplasty of peripheral vessel (07/26/21) History of cardiac catheterization History of coronary artery stent placement (11/22/20) History of permanent cardiac pacemaker placement (05/15/18) Social History Smoking Status: Never smoker alcohol intake: never substance use type: does not use caffeine: Yes Type: coffee Number of servings: 1 ROS ROS Narrative 10 systems were reviewed with pertinent positives as noted in the HPI above. Physical Exam Const alert, oriented x3 and no apparent distress General Appearance: cooperative HEENT normocephalic and head/scalp atraumatic Eyes PERRL, EOMs intact bilaterally and conjunctivae normal Neck supple General: trachea midline Chest inspection of chest normal Resp normal respiratory effort Auscultation: Negative for rales, rhonchi or wheezes Cardio regular rate, S1 normal heart sound and S2 normal heart sound Heart Sounds: murmur GI normal to inspection, nondistended, normoactive bowel sounds Extremity no clubbing, cyanosis or edema Skin Skin Narrative: Wound present on right lower extremity, currently wrapped. Superficial wound to left lower extremity. Neuro CN's II-XII intact bilaterally and no focal motor deficits Psych Mood & Affect: flat affect Lab / Micro Data Result Diagrams: 04/15/22 18:12 04/15/22 06:35 Labs: Laboratory Results - last 24 hr 04/14/22 23:40: WBC 12.8 H, RBC 3.02 L, Hgb 8.0 L, Hct 26.8 L, MCV 88.7, MCH 26.5 L, MCHC 29.9 L, RDW Std Deviation 57.4 H, RDW Coeff of Brianne 17.5 H, Plt Count 392, MPV 9.3, Immature Gran % (Auto) 0.800, Neut % (Auto) 92.0 H, Lymph % (Auto) 3.3 L, Gem % (Auto) 3.8, Eos % (Auto) 0.0, Baso % (Auto) 0.1, Absolute Neuts (auto) 11.8 H, Absolute Lymphs (auto) 0.42 L, Nucleated RBC % 0, Differential Comment SCANNED, Hypochromasia 1+ 04/14/22 23:40: Sodium 134 L, Potassium 5.0, Chloride 102, Carbon Dioxide 13.0 L, Anion Gap 19 H, BUN 94 H, Creatinine 6.67 H, Estim Creat Clear Calc 7.47, Est GFR (MDRD) Af Amer 8 L, Est GFR (MDRD) Non-Af 7 L, BUN/Creatinine Ratio 14.1, Glucose 271 H, Calcium 8.1 L, Total Bilirubin 0.40, AST 56 H, ALT 46, Alkaline Phosphatase 90, Troponin I High Sens 940 H*, Total Protein 7.2, Albumin 3.0 L, Globulin 4.2, Albumin/Globulin Ratio 0.7 L 04/14/22 23:40: Lactic Acid 4.3 H* 04/14/22 23:40: B-Natriuretic Peptide > 5000.0 H 04/15/22 00:40: Urine Color Yellow, Urine Clarity Sl. Cloudy, Urine pH 5.0, Ur Specific [place] 1.015, Urine Protein 30 H, Urine Glucose (UA) 50 H, Urine Ketones Negative, Urine Occult Blood 150 H, Urine Nitrite Negative, Urine Bilirubin Negative, Urine Urobilinogen Normal, Ur Leukocyte Esterase 25 H, Urine RBC 0-5 SEEN, Urine WBC 0-5 SEEN, Ur Squamous Epith Cells 0 SEEN, Urine Bacteria 3+, Urine Mucus 0 SEEN 04/15/22 03:40: Troponin I High Sens 1337 H* 04/15/22 03:59: Lactic Acid 3.7 H* Micro: Microbiology 04/14/22 23:49 Nasal Secretion SARS-CoV-2 & FLU Antigen (Rapid) - Final Radiology Impression Chest X-Ray 04/15/22 00:21 IMPRESSION: No evidence of active intrathoracic disease. Electronically Signed: Janette Leung MD at 0:49 EDT , Renal Ultrasound 04/15/22 02:44 IMPRESSION: Large staghorn calculus in the right kidney. No hydronephrosis. Small amount of perinephric fluid on the right, and small amount of right upper quadrant ascites. Cannot exclude superimposed right renal infection/pyelonephritis. No hydronephrosis on the left. Electronically Signed: Janette Leung MD at 5:29 EDT , Charges/Coding Visit Charges Inpatient E&M: 05479 Init Hosp L3
[2022-04-15] MEDS: Sucralfate 1 GM Tablet PO ×4 (06:39→21:37)
[2022-04-15 06:54] LABS: Absolute Lymphocyte Count 0.72 X10^3/uL (0.83-4.51); Absolute Neutrophil Count 9.6 X10^3/uL (2.0-7.7); Basophil# 0.01 X10^3/uL; Basophil% 0.1 % (0-1); Hematocrit 24.6 % (37-47); Hemoglobin 7.5 g/dL (12.0-15.0); Lymphocyte # 0.72 X10^3/ul (0.83-4.51); Lymphocyte % 6.6 % (19-41); Mean Corp Hgb Conc 30.5 g/dL (32-36); Mean Corpuscular Volume 88.5 fL (81-99); Mean Platelet Vol. 9.3 fl (6.2-12.0); Monocyte# 0.58 X10^3/uL; Monocyte% 5.3 % (0-10); NRBC Flagged by Analyzer 0 % (0-5); Neutrophil % 87.3 % (47-70); Platelet Count 375 K/mm3 (150-450); RBC Distribution Width CV 17.6 % (11.6-14.6); RBC Distribution Width SD 57.3 fl (35.1-43.9); Red Blood Count 2.78 M/mm3 (4.2-5.4)
[2022-04-15 07:16] LABS: ALB/GLOB Ratio 0.7 RATIO (0.9-2.4); AST(SGOT) 71 U/L (15-37); Alanine Aminotransfer ALT/SGPT 62 U/L (13-56); Albumin, Serum 2.7 g/dL (3.2-5.0); Alkaline Phosphatase 93 U/L (45-117); Anion Gap 17 (5-15); BUN 92 mg/dL (7-18); BUN/Creat Ratio 14.1 RATIO (10-20); Calcium,Total 7.7 mg/dL (8.5-10.1); Chloride 106 mmol/L (98-107); Creatinine, Serum 6.51 mg/dL (0.55-1.02); EST Glomerular Filtration Rate 7 mL/min (>60); Est Glom Filt Rate - Afr Amer 8 mL/min (>60); Estimated Creatinine Clearance 6.41 ml/min; Globulin 3.8 g/dL (2.2-4.2); Glucose 247 mg/dL (74-106); Potassium 5.4 mmol/L (3.5-5.1); Protein, Total 6.5 g/dL (6.4-8.2); Sodium Level 136 mmol/L (136-145); Troponin-I HS 1840 pg/mL (3.0-54.0)
--- NOTE | 2022-04-15 07:17 | SEPSISATNOTE ---
Sepsis Attestation Sepsis Attestation: Agree w/Sepsis Possible Source of Sepsis: Genitourinary and Wound Sepsis Organ Dysfunction Criteria Present: Creatinine > 2.0 mg/dL and Lactic Acid > 2 mmol/L Fluid Resuscitation Fluid resuscitation indicated?: Yes Fluid Resuscitation ordered: 30 ml/kg fluid bolus ordered Sepsis Note Date exam was performed: 04/15/22 Time exam was performed: 07:18 Sepsis Attestation: Sepsis re-evaluation was performed Response to fluids: Fluid responsive hypotension
[2022-04-15] MEDS: Insulin Lispro 100 UNIT/ML INSULN.PEN SC ×4 (07:28→21:37)
[2022-04-15 07:45] LABS: Bedside Glucose 227 mg/dL (74-106)
[2022-04-15] MEDS: Acetaminophen 500 MG Tablet PO ×2 (08:39→21:35)
[2022-04-15] MEDS: Ferrous Sulfate 325 MG Tablet PO (08:40)
[2022-04-15] MEDS: Pantoprazole Sodium 40 MG Tablet PO ×2 (08:40→21:37)
[2022-04-15] MEDS: Cefepime 1 GM in 0.9% NS 50 ML Minibag Q12 IV (09:21)
--- NOTE | 2022-04-15 09:47 | CON.PCM.CA_ITS ---
Assessment & Plan Assessment/Plan (1) Non-ST elevation [place] (NSTEMI): PLAN: Likely type II troponin elevation. History of coronary artery disease with previous percutaneous interventions at [place]. Monitor carefully. Not a candidate for invasive work-up at present because of acute renal failure and significant anemia. (2) Sepsis: PLAN: As per critical care. (3) Acute kidney injury: PLAN: As per critical care. Consider nephrology consult. (4) HFrEF (heart failure with reduced ejection fraction): PLAN: Chronic systolic congestive heart failure. Patient was on sacubitril at home. Agree with holding that in view of acute renal failure. (5) History of permanent cardiac pacemaker placement: PLAN: Presently sinus tachycardia. A sensed, V paced. Tachycardia most likely secondary to underlying sepsis/dehydration/acute renal failure. Monitor. (6) Anemia: PLAN: As per critical care/internal medicine. If hemoglobin continues to drop, then may need to discontinue clopidogrel. HPI Consult Data Date of Consult: 04/15/22 HPI Narrative Reason for Consultation: Elevated troponin HPI Narrative: LATOSHA LOYOLA, is a 66 F who presented to the emergency room with complaints of malaise that had been going on for about a week. In the emergency room, she was noted to have acute renal failure and admitted with a diagnosis of sepsis/SIRS. The source is being thought of as either urosepsis or wound infection. In the course of her work-up, troponins were also drawn. These were noted to be elevated. Subsequently we have been asked for evaluation and management. Patient has history of coronary artery disease with previous percutaneous interventions at [facility]. Presently she denies any chest pains or shortness of breath. Denies any palpitations. She also has history of sick sinus syndrome and has a permanent pacemaker implanted. There is also history of mild aortic valve stenosis and chronic systolic congestive heart failure with ejection fraction estimated at 25% on her echocardiogram done this year. [facility] Medical History Acute hypoxemic respiratory failure (11/21/20) Atherosclerosis of coronary artery without angina pectoris Chronic ulcer of left leg with fat layer exposed Complete heart block Diabetes Eschar of lower leg HFrEF (heart failure with reduced ejection fraction) History of non-ST elevation myocardial infarction (NSTEMI) (11/21/20) Ischemic cardiomyopathy Old anterior wall myocardial infarction (12/21/16) Peripheral vascular occlusive disease ST elevation (STEMI) myocardial infarction involving left anterior descending coronary artery (12/21/16) Symptomatic bradycardia Venous insufficiency of both lower extremities Home Medications nitroglycerin 0.4 mg sublingual tablet (Nitrostat) 0.4 mg sublingual PRN PRN CHEST PAIN 06/05/18 [History Last Taken Unknown] acetaminophen 500 mg tablet 500 mg PO Q4H PRN PRN Pain #20 TABLETS 06/10/18 [Rx Last Taken Unknown] glipizide 10 mg tablet 10 mg PO BIDAC blood sugar 07/16/20 [History Last Taken Unknown] atorvastatin 40 mg tablet 40 mg PO QHS CHOLESTEROL #90 tabs 03/29/21 [Rx Last Taken Unknown] sacubitril 49 mg-valsartan 51 mg tablet (Entresto) 1 tab PO BID this is a dose increase #180 tabs 11/17/21 [Rx Last Taken Unknown] clopidogrel 75 mg tablet 75 mg PO DAILY blood thinner 03/08/22 [History Last Taken Unknown] furosemide 40 mg tablet 40 mg PO BID water pill 03/08/22 [History Last Taken Unknown] ferrous sulfate 325 mg (65 mg iron) tablet 325 mg PO BID Check with primary doctor 04/15/22 [History Last Taken Unknown] metoprolol succinate 25 mg tablet,extended release 24 hr 12.5 mg PO DAILY Check with primary doctor 04/15/22 [History Last Taken Unknown] pantoprazole 40 mg tablet,delayed release 40 mg PO BID Check with primary doctor 04/15/22 [History Last Taken Unknown] sucralfate 1 gram tablet 1 g PO 4X/DAY Check with primary doctor 04/15/22 [History Last Taken Unknown] Allergy/AdvReac Type Severity Reaction Status Date / Time No Known Allergies Allergy Verified 04/12/22 14:10 Family History Other Brain aneurysm CVA (cerebral vascular accident) Diabetes Surgical History History of angioplasty of peripheral vessel (07/26/21) History of cardiac catheterization History of coronary artery stent placement (11/22/20) History of permanent cardiac pacemaker placement (11/07/18) Social History Smoking Status: Never smoker alcohol intake: never substance use type: does not use caffeine: Yes Type: coffee Number of servings: 1 Physical Exam Narrative Sitting up in the chair. Comfortable. No apparent distress. Heart sounds 1 and 2 are noted. There is a 3/6 systolic murmur at apex and base. Chest is clear to auscultation bilaterally. Abdomen is soft bowel sounds are positive. Risk Stratification Risk Stratification Applicable: No Objective Data Vital Signs: Vital Signs Temp Pulse Resp BP Pulse Ox O2 Del Method 98.5 F 110 H 18 94/71 100 Room Air 04/15/22 09:00 04/15/22 09:00 04/15/22 09:00 04/15/22 09:00 04/15/22 09:00 04/15/22 09:00 Oxygen Delivery Method Room Air Weight: 152 lb 8.958 oz Body Mass Index (BMI) 28.8 Intake & Output: Intake and Output for Last 24 Hours 04/13/22 04/14/22 04/15/22 23:59 23:59 23:59 Intake Total 1100 / 1100 Output Total 200 / 200 Balance 900 / 900 Lab / Micro Data Attestation: I reviewed the patient's lab results. Result Diagrams: 04/15/22 06:35 04/15/22 06:35 Labs: Laboratory Results - last 24 hr 04/14/22 23:40: WBC 12.8 H, RBC 3.02 L, Hgb 8.0 L, Hct 26.8 L, MCV 88.7, MCH 26.5 L, MCHC 29.9 L, RDW Std Deviation 57.4 H, RDW Coeff of Brianne 17.5 H, Plt Count 392, MPV 9.3, Immature Gran % (Auto) 0.800, Neut % (Auto) 92.0 H, Lymph % (Auto) 3.3 L, [place] % (Auto) 3.8, Eos % (Auto) 0.0, Baso % (Auto) 0.1, Absolute Neuts (auto) 11.8 H, Absolute Lymphs (auto) 0.42 L, Nucleated RBC % 0, Differential Comment SCANNED, Hypochromasia 1+ 04/14/22 23:40: Sodium 134 L, Potassium 5.0, Chloride 102, Carbon Dioxide 13.0 L , Anion Gap 19 H, BUN 94 H, Creatinine 6.67 H, Estim Creat Clear Calc 7.47, Est GFR (MDRD) Af Amer 8 L, Est GFR (MDRD) Non-Af 7 L, BUN/Creatinine Ratio 14.1, Glucose 271 H, Calcium 8.1 L, Total Bilirubin 0.40, AST 56 H, ALT 46, Alkaline Phosphatase 90, Troponin I High Sens 940 H*, Total Protein 7.2, Albumin 3.0 L, Globulin 4.2, Albumin/Globulin Ratio 0.7 L 04/14/22 23:40: Lactic Acid 4.3 H* 04/14/22 23:40: B-Natriuretic Peptide > 5000.0 H 04/15/22 00:40: Urine Color Yellow, Urine Clarity Sl. Cloudy, Urine pH 5.0, Ur Specific [place] 1.015, Urine Protein 30 H, Urine Glucose (UA) 50 H, Urine Ketones Negative, Urine Occult Blood 150 H, Urine Nitrite Negative, Urine Bilirubin Negative, Urine Urobilinogen Normal, Ur Leukocyte Esterase 25 H, Urine RBC 0-5 SEEN, Urine WBC 0-5 SEEN, Ur Squamous Epith Cells 0 SEEN, Urine Bacteria 3+, Urine Mucus 0 SEEN 04/15/22 03:40: Troponin I High Sens 1337 H* 04/15/22 03:59: Lactic Acid 3.7 H* 04/15/22 06:35: WBC 11.0, RBC 2.78 L, Hgb 7.5 L, Hct 24.6 L, MCV 88.5, MCH 27.0, MCHC 30.5 L, RDW Std Deviation 57.3 H, RDW Coeff of Brianne 17.6 H, Plt Count 375, MPV 9.3, Immature Gran % (Auto) 0.700, Neut % (Auto) 87.3 H, Lymph % (Auto) 6.6 L, [place] % (Auto) 5.3, Eos % (Auto) 0.0, Baso % (Auto) 0.1, Absolute Neuts (auto) 9.6 H, Absolute Lymphs (auto) 0.72 L, Nucleated RBC % 0 04/15/22 06:35: Sodium 136, Potassium 5.4 H, Chloride 106, Carbon Dioxide 13.0 L , Anion Gap 17 H, BUN 92 H, Creatinine 6.51 H, Estim Creat Clear Calc 6.41, Est GFR (MDRD) Af Amer 8 L, Est GFR (MDRD) Non-Af 7 L, BUN/Creatinine Ratio 14.1, Glucose 247 H, Calcium 7.7 L, Total Bilirubin 0.30, AST 71 H, ALT 62 H, Alkaline Phosphatase 93, Troponin I High Sens 1840 H*, Total Protein 6.5, Albumin 2.7 L, Globulin 3.8, Albumin/Globulin Ratio 0.7 L 04/15/22 07:26: POC Glucose 227 H Micro: Microbiology 04/14/22 23:49 Nasal Secretion SARS-CoV-2 & FLU Antigen (Rapid) - Final Rhythm Strip Rhythm Strip: Sinus Tach (Sinus tachycardia. A sensed, V paced rhythm) Cardiology Labs/Tests 04/14/22 23:40: WBC 12.8 H, RBC 3.02 L, Hgb 8.0 L, Hct 26.8 L, MCV 88.7, MCH 26.5 L, MCHC 29.9 L, Plt Count 392, MPV 9.3, Immature Gran % (Auto) 0.800, Neut % (Auto) 92.0 H, Lymph % (Auto) 3.3 L, [place] % (Auto) 3.8, Eos % (Auto) 0.0, Baso % (Auto) 0.1, Absolute Neuts (auto) 11.8 H, Nucleated RBC % 0 04/14/22 23:40: Sodium 134 L, Potassium 5.0, Chloride 102, Carbon Dioxide 13.0 L , Anion Gap 19 H, BUN 94 H, Creatinine 6.67 H, Est GFR (MDRD) Af Amer 8 L, Est GFR (MDRD) Non-Af 7 L, BUN/Creatinine Ratio 14.1, Glucose 271 H, Calcium 8.1 L, Total Bilirubin 0.40 04/14/22 23:40: Lactic Acid 4.3 H* 04/14/22 23:40: B-Natriuretic Peptide > 5000.0 H 04/15/22 00:40: Urine Color Yellow, Urine Clarity Sl. Cloudy, Urine pH 5.0, Ur Specific [place] 1.015, Urine Protein 30 H, Urine Glucose (UA) 50 H, Urine Ketones Negative, Urine Occult Blood 150 H, Urine Nitrite Negative, Urine Bilirubin Negative, Urine Urobilinogen Normal, Ur Leukocyte Esterase 25 H, Urine RBC 0-5 SEEN, Urine WBC 0-5 SEEN 04/15/22 03:59: Lactic Acid 3.7 H* 04/15/22 06:35: WBC 11.0, RBC 2.78 L, Hgb 7.5 L, Hct 24.6 L, MCV 88.5, MCH 27.0, MCHC 30.5 L, Plt Count 375, MPV 9.3, Immature Gran % (Auto) 0.700, Neut % (Auto) 87.3 H, Lymph % (Auto) 6.6 L, [place] % (Auto) 5.3, Eos % (Auto) 0.0, Baso % (Auto) 0.1, Absolute Neuts (auto) 9.6 H, Nucleated RBC % 0 04/15/22 06:35: Sodium 136, Potassium 5.4 H, Chloride 106, Carbon Dioxide 13.0 L , Anion Gap 17 H, BUN 92 H, Creatinine 6.51 H, Est GFR (MDRD) Af Amer 8 L, Est GFR (MDRD) Non-Af 7 L, BUN/Creatinine Ratio 14.1, Glucose 247 H, Calcium 7.7 L, Total Bilirubin 0.30 Rhythm: EKG: EMS EKG shows a sensed and electronic V paced rhythm. Sinus tachycardia. ECHO: Stress Test: Cardiac Cath: PCI: CT Surgery: Holter monitor: EPS: PPM: CXR: Chest CT Scan: Radiography Diagnostic Testing: Radiology Impression Chest X-Ray 04/15/22 00:21 IMPRESSION: No evidence of active intrathoracic disease. Electronically Signed: Janette Leung MD at 0:49 EDT , Renal Ultrasound 04/15/22 02:44 IMPRESSION: Large staghorn calculus in the right kidney. No hydronephrosis. Small amount of perinephric fluid on the right, and small amount of right upper quadrant ascites. Cannot exclude superimposed right renal infection/pyelonephritis. No hydronephrosis on the left. Electronically Signed: Janette Leung MD at 5:29 EDT ,
--- NOTE | 2022-04-15 10:51 | PN.HOSP_ITS ---
Subjective Subjective Follow-up for sepsis. Patient is admitted in ICU. Patient blood pressure is low. Her baseline is 110s to 120s. Currently in low 80s to 90s. Did not require vasopressor yet. No fever documented. Patient has chronic ulcer on the right lower leg and had superficial erosions in the left leg which has healed. Follows in wound center, [facility] Objective Data Objective Data Vital Signs: Vital Signs Temp Pulse Resp BP Pulse Ox O2 Del Method 97.9 F 104 H 15 90/65 97 Room Air 04/15/22 03:30 04/15/22 06:00 04/15/22 06:00 04/15/22 06:00 04/15/22 06:00 04/15/22 06:00 Oxygen Delivery Method Room Air Weight: 152 lb 8.958 oz Body Mass Index (BMI) 28.8 Intake & Output: Intake and Output for Last 24 Hours 04/13/22 04/14/22 04/15/22 23:59 23:59 23:59 Intake Total 1100 / 1100 Balance 1100 / 1100 Lab / Micro Data Result Diagrams: 04/15/22 06:35 04/15/22 06:35 Labs: Laboratory Results - last 24 hr 04/14/22 23:40: WBC 12.8 H, RBC 3.02 L, Hgb 8.0 L, Hct 26.8 L, MCV 88.7, MCH 26.5 L, MCHC 29.9 L, RDW Std Deviation 57.4 H, RDW Coeff of Brianne 17.5 H, Plt Count 392, MPV 9.3, Immature Gran % (Auto) 0.800, Neut % (Auto) 92.0 H, Lymph % (Auto) 3.3 L, Levy % (Auto) 3.8, Eos % (Auto) 0.0, Baso % (Auto) 0.1, Absolute Neuts (auto) 11.8 H, Absolute Lymphs (auto) 0.42 L, Nucleated RBC % 0, Differential Comment SCANNED, Hypochromasia 1+ 04/14/22 23:40: Sodium 134 L, Potassium 5.0, Chloride 102, Carbon Dioxide 13.0 L , Anion Gap 19 H, BUN 94 H, Creatinine 6.67 H, Estim Creat Clear Calc 7.47, Est GFR (MDRD) Af Amer 8 L, Est GFR (MDRD) Non-Af 7 L, BUN/Creatinine Ratio 14.1, Glucose 271 H, Calcium 8.1 L, Total Bilirubin 0.40, AST 56 H, ALT 46, Alkaline Phosphatase 90, Troponin I High Sens 940 H*, Total Protein 7.2, Albumin 3.0 L, Globulin 4.2, Albumin/Globulin Ratio 0.7 L 04/14/22 23:40: Lactic Acid 4.3 H* 04/14/22 23:40: B-Natriuretic Peptide > 5000.0 H 04/15/22 00:40: Urine Color Yellow, Urine Clarity Sl. Cloudy, Urine pH 5.0, Ur Specific [place] 1.015, Urine Protein 30 H, Urine Glucose (UA) 50 H, Urine Ketones Negative, Urine Occult Blood 150 H, Urine Nitrite Negative, Urine Bilirubin Negative, Urine Urobilinogen Normal, Ur Leukocyte Esterase 25 H, Urine RBC 0-5 SEEN, Urine WBC 0-5 SEEN, Ur Squamous Epith Cells 0 SEEN, Urine Bacteria 3+, Urine Mucus 0 SEEN 04/15/22 03:40: Troponin I High Sens 1337 H* 04/15/22 03:59: Lactic Acid 3.7 H* 04/15/22 06:35: WBC 11.0, RBC 2.78 L, Hgb 7.5 L, Hct 24.6 L, MCV 88.5, MCH 27.0, MCHC 30.5 L, RDW Std Deviation 57.3 H, RDW Coeff of Brianne 17.6 H, Plt Count 375, MPV 9.3, Immature Gran % (Auto) 0.700, Neut % (Auto) 87.3 H, Lymph % (Auto) 6.6 L, Levy % (Auto) 5.3, Eos % (Auto) 0.0, Baso % (Auto) 0.1, Absolute Neuts (auto) 9.6 H, Absolute Lymphs (auto) 0.72 L, Nucleated RBC % 0 04/15/22 06:35: Sodium 136, Potassium 5.4 H, Chloride 106, Carbon Dioxide 13.0 L , Anion Gap 17 H, BUN 92 H, Creatinine 6.51 H, Estim Creat Clear Calc 6.41, Est GFR (MDRD) Af Amer 8 L, Est GFR (MDRD) Non-Af 7 L, BUN/Creatinine Ratio 14.1, Glucose 247 H, Calcium 7.7 L, Total Bilirubin 0.30, AST 71 H, ALT 62 H, Alkaline Phosphatase 93, Troponin I High Sens 1840 H*, Total Protein 6.5, Albumin 2.7 L, Globulin 3.8, Albumin/Globulin Ratio 0.7 L Micro: Microbiology 04/14/22 23:49 Nasal Secretion SARS-CoV-2 & FLU Antigen (Rapid) - Final Radiography Diagnostic Testing: Radiology Impression Chest X-Ray 04/15/22 00:21 IMPRESSION: No evidence of active intrathoracic disease. Electronically Signed: Janette Leung MD at 0:49 EDT , Renal Ultrasound 04/15/22 02:44 IMPRESSION: Large staghorn calculus in the right kidney. No hydronephrosis. Small amount of perinephric fluid on the right, and small amount of right upper quadrant ascites. Cannot exclude superimposed right renal infection/pyelonephritis. No hydronephrosis on the left. Electronically Signed: Janette Leung MD at 5:29 EDT , Physical Exam Narrative Physical exam General: Alert, Oriented x3, Cooperative HEENT: Atraumatic, PERRLA, EOMI, Normocephalic Oral: No Gingival or Mucosal Lesions/ Ulcerations Neck: Supple, No JVD, Negative Carotid Bruits Lungs: Air entry diminished in bilateral lung bases. No crepitation/rhonchi Cardiovascular: Paced rhythm, PVCs, Normal S1, Normal S2, systolic murmur over LLSB and cardiac apex with radiation to left axilla and interscapular space. Abdomen: Bowel Sounds Present, Soft, Non Tender, Non-Distended : No renal angle tenderness. No suprapubic tenderness. Extremities: No edema, Capillary Refill Less than 3 Seconds Skin: Ulcer over lower right leg. Dressing intact. Had been changed 4 times since admission. Healed scar of superficial left leg ulcer. Musculoskeletal: No Tenderness to Palpation of Joints or Extremities. ROM intact Neurological: Cranial nerves II-XII grossly intact, DTR 2+/4 and Symmetrical, muscle strength 4/5 at major joints Psych/Mental Status: Flat affect. Assessment & Plan Assessment/Plan (1) Acute kidney injury: (2) Hypotension: (3) Acute on chronic anemia: (4) Sepsis: PLAN: Plan This 66-year-old female was admitted with diarrhea and malaise after recent EGD and colonoscopy on April 14 and found to be hypotension, tachycardia and tachypnea in ED. 1. Sepsis due to possible right LE wound infection versus UTI with acute sepsis related organ dysfunction as evidenced by hypotension, SBP less than 90 mmHg, CHRIS, lactic acidosis: Patient is being admitted in ICU. Patient diarrhea has resolved. Did not require vasopressor yet. Urine output 200 mL since in ICU. Monitor BP, urine output closely. Rapid SARS-CoV-2 and flu antigen are negative. on broad-spectrum empiric IV antibiotic. 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 Cultures are pending. 2. Non-STEMI likely type II demand ischemia troponin elevation: Patient has history of coronary artery disease and PCI at [place]. Follows Dr. Dickinson/Byron in cardiology clinic. She had anterior STEMI with stenting LAD in 2016 in [facility]. Had permanent pacemaker in April 2018 for symptomatic bra dycardia. After that she had JOLLY to LAD in September 2020 and circumflex artery in November 2020. 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 3. Acute on chronic anemia most likely iron deficiency anemia:Patient hemoglo bin dropped to 7.5 g. Patient had recent EGD and colonoscopy on 03/09/2020 found multiple oozing duodenal ulcer with visible vessel which was controlled with bipolar cautery. Colonoscopy showed diverticulosis. Continue PPI twice daily. On Carafate. IV iron ordered. Patient had last stent more than a year ago as mentioned above therefore Plavix discontinued. 4. Acute kidney injury on baseline CKD stage IIIb with anion gap metabolic acidosis: Monitor intake and output. Patient admitted with creatinine 6.67. CHRIS probably prerenal/hypotension. Entresto and other nephrotoxic medications on hold. Surveillance System Monitor has been consulted. 5. Chronic HFrEF: Last echo in February, reported EF 25%, moderate to severe global hypokinesis, mild MR and TR; LV systolic function same compared to pre vious study of November 2021. Chest x-ray individually reviewed shows no evidence of acute intrathoracic disease. 6. Diabetes mellitus type II: Hypoglycemia on presentation. Oral hypoglycemic medications on hold. Accu-Cheks and coverage Humalog sliding scale patient with hyperglycemia on presentation 7. Chronic right leg wound Adaptic dressing ordered.? Wound care consult. 8 DVT prophylaxis: SCDs if patient can tolerate. Sepsis Attestation Sepsis Alert: Yes Sepsis Attestation: Agree w/Sepsis Date exam was performed: 04/15/22 Time exam was performed: 07:30 Possible Source of Sepsis: Genitourinary Sepsis Organ Dysfunction Criteria Present: SBP < 90 mmHg or MAP < 65 mmHg, SBP decrease of more than 40 mmHg, Creatinine > 2.0 mg/dL and Lactic Acid > 2 mmol/L Fluid Resuscitation Fluid resuscitation indicated?: Yes Fluid Resuscitation ordered: 30 ml/kg fluid bolus ordered Reason for lesser fluid bolus:: Heart failure Sepsis Note Date exam was performed: 04/15/22 Time exam was performed: 10:31 Sepsis Attestation: Sepsis re-evaluation was performed Response to fluids: Fluid responsive hypotension Charges/Coding Procedures Hospitalists Procedures: 60121 Prolonged InPt Service; first hour
[2022-04-15 11:01] LABS: Bedside Glucose 208 mg/dL (74-106)
[2022-04-15 11:33] LABS: Hematocrit 24.9 % (37-47); Hemoglobin 7.9 g/dL (12.0-15.0)
[2022-04-15] MEDS: Lactated Ringers 500 ML 999 ML IV (11:35)
--- NOTE | 2022-04-15 12:54 | PCM.CONS.R ---
Assessment & Plan Assessment/Plan (1) Acute kidney injury: PLAN: Suspect acute kidney injury is due to prerenal azotemia that may have evolved to ischemic ATN. The patient presented with 1 week history of volume loss and poor intake. She was also on ARB prior to admission. Although the patient has a history of heart failure with reduced ejection fraction, I believe that there is room to give her fluid carefully. Fluid can be given as boluses rather than leaving her on maintenance. Agree with holding Entresto and furosemide. Goal is to keep MAP above 65 mmHg consistently. Reassess volume status closely. If there is signs of volume overload (there is currently none other than chronic lower extremity edema), I would have low threshold for starting IV vasopressor. The patient is only mildly hyperkalemic. Although she is acidotic, I suspect that metabolic cirrhosis can be treated medically and should improve with volume expansion and cessation of diarrhea. Therefore, there is no need for dialysis today. (2) Chronic kidney disease, stage 3b: PLAN: The patient has a baseline serum creatinine of around 1.8 to 2.0 mg/dL. Therefore she has CKD stage IIIb-IV. Prior urinalysis shows proteinuria. Suspect the patient has underlying diabetic kidney disease or cardiorenal syndrome type III. (3) Hyperkalemia: PLAN: Hyperkalemia is multifactorial. She has been on ARB prior to admission in the setting of volume depletion. The patient is acidotic which can cause worsening of hyperkalemia. Finally, she is also hyperglycemic which can exacerbate hyperkalemia as well. Treat CHRIS with volume expansion. Stop Entresto for now. If fluid boluses needed, I would use LR rather than normal saline to limit further acidosis. Treat hyperglycemia as per primary service. (4) Metabolic acidosis: PLAN: Metabolic acidosis is likely due to circulatory shock/poor perfusion due to volume depletion. Suspect this is mainly hypovolemic shock although we cannot completely rule out distributive shock with sepsis. The patient does not appear to be overtly volume overloaded despite her history of systolic dysfunction. I would continue to volume expand the patient to keep MAP above 65 mmHg. I would recommend checking ABG or VBG. If blood pH is less than 7.2 with bicarbonate level of less than 20, she would benefit from sodium bicarbonate replacement in the setting of CHRIS. (5) Septic shock: PLAN: As mentioned above, the patient likely has a combination of hypovolemic and possible distributive shock. She is being covered for possible UTI with antimicrobial. Dose of medication is appropriate for the current renal function. If there is no further improvement in renal function with volume expansion, I will relook at the dose of cefepime. (6) HFrEF (heart failure with reduced ejection fraction): PLAN: The patient has a history of systolic dysfunction with ejection fraction of 40% based on echocardiogram done on 02/13/2022. This is attributed to ischemic cardiomyopathy. However, the patient does not appear to be in decompensated heart failure. She does have chronic lower extremity edema but her lungs are clear and she is not in respiratory distress. Therefore, I think we have room to give her fluid to volume expand. We will have to monitor her volume status closely. (7) Anemia: PLAN: The patient will be receiving PRBC per my discussion with Dr. Corona. This will help renal perfusion as well. It looks like she has underlying iron deficiency anemia as she is on ferrous sulfate. Monitor hemoglobin. HPI Consult Data Date of Consult: 04/15/22 HPI Narrative Reason for Consultation: Acute kidney injury HPI Narrative: LATOSHA LOYOLA, is a 66-year-old female with past history of type 2 diabetes mellitus, coronary artery disease, heart failure with reduced ejection fraction due to ischemic cardiomyopathy, peripheral arterial disease, diverticulosis, hyperlipidemia and recently diagnosed duodenal ulcer. The patient presented to the hospital on 04/15/2022 with 1 week history of malaise and weakness. She also reports diarrhea. During evaluation in the emergency department, the patient was found to be hypotensive, tachypneic and tachycardic. She was also found to have acute kidney injury with serum creatinine of 6.67 mg/dL. She is acidotic with serum bicarbonate level of 13 mmol/L and lactate level 4.3 mmol/L. Urinalysis does show 3+ bacteria and positive leukocyte esterase. However, there was no RBCs or WBCs on microscopic examination. Nephrology is consulted for CHRIS. On review of available record, it appears that the patient has chronic kidney disease. Her serum creatinine has been around 1.9 to 2.3 mg/dL since February 2022. In November 2020, serum creatinine was around 1.3 mg/dL as well. Renal ultrasound from 04/15/2022 showed normal-sized kidneys without hydronephrosis. However, there is a large staghorn calculus in the right kidney. The patient denies current chest pain or shortness of breath. She reports diarrhea daily for 1 week prior to presentation. She denies nausea or vomiting. However, her appetite has been poor. She has been taking her prescribed medications up until the day of presentation. She denies using [id number] medications such as NSAIDs on a daily basis. The patient denies lower urinary tract symptom such as urinary frequency, urgency, or incontinence. There has been no dysuria or gross hematuria. Prior to admission, the patient had been on Entresto, furosemide, as well as potassium supplement. FORMERLY [facility], [facility] Medical History Acute hypoxemic respiratory failure (11/21/20) Atherosclerosis of coronary artery without angina pectoris Chronic ulcer of left leg with fat layer exposed Complete heart block Diabetes Eschar of lower leg HFrEF (heart failure with reduced ejection fraction) History of non-ST elevation myocardial infarction (NSTEMI) (11/21/20) Ischemic cardiomyopathy Old anterior wall myocardial infarction (12/21/16) Peripheral vascular occlusive disease ST elevation (STEMI) myocardial infarction involving left anterior descending coronary artery (12/21/16) Symptomatic bradycardia Venous insufficiency of both lower extremities Home Medications nitroglycerin 0.4 mg sublingual tablet (Nitrostat) 0.4 mg sublingual PRN PRN CHEST PAIN 06/05/18 [History Last Taken Unknown] acetaminophen 500 mg tablet 500 mg PO Q4H PRN PRN Pain #20 TABLETS 06/10/18 [Rx Last Taken Unknown] glipizide 10 mg tablet 10 mg PO BIDAC blood sugar 07/16/20 [History Last Taken Unknown] atorvastatin 40 mg tablet 40 mg PO QHS CHOLESTEROL #90 tabs 03/29/21 [Rx Last Taken Unknown] sacubitril 49 mg-valsartan 51 mg tablet (Entresto) 1 tab PO BID this is a dose increase #180 tabs 11/17/21 [Rx Last Taken Unknown] clopidogrel 75 mg tablet 75 mg PO DAILY blood thinner 03/08/22 [History Last Taken Unknown] furosemide 40 mg tablet 40 mg PO BID water pill 03/08/22 [History Last Taken Unknown] ferrous sulfate 325 mg (65 mg iron) tablet 325 mg PO BID Check with primary doctor 04/15/22 [History Last Taken Unknown] metoprolol succinate 25 mg tablet,extended release 24 hr 12.5 mg PO DAILY Check with primary doctor 04/15/22 [History Last Taken Unknown] pantoprazole 40 mg tablet,delayed release 40 mg PO BID Check with primary doctor 04/15/22 [History Last Taken Unknown] sucralfate 1 gram tablet 1 g PO 4X/DAY Check with primary doctor 04/15/22 [History Last Taken Unknown] Allergy/AdvReac Type Severity Reaction Status Date / Time No Known Allergies Allergy Verified 04/12/22 14:10 Family History Other Brain aneurysm CVA (cerebral vascular accident) Diabetes Surgical History History of angioplasty of peripheral vessel (07/26/21) History of cardiac catheterization History of coronary artery stent placement (11/22/20) History of permanent cardiac pacemaker placement (05/15/18) Social History Smoking Status: Never smoker alcohol intake: never substance use type: does not use caffeine: Yes Type: coffee Number of servings: 1 ROS ROS Narrative 04/17 ROS was done and is otherwise noncontributory other than what is already documented in the HPI. Physical Exam Narrative General appearance: Alert and oriented x3, no apparent distress. Ill-appearing. HEENT: Normocephalic, atraumatic, mucous membrane dry without erythema, EOMI. Neck: Supple. No JVD Lungs: Clear to auscultation. Abdomen: Normal bowel sound, soft, nontender, no guarding or rebound. Extremities: No clubbing or cyanosis. There is 2+ edema of the right lower extremity and 1+ edema to left lower extremity. Musculoskeletal: Full passive range of motion, no joint swelling. Skin: Warm and dry, no rash. Neurologic: No focal neurologic deficits. Psychiatric: Normal mood, flat affect. Lab / Micro Data Result Diagrams: 04/15/22 11:25 04/15/22 06:35 Labs: Laboratory Results - last 24 hr 04/14/22 23:40: WBC 12.8 H, RBC 3.02 L, Hgb 8.0 L, Hct 26.8 L, MCV 88.7, MCH 26.5 L, MCHC 29.9 L, RDW Std Deviation 57.4 H, RDW Coeff of Brianne 17.5 H, Plt Count 392, MPV 9.3, Immature Gran % (Auto) 0.800, Neut % (Auto) 92.0 H, Lymph % (Auto) 3.3 L, [place] % (Auto) 3.8, Eos % (Auto) 0.0, Baso % (Auto) 0.1, Absolute Neuts (auto) 11.8 H, Absolute Lymphs (auto) 0.42 L, Nucleated RBC % 0, Differential Comment SCANNED, Hypochromasia 1+ 04/14/22 23:40: Sodium 134 L, Potassium 5.0, Chloride 102, Carbon Dioxide 13.0 L, Anion Gap 19 H, BUN 94 H, Creatinine 6.67 H, Estim Creat Clear Calc 7.47, Est GFR (MDRD) Af Amer 8 L, Est GFR (MDRD) Non-Af 7 L, BUN/Creatinine Ratio 14.1, Glucose 271 H, Calcium 8.1 L, Total Bilirubin 0.40, AST 56 H, ALT 46, Alkaline Phosphatase 90, Troponin I High Sens 940 H*, Total Protein 7.2, Albumin 3.0 L, Globulin 4.2, Albumin/Globulin Ratio 0.7 L 04/14/22 23:40: Lactic Acid 4.3 H* 04/14/22 23:40: B-Natriuretic Peptide > 5000.0 H 04/15/22 00:40: Urine Color Yellow, Urine Clarity Sl. Cloudy, Urine pH 5.0, Ur Specific [place] 1.015, Urine Protein 30 H, Urine Glucose (UA) 50 H, Urine Ketones Negative, Urine Occult Blood 150 H, Urine Nitrite Negative, Urine Bilirubin Negative, Urine Urobilinogen Normal, Ur Leukocyte Esterase 25 H, Urine RBC 0-5 SEEN, Urine WBC 0-5 SEEN, Ur Squamous Epith Cells 0 SEEN, Urine Bacteria 3+, Urine Mucus 0 SEEN 04/15/22 03:40: Troponin I High Sens 1337 H* 04/15/22 03:59: Lactic Acid 3.7 H* 04/15/22 06:35: WBC 11.0, RBC 2.78 L, Hgb 7.5 L, Hct 24.6 L, MCV 88.5, MCH 27.0, MCHC 30.5 L, RDW Std Deviation 57.3 H, RDW Coeff of Brianne 17.6 H, Plt Count 375, MPV 9.3, Immature Gran % (Auto) 0.700, Neut % (Auto) 87.3 H, Lymph % (Auto) 6.6 L, [place] % (Auto) 5.3, Eos % (Auto) 0.0, Baso % (Auto) 0.1, Absolute Neuts (auto) 9.6 H, Absolute Lymphs (auto) 0.72 L, Nucleated RBC % 0 04/15/22 06:35: Sodium 136, Potassium 5.4 H, Chloride 106, Carbon Dioxide 13.0 L, Anion Gap 17 H, BUN 92 H, Creatinine 6.51 H, Estim Creat Clear Calc 6.41, Est GFR (MDRD) Af Amer 8 L, Est GFR (MDRD) Non-Af 7 L, BUN/Creatinine Ratio 14.1, Glucose 247 H, Calcium 7.7 L, Total Bilirubin 0.30, AST 71 H, ALT 62 H, Alkaline Phosphatase 93, Troponin I High Sens 1840 H*, Total Protein 6.5, Albumin 2.7 L, Globulin 3.8, Albumin/Globulin Ratio 0.7 L 04/15/22 07:26: POC Glucose 227 H 04/15/22 10:36: POC Glucose 208 H 04/15/22 11:25: Hgb 7.9 L, Hct 24.9 L 04/15/22 11:25: Crossmatch See Detail Micro: Microbiology 04/15/22 04:00 Wound - Leg, Right Gram Stain - Final 04/14/22 23:49 Nasal Secretion SARS-CoV-2 & FLU Antigen (Rapid) - Final Rhythm Strip Rhythm Strip: Sinus Tach (Sinus tachycardia. A sensed, V paced rhythm) Radiology Impression Chest X-Ray 04/15/22 00:21 IMPRESSION: No evidence of active intrathoracic disease. Electronically Signed: Janette Leung MD at 0:49 EDT , Renal Ultrasound 04/15/22 02:44 IMPRESSION: Large staghorn calculus in the right kidney. No hydronephrosis. Small amount of perinephric fluid on the right, and small amount of right upper quadrant ascites. Cannot exclude superimposed right renal infection/pyelonephritis. No hydronephrosis on the left. Electronically Signed: Janette Leung MD at 5:29 EDT ,
[2022-04-15 14:01] LABS: Blood Gas Specimen Type VEN; VBG BASE EXCESS -12 mmol/L (-1.0-3.5); VBG Bicarbonate 15 mmol/L (22-26); VBG PO2 34 mmHg (25-40); VBG SO2 57 % (50-70); VBG TCO2 16 mmol/L (23-33); VBG pCO2 33.3 mmHg (41-51); VBG pH 7.25 (7.32-7.42)
[2022-04-15] MEDS: Juven (unflavored) Packet 1 PACKET PO (16:18)
[2022-04-15 17:16] LABS: Bedside Glucose 188 mg/dL (74-106)
--- NOTE | 2022-04-15 17:20 | CASEMGMT ---
RN ROSARIO RADIO INSTALLER CM to room to meet with patient for initial transition planning/care coordination assessment. RN ROSARIO introduced self and role at [facility]. Patient sitting in chair, alert and oriented, and daughter at bedside. Pt agreeable to them being present during assessment. Patient willing to participate in assessment and is able to answer all questions appropriately. ?Care providers, pharmacy, and demographics verified with pt and family. Pt and family wish for pt to discharge home with resumption of home therapy with [facility]. They do want want SN. Patient and family state they have no needs or concerns at this time. PCP: Dr Sol Specialists: Dr Reeder, organic chemistry professor; Dr Chan, vascular; Dr Dickinson, early learning teacher Preferred Pharmacy: [facility]; [facility] retail at discharge Insurance: none. [facility] listed in [employer]. states they do not have AA Prescription Benefit: none ? Living Will/HPOA: none? LNOK: , 14 children Living Arrangements: Patient lives with and 4 children in a 2 story home with bed and bath on first floor. ?No steps to enter. ?Pt able to do some self care/ADL's and family assists as needed. Family does all ADL's. Transportation: Hire drivers DME: Pt has shower chair, raised toilet, cane, walker, and wheelchair. ? SNF/HHC: No hx of SNF. Pt is currently active with [facility] for home therapy. ?Pt and family decline to review list of other providers and prefers to continue services with [facility]. ?Daughter completes dressing changes. CM to follow for discharge planning needs that may arise. D/C Plan: Patient to discharge home with resumption of home therapy through [facility], family support, and follow-up plans in place. ? Marisol CASTELLON RN, CM
[2022-04-15 18:24] LABS: Hematocrit 25.4 % (37-47); Hemoglobin 7.8 g/dL (12.0-15.0)
[2022-04-15] MEDS: Glucerna Shake 120 ML LIQUID PO (21:36)
[2022-04-15] MEDS: Atorvastatin Calcium 40 MG Tablet PO (21:37)
[2022-04-15 21:46] LABS: Bedside Glucose 171 mg/dL (74-106)
[2022-04-15 22:42] LABS: Urine Sodium 35 mmol/L (Not Establ.)
[2022-04-16] VITALS (19 sets, daily range): BP systolic 83–128; BP diastolic 55–70; PULSE 101–120; RESP 16–21; TEMP 36.4–36.9; O2SAT 95–100
--- NOTE | 2022-04-16 06:03 | PN.CC_ITS ---
Assessment & Plan Assessment/Plan (1) Sepsis: PLAN: Plan RECOMMENDATIONS: 1. Continue empiric antimicrobials. 2. Wound care following. 3. Continue to hold home diuretics. Cautious use of fluids per nephrology recommendations. 4. Encourage incentive spirometer use while in bed and mobilize patient as tolerated. IMPRESSIONS: 1. Sepsis The patient presented to the hospital with sepsis due to possible lower extremity wound infection versus urinary tract source of infection with acute sepsis related organ dysfunction as evidenced by lactic acidemia and acute kidney injury. The patient did receive supplemental IV fluid hydration. At the present time, she is hemodynamically stable. There has been no need for vasopressor support. Plan to continue empiric broad-spectrum antimicrobials and monitor the patient clinically. 2. Troponin elevation Most likely secondary to demand ischemia in the setting of #1. Cardiology is following to assist with medical management. 3. Acute on chronic kidney disease Most likely prerenal in etiology. A cardiorenal etiology is also a possibility in light of her significantly depressed ejection fraction. It is reasonable to continue to hold her home diuretics for now. Continue to monitor urine output and trend creatinine. Nephrology is following to assist with medical management. 4. History of anemia/duodenal ulcers/chronic lower extremity wounds/diabetes mellitus Complicates care, management, recovery and prognosis. Continue home medications as indicated, with the exception of diuretics. Wound care is following. This note was generated with [employer] dictation software. It may contain incorrect words, spelling, and punctuation that were not noted in checking the note before signing. Subjective Subjective The patient was seen and examined at the bedside this morning. Events from the last 24 hours have been reviewed. The patient is currently afebrile, hemodynamically stable and maintaining appropriate oxygen saturations on room air. The patient is without any specific complaints this morning. She has not had any further bouts of diarrhea. She denies any abdominal pain, nausea or vomiting. She is currently documented to be overall net +2.5 L for the hospitalization. Serum bicarbonate was noted to be 17 this morning on chemistry with a creatinine of 6.24. Objective Data Objective Data The patient's most recent lab work, culture data and imaging studies have all been personally reviewed. Surface echocardiogram dated February 2022 demonstrated severe global hypokinesis of the LV with an ejection fraction of 25%. Blood, urine and wound cultures are pending. Vital Signs: Vital Signs Temp Pulse Resp BP Pulse Ox O2 Del Method 98.5 F 105 H 18 90/61 100 Room Air 04/16/22 03:00 04/16/22 05:00 04/16/22 05:00 04/16/22 05:00 04/16/22 05:00 04/16/22 05:00 Oxygen Delivery Method Room Air Weight: 152 lb 8.958 oz Body Mass Index (BMI) 28.8 Intake & Output: Intake and Output for Last 24 Hours 04/14/22 04/15/22 04/16/22 23:59 23:59 23:59 Intake Total 3134.5 / 3134.5 Output Total 850 / 850 Balance 2284.5 / 2284.5 Lab / Micro Data Attestation: I reviewed the patient's lab results. Result Diagrams: 04/15/22 18:12 04/16/22 04:50 Labs: Laboratory Results - last 24 hr 04/15/22 06:35: WBC 11.0, RBC 2.78 L, Hgb 7.5 L, Hct 24.6 L, MCV 88.5, MCH 27.0, MCHC 30.5 L, RDW Std Deviation 57.3 H, RDW Coeff of Brianne 17.6 H, Plt Count 375, MPV 9.3, Immature Gran % (Auto) 0.700, Neut % (Auto) 87.3 H, Lymph % (Auto) 6.6 L, [place] % (Auto) 5.3, Eos % (Auto) 0.0, Baso % (Auto) 0.1, Absolute Neuts (auto) 9.6 H, Absolute Lymphs (auto) 0.72 L, Nucleated RBC % 0 04/15/22 06:35: Sodium 136, Potassium 5.4 H, Chloride 106, Carbon Dioxide 13.0 L , Anion Gap 17 H, BUN 92 H, Creatinine 6.51 H, Estim Creat Clear Calc 6.41, Est GFR (MDRD) Af Amer 8 L, Est GFR (MDRD) Non-Af 7 L, BUN/Creatinine Ratio 14.1, Glucose 247 H, Calcium 7.7 L, Total Bilirubin 0.30, AST 71 H, ALT 62 H, Alkaline Phosphatase 93, Troponin I High Sens 1840 H*, Total Protein 6.5, Albumin 2.7 L, Globulin 3.8, Albumin/Globulin Ratio 0.7 L 04/15/22 07:26: POC Glucose 227 H 04/15/22 10:36: POC Glucose 208 H 04/15/22 11:25: Hgb 7.9 L, Hct 24.9 L 04/15/22 11:25: Blood Type B POSITIVE, Antibody Screen NEGATIVE, Crossmatch See Detail 04/15/22 16:17: POC Glucose 188 H 04/15/22 18:12: Hgb 7.8 L, Hct 25.4 L 04/15/22 21:28: POC Glucose 171 H 04/15/22 22:00: Ur Random Sodium 35, Urine Creatinine 64.80 Micro: Microbiology 04/15/22 04:00 Wound - Leg, Right Gram Stain - Final 04/14/22 23:49 Nasal Secretion SARS-CoV-2 & FLU Antigen (Rapid) - Final ABG Data ABG results: ABG 04/15/22 13:53 Specimen Type ISABEL VBG pH 7.25 L VBG pO2 34 VBG HCO3 15 L VBG Total CO2 16 L VBG O2 Sat (Calc) 57 VBG Base Excess -12 L POC Mix VBG pCO2 Pt Tmp 33.3 L Rhythm Strip Rhythm Strip: Sinus Tach (Sinus tachycardia. A sensed, V paced rhythm) Physical Exam Const alert, oriented x3 and no apparent distress Constitutional Narrative: Sitting in bedside recliner. General Appearance: cooperative HEENT normocephalic and head/scalp atraumatic Eyes PERRL, EOMs intact bilaterally and conjunctivae normal Neck supple General: trachea midline Chest inspection of chest normal Resp normal respiratory effort Auscultation: Negative for rales, rhonchi or wheezes Cardio regular rate, S1 normal heart sound and S2 normal heart sound Heart Sounds: murmur GI normal to inspection, nondistended, normoactive bowel sounds Extremity no clubbing, cyanosis or edema Skin Skin Narrative: Wound present on right lower extremity, currently wrapped. Superficial wound to left lower extremity. Neuro CN's II-XII intact bilaterally and no focal motor deficits Psych Mood & Affect: flat affect Charges/Coding Visit Charges Inpatient E&M: 15124 Subs Hosp L3
[2022-04-16 06:39] LABS: ALB/GLOB Ratio 0.7 RATIO (0.9-2.4); AST(SGOT) 132 U/L (15-37); Alanine Aminotransfer ALT/SGPT 143 U/L (13-56); Albumin, Serum 2.7 g/dL (3.2-5.0); Alkaline Phosphatase 72 U/L (45-117); Anion Gap 13 (5-15); BUN 92 mg/dL (7-18); BUN/Creat Ratio 14.7 RATIO (10-20); Calcium,Total 8.2 mg/dL (8.5-10.1); Chloride 106 mmol/L (98-107); Creatinine, Serum 6.24 mg/dL (0.55-1.02); EST Glomerular Filtration Rate 7 mL/min (>60); Est Glom Filt Rate - Afr Amer 9 mL/min (>60); Estimated Creatinine Clearance 6.69 ml/min; Globulin 4.1 g/dL (2.2-4.2); Glucose 186 mg/dL (74-106); Potassium 4.4 mmol/L (3.5-5.1); Protein, Total 6.8 g/dL (6.4-8.2); Sodium Level 136 mmol/L (136-145)
[2022-04-16] MEDS: Sucralfate 1 GM Tablet PO ×4 (07:51→21:19)
[2022-04-16 09:01] LABS: Bedside Glucose 135 mg/dL (74-106)
[2022-04-16] MEDS: Juven (unflavored) Packet 1 PACKET PO ×2 (09:19→16:06)
[2022-04-16] MEDS: CHLORHEXIDINE GLUC 2% CLOTH 1 EACH TOWELETTE TOPICAL (09:19)
[2022-04-16] MEDS: Glucerna Shake 120 ML LIQUID PO ×4 (09:19→21:19)
[2022-04-16] MEDS: Ferrous Sulfate 325 MG Tablet PO (09:19)
[2022-04-16] MEDS: Acetaminophen 500 MG Tablet PO (09:20)
--- NOTE | 2022-04-16 10:17 | PN.CARD_ITS ---
Subjective Subjective Sitting up in the chair. Denies any complaints. Objective Data Vital Signs: Vital Signs Temp Pulse Resp BP Pulse Ox O2 Del Method 98.3 F 120 H 18 128/55 H 95 Room Air 04/16/22 09:00 04/16/22 09:00 04/16/22 09:00 04/16/22 09:00 04/16/22 09:00 04/16/22 09:00 Oxygen Delivery Method Room Air Weight: 152 lb 8.958 oz Body Mass Index (BMI) 28.8 Intake & Output: Intake and Output for Last 24 Hours 04/14/22 04/15/22 04/16/22 23:59 23:59 23:59 Intake Total 3134.5 / 3134.5 240 / 240 Output Total 850 / 850 Balance 2284.5 / 2284.5 240 / 240 Lab / Micro Data Attestation: I reviewed the patient's lab results. Result Diagrams: 04/15/22 18:12 04/16/22 04:50 Labs: Laboratory Results - last 24 hr 04/15/22 10:36: POC Glucose 208 H 04/15/22 11:25: Hgb 7.9 L, Hct 24.9 L 04/15/22 11:25: Blood Type B POSITIVE, Antibody Screen NEGATIVE, Crossmatch See Detail 04/15/22 16:17: POC Glucose 188 H 04/15/22 18:12: Hgb 7.8 L, Hct 25.4 L 04/15/22 21:28: POC Glucose 171 H 04/15/22 22:00: Ur Random Sodium 35, Urine Creatinine 64.80 04/16/22 04:50: Sodium 136, Potassium 4.4, Chloride 106, Carbon Dioxide 17.0 L, Anion Gap 13, BUN 92 H, Creatinine 6.24 H, Estim Creat Clear Calc 6.69, Est GFR (MDRD) Af Amer 9 L, Est GFR (MDRD) Non-Af 7 L, BUN/Creatinine Ratio 14.7, Glucose 186 H, Calcium 8.2 L, Total Bilirubin 0.30, AST 132 H, ALT 143 H, Alkaline Phosphatase 72, Total Protein 6.8, Albumin 2.7 L, Globulin 4.1, Albumin/Globulin Ratio 0.7 L 04/16/22 08:38: POC Glucose 135 H Micro: Microbiology 04/15/22 04:00 Wound - Leg, Right Gram Stain - Final ABG Data ABG results: ABG 04/15/22 13:53 Specimen Type ISABEL VBG pH 7.25 L VBG pO2 34 VBG HCO3 15 L VBG Total CO2 16 L VBG O2 Sat (Calc) 57 VBG Base Excess -12 L POC Mix VBG pCO2 Pt Tmp 33.3 L Rhythm Strip Rhythm Strip: Sinus Tach (Sinus tachycardia. A sensed, V paced rhythm) Cardiology Labs/Tests 04/15/22 11:25: Hgb 7.9 L, Hct 24.9 L 04/15/22 13:53: VBG pH 7.25 L, VBG pO2 34, VBG HCO3 15 L, VBG O2 Sat (Calc) 57, VBG Base Excess -12 L 04/15/22 18:12: Hgb 7.8 L, Hct 25.4 L 04/16/22 04:50: Sodium 136, Potassium 4.4, Chloride 106, Carbon Dioxide 17.0 L, Anion Gap 13, BUN 92 H, Creatinine 6.24 H, Est GFR (MDRD) Af Amer 9 L, Est GFR (MDRD) Non-Af 7 L, BUN/Creatinine Ratio 14.7, Glucose 186 H, Calcium 8.2 L, Total Bilirubin 0.30 Rhythm: EKG: ECHO: Stress Test: Cardiac Cath: PCI: CT Surgery: Holter monitor: EPS: PPM: CXR: Chest CT Scan: Physical Exam Narrative Comfortable. No distress. No respiratory distress. Heart rate tachycardic. Regular. Assessment & Plan Assessment/Plan (1) Non-ST elevation NE (NSTEMI): PLAN: Likely type II troponin elevation. History of coronary artery disease with previous percutaneous interventions at [place]. Monitor carefully. Not a candidate for invasive work-up at present because of acute renal failure and significant anemia. (2) Sepsis: PLAN: As per critical care. (3) Acute kidney injury: PLAN: As per critical care. Consider nephrology consult. (4) HFrEF (heart failure with reduced ejection fraction): PLAN: Chronic systolic congestive heart failure. Patient was on sacubitril at home. Agree with holding that in view of acute renal failure. (5) History of permanent cardiac pacemaker placement: PLAN: Presently sinus tachycardia. A sensed, V paced. Tachycardia most likely secondary to underlying sepsis/dehydration/acute renal failure. Monitor. (6) Anemia: PLAN: As per critical care/internal medicine. If hemoglobin continues to drop, then may need to discontinue clopidogrel. (7) Aortic valve stenosis, mild: PLAN: Monitor. (8) Tachycardia: PLAN: Likely secondary to underlying medical conditions and anemia. We will add low-dose beta-eric.
--- NOTE | 2022-04-16 10:40 | PN.HOSP_ITS ---
Subjective Subjective Follow-up for sepsis. Patient has sinus tachycardia. Blood pressure improved. Sitting up in the chair. No fever. Objective Data Objective Data Vital Signs: Vital Signs Temp Pulse Resp BP Pulse Ox O2 Del Method 98.3 F 120 H 18 128/55 H 95 Room Air 04/16/22 09:00 04/16/22 09:00 04/16/22 09:00 04/16/22 09:00 04/16/22 09:00 04/16/22 09:00 Oxygen Delivery Method Room Air Weight: 152 lb 8.958 oz Body Mass Index (BMI) 28.8 Intake & Output: Intake and Output for Last 24 Hours 04/14/22 04/15/22 04/16/22 23:59 23:59 23:59 Intake Total 3134.5 / 3134.5 240 / 240 Output Total 850 / 850 Balance 2284.5 / 2284.5 240 / 240 Lab / Micro Data Result Diagrams: 04/15/22 18:12 04/16/22 04:50 Labs: Laboratory Results - last 24 hr 04/15/22 10:36: POC Glucose 208 H 04/15/22 11:25: Hgb 7.9 L, Hct 24.9 L 04/15/22 11:25: Blood Type B POSITIVE, Antibody Screen NEGATIVE, Crossmatch See Detail 04/15/22 16:17: POC Glucose 188 H 04/15/22 18:12: Hgb 7.8 L, Hct 25.4 L 04/15/22 21:28: POC Glucose 171 H 04/15/22 22:00: Ur Random Sodium 35, Urine Creatinine 64.80 04/16/22 04:50: Sodium 136, Potassium 4.4, Chloride 106, Carbon Dioxide 17.0 L, Anion Gap 13, BUN 92 H, Creatinine 6.24 H, Estim Creat Clear Calc 6.69, Est GFR (MDRD) Af Amer 9 L, Est GFR (MDRD) Non-Af 7 L, BUN/Creatinine Ratio 14.7, Glucose 186 H, Calcium 8.2 L, Total Bilirubin 0.30, AST 132 H, ALT 143 H, Alkaline Phosphatase 72, Total Protein 6.8, Albumin 2.7 L, Globulin 4.1, Albumin/Globulin Ratio 0.7 L 04/16/22 08:38: POC Glucose 135 H Micro: Microbiology 04/15/22 04:00 Wound - Leg, Right Gram Stain - Final 04/14/22 23:49 Nasal Secretion SARS-CoV-2 & FLU Antigen (Rapid) - Final ABG Data ABG results: ABG 04/15/22 13:53 Specimen Type ISABEL VBG pH 7.25 L VBG pO2 34 VBG HCO3 15 L VBG Total CO2 16 L VBG O2 Sat (Calc) 57 VBG Base Excess -12 L POC Mix VBG pCO2 Pt Tmp 33.3 L Rhythm Strip Rhythm Strip: Sinus Tach (Sinus tachycardia. A sensed, V paced rhythm) Physical Exam Narrative Physical exam General: Alert, Oriented x3, Cooperative HEENT: Atraumatic, PERRLA, EOMI, Normocephalic Oral: No Gingival or Mucosal Lesions/ Ulcerations Neck: Supple, No JVD, Negative Carotid Bruits Lungs: Air entry diminished in bilateral lung bases. No crepitation/rhonchi Cardiovascular: Paced rhythm, PVCs, Normal S1, Normal S2, systolic murmur over LLSB and cardiac apex with radiation to left axilla and interscapular space. Abdomen: Bowel Sounds Present, Soft, Non Tender, Non-Distended : No renal angle tenderness. No suprapubic tenderness. Extremities: No edema, Capillary Refill Less than 3 Seconds Skin: Ulcer over lower right leg. Healed scar of superficial left leg ulcer. Musculoskeletal: No Tenderness to Palpation of Joints or Extremities. ROM intact Neurological: Cranial nerves II-XII grossly intact, DTR 2+/4 and Symmetrical, muscle strength 4/5 at major joints Psych/Mental Status: Flat affect. Assessment & Plan Assessment/Plan (1) Acute kidney injury: (2) Hypotension: (3) Acute on chronic anemia: (4) Sepsis: PLAN: Plan This 66-year-old female was admitted with diarrhea and malaise after recent EGD and colonoscopy on April 14 and found to be hypotension, tachycardia and tachypnea in ED. 1. Sepsis due to possible right LE wound infection versus right pyelonephritis/UTI with acute sepsis related organ dysfunction as evidenced by hypotension, SBP less than 90 mmHg, CHRIS, lactic acidosis: Patient is being admitted in ICU. Patient diarrhea has resolved. Did not require vasopressor yet. Urine output 200 mL since in ICU. Monitor BP, urine output closely. Rapid SARS-CoV-2 and flu antigen are negative. on broad-spectrum empiric IV antibiotic. 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 Cultures are pending. 04/16: BP consistently above systolic 90 mmHg in the morning today. Most recent 128/55. Sinus tachycardia. Started on low-dose metoprolol 12.5 mg p.o. twice daily. Hemodynamically better and transferred to PCU. Wound gram stain shows 2+ gram-positive rods and gram-positive cocci. Urine culture and blood cultures are pending 2. Non-STEMI likely type II demand ischemia troponin elevation: Patient has history of coronary artery disease and PCI at [place]. Follows Dr. Dickinson/Byron in cardiology clinic. She had anterior STEMI with stenting LAD in 2016 in [facility]. 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 After that she had JOLLY to LAD in September 2020 and circumflex artery in November 2020. Patient seen by improvement director. 04/16: Patient not candidate for invasive cardiac cath because of kidney failure. Medical management. 3. Acute on chronic anemia most likely iron deficiency anemia:Patient hemoglobin dropped to 7.5 g. Patient had recent EGD and colonoscopy on 03/09/2020 found multiple oozing duodenal ulcer with visible vessel which was controlled with bipolar cautery. Colonoscopy showed diverticulosis. Continue PPI twice daily. On Carafate. IV iron ordered. Patient had last stent more than a year ago as mentioned above therefore Plavix discontinued. 04/16: Hemoglobin profile better. Did not require transfusion. 4. Acute kidney injury on baseline CKD stage IIIb with anion gap metabolic acidosis: Monitor intake and output. Patient admitted with creatinine 6.67. CHRIS probably prerenal/hypotension. Entresto and other nephrotoxic medications on hold. Top Cutter has been consulted. 04/16: Not significant improvement in kidney function, creatinine above 6. Discussed with the industrial order clerk. IV fluid in boluses if MAP less than 65 for several hours. Positive fluid balance about 3 L. 850 mL output on 04/15. No indication for DIRECTOR OF MANUFACTURING. Kidney ultrasound shows large staghorn calculus in right kidney no hydronephrosis. Small amount of perinephric fluid on the right and a small amount of right upper quadrant ascites. Cannot exclude superimposed right renal infection/pyonephritis. No hydro on left. 5. Chronic HFrEF: Last echo in February, reported EF 25%, moderate to severe global hypokinesis, mild MR and TR; LV systolic function same compared to previous study of November 2021. Chest x-ray individually reviewed shows no evidence of acute intrathoracic disease. 6. Diabetes mellitus type II: Hypoglycemia on presentation. Oral hypoglycemic medications on hold. Accu-Cheks and coverage Humalog sliding scale patient with hyperglycemia on presentation 7. Chronic right leg wound Adaptic dressing ordered.? Wound care consult. 8 DVT prophylaxis: SCDs if patient can tolerate. Total time of the visit including total time spent in counseling or coordination of care, (more than 50% of the total time, spent in obtaining medical information from nurses and other ancillary care providers,explaining to the patient about labs, imaging, diagnosis and management of active complex medical conditions), , review of labs and imaging is 40 minutes. Charges/Coding Visit Charges Inpatient E&M: 88206 Subs Hosp L3
[2022-04-16] MEDS: Insulin Lispro 100 UNIT/ML INSULN.PEN SC ×3 (11:01→21:31)
[2022-04-16] MEDS: Pantoprazole Sodium 40 MG Tablet PO ×2 (11:03→21:19)
[2022-04-16 11:26] LABS: Bedside Glucose 253 mg/dL (74-106)
[2022-04-16 11:38] LABS: Ferritin 485 ng/mL (8-252); Iron 64 ug/dL (50-170); Iron Binding Capacity,Total 205 ug/dL (250-450); PERCENT IRON SATURATION 31.2 % (15.0-55.0)
--- NOTE | 2022-04-16 12:15 | NURSING ---
This RN took over pt care at this time.
--- NOTE | 2022-04-16 12:19 | PCM.PN.REN ---
Subjective Subjective Following for CHRIS on CKD. Patient looks brighter today. She denies chest pain or shortness of breath at rest. There is no nausea, vomiting or diarrhea. Appetite is still marginal. Objective Data Objective Data Vital Signs: Vital Signs Temp Pulse Resp BP Pulse Ox O2 Del Method 97.6 F L 117 H 16 91/70 100 Room Air 04/16/22 12:15 04/16/22 12:15 04/16/22 12:15 04/16/22 12:15 04/16/22 12:15 04/16/22 12:15 Oxygen Delivery Method Room Air Weight: 69.2 kg Body Mass Index (BMI) 28.8 Intake & Output: Intake and Output for Last 24 Hours 04/14/22 04/15/22 04/16/22 23:59 23:59 23:59 Intake Total 3134.5 / 3134.5 640 / 640 Output Total 850 / 850 Balance 2284.5 / 2284.5 640 / 640 Lab / Micro Data Result Diagrams: 04/15/22 18:12 04/16/22 04:50 Labs: Laboratory Results - last 24 hr 04/15/22 11:25: Blood Type B POSITIVE, Antibody Screen NEGATIVE, Crossmatch See Detail 04/15/22 16:17: POC Glucose 188 H 04/15/22 18:12: Hgb 7.8 L, Hct 25.4 L 04/15/22 21:28: POC Glucose 171 H 04/15/22 22:00: Ur Random Sodium 35, Urine Creatinine 64.80 04/16/22 04:50: Sodium 136, Potassium 4.4, Chloride 106, Carbon Dioxide 17.0 L, Anion Gap 13, BUN 92 H, Creatinine 6.24 H, Estim Creat Clear Calc 6.69, Est GFR (MDRD) Af Amer 9 L, Est GFR (MDRD) Non-Af 7 L, BUN/Creatinine Ratio 14.7, Glucose 186 H, Calcium 8.2 L, Total Bilirubin 0.30, AST 132 H, ALT 143 H, Alkaline Phosphatase 72, Total Protein 6.8, Albumin 2.7 L, Globulin 4.1, Albumin/Globulin Ratio 0.7 L 04/16/22 04:50: Iron 64, TIBC 205 L, Iron Saturation 31.2, Ferritin 485 H 04/16/22 08:38: POC Glucose 135 H 04/16/22 11:01: POC Glucose 253 H Micro: Microbiology 04/15/22 04:00 Wound - Leg, Right Gram Stain - Final 04/15/22 04:00 Wound - Leg, Right Wound Culture - 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 04/14/22 23:49 Nasal Secretion SARS-CoV-2 & FLU Antigen (Rapid) - Final ABG Data ABG results: ABG 04/15/22 13:53 Specimen Type ISABEL VBG pH 7.25 L VBG pO2 34 VBG HCO3 15 L VBG Total CO2 16 L VBG O2 Sat (Calc) 57 VBG Base Excess -12 L POC Mix VBG pCO2 Pt Tmp 33.3 L Rhythm Strip Rhythm Strip: Sinus Tach (Sinus tachycardia. A sensed, V paced rhythm) Physical Exam Narrative General appearance: Alert and oriented x3, no apparent distress. Ill-appearing. HEENT: Normocephalic, atraumatic, mucous membrane dry without erythema, EOMI. Neck: Supple. No JVD Lungs: Clear to auscultation. Abdomen: Normal bowel sound, soft, nontender, no guarding or rebound. Extremities: No clubbing or cyanosis. There is 2+ edema of the right lower extremity and 1+ edema to left lower extremity. Assessment & Plan Assessment/Plan (1) Acute kidney injury: PLAN: Suspect acute kidney injury is due to prerenal azotemia that has evolved to ischemic ATN. FEna is greater than 1%. The patient presented with 1 week history of volume loss and poor intake. She was also on ARB prior to admission. Although the patient has a history of heart failure with reduced ejection fraction, I believe that there is room to expand volume carefully. Fluid can be given as boluses rather than leaving her on maintenance if MAP is consistently below 65 mmHg. Agree with holding Entresto and furosemide. Goal is to keep MAP above 65 mmHg consistently. Although renal function is essentially unchanged in the last 24 hours, acidosis has improved. She is no longer hyperkalemic. Urine output has picked up with volume expansion. She has not needed IV fluid bolus since MAP is above 65 mmHg. Continue to encourage oral solute/fluid intake. There is no need for dialysis today. Continue to monitor renal function, volume status, electrolytes and acid-base status closely. Current medications are reviewed and are appropriately dosed for her renal function. (2) Chronic kidney disease, stage 3b: PLAN: The patient has a baseline serum creatinine of around 1.8 to 2.0 mg/dL. Therefore she has CKD stage IIIb-IV. Prior urinalysis shows proteinuria. Suspect the patient has underlying diabetic kidney disease or cardiorenal syndrome type III. (3) Hyperkalemia: PLAN: Hyperkalemia was multifactorial. She had been on ARB prior to admission in the setting of volume depletion. The patient is acidotic which can cause worsening of hyperkalemia. Finally, she is also hyperglycemic which can exacerbate hyperkalemia as well. Treat CHRIS with volume expansion. Continue to hold Entresto for now. If fluid boluses needed, I would use LR rather than normal saline to limit further acidosis. Treat hyperglycemia as per primary service. Potassium level is better today with current treatment. We will continue to monitor. (4) Metabolic acidosis: PLAN: Metabolic acidosis is likely due to circulatory shock/poor perfusion due to volume depletion. Suspect this is mainly hypovolemic shock although we cannot completely rule out distributive shock with sepsis. Overall, the patient has improved. MAP has been consistently above 65 mmHg since my visit 24 hours ago. The patient does not appear to be overtly volume overloaded despite her history of systolic dysfunction. Continue to encourage oral solute/fluid intake. Since serum bicarbonate level has improved, we can hold off on adding sodium bicarbonate supplementation. (5) Septic shock: PLAN: As mentioned above, the patient likely has a combination of hypovolemic and possible distributive shock. She is being covered for possible UTI with antimicrobial. Dose of medication is appropriate for the current renal function. She is not on IV vasopressor. Continue to encourage oral solute/fluid intake with careful monitoring of volume status. (6) HFrEF (heart failure with reduced ejection fraction): PLAN: The patient has a history of systolic dysfunction with ejection fraction of 40% based on echocardiogram done on 02/13/2022. This is attributed to ischemic cardiomyopathy. However, the patient does not appear to be in decompensated heart failure. She does have chronic lower extremity edema but her lungs are clear and she is not in respiratory distress. Therefore, I think we have room to volume expand the patient. Encourage oral solute/fluid intake on her own. If MAP is consistently below 65 mmHg, give 250 to 500 mL of IV LR bolus. We will have to monitor her volume status closely. (7) Anemia: PLAN: The patient received PRBC on 04/15/2022 per my discussion with Dr. Corona. This has helped renal perfusion as well. It looks like she has underlying iron deficiency anemia as she is on ferrous sulfate. Monitor hemoglobin.
[2022-04-16] MEDS: Cefepime 1 GM in 0.9% NS 50 ML Minibag Q12 IV (15:45)
[2022-04-16 16:35] LABS: Bedside Glucose 312 mg/dL (74-106)
[2022-04-16] MEDS: Atorvastatin Calcium 40 MG Tablet PO (21:19)
[2022-04-16] MEDS: DAKIN'S SOL HALF STRENGTH (=0.25%) 1 APPLIC TOPICAL (21:20)
[2022-04-16] MEDS: Metoprolol Tartrate 25 MG Tablet 12.5 MG PO (21:24)
[2022-04-16 22:31] LABS: Bedside Glucose 289 mg/dL (74-106)
[2022-04-17] VITALS (14 sets, daily range): BP systolic 103–111; BP diastolic 72–80; PULSE 101–117; RESP 16–18; TEMP 36.7–36.9; O2SAT 95–100
[2022-04-17] MEDS: Sucralfate 1 GM Tablet PO ×4 (06:03→21:51)
[2022-04-17] MEDS: Insulin Lispro 100 UNIT/ML INSULN.PEN SC ×4 (06:04→21:51)
[2022-04-17 06:40] LABS: Bedside Glucose 268 mg/dL (74-106)
[2022-04-17] MEDS: Ferrous Sulfate 325 MG Tablet PO (07:54)
[2022-04-17] MEDS: Juven (unflavored) Packet 1 PACKET PO ×2 (07:54→16:39)
--- NOTE | 2022-04-17 09:06 | PN.CARD_ITS ---
Subjective Subjective Denies any complaints. Sitting up in chair. Objective Data Vital Signs: Vital Signs Temp Pulse Resp BP Pulse Ox O2 Del Method 98.1 F 109 H 16 111/75 95 Room Air 04/17/22 05:37 04/17/22 06:59 04/17/22 05:37 04/17/22 05:37 04/17/22 09:04 04/17/22 09:04 Oxygen Delivery Method Room Air Weight: 152 lb 8.958 oz Body Mass Index (BMI) 28.8 Intake & Output: Intake and Output for Last 24 Hours 04/15/22 04/16/22 04/17/22 23:59 23:59 23:59 Intake Total 3134.5 / 3134.5 1830 / 1830 200 / 200 Output Total 850 / 850 Balance 2284.5 / 2284.5 1830 / 1830 200 / 200 Lab / Micro Data Result Diagrams: 04/15/22 18:12 04/16/22 04:50 Labs: Laboratory Results - last 24 hr 04/16/22 04:50: Iron 64, TIBC 205 L, Iron Saturation 31.2, Ferritin 485 H 04/16/22 11:01: POC Glucose 253 H 04/16/22 16:05: POC Glucose 312 H 04/16/22 21:30: POC Glucose 289 H 04/17/22 06:02: POC Glucose 268 H Micro: Microbiology 04/15/22 00:40 Urine, Clean Catch Urine Culture - Final Culture exhibits no growth. 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 A sensed, V paced rhythm) Cardiology Labs/Tests 04/16/22 04:50: Iron 64, TIBC 205 L, Iron Saturation 31.2, Ferritin 485 H Rhythm: EKG: ECHO: Stress Test: Cardiac Cath: PCI: CT Surgery: Holter monitor: EPS: PPM: CXR: Chest CT Scan: Physical Exam Narrative Comfortable. No distress. Assessment & Plan Assessment/Plan (1) Non-ST elevation MD (NSTEMI): PLAN: Likely type II troponin elevation. History of coronary artery disease with previous percutaneous interventions at [place]. Monitor carefully. Not a candidate for invasive work-up at present because of acute renal failure and significant anemia. Check hemoglobin. If hemoglobin is remaining stable, then suggest starting on aspirin. (2) Sepsis: PLAN: As per critical care. (3) Acute kidney injury: PLAN: As per critical care. Consider nephrology consult. (4) HFrEF (heart failure with reduced ejection fraction): PLAN: Chronic systolic congestive heart failure. Patient was on sacubitril at home. Agree with holding that in view of acute renal failure. (5) History of permanent cardiac pacemaker placement: PLAN: Presently sinus tachycardia. A sensed, V paced. Tachycardia most likely secondary to underlying sepsis/dehydration/acute renal failure. Monitor. (6) Anemia: PLAN: As per critical care/internal medicine. If hemoglobin continues to drop, then may need to discontinue clopidogrel. (7) Aortic valve stenosis, mild: PLAN: Monitor. (8) Tachycardia: PLAN: Likely secondary to underlying medical conditions and anemia. Escalate metoprolol dose as tolerated..
[2022-04-17] MEDS: Metoprolol Tartrate 25 MG Tablet PO ×2 (09:29→21:50)
[2022-04-17] MEDS: Glucerna Shake 120 ML LIQUID PO ×4 (09:29→21:52)
[2022-04-17] MEDS: Pantoprazole Sodium 40 MG Tablet PO ×2 (09:30→21:50)
[2022-04-17] MEDS: 0.9% Saline Lock 10 ML Syringe IV (09:30)
[2022-04-17] MEDS: Acetaminophen 500 MG Tablet PO ×2 (09:30→15:12)
[2022-04-17] MEDS: Cefepime 1 GM in 0.9% NS 50 ML Minibag Q12 IV (09:30)
--- NOTE | 2022-04-17 09:33 | PCM.PN.INT ---
Assessment & Plan Assessment/Plan (1) Sepsis: PLAN: Plan RECOMMENDATIONS: 1. Continue empiric antimicrobials. 2. Continue local wound care. 3. Continue to hold home diuretics. Cautious use of fluids per nephrology recommendations. 4. Encourage incentive spirometer use while in bed and mobilize patient as tolerated. IMPRESSIONS: 1. Sepsis The patient presented to the hospital with sepsis due to possible lower extremity wound infection versus urinary tract source of infection with acute sepsis related organ dysfunction as evidenced by lactic acidemia and acute kidney injury. The patient did receive supplemental IV fluid hydration. At the present time, she is hemodynamically stable. There has been no need for vasopressor support. Plan to continue empiric broad-spectrum antimicrobials and monitor the patient clinically. 2. Troponin elevation Most likely secondary to demand ischemia in the setting of #1. Cardiology is following to assist with medical management. 3. Acute on chronic kidney disease Most likely prerenal in etiology. A cardiorenal etiology is also a possibility in light of her significantly depressed ejection fraction. It is reasonable to continue to hold her home diuretics for now. Continue to monitor urine output and trend creatinine. Nephrology is following to assist with medical management. 4. History of anemia/duodenal ulcers/chronic lower extremity wounds/diabetes mellitus Complicates care, management, recovery and prognosis. Continue home medications as indicated, with the exception of diuretics. Wound care is following. This note was generated with [employer]! dictation software. It may contain incorrect words, spelling, and punctuation that were not noted in checking the note before signing. Subjective Subjective The patient was seen and examined at the bedside this morning. Events from the last 24 hours have been reviewed. The patient is currently afebrile, hemodynamically stable and maintaining appropriate oxygen saturations on room air. BUN/creatinine remain elevated at 102 and 5.39, respectively. Objective Data Objective Data The patient's most recent lab work, culture data and imaging studies have all been personally reviewed. Surface echocardiogram dated February 2022 demonstrated severe global hypokinesis of the LV with an ejection fraction of 25%. 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 Blood and urine cultures have not demonstrated any growth to date. Vital Signs: Vital Signs Temp Pulse Resp BP Pulse Ox O2 Del Method 98.1 F 117 H 16 109/80 95 Room Air 04/17/22 05:37 04/17/22 09:29 04/17/22 05:37 04/17/22 09:29 04/17/22 09:04 04/17/22 09:04 Oxygen Delivery Method Room Air Weight: 152 lb 8.958 oz Body Mass Index (BMI) 28.8 Intake & Output: Intake and Output for Last 24 Hours 04/15/22 04/16/22 04/17/22 23:59 23:59 23:59 Intake Total 3134.5 / 3134.5 1830 / 1830 200 / 200 Output Total 850 / 850 Balance 2284.5 / 2284.5 1830 / 1830 200 / 200 Lab / Micro Data Attestation: I reviewed the patient's lab results. Result Diagrams: 04/17/22 09:45 04/17/22 09:45 Labs: Laboratory Results - last 24 hr 04/16/22 04:50: Iron 64, TIBC 205 L, Iron Saturation 31.2, Ferritin 485 H 04/16/22 11:01: POC Glucose 253 H 04/16/22 16:05: POC Glucose 312 H 04/16/22 21:30: POC Glucose 289 H 04/17/22 06:02: POC Glucose 268 H Micro: Microbiology 04/15/22 00:40 Urine, Clean Catch Urine Culture - Final Culture exhibits no growth. 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 A sensed, V paced rhythm) Physical Exam Const alert, oriented x3 and no apparent distress Constitutional Narrative: Sitting in bedside recliner. General Appearance: cooperative, ill appearing and frail HEENT normocephalic and head/scalp atraumatic Eyes PERRL, EOMs intact bilaterally and conjunctivae normal Neck supple General: trachea midline Chest inspection of chest normal Resp normal respiratory effort Auscultation: Negative for rales, rhonchi or wheezes Cardio regular rate, S1 normal heart sound and S2 normal heart sound Heart Sounds: murmur GI normal to inspection, nondistended, normoactive bowel sounds Extremity no clubbing, cyanosis or edema Skin Skin Narrative: Wound present on right lower extremity, currently wrapped. Superficial wound to left lower extremity. Neuro CN's II-XII intact bilaterally and no focal motor deficits Psych Mood & Affect: flat affect Charges/Coding Visit Charges Inpatient E&M: 80878 Subs Hosp L2
[2022-04-17 10:07] LABS: Hematocrit 26.5 % (37-47); Mean Corp Hgb Conc 30.2 g/dL (32-36); Mean Corpuscular Hgb 26.7 pg (27.0-32.0); Mean Corpuscular Volume 88.3 fL (81-99); Mean Platelet Vol. 9.7 fl (6.2-12.0); Platelet Count 434 K/mm3 (150-450); RBC Distribution Width CV 18.1 % (11.6-14.6); RBC Distribution Width SD 58.4 fl (35.1-43.9); White Blood Count 11.3 K/mm3 (4.4-11.0)
[2022-04-17] MEDS: DAKIN'S SOL HALF STRENGTH (=0.25%) 1 APPLIC TOPICAL (10:46)
[2022-04-17 10:55] LABS: Albumin, Serum 2.7 g/dL (3.2-5.0); BUN 102 mg/dL (7-18); BUN/Creat Ratio 18.9 RATIO (10-20); Calcium,Total 8.7 mg/dL (8.5-10.1); Chloride 107 mmol/L (98-107); Creatinine, Serum 5.39 mg/dL (0.55-1.02); EST Glomerular Filtration Rate 8 mL/min (>60); Est Glom Filt Rate - Afr Amer 10 mL/min (>60); Estimated Creatinine Clearance 7.75 ml/min; Glucose 334 mg/dL (74-106); Phosphorus 3.3 mg/dL (2.5-4.9); Potassium 4.7 mmol/L (3.5-5.1); Sodium Level 136 mmol/L (136-145)
[2022-04-17 11:45] LABS: Bedside Glucose 320 mg/dL (74-106)
--- NOTE | 2022-04-17 14:28 | PCM.PN.HOSP ---
Subjective Subjective Follow-up for sepsis and acute kidney injury and anemia Patient is on room air. Patient is making urine about 800 mL urine. Kidney function shows slight improvement. No fever in last 48 hours Objective Data Objective Data Vital Signs: Vital Signs Temp Pulse Resp BP Pulse Ox O2 Del Method 98.0 F 110 H 16 109/80 98 Room Air 04/17/22 09:30 04/17/22 09:30 04/17/22 09:30 04/17/22 09:30 04/17/22 09:30 04/17/22 09:30 Oxygen Delivery Method Room Air Weight: 152 lb 8.958 oz Body Mass Index (BMI) 28.8 Intake & Output: Intake and Output for Last 24 Hours 04/15/22 04/16/22 04/17/22 23:59 23:59 23:59 Intake Total 3134.5 / 3134.5 1830 / 1830 610 / 610 Output Total 850 / 850 Balance 2284.5 / 2284.5 1830 / 1830 610 / 610 Lab / Micro Data Result Diagrams: 04/17/22 09:45 04/17/22 09:45 Labs: Laboratory Results - last 24 hr 04/16/22 16:05: POC Glucose 312 H 04/16/22 21:30: POC Glucose 289 H 04/17/22 06:02: POC Glucose 268 H 04/17/22 09:45: Sodium 136, Potassium 4.7, Chloride 107, Carbon Dioxide 15.0 L, BUN 102 H*, Creatinine 5.39 H, Estim Creat Clear Calc 7.75, Est GFR (MDRD) Af Amer 10 L, Est GFR (MDRD) Non-Af 8 L, BUN/Creatinine Ratio 18.9, Glucose 334 H, Calcium 8.7, Phosphorus 3.3, Albumin 2.7 L 04/17/22 09:45: WBC 11.3 H, RBC 3.00 L, Hgb 8.0 L, Hct 26.5 L, MCV 88.3, MCH 26.7 L, MCHC 30.2 L, RDW Std Deviation 58.4 H, RDW Coeff of Brianne 18.1 H, Plt Count 434, MPV 9.7 04/17/22 11:03: POC Glucose 320 H Micro: Microbiology 04/15/22 04:00 Wound - Leg, Right Gram Stain - Final 04/15/22 04:00 Wound - Leg, Right Wound Culture - 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 04/14/22 23:40 Blood Culture (Wb) - Anticubital Left Blood Culture - Preliminary No growth in 48 hours. 04/15/22 00:40 Urine, Clean Catch Urine Culture - Final Culture exhibits no growth. 04/14/22 23:49 Nasal Secretion SARS-CoV-2 & FLU Antigen (Rapid) - Final Rhythm Strip Rhythm Strip: Sinus Tach (Sinus tachycardia. A sensed, V paced rhythm) Physical Exam Narrative Physical exam General: Alert, Oriented x3, Cooperative HEENT: Atraumatic, PERRLA, EOMI, Normocephalic Oral: No Gingival or Mucosal Lesions/ Ulcerations Neck: Supple, No JVD, Negative Carotid Bruits Lungs: Air entry diminished in bilateral lung bases. No crepitation/rhonchi Cardiovascular: Paced rhythm, PVCs, Normal S1, Normal S2, systolic murmur over LLSB and cardiac apex with radiation to left axilla and interscapular space. Abdomen: Bowel Sounds Present, Soft, Non Tender, Non-Distended : No renal angle tenderness. No suprapubic tenderness. Extremities: No edema, Capillary Refill Less than 3 Seconds Skin: Ulcer over lower right leg dressing changed. Healed scar of superficial left leg ulcer. Musculoskeletal: No Tenderness to Palpation of Joints or Extremities. ROM intact Neurological: Cranial nerves II-XII grossly intact, DTR 2+/4 and muscle strength 4/5 at major joints Psych/Mental Status: Flat affect. Assessment & Plan Assessment/Plan (1) Acute kidney injury: (2) Hypotension: (3) Acute on chronic anemia: (4) Sepsis: PLAN: Plan This 66-year-old female was admitted with diarrhea and malaise after recent EGD and colonoscopy on April 14 and found to be hypotension, tachycardia and tachypnea in ED. 1. Sepsis due to possible right LE wound infection versus right pyelonephritis/UTI with acute sepsis related organ dysfunction as evidenced by hypotension, SBP less than 90 mmHg, CHRIS, lactic acidosis: Patient is being admitted in ICU. Patient diarrhea has resolved. Did not require vasopressor yet. Urine output 200 mL since in ICU. Monitor BP, urine output closely. Rapid SARS-CoV-2 and flu antigen are negative. on broad-spectrum empiric IV antibiotic. Patient comanaged with communication professor. Cultures are pending. 04/16: BP consistently above systolic 90 mmHg in the morning today. Most recent 128/55. Sinus tachycardia. Started on low-dose metoprolol 12.5 mg p.o. twice daily. Hemodynamically better and transferred to PCU. 04/17: No fever in more than 48 hours. Urine culture shows no growth. Blood cultures x2 negative for more than 48 hours. 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 2. Non-STEMI likely type II demand ischemia troponin elevation: Patient has history of coronary artery disease and PCI at [place]. Follows Dr. Dickinson/Byron in cardiology clinic. She had anterior STEMI with stenting LAD in 2016 in [facility]. 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 After that she had JOLLY to LAD in September 2020 and circumflex artery in November 2020. Patient seen by nickel plant operator. 04/16: Patient not candidate for invasive cardiac cath because of kidney failure. Medical management. 04/17: Patient does not have any chest pain or shortness of breath. 3. Acute on chronic anemia most likely iron deficiency anemia:Patient hemoglobin dropped to 7.5 g. Patient had recent EGD and colonoscopy on 03/09/2020 found multiple oozing duodenal ulcer with visible vessel which was controlled with bipolar cautery. Colonoscopy showed diverticulosis. Continue PPI twice daily. On Carafate. IV iron ordered. Patient had last stent more than a year ago as mentioned above therefore Plavix discontinued. 04/16: Hemoglobin profile better. Did not require transfusion. 04/17: Hemoglobin 8 g. No external acute bleeding. 4. Acute kidney injury on baseline CKD stage IIIb with anion gap metabolic acidosis: Monitor intake and output. Patient admitted with creatinine 6.67. CHRIS probably prerenal/hypotension. Entresto and other nephrotoxic medications on hold. Cloud Developer has been consulted. 04/16: Not significant improvement in kidney function, creatinine above 6. Discussed with the cold header. IV fluid in boluses if MAP less than 65 for several hours. Positive fluid balance about 3 L. 850 mL output on 04/15. No indication for MANAGER OF LEARNING. Kidney ultrasound shows large staghorn calculus in right kidney no hydronephrosis. Small amount of perinephric fluid on the right and a small amount of right upper quadrant ascites. Cannot exclude superimposed right renal infection/pyonephritis. No hydro on left. 04/17: Discussed with the cold header. BUN/creatinine showing improvement. Creatinine is still high. Patient making 800 mL urine. 5. Chronic HFrEF: Last echo in February, reported EF 25%, moderate to severe global hypokinesis, mild MR and TR; LV systolic function same compared to previous study of November 2021. Chest x-ray individually reviewed shows no evidence of acute intrathoracic disease. 6. Diabetes mellitus type II: Hypoglycemia on presentation. Oral hypoglycemic medications on hold. Accu-Cheks and coverage Humalog sliding scale patient with hyperglycemia on presentation 7. Chronic right leg wound Adaptic dressing ordered.? Wound care consult. 8 DVT prophylaxis: SCDs if patient can tolerate. 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 04/14/22 23:40 Blood Culture (Wb) - Anticubital Left Blood Culture - Preliminary No growth in 48 hours. 04/15/22 00:40 Urine, Clean Catch Urine Culture - Final Culture exhibits no growth. 04/14/22 23:49 Nasal Secretion SARS-CoV-2 & FLU Antigen (Rapid) - Final Laboratory Results 04/16/22 16:05: POC Glucose 312 H 04/16/22 21:30: POC Glucose 289 H 04/17/22 06:02: POC Glucose 268 H 04/17/22 09:45: Sodium 136, Potassium 4.7, Chloride 107, Carbon Dioxide 15.0 L, BUN 102 H*, Creatinine 5.39 H, Estim Creat Clear Calc 7.75, Est GFR (MDRD) Af Amer 10 L, Est GFR (MDRD) Non-Af 8 L, BUN/Creatinine Ratio 18.9, Glucose 334 H, Calcium 8.7, Phosphorus 3.3, Albumin 2.7 L 04/17/22 09:45: WBC 11.3 H, RBC 3.00 L, Hgb 8.0 L, Hct 26.5 L, MCV 88.3, MCH 26.7 L, MCHC 30.2 L, RDW Std Deviation 58.4 H, RDW Coeff of Brianne 18.1 H, Plt Count 434, MPV 9.7 04/17/22 11:03: POC Glucose 320 H Charges/Coding Visit Charges Inpatient E&M: 51888 Subs Hosp L2
[2022-04-17] MEDS: Insulin Glargine-YFGN 100 UNIT/ML Pen 10 UNIT SC (15:09)
--- NOTE | 2022-04-17 15:18 | PN.RENAL_ITS ---
Subjective Subjective Following for CHRIS on CKD Patient is sitting in chair. Family at bedside. Patient complains of feeling tired. Denies any nausea, vomiting or diarrhea today. Patient reports poor appetite, family agrees Objective Data Objective Data Vital Signs: Vital Signs Temp Pulse Resp BP Pulse Ox O2 Del Method 98.0 F 110 H 16 109/80 99 Room Air 04/17/22 09:30 04/17/22 09:30 04/17/22 09:30 04/17/22 09:30 04/17/22 14:35 04/17/22 13:45 Oxygen Delivery Method Room Air Weight: 69.2 kg Body Mass Index (BMI) 28.8 Intake & Output: Intake and Output for Last 24 Hours 04/15/22 04/16/22 04/17/22 23:59 23:59 23:59 Intake Total 3134.5 / 3134.5 1830 / 1830 610 / 610 Output Total 850 / 850 Balance 2284.5 / 2284.5 1830 / 1830 610 / 610 Lab / Micro Data Result Diagrams: 04/17/22 09:45 04/17/22 09:45 Labs: Laboratory Results - last 24 hr 04/16/22 16:05: POC Glucose 312 H 04/16/22 21:30: POC Glucose 289 H 04/17/22 06:02: POC Glucose 268 H 04/17/22 09:45: Sodium 136, Potassium 4.7, Chloride 107, Carbon Dioxide 15.0 L, BUN 102 H*, Creatinine 5.39 H, Estim Creat Clear Calc 7.75, Est GFR (MDRD) Af Amer 10 L, Est GFR (MDRD) Non-Af 8 L, BUN/Creatinine Ratio 18.9, Glucose 334 H, Calcium 8.7, Phosphorus 3.3, Albumin 2.7 L 04/17/22 09:45: WBC 11.3 H, RBC 3.00 L, Hgb 8.0 L, Hct 26.5 L, MCV 88.3, MCH 2 6.7 L, MCHC 30.2 L, RDW Std Deviation 58.4 H, RDW Coeff of Brianne 18.1 H, Plt Count 434, MPV 9.7 04/17/22 11:03: POC Glucose 320 H Micro: Microbiology 04/15/22 04:00 Wound - Leg, Right Gram Stain - Final 04/15/22 04:00 Wound - Leg, Right Wound Culture - Preliminary 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 04/14/22 23:40 Blood Culture (Wb) - Anticubital Left Blood Culture - Preliminary No growth in 48 hours. 04/15/22 00:40 Urine, Clean Catch Urine Culture - Final Culture exhibits no growth. 04/14/22 23:49 Nasal Secretion SARS-CoV-2 & FLU Antigen (Rapid) - Final Rhythm Strip Rhythm Strip: Sinus Tach (Sinus tachycardia. A sensed, V paced rhythm) Physical Exam Narrative General appearance: Alert and oriented x3, no apparent distress. Ill-appearing. HEENT: Normocephalic, atraumatic, mucous membrane dry without erythema, EOMI. Neck: Supple. No JVD Lungs: Clear to auscultation. Abdomen: Normal bowel sound, soft, nontender, no guarding or rebound. Extremities: No clubbing or cyanosis. There is 2+ edema of the right lower extremity and 1+ edema to left lower extremity. Assessment & Plan Assessment/Plan (1) Acute kidney injury: PLAN: - Nonoliguric CHRIS secondary to prerenal azotemia that has evolved to ischemic ATN. FEna is greater than 1%. The patient presented with 1 week history of volume loss and poor intake. She was also on ARB and furosemide prior to admission. No NSAIDs Although the patient has a history of heart failure with reduced ejection fraction, I believe that there is room to expand volume carefully. Fluid can be given as boluses rather than leaving her on maintenance if MAP is consistently below 65 mmHg. Agree with holding Entresto and furosemide. Goal is to keep MAP above 65 mmHg consistently. Overall slight improvement in renal function today. Creatinine on admission 6.6 mg/dL and today her creatinine is 5.39 mg/dL. BUN 94 on admission, today 102. Urine output has picked up with volume expansion. Renal ultrasound did not show any hydronephrosis, Large staghorn calculus right kidney. Continue to encourage oral solute/fluid intake. There is no need for dialysis today. Continue to monitor renal function, volume status, electrolytes and acid-base status closely. Current medications are reviewed and are appropriately dosed for her renal fu nction. (2) Chronic kidney disease, stage 3b: PLAN: The patient has a baseline serum creatinine of around 1.8 to 2.0 mg/dL as of late February 2022. In November 2020 baseline creatinine 1 to 1.2 mg/dL. Gap in lab work from November 2020 to February 2022 to be reviewed from. Therefore she has CKD stage IIIb-IV. Prior urinalysis shows proteinuria. Suspect the patient has underlying diabetic kidney disease or cardiorenal syndrome type III. (3) Hyperkalemia: PLAN: Hyperkalemia, resolved. Hyperkalemia multifactorial: She had been on ARB, acidotic (bicarb was 13) which can cause worsening of hyperkalemia and hyperglycemic which can exacerbate hyperkalemia as well. Treat CHRIS with volume expansion. Continue to hold Entresto for now. If fluid boluses needed, I would use LR rather than normal saline to limit further acidosis. Treat hyperglycemia as per primary service. (4) Metabolic acidosis: PLAN: Metabolic acidosis is likely due to circulatory shock/poor perfusion due to volume depletion. Suspect this is mainly hypovolemic shock Continue to encourage oral solute/fluid intake. Since serum bicarbonate level has improved, we can hold off on adding sodium bicarbonate supplementation. (5) Septic shock: PLAN: As mentioned above, the patient likely has a combination of hypovolemic and possible distributive shock. On cefepime. Blood cultures so far no growth. Urine culture so far no growth. Right leg wound culture pending (6) HFrEF (heart failure with reduced ejection fraction): PLAN: The patient has a history of systolic dysfunction based on echocardiogram done on 02/13/2022 reported EF 25%, moderate to severe global hypokinesis, mild MR and TR; LV systolic function same compared to previous study of November 2021 . This is attributed to ischemic cardiomyopathy. The patient does not appear to be in decompensated heart failure. She does have chronic lower extremity edema but her lungs are clear and she is not in respiratory distress. She is on room air. Therefore, I think we have room to volume expand the patient. (7) Anemia: PLAN: The patient received PRBC on 04/15/2022, hemoglobin was 7.5. This likely has helped renal perfusion as well. Today's hemoglobin 8.0 g/dL. It looks like she has underlying iron deficiency anemia as she is on ferrous sulfate. Monitor hemoglobin.
--- NOTE | 2022-04-17 16:07 | WOUNDNOTE ---
wound photo: right lower leg.foot
--- NOTE | 2022-04-17 16:08 | WOUNDNOTE ---
wound photo: right lower leg
--- NOTE | 2022-04-17 16:08 | WOUNDNOTE ---
wound photo: right lower leg
[2022-04-17] MEDS: Ascorbic Acid 500 MG Tablet PO (16:39)
[2022-04-17 17:20] LABS: Bedside Glucose 348 mg/dL (74-106)
[2022-04-17 21:50] LABS: Bedside Glucose 287 mg/dL (74-106)
[2022-04-17] MEDS: Atorvastatin Calcium 40 MG Tablet PO (21:51)
[2022-04-18] VITALS (11 sets, daily range): BP systolic 106–112; BP diastolic 68–79; PULSE 99–109; RESP 16–18; TEMP 36–37.2; O2SAT 95–100
--- NOTE | 2022-04-18 00:22 | NURSING ---
04/17/22 @ 2200- Patient refused PM dressing change to right leg wound. Education provided on importance of dressing changes for wound healing. Patient stated, Arlet the wound nurse can just change it tomorrow morning. Miki Poon RN
[2022-04-18] MEDS: Insulin Lispro 100 UNIT/ML INSULN.PEN SC ×2 (06:01→11:27)
[2022-04-18] MEDS: Sucralfate 1 GM Tablet PO ×2 (06:01→11:26)
[2022-04-18 06:31] LABS: Bedside Glucose 285 mg/dL (74-106)
[2022-04-18 07:07] LABS: Albumin, Serum 2.7 g/dL (3.2-5.0); BUN 98 mg/dL (7-18); BUN/Creat Ratio 21.2 RATIO (10-20); Calcium,Total 8.7 mg/dL (8.5-10.1); Chloride 109 mmol/L (98-107); Creatinine, Serum 4.62 mg/dL (0.55-1.02); EST Glomerular Filtration Rate 10 mL/min (>60); Est Glom Filt Rate - Afr Amer 12 mL/min (>60); Estimated Creatinine Clearance 9.04 ml/min; Glucose 301 mg/dL (74-106); Phosphorus 3.1 mg/dL (2.5-4.9); Sodium Level 136 mmol/L (136-145)
[2022-04-18] MEDS: Juven (unflavored) Packet 1 PACKET PO (08:35)
[2022-04-18] MEDS: Ferrous Sulfate 325 MG Tablet PO (08:35)
[2022-04-18] MEDS: Pantoprazole Sodium 40 MG Tablet PO (08:35)
[2022-04-18] MEDS: Ascorbic Acid 500 MG Tablet PO (08:35)
[2022-04-18] MEDS: Metoprolol Tartrate 25 MG Tablet PO (08:36)
[2022-04-18] MEDS: Glucerna Shake 120 ML LIQUID PO ×2 (08:37→13:21)
[2022-04-18] MEDS: Insulin Glargine-YFGN 100 UNIT/ML Pen 10 UNIT SC (08:37)
--- NOTE | 2022-04-18 08:38 | PN.CC_ITS ---
Assessment & Plan Assessment/Plan (1) Sepsis: PLAN: Plan RECOMMENDATIONS: 1. Continue empiric antimicrobials. 2. Continue local wound care. 3. Continue to hold home diuretics. Cautious use of fluids per nephrology recommendations. 4. Encourage incentive spirometer use while in bed and mobilize patient as tolerated. IMPRESSIONS: 1. Sepsis secondary to lower extremity wound The patient presented to the hospital with sepsis due to possible lower extremity wound infection versus urinary tract source of infection with acute sepsis related organ dysfunction as evidenced by lactic acidemia and acute kidney injury. Cultures are showing a gram-negative. Await species and sensitivities. The patient did receive supplemental IV fluid hydration. At the present time, she is hemodynamically stable. There has been no need for vasopressor support. Plan to continue empiric broad-spectrum antimicrobials and monitor the patient clinically. 2. Troponin elevation Most likely secondary to demand ischemia in the setting of #1. Cardiology is following to assist with medical management. 3. Acute on chronic kidney disease Most likely prerenal in etiology. Slowly improving. A cardiorenal etiology is also a possibility in light of her significantly depressed ejection fraction. It is reasonable to continue to hold her home diuretics for now. Continue to monitor urine output and trend creatinine. Nephrology is following to assist with medical management. 4. History of anemia/duodenal ulcers/chronic lower extremity wounds/diabetes mellitus Complicates care, management, recovery and prognosis. Continue home medications as indicated, with the exception of diuretics. Wound care is following. This note was generated with [employer] dictation software. It may contain incorrect words, spelling, and punctuation that were not noted in checking the note before signing. Subjective Subjective EdemaPatient did okay overnight. Patient states that she is eating less because of her lower extremity wound. Patient has been trying to increase activity through arm and leg exercises. Patient denies any shortness of breath with minimal movement. Objective Data Objective Data Vital Signs: Vital Signs Temp Pulse Resp BP Pulse Ox O2 Del Method 37.2 C 109 H 16 108/74 95 Room Air 04/18/22 05:00 04/18/22 05:00 04/18/22 05:00 04/18/22 05:00 04/18/22 05:00 04/18/22 05:00 Oxygen Delivery Method Room Air Weight: 70.9 kg Body Mass Index (BMI) 28.8 Intake & Output: Intake and Output for Last 24 Hours 04/16/22 04/17/22 04/18/22 23:59 23:59 23:59 Intake Total 0 / 1830 1160 / 1160 Output Total 300 / 600 600 / 600 Balance 1830 / 1830 860 / 560 -600 / -600 Lab / Micro Data Attestation: I reviewed the patient's lab results. Result Diagrams: 04/17/22 09:45 04/18/22 06:06 Labs: Laboratory Results - last 24 hr 04/17/22 09:45: Sodium 136, Potassium 4.7, Chloride 107, Carbon Dioxide 15.0 L, BUN 102 H*, Creatinine 5.39 H, Estim Creat Clear Calc 7.75, Est GFR (MDRD) Af Amer 10 L, Est GFR (MDRD) Non-Af 8 L, BUN/Creatinine Ratio 18.9, Glucose 334 H, Calcium 8.7, Phosphorus 3.3, Albumin 2.7 L 04/17/22 09:45: WBC 11.3 H, RBC 3.00 L, Hgb 8.0 L, Hct 26.5 L, MCV 88.3, MCH 26.7 L, MCHC 30.2 L, RDW Std Deviation 58.4 H, RDW Coeff of Brianne 18.1 H, Plt Count 434, MPV 9.7 04/17/22 11:03: POC Glucose 320 H 04/17/22 16:25: POC Glucose 348 H 04/17/22 21:29: POC Glucose 287 H 04/18/22 06:00: POC Glucose 285 H 04/18/22 06:06: Sodium 136, Potassium 4.0, Chloride 109 H, Carbon Dioxide 15.0 L , BUN 98 H, Creatinine 4.62 H, Estim Creat Clear Calc 9.04, Est GFR (MDRD) Af Amer 12 L, Est GFR (MDRD) Non-Af 10 L, BUN/Creatinine Ratio 21.2 H, Glucose 301 H, Calcium 8.7, Phosphorus 3.1, Albumin 2.7 L Micro: Microbiology 04/15/22 04:00 Wound - Leg, Right Gram Stain - Final 04/15/22 04:00 Wound - Leg, Right Wound Culture - Preliminary 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 04/14/22 23:40 Blood Culture (Wb) - Anticubital Left Blood Culture - Preliminary No growth in 48 hours. 04/15/22 00:40 Urine, Clean Catch Urine Culture - Final Culture exhibits no growth. 04/14/22 23:49 Nasal Secretion SARS-CoV-2 & FLU Antigen (Rapid) - Final Physical Exam Const alert, oriented x3 and no apparent distress Constitutional Narrative: Sitting in bedside recliner. General Appearance: cooperative and frail HEENT normocephalic and head/scalp atraumatic Eyes PERRL, EOMs intact bilaterally and conjunctivae normal Neck supple General: trachea midline Chest inspection of chest normal Resp normal respiratory effort and no use of accessory muscles Auscultation: Negative for rales, rhonchi or wheezes Cardio regular rate, S1 normal heart sound and S2 normal heart sound Heart Sounds: murmur systolic III/ harsh early left sternal border GI normal to inspection, nondistended, normoactive bowel sounds Extremity no clubbing, cyanosis or edema Skin Skin Narrative: Wound present on right lower extremity, currently wrapped. Superficial wound to left lower extremity. Neuro CN's II-XII intact bilaterally and no focal motor deficits Psych Mood & Affect: flat affect Charges/Coding Visit Charges Inpatient E&M: 22782 Subs Hosp L2
[2022-04-18] MEDS: Acetaminophen 500 MG Tablet PO (08:40)
[2022-04-18] MEDS: Cefepime 1 GM in 0.9% NS 50 ML Minibag Q12 IV (08:44)
[2022-04-18] MEDS: DAKIN'S SOL HALF STRENGTH (=0.25%) 1 APPLIC TOPICAL (09:52)
[2022-04-18 09:55] LABS: Hematocrit 24.8 % (37-47); Hemoglobin 7.7 g/dL (12.0-15.0); Mean Corpuscular Hgb 26.9 pg (27.0-32.0); Mean Corpuscular Volume 86.7 fL (81-99); Mean Platelet Vol. 9.8 fl (6.2-12.0); POSITIVE COUNT YES; POSITIVE MORPHOLOGY YES; Platelet Count 423 K/mm3 (150-450); RBC Distribution Width CV 17.8 % (11.6-14.6); RBC Distribution Width SD 56.5 fl (35.1-43.9); Red Blood Count 2.86 M/mm3 (4.2-5.4); White Blood Count 10.9 K/mm3 (4.4-11.0)
[2022-04-18 09:56] LABS: Differential Indicated MANUAL DIFF
--- NOTE | 2022-04-18 10:01 | PCM.DC ---
Discharge Instructions Diet Discharge Diet: 1800 Calorie Control Diet and 2000 mg Sodium Diet Activity Discharge Activity: Return to Normal Activity and May Not Drive Dressing / Incision Call your doctor if you observe: Fever of 101 or Higher, Coldness, Increased Pain, Numbness or Tingling, Change in Color, Inability to urinate, Inability to have a bowel movement, Using more than 1 pad per hour, Shortness of breath, Dizziness, Fainting spells, Swelling in the ankles, Chest pain, Prolonged hiccupping, Increased palpitations (irregular heartbeat), Calf discomfort and Uncontrolled pain Follow Up Care Test Results: Test results from this visit will be discussed in further detail at your follow-up appointment, if applicable. Discharge Plan Admission Admit Date/Time: 04/15/22 01:59 Primary Reason for Your Visit: Sepsis due to right pyelonephritis Attending Provider: Howie Corona Primary Care Provider: Gianluca Sol Consulting Providers: Shane Jerome ; Edyta Suarez ; Doni Guy ; Shabnam Alvarado Discharge Orders/Prescriptions Prescriptions: New ascorbic acid (vitamin C) 500 mg Tablet 500 mg PO BIDCM Qty: 60 0RF insulin glargine [Lantus Solostar U-100 Insulin] 100 unit/mL (3 mL) insulin pen 15 unit subcut DAILY Qty: 15 3RF Rx Instructions: Hold if glucose less than 130 mg/dl insulin lispro [Humalog KwikPen Insulin] 100 unit/mL Insulin Pen See Protocol subcut ACHS Qty: 15 0RF Protocol: 4. Sliding Scale Insulin High-Med Dosing Condition: 150-199 mg/dl = 2 units Condition: 200-259 mg/dl = 4 units Condition: 260-324 mg/dl = 6 units Condition: 325-374 mg/dl = 8 units Condition: 375-409 mg/dl = 10 units Condition: 410-449 mg/dl = 11 units Condition: Greater than 449 call physician Protocol Text: - Use for Total Daily Dose of Insulin 56-80 units - Patient who are insulin resistant or septic HIGH MEDIUM DOSING ALGORITHM amoxicillin-pot clavulanate [Augmentin] 500-125 mg tablet 1 tab PO DAILY Qty: 3 0RF Continued atorvastatin 40 mg tablet 40 mg PO QHS Qty: 90 3RF nitroglycerin [Nitrostat] 0.4 MG tablet, sublingual 0.4 mg sublingual PRN PRN (Reason: CHEST PAIN) acetaminophen 500 MG tablet 500 mg PO Q4H PRN PRN (Reason: Pain) Qty: 20 0RF clopidogrel 75 mg tablet 75 mg PO DAILY sucralfate 1 gram tablet 1 g PO 4X/DAY pantoprazole 40 mg tablet,delayed release (DR/EC) 40 mg PO BID ferrous sulfate 325 mg (65 mg iron) tablet 325 mg PO BID Changed metoprolol succinate 25 mg tablet extended release 24 hr 50 mg PO DAILY Qty: 60 0RF Rx Instructions: Hold for heart less than 60 or systolic blood pressure less than 100 mmHg. Held glipizide 10 MG tablet 10 mg PO BIDAC Hold Instructions: Hold until kidney function returns to baseline. Follow-up with BMP/mortgage loan counselor furosemide 40 mg tablet 40 mg PO BID Hold Instructions: Hold until kidney function returns to baseline. Follow-up with BMP/mortgage loan counselor Entresto 49-51 mg tablet 1 tab PO BID Qty: 180 3RF Hold Instructions: Hold until kidney function returns to baseline. Follow-up with BMP/mortgage loan counselor Referrals / Follow Up: Óscar Dickinson MD [Med Staff - Active Staff] - Within 1 Month (FOR NSTEMI AND HF) Naomi Fountain MD [Med Staff - Active Staff] - Within 1 Month (FOR Right staghorn calculus) Brian Jeffrey MD [Med Staff - Consulting] - Within 1 Week (CHRIS) Gianluca Sol DO [Primary Care Provider] - Alfonzo Dee DO [Med Staff - Active Staff] - Within 1 Month (for anemia and GI Bleed) Disposition Disposition (needs filled in before D/C Order can be placed): Home, Self Care
[2022-04-18 10:39] LABS: Anisocytosis 1+; Lymphocyte 9 % (19-41); Monocyte 11 % (0-10); Neutrophil-Band 1 % (0-5); Neutrophil-Segmented 79 % (47-70); Platelet Estimate ADEQUATE (ADEQ); Red Cell Morphology N CHROM NORMAL (NORM C&C); Total Cells Counted 100 (MANUAL DIFF)
[2022-04-18 10:41] LABS: Absolute Lymphocyte Count 0.98 X10^3/uL (0.83-4.51); Absolute Neutrophil Count 8.7 X10^3/uL (2.0-7.7)
[2022-04-18 12:05] LABS: Bedside Glucose 345 mg/dL (74-106)
--- NOTE | 2022-04-18 12:46 | PN.RENAL_ITS ---
Subjective Subjective Following for CHRIS Patient is sitting in chair. at bedside. Patient reports feeling better today. Denies any nausea, vomiting or diarrhea. patient looks better today Objective Data Objective Data Vital Signs: Vital Signs Temp Pulse Resp BP Pulse Ox O2 Del Method 97.7 F L 99 18 112/79 100 Room Air 04/18/22 11:00 04/18/22 11:00 04/18/22 11:00 04/18/22 11:00 04/18/22 11:00 04/18/22 11:00 Oxygen Delivery Method Room Air Weight: 70.9 kg Body Mass Index (BMI) 28.8 Intake & Output: Intake and Output for Last 24 Hours 04/16/22 04/17/22 04/18/22 23:59 23:59 23:59 Intake Total 1830 / 1830 1160 / 1160 50 / 50 Output Total 300 / 600 600 / 600 Balance 1830 / 1830 860 / 560 -550 / -550 Lab / Micro Data Result Diagrams: 04/18/22 06:06 04/18/22 06:06 Labs: Laboratory Results - last 24 hr 04/15/22 11:25: Crossmatch See Detail 04/17/22 16:25: POC Glucose 348 H 04/17/22 21:29: POC Glucose 287 H 04/18/22 06:00: POC Glucose 285 H 04/18/22 06:06: Sodium 136, Potassium 4.0, Chloride 109 H, Carbon Dioxide 15.0 L , BUN 98 H, Creatinine 4.62 H, Estim Creat Clear Calc 9.04, Est GFR (MDRD) Af Amer 12 L, Est GFR (MDRD) Non-Af 10 L, BUN/Creatinine Ratio 21.2 H, Glucose 301 H, Calcium 8.7, Phosphorus 3.1, Albumin 2.7 L 04/18/22 06:06: WBC 10.9, RBC 2.86 L, Hgb 7.7 L, Hct 24.8 L, MCV 86.7, MCH 26.9 L, MCHC 31.0 L, RDW Std Deviation 56.5 H, RDW Coeff of Brianne 17.8 H, Plt Count 423, MPV 9.8, Neut % (Auto) Not Reportable, Absolute Neuts (auto) 8.7 H, Absolute Lymphs (auto) 0.98, Total Counted 100, Neutrophils % (Manual) 79 H, Band Neutrophils % 1, Lymphocytes % (Manual) 9 L, Monocytes % (Manual) 11 H, Diff Path Review May foll, Platelet Estimate ADEQUATE, RBC Morphology N CHROM, Anisocytosis 1+ 04/18/22 11:26: POC Glucose 345 H Micro: Microbiology 04/15/22 04:00 Wound - Leg, Right Gram Stain - Final 04/15/22 04:00 Wound - Leg, Right Wound Culture - Final Escherichia coli Stenotrophomonas maltophilia Klebsiella oxytoca Gram positive ina 04/14/22 23:43 Blood Culture (Wb) - Anticubital Right Blood Culture - Preliminary No growth in 48 hours. 04/14/22 23:40 Blood Culture (Wb) - Anticubital Left Blood Culture - Preliminary No growth in 48 hours. 04/15/22 00:40 Urine, Clean Catch Urine Culture - Final Culture exhibits no growth. 04/14/22 23:49 Nasal Secretion SARS-CoV-2 & FLU Antigen (Rapid) - Final Rhythm Strip Rhythm Strip: Sinus Tach (Sinus tachycardia. A sensed, V paced rhythm) Physical Exam Narrative General appearance: Alert and oriented x3, no apparent distress. Ill-appearing. HEENT: Normocephalic, atraumatic, mucous membrane dry without erythema, EOMI. Neck: Supple. No JVD Lungs: Clear to auscultation. Abdomen: Normal bowel sound, soft, nontender, no guarding or rebound. Extremities: No clubbing or cyanosis. There is 2+ edema of the right lower extremity and 1+ edema to left lower extremity. Assessment & Plan Assessment/Plan (1) Acute kidney injury: PLAN: - Nonoliguric CHRIS secondary to prerenal azotemia that has evolved to ischemic ATN. FEna is greater than 1%. The patient presented with 1 week history of volume loss and poor intake. She was also on ARB and furosemide prior to admission. No NSAIDs Although the patient has a history of heart failure with reduced ejection fraction, she tolerated and responded to small amount of volume expansion Agree with holding Entresto and furosemide. Overall slight improvement in renal function again today. Creatinine on admission 6.6 mg/dL and today her creatinine is 4.62 mg/dL. BUN 94 on admission, peaked 102 yesterday and today is 98. Urine output has picked up with volume expansion. Renal ultrasound did not show any hydronephrosis, Large staghorn calculus right kidney. Continue to encourage oral solute/fluid intake. I discussed and reviewed this with both patient and her . There is no need for dialysis Continue to monitor renal function, volume status, electrolytes and acid-base status closely. Current medications are reviewed and are appropriately dosed for her renal function. discussed with Dr. Corona. (2) Chronic kidney disease, stage 3b: PLAN: The patient has a baseline serum creatinine of around 1.8 to 2.0 mg/dL as of late February 2022. In November 2020 baseline creatinine 1 to 1.2 mg/dL. Gap in lab work from November 2020 to February 2022 to be reviewed. Therefore she has CKD stage IIIb-IV. Prior urinalysis shows proteinuria. Suspect the patient has underlying diabetic kidney disease or cardiorenal syndrome type III. Will arrange for hospital follow-up (3) Hyperkalemia: PLAN: Hyperkalemia, resolved. Hyperkalemia multifactorial: ARB, acidotic (bicarb was 13) which can cause worsening of hyperkalemia and hyperglycemic which can exacerbate hyperkalemia. (4) Metabolic acidosis: PLAN: Metabolic acidosis is likely due to circulatory shock/poor perfusion due to volume depletion. Suspect this is mainly hypovolemic shock Continue to encourage oral solute/fluid intake, we can hold off on adding sodium bicarbonate supplementation. (5) Septic shock: PLAN: As mentioned above, the patient likely has a combination of hypovolemic and possible distributive shock. On cefepime. Blood cultures so far no growth. Urine culture so far no growth. (6) HFrEF (heart failure with reduced ejection fraction): PLAN: The patient has a history of systolic dysfunction based on echocardiogram done on 02/13/2022 reported EF 25%, moderate to severe global hypokinesis, mild MR and TR; LV systolic function same compared to previous study of November 2021 . This is attributed to ischemic cardiomyopathy. The patient does not appear to be in decompensated heart failure. She does have chronic lower extremity edema but her lungs are clear and she is not in respiratory distress. She is on room air. Therefore, I think we have room to volume expand the patient. (7) Anemia: PLAN: The patient received PRBC on 04/15/2022, hemoglobin was 7.5. This likely has helped renal perfusion as well. It looks like she has underlying iron deficiency anemia as she is on ferrous sulfate.
--- NOTE | 2022-04-18 13:48 | PCM.DC.SUM ---
Providers Date of Admission: 04/15/22 Date of Discharge: 04/18/22 Primary Care Physician: Dr. 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 Routine Comment: Reason for Consult:: R leg wound 04/15/22 10:57 Consult: Nephrology Routine Consulting Provider: Shabnam Alvarado Reason for Consult: CHRIS on CKD3b, sepsis EMERGENT Consult: No MD Notified: Yes Date Notified: 04/15/22 Time Notified: 10:58 Method of Notification: Verbal Reason For Visit: SEPTIC SHOCK Diagnosis Discharge Diagnosis (1) Acute kidney injury: Status: Acute Code(s): N17.9 - Acute kidney failure, unspecified (2) Chronic kidney disease, stage 3b: Status: Acute Code(s): N18.32 - Chronic kidney disease, stage 3b (3) Hyperkalemia: Status: Acute Code(s): E87.5 - Hyperkalemia (4) Metabolic acidosis: Status: Acute Code(s): E87.20 - Acidosis, unspecified (5) Septic shock: Status: Acute Code(s): A41.9 - Sepsis, unspecified organism; R65.21 - Severe sepsis with septic shock (6) HFrEF (heart failure with reduced ejection fraction): Status: Chronic Code(s): I50.20 - Unspecified systolic (congestive) heart failure (7) Anemia: Status: Acute Code(s): D64.9 - Anemia, unspecified Medications at Discharge Home Medications nitroglycerin 0.4 mg sublingual tablet (Nitrostat) 0.4 mg sublingual PRN PRN CHEST PAIN 06/05/18 acetaminophen 500 mg tablet 500 mg PO Q4H PRN PRN Pain #20 TABLETS 06/10/18 glipizide 10 mg tablet 10 mg PO BIDAC blood sugar 07/16/20 atorvastatin 40 mg tablet 40 mg PO QHS CHOLESTEROL #90 tabs 03/29/21 sacubitril 49 mg-valsartan 51 mg tablet (Entresto) 1 tab PO BID this is a dose increase #180 tabs 11/17/21 clopidogrel 75 mg tablet 75 mg PO DAILY blood thinner 03/08/22 furosemide 40 mg tablet 40 mg PO BID water pill 03/08/22 pantoprazole 40 mg tablet,delayed release 40 mg PO BID Check with primary doctor 04/15/22 sucralfate 1 gram tablet 1 g PO 4X/DAY Check with primary doctor 04/15/22 amoxicillin 500 mg-potassium clavulanate 125 mg tablet (Augmentin) 1 tab PO DAILY #3 tabs 04/18/22 ascorbic acid (vitamin C) 500 mg tablet 500 mg PO BIDCM #60 tabs 04/18/22 ferrous sulfate 325 mg (65 mg iron) tablet 325 mg PO DAILY Check with primary doctor #30 tabs 04/18/22 insulin glargine 100 unit/mL (3 mL) subcutaneous pen (Lantus Solostar U-100 Insulin) 15 unit (0.15 mL) subcut DAILY #15 mL 04/18/22 insulin lispro 100 unit/mL subcutaneous pen (Humalog KwikPen (U-100) Insulin) See Protocol subcut ACHS #15 mL 04/18/22 metoprolol succinate 25 mg tablet,extended release 24 hr 50 mg PO DAILY Check with primary doctor #60 tabs 04/18/22 Hospital Course Summary of Care Provided Hospital Course: This 66-year-old female was admitted with diarrhea and malaise after recent EGD and colonoscopy on April 14 and found to be hypotension, tachycardia and tachypnea in ED. 1. Sepsis due to possible right LE wound infection versus right pyelonephritis/UTI with acute sepsis related organ dysfunction as evidenced by hypotension, SBP less than 90 mmHg, CHRIS, lactic acidosis: Patient is being admitted in ICU. Patient diarrhea has resolved. Did not require vasopressor yet. Urine output 200 mL since in ICU. Monitor BP, urine output closely. Rapid SARS-CoV-2 and flu antigen are negative. on broad-spectrum empiric IV antibiotic. 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 Cultures are pending. 04/16: BP consistently above systolic 90 mmHg in the morning today. Most recent 128/55. Sinus tachycardia. Started on low-dose metoprolol 12.5 mg p.o. twice daily. Hemodynamically better and transferred to PCU. 04/17: No fever in more than 48 hours. Urine culture shows no growth. Blood cultures x2 negative for more than 48 hours. Wound culture shows GNR, lactose trip rider, gram-positive rods. 04/18: Sepsis resolved. Patient is discharged on Augmentin 500 mg daily adjusted to creatinine clearance 10 on appointment to complete a 7 days of antibiotic. 04/17: Discussed with Dr. Dickinson 2. Non-STEMI likely type II demand ischemia troponin elevation: Patient has history of coronary artery disease and PCI at [place]. Follows Dr. Dickinson/Francia in cardiology clinic. She had anterior STEMI with stenting LAD in 2016 in [facility]. 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 After that she had JOLLY to LAD in September 2020 and circumflex artery in November 2020. Patient seen by science specialist. 04/16: Patient not candidate for invasive cardiac cath because of kidney failure. Medical management. 04/17: Patient does not have any chest pain or shortness of breath. 04/18: Discussed with patient's primary science specialist Dr. Dickinson and gave the report. Follow-up in 1 month when kidney function improves. 3. Acute on chronic anemia most likely CKD:Patient hemoglobin dropped to 7.5 g. Patient had recent EGD and colonoscopy on 03/09/2020 found multiple oozing duodenal ulcer with visible vessel which was controlled with bipolar cautery. Colonoscopy showed diverticulosis. Continue PPI twice daily. On Carafate. IV iron ordered. Patient had last stent more than a year ago as mentioned above therefore Plavix discontinued. 04/16: Hemoglobin profile better. Did not require transfusion. 04/17: Hemoglobin 8 g. No external acute bleeding. 04/18: Iron profile shows ferritin-185, iron saturation 31% TIBC low suggestive of anemia of chronic disease/kidney disease. Ferrous sulfate decreased to 325 mg daily. Follow-up with Dr. Dee. 4. Acute kidney injury on baseline CKD stage IIIb with anion gap metabolic acidosis: Monitor intake and output. Patient admitted with creatinine 6.67. CHRIS probably prerenal/hypotension. Entresto and other nephrotoxic medications on hold. Scenario Writer has been consulted. 04/16: Not significant improvement in kidney function, creatinine above 6. Discussed with the stockkeeper. IV fluid in boluses if MAP less than 65 for several hours. Positive fluid balance about 3 L. 850 mL output on 04/15. No indication for FINANCE CONTROLLER. Kidney ultrasound shows large staghorn calculus in right kidney no hydronephrosis. Small amount of perinephric fluid on the right and a small amount of right upper quadrant ascites. Cannot exclude superimposed right renal infection/pyonephritis. No hydro on left. 04/17: Discussed with the stockkeeper. BUN/creatinine showing improvement. Creatinine is still high. Patient making 800 mL urine. 04/18: Discussed with stockkeeper. Creatinine showing improvement but is still high. Follow-up with nephrology in 1 week. Hold nephrotoxic medications including Lasix and Entresto and oral hypoglycemic agents. 5. Chronic HFrEF: Last echo in February, reported EF 25%, moderate to severe global hypokinesis, mild MR and TR; LV systolic function same compared to previous study of November 2021. Chest x-ray individually reviewed shows no evidence of acute intrathoracic disease. 6. Diabetes mellitus type II: Hypoglycemia on presentation. Oral hypoglycemic medications on hold. Accu-Cheks and coverage Humalog sliding scale patient with hyperglycemia on presentation 04/18: Patient discharged on Lantus insulin and Humalog sliding scale. 7. Chronic right leg wound Adaptic dressing ordered.? Wound care consult. 8 DVT prophylaxis: SCDs if patient can tolerate. Discharge medication reconciliation done. Discharge follow-up instructions completed. Discharge process discussed with the patient and all questions were answered to patient's satisfaction. Discharged to home. Hospital course, discharge process instructions discussed with the patient's and daughter in detail in the room. Total time spent, exact 35 minutes on discharge meds reconciliation, examination, coordination of care with nurses and ancillary staff, review of imaging and blood test and discussion with the patient on follow-up instructions. Microbiology Past 72 Hours 04/15/22 04:00 Wound - Leg, Right Gram Stain - Final 04/15/22 04:00 Wound - Leg, Right Wound Culture - Final Escherichia coli Stenotrophomonas maltophilia Klebsiella oxytoca Gram positive ina 04/14/22 23:43 Blood Culture (Wb) - Anticubital Right Blood Culture - Preliminary No growth in 48 hours. 04/14/22 23:40 Blood Culture (Wb) - Anticubital Left Blood Culture - Preliminary No growth in 48 hours. 04/15/22 00:40 Urine, Clean Catch Urine Culture - Final Culture exhibits no growth. Laboratory Results 04/15/22 11:25: Crossmatch See Detail 04/17/22 16:25: POC Glucose 348 H 04/17/22 21:29: POC Glucose 287 H 04/18/22 06:00: POC Glucose 285 H 04/18/22 06:06: Sodium 136, Potassium 4.0, Chloride 109 H, Carbon Dioxide 15.0 L, BUN 98 H, Creatinine 4.62 H, Estim Creat Clear Calc 9.04, Est GFR (MDRD) Af Amer 12 L, Est GFR (MDRD) Non-Af 10 L, BUN/Creatinine Ratio 21.2 H, Glucose 301 H, Calcium 8.7, Phosphorus 3.1, Albumin 2.7 L 04/18/22 06:06: WBC 10.9, RBC 2.86 L, Hgb 7.7 L, Hct 24.8 L, MCV 86.7, MCH 26.9 L, MCHC 31.0 L, RDW Std Deviation 56.5 H, RDW Coeff of Brianne 17.8 H, Plt Count 423, MPV 9.8, Neut % (Auto) Not Reportable, Absolute Neuts (auto) 8.7 H, Absolute Lymphs (auto) 0.98, Total Counted 100, Neutrophils % (Manual) 79 H, Band Neutrophils % 1, Lymphocytes % (Manual) 9 L, Monocytes % (Manual) 11 H, Diff Path Review November, Platelet Estimate ADEQUATE, RBC Morphology N CHROM, Anisocytosis 1+ 04/18/22 11:26: POC Glucose 345 H Physical Exam Narrative Physical exam General: Alert, Oriented x3, Cooperative HEENT: Atraumatic, PERRLA, EOMI, Normocephalic Oral: No Gingival or Mucosal Lesions/ Ulcerations Neck: Supple, No JVD, Negative Carotid Bruits Lungs: Air entry diminished in bilateral lung bases. No crepitation/rhonchi Cardiovascular: Paced rhythm, PVCs, Normal S1, Normal S2, systolic murmur over LLSB and cardiac apex with radiation to left axilla and interscapular space. Abdomen: Bowel Sounds Present, Soft, Non Tender, Non-Distended : No renal angle tenderness. No suprapubic tenderness. Extremities: No edema, Capillary Refill Less than 3 Seconds Skin: Ulcer over lower right leg dressing changed. Healed scar of superficial left leg ulcer. Musculoskeletal: No Tenderness to Palpation of Joints or Extremities. ROM intact Neurological: Cranial nerves II-XII grossly intact, DTR 2+/4 and muscle strength 4/5 at major joints Psych/Mental Status: Flat affect. Looks depressed. Weight / BMI Weight Weight: 156 lb 4.924 oz Body Mass Index (BMI) 28.8 ABG / Lab / Microbiology Data Result Diagrams: 04/18/22 06:06 04/18/22 06:06 Laboratory: Laboratory Results - last 24 hr 04/15/22 11:25: Crossmatch See Detail 04/17/22 16:25: POC Glucose 348 H 04/17/22 21:29: POC Glucose 287 H 04/18/22 06:00: POC Glucose 285 H 04/18/22 06:06: Sodium 136, Potassium 4.0, Chloride 109 H, Carbon Dioxide 15.0 L, BUN 98 H, Creatinine 4.62 H, Estim Creat Clear Calc 9.04, Est GFR (MDRD) Af Amer 12 L, Est GFR (MDRD) Non-Af 10 L, BUN/Creatinine Ratio 21.2 H, Glucose 301 H, Calcium 8.7, Phosphorus 3.1, Albumin 2.7 L 04/18/22 06:06: WBC 10.9, RBC 2.86 L, Hgb 7.7 L, Hct 24.8 L, MCV 86.7, MCH 26.9 L, MCHC 31.0 L, RDW Std Deviation 56.5 H, RDW Coeff of Brianne 17.8 H, Plt Count 423, MPV 9.8, Neut % (Auto) Not Reportable, Absolute Neuts (auto) 8.7 H, Absolute Lymphs (auto) 0.98, Total Counted 100, Neutrophils % (Manual) 79 H, Band Neutrophils % 1, Lymphocytes % (Manual) 9 L, Monocytes % (Manual) 11 H, Diff Path Review November, Platelet Estimate ADEQUATE, RBC Morphology N CHROM, Anisocytosis 1+ 04/18/22 11:26: POC Glucose 345 H Microbiology: Microbiology 04/15/22 04:00 Wound - Leg, Right Gram Stain - Final 04/15/22 04:00 Wound - Leg, Right Wound Culture - Final Escherichia coli Stenotrophomonas maltophilia Klebsiella oxytoca Gram positive ina 04/14/22 23:43 Blood Culture (Wb) - Anticubital Right Blood Culture - Preliminary No growth in 48 hours. 04/14/22 23:40 Blood Culture (Wb) - Anticubital Left Blood Culture - Preliminary No growth in 48 hours. 04/15/22 00:40 Urine, Clean Catch Urine Culture - Final Culture exhibits no growth. 04/14/22 23:49 Nasal Secretion SARS-CoV-2 & FLU Antigen (Rapid) - Final D/C Instructions Discharge Diet: 1800 Calorie Control Diet and 2000 mg Sodium Diet Call your doctor if you observe: Fever of 101 or Higher, Coldness, Increased Pain, Numbness or Tingling, Change in Color, Inability to urinate, Inability to have a bowel movement, Using more than 1 pad per hour, Shortness of breath, Dizziness, Fainting spells, Swelling in the ankles, Chest pain, Prolonged hiccupping, Increased palpitations (irregular heartbeat), Calf discomfort and Uncontrolled pain Meaningful Use Info Meaningful Use Diagnoses (Choose all that apply): None applicable Discharge Plan Admission Admit Date/Time: 04/15/22 01:59 Primary Reason for Your Visit: Sepsis due to right pyelonephritis Attending Provider: Howie Corona Primary Care Provider: Gianluca Sol Consulting Providers: Shane Jerome ; Edyta Suarez ; Doni Guy ; Shabnam Alvarado Discharge Orders/Prescriptions Prescriptions: New ascorbic acid (vitamin C) 500 mg Tablet 500 mg PO BIDCM Qty: 60 0RF insulin glargine [Lantus Solostar U-100 Insulin] 100 unit/mL (3 mL) insulin pen 15 unit subcut DAILY Qty: 15 3RF Rx Instructions: Hold if glucose less than 130 mg/dl insulin lispro [Humalog KwikPen Insulin] 100 unit/mL Insulin Pen See Protocol subcut ACHS Qty: 15 0RF Protocol: 4. Sliding Scale Insulin High-Med Dosing Condition: 150-199 mg/dl = 2 units Condition: 200-259 mg/dl = 4 units Condition: 260-324 mg/dl = 6 units Condition: 325-374 mg/dl = 8 units Condition: 375-409 mg/dl = 10 units Condition: 410-449 mg/dl = 11 units Condition: Greater than 449 call physician Protocol Text: - Use for Total Daily Dose of Insulin 56-80 units - Patient who are insulin resistant or septic HIGH MEDIUM DOSING ALGORITHM amoxicillin-pot clavulanate [Augmentin] 500-125 mg tablet 1 tab PO DAILY Qty: 3 0RF Continued atorvastatin 40 mg tablet 40 mg PO QHS Qty: 90 3RF nitroglycerin [Nitrostat] 0.4 MG tablet, sublingual 0.4 mg sublingual PRN PRN (Reason: CHEST PAIN) acetaminophen 500 MG tablet 500 mg PO Q4H PRN PRN (Reason: Pain) Qty: 20 0RF clopidogrel 75 mg tablet 75 mg PO DAILY sucralfate 1 gram tablet 1 g PO 4X/DAY pantoprazole 40 mg tablet,delayed release (DR/EC) 40 mg PO BID Changed metoprolol succinate 25 mg tablet extended release 24 hr 50 mg PO DAILY Qty: 60 0RF Rx Instructions: Hold for heart less than 60 or systolic blood pressure less than 100 mmHg. ferrous sulfate 325 mg (65 mg iron) tablet 325 mg PO DAILY Qty: 30 0RF Held glipizide 10 MG tablet 10 mg PO BIDAC Hold Instructions: Hold until kidney function returns to baseline. Follow-up with BMP/stockkeeper furosemide 40 mg tablet 40 mg PO BID Hold Instructions: Hold until kidney function returns to baseline. Follow-up with BMP/stockkeeper Entresto 49-51 mg tablet 1 tab PO BID Qty: 180 3RF Hold Instructions: Hold until kidney function returns to baseline. Follow-up with BMP/stockkeeper Referrals / Follow Up: Óscar Dickinson MD [Med Staff - Active Staff] - Within 1 Month (FOR NSTEMI AND HF) Naomi Fountain MD [Med Staff - Active Staff] - Within 1 Month (FOR Right staghorn calculus) Brian Jeffrey MD [Med Staff - Consulting] - Within 1 Week (CHRIS) Gianluca Sol DO [Primary Care Provider] - lAfonzo Dee DO [Med Staff - Active Staff] - Within 1 Month (for anemia and GI Bleed) Disposition Disposition (needs filled in before D/C Order can be placed): Home, Self Care Charges/Coding Visit Charges Inpatient E&M: 21041 Disch Hosp
--- NOTE | 2022-04-18 14:19 | CASEMGMT ---
Addendum entered by Kristen Lunsford 04/18/22 14:30: Call to [facility] to notify of JL and pt discharge, voices understanding. Sharee SOSA CM Original Note: This RN CM to room to discuss d/c plan with pt/. Pt is sleeping and states plan is to go home with [facility] and voices no further concerns/needs. Per , daughter to complete wound care. Sharee SOSA CM
[2022-04-19 13:43] LABS: Pathologist Review Reviewed
== END 2022-04-18 15:43 | disposition home or self-care (01) | DRG 871 ==
LOC: ED 04-15 00:03 → ICU 04-15 03:16 → PCU 04-16 11:42
PROVIDERS: Internal Medicine Cardiovascular Disease; Internal Medicine Critical Care Medicine; Internal Medicine Nephrology; Admitting Provider Hospitalist; Emergency Provider Emergency Medicine; PCP Family Medicine; Visit Provider Internal Medicine
DX: A41.9 Sepsis, unspecified organism (principal); R57.1 Hypovolemic shock; I21.A1 Myocardial infarction type 2; R65.21 Severe sepsis with septic shock; I13.0 Hypertensive heart and chronic kidney disease with heart failure and stage 1 through stage 4 chronic kidney disease, or unspecified chronic kidney disease; E87.20 Acidosis, unspecified; I50.22 Chronic systolic (congestive) heart failure; N17.9 Acute kidney failure, unspecified; L97.922 Non-pressure chronic ulcer of unspecified part of left lower leg with fat layer exposed; N12 Tubulo-interstitial nephritis, not specified as acute or chronic; E11.22 Type 2 diabetes mellitus with diabetic chronic kidney disease; D50.9 Iron deficiency anemia, unspecified; E11.51 Type 2 diabetes mellitus with diabetic peripheral angiopathy without gangrene; N18.32 Chronic kidney disease, stage 3b; E11.65 Type 2 diabetes mellitus with hyperglycemia; E11.622 Type 2 diabetes mellitus with other skin ulcer; Z79.4 Long term (current) use of insulin; I49.5 Sick sinus syndrome; I35.0 Nonrheumatic aortic (valve) stenosis; E87.5 Hyperkalemia; E86.0 Dehydration; I25.5 Ischemic cardiomyopathy; I25.10 Atherosclerotic heart disease of native coronary artery without angina pectoris; R19.7 Diarrhea, unspecified; I25.2 Old myocardial infarction; E78.5 Hyperlipidemia, unspecified; Z20.822 Contact with and (suspected) exposure to COVID-19; Z79.02 Long term (current) use of antithrombotics/antiplatelets; Z79.899 Other long term (current) drug therapy; Z95.5 Presence of coronary angioplasty implant and graft; Z95.0 Presence of cardiac pacemaker
CPT/HCPCS: 36415; 71045; 76770; 80053; 80069; 81001; 82570; 82728; 82803; 82962; 83540; 83550; 83605; 83880; 84300; 84484; 85014; 85018; 85025; 85027; 86850; 86900; 86901; 86920; 86922; 87040; 87070; 87077; 87086; 87186; 87205; 87428; 93005; 97110; 97162; 97166; 97530; 97535; 97802; 99285; J7030; J7050; J7120; P9612; A4216; J2916

== ENCOUNTER 2022-04-19 07:43 | Emergency (ER) | payer OTHER, SELFPAY ==
[2022-04-19 07:45] VITALS: BP 102/70; PULSE 101; RESP 18; TEMP 36.4; O2SAT 98; BMI 30.9
[2022-04-19 08:21] LABS: Bedside Glucose 269 mg/dL (74-106)
[2022-04-19] MEDS: 0.9% Normal Saline 1,000 ML 1000 ML IV (08:30)
--- NOTE | 2022-04-19 08:39 | EX.ED.DYSGE1 ---
HPI History of Present Illness Chief Complaint: Hyperglycemia Informant: spouse/S.O. and family Onset/Context/Timing Onset: Yesterday Context: Gradual Onset Timing: Continuous Quality: Weakness Location: Generalized Worsened by: Nothing Relieved by: Nothing Narrative Narrative: Patient presents with weakness and elevated blood sugars that began yesterday. Family states that patient was discharged from the hospital yesterday and her weakness has gotten progressively worse. Family states it has been constant. Family states the patient has a right foot infection and is on antibiotics for that. Family states patient's blood sugars have gone up since she has been discharged home. Family is requesting that patient be transferred to [facility]. 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) Peripheral vascular occlusive disease ST elevation (STEMI) myocardial infarction involving left anterior descending coronary artery (12/21/16) Symptomatic bradycardia Venous insufficiency of both lower extremities Home Medications nitroglycerin 0.4 mg sublingual tablet (Nitrostat) 0.4 mg sublingual PRN PRN CHEST PAIN 06/05/18 [History Last Taken Unknown] acetaminophen 500 mg tablet 500 mg PO Q4H PRN PRN Pain #20 TABLETS 06/10/18 [Rx Last Taken Unknown] glipizide 10 mg tablet 10 mg PO BIDAC blood sugar 07/16/20 [History Last Taken Unknown] atorvastatin 40 mg tablet 40 mg PO QHS CHOLESTEROL #90 tabs 03/29/21 [Rx Last Taken Unknown] sacubitril 49 mg-valsartan 51 mg tablet (Entresto) 1 tab PO BID this is a dose increase #180 tabs 11/17/21 [Rx Last Taken Unknown] clopidogrel 75 mg tablet 75 mg PO DAILY blood thinner 03/08/22 [History Last Taken Unknown] furosemide 40 mg tablet 40 mg PO BID water pill 03/08/22 [History Last Taken Unknown] pantoprazole 40 mg tablet,delayed release 40 mg PO BID Check with primary doctor 04/15/22 [History Last Taken Unknown] sucralfate 1 gram tablet 1 g PO 4X/DAY Check with primary doctor 04/15/22 [History Last Taken Unknown] amoxicillin 500 mg-potassium clavulanate 125 mg tablet (Augmentin) 1 tab PO DAILY #3 tabs 04/18/22 [Rx Last Taken Unknown] ascorbic acid (vitamin C) 500 mg tablet 500 mg PO BIDCM #60 tabs 04/18/22 [Rx Last Taken Unknown] ferrous sulfate 325 mg (65 mg iron) tablet 325 mg PO DAILY Check with primary doctor #30 tabs 04/18/22 [Rx Last Taken Unknown] insulin glargine 100 unit/mL (3 mL) subcutaneous pen (Lantus Solostar U-100 Insulin) 15 unit (0.15 mL) subcut DAILY #15 mL 04/18/22 [Rx Last Taken Unknown] insulin lispro 100 unit/mL subcutaneous pen (Humalog KwikPen (U-100) Insulin) See Protocol subcut ACHS #15 mL 04/18/22 [Rx Last Taken Unknown] metoprolol succinate 25 mg tablet,extended release 24 hr 50 mg PO DAILY Check with primary doctor #60 tabs 04/18/22 [Rx Last Taken Unknown] Allergy/AdvReac Type Severity Reaction Status Date / Time No Known Allergies Allergy Verified 04/19/22 07:49 Family History Other Brain aneurysm CVA (cerebral vascular accident) Diabetes Surgical History History of angioplasty of peripheral vessel (07/26/21) History of cardiac catheterization History of coronary artery stent placement (11/22/20) History of permanent cardiac pacemaker placement (05/15/18) Social History Smoking Status: Never smoker alcohol intake: never substance use type: does not use caffeine: Yes Type: coffee Number of servings: 1 ROS ROS ED Constitutional Constitutional ED: Denies chills or fever(s) Eyes Eyes: Denies blurry vision or change in vision ENT ENT ED: Denies rhinorrhea or sore throat Cardiovascular Cardiovascular: Denies chest pain or palpitations Respiratory/Chest Respiratory/Chest: Denies cough or dyspnea Gastrointestinal Gastrointestinal: Reports diarrhea; Denies nausea or vomiting Genitourinary Genitourinary ED: Denies dysuria or hematuria Musculoskeletal Musculoskeletal: Denies back pain or neck pain Integumentary Reports other Details: Open wound to right foot ; Denies rash Neurologic Neurologic: Reports weakness; Denies headache(s) Allergic/Immunologic Allergic/Immunologic ED: Denies mouth swelling or urticaria EXAM Physical Exam Const Vital Signs: 04/19/22 07:45 04/19/22 09:12 Temperature 97.6 F L 97.8 F Temperature Source Oral Temporal Pulse Rate 101 H 99 Respiratory Rate 18 12 Blood Pressure 102/70 109/71 Blood Pressure Mean 80 83 Pulse Ox 98 93 Oxygen Delivery Method Room Air Room Air Positive well nourished and well developed General Appearance ED: well developed HEENT Reports moist mucous membranes Neck supple and no JVD Chest Wall inspection of chest normal and palpation of chest normal Resp normal respiratory effort and clear to auscultation bilaterally Cardio regular rate and regular rhythm GI normal to inspection, nondistended, normoactive bowel sounds and non-tender Palpation: soft Extremity Extremity Narrative: There is an open wound over the right foot. The dressing is in place. There does not appear to be any surrounding erythema. Sensation was intact to light touch in all digits. Capillary refill was less than 2 seconds in all digits. Neuro CN's II-XII intact bilaterally and no sensory deficits noted Sensorium / Orientation: alert Motor Exam: strength 5/5 throughout Skin Wounds: wounds noted open MDM MDM MDM Narrative Medical decision making narrative: Review of previous records showed that the patient was admitted here for sepsis related to a wound infection of her right foot. Blood cultures were negative. Patient was discharged home on Augmentin. Wound culture grew out E. coli, Klebsiella oxytoca, Stenotrophomonas maltophilia, and a gram-positive ina. The Klebsiella had intermediate resistance to ampicillin sulbactam. All were sensitive to Levaquin and Bactrim. Initial BGT was 269. Patient was given IV fluids. CBC shows a mild leukocytosis of 11.1. This is actually improved from yesterday's result. Hemoglobin was 7.2 and hematocrit 23.6. These are consistent with prior results. Comprehensive metabolic profile shows a BUN of 107 and creatinine 4.28. These are consistent with prior results. Glucose was 292. High-sensitivity troponin was elevated at 375 however, this is improving from previous results. Lactate was 2.1. This is also improving from previous result. Serum acetone was negative. Family wants to go to [facility]. They were able to arrange for their own ambulance transportation. They requested to sign out AGAINST MEDICAL ADVICE so that they can go and meet their own ambulance transport to [facility]. Patient was advised of the risks and benefits of signing out AGAINST MEDICAL ADVICE. Family was agreeable with this and will take responsibility of the patient and will sign out AGAINST MEDICAL ADVICE. Lab Data Attestation: I reviewed the patient's lab results. Labs: Laboratory Results - last 24 hr 04/19/22 04/19/22 04/19/22 07:49 07:49 08:01 WBC 11.1 H RBC 2.69 L Hgb 7.2 L Hct 23.6 L MCV 87.7 MCH 26.8 L MCHC 30.5 L RDW Std Deviation 57.3 H RDW Coeff of Brianne 18.1 H Plt Count 411 MPV 9.8 Neut % (Auto) Not Reportable Absolute Neuts (auto) 8.7 H Absolute Lymphs (auto) 1.11 Total Counted 100 Neutrophils % (Manual) 75 H Band Neutrophils % 3 Lymphocytes % (Manual) 10 L Monocytes % (Manual) 9 Metamyelocytes % 1 Myelocytes % 2 H Diff Path Review May foll Platelet Estimate ADEQUATE RBC Morphology NORM C+C Sodium 137 Potassium 4.2 Chloride 109 H Carbon Dioxide 16.0 L Anion Gap 12 BUN 107 H* Creatinine 4.28 H Estim Creat Clear Calc 9.76 Est GFR (MDRD) Af Amer 13 L Est GFR (MDRD) Non-Af 11 L BUN/Creatinine Ratio 25.0 H Glucose 292 H Lactic Acid Calcium 8.8 Total Bilirubin 0.40 AST 454 H ALT 589 H Alkaline Phosphatase 151 H Troponin I High Sens 375 H* Total Protein 7.0 Albumin 2.6 L Globulin 4.4 H Albumin/Globulin Ratio 0.6 L Acetone Level POC Glucose 269 H 04/19/22 04/19/22 08:57 08:57 WBC RBC Hgb Hct MCV MCH MCHC RDW Std Deviation RDW Coeff of Brianne Plt Count MPV Neut % (Auto) Absolute Neuts (auto) Absolute Lymphs (auto) Total Counted Neutrophils % (Manual) Band Neutrophils % Lymphocytes % (Manual) Monocytes % (Manual) Metamyelocytes % Myelocytes % Diff Path Review Platelet Estimate RBC Morphology Sodium Potassium Chloride Carbon Dioxide Anion Gap BUN Creatinine Estim Creat Clear Calc Est GFR (MDRD) Af Amer Est GFR (MDRD) Non-Af BUN/Creatinine Ratio Glucose Lactic Acid 2.1 H* Calcium Total Bilirubin AST ALT Alkaline Phosphatase Troponin I High Sens Total Protein Albumin Globulin Albumin/Globulin Ratio Acetone Level NEGATIVE POC Glucose Discharge Plan Triage Chief Complaint: Hyperglycemia ED Provider: Ishan Aranda Dx/Rx/DC Orders Clinical Impression: Leg wound, right, Chronic kidney disease, stage 3b, Hyperglycemia Prescriptions: No Action atorvastatin 40 mg tablet 40 mg PO QHS Qty: 90 3RF nitroglycerin [Nitrostat] 0.4 MG tablet, sublingual 0.4 mg sublingual PRN PRN (Reason: CHEST PAIN) acetaminophen 500 MG tablet 500 mg PO Q4H PRN PRN (Reason: Pain) Qty: 20 0RF glipizide 10 MG tablet 10 mg PO BIDAC Hold Instructions: Hold until kidney function returns to baseline. Follow-up with [facility] furosemide 40 mg tablet 40 mg PO BID Hold Instructions: Hold until kidney function returns to baseline. Follow-up with [facility] clopidogrel 75 mg tablet 75 mg PO DAILY sucralfate 1 gram tablet 1 g PO 4X/DAY pantoprazole 40 mg tablet,delayed release (DR/EC) 40 mg PO BID ascorbic acid (vitamin C) 500 mg Tablet 500 mg PO BIDCM Qty: 60 0RF insulin glargine [Lantus Solostar U-100 Insulin] 100 unit/mL (3 mL) insulin pen 15 unit subcut DAILY Qty: 15 3RF Rx Instructions: Hold if glucose less than 130 mg/dl insulin lispro [Humalog KwikPen Insulin] 100 unit/mL Insulin Pen See Protocol subcut ACHS Qty: 15 0RF Protocol: 4. Sliding Scale Insulin High-Med Dosing Condition: 150-199 mg/dl = 2 units Condition: 200-259 mg/dl = 4 units Condition: 260-324 mg/dl = 6 units Condition: 325-374 mg/dl = 8 units Condition: 375-409 mg/dl = 10 units Condition: 410-449 mg/dl = 11 units Condition: Greater than 449 call physician Protocol Text: - Use for Total Daily Dose of Insulin 56-80 units - Patient who are insulin resistant or septic HIGH MEDIUM DOSING ALGORITHM metoprolol succinate 25 mg tablet extended release 24 hr 50 mg PO DAILY Qty: 60 0RF Rx Instructions: Hold for heart less than 60 or systolic blood pressure less than 100 mmHg. amoxicillin-pot clavulanate [Augmentin] 500-125 mg tablet 1 tab PO DAILY Qty: 3 0RF ferrous sulfate 325 mg (65 mg iron) tablet 325 mg PO DAILY Qty: 30 0RF Entresto 49-51 mg tablet 1 tab PO BID Qty: 180 3RF Hold Instructions: Hold until kidney function returns to baseline. Follow-up with [facility] Primary Care Provider: Gianluca Sol Referrals: Gianluca Sol DO [Primary Care Provider] - Disposition Disposition: Against Medical Advice Discharge Date/Time: 04/19/22 10:31
[2022-04-19 09:12] VITALS: BP 109/71; PULSE 99; RESP 12; TEMP 36.6; O2SAT 93
[2022-04-19 09:15] LABS: Hematocrit 23.6 % (37-47); Hemoglobin 7.2 g/dL (12.0-15.0); Mean Corp Hgb Conc 30.5 g/dL (32-36); Mean Corpuscular Hgb 26.8 pg (27.0-32.0); Mean Corpuscular Volume 87.7 fL (81-99); Mean Platelet Vol. 9.8 fl (6.2-12.0); POSITIVE COUNT YES; POSITIVE MORPHOLOGY YES; Platelet Count 411 K/mm3 (150-450); RBC Distribution Width CV 18.1 % (11.6-14.6); RBC Distribution Width SD 57.3 fl (35.1-43.9); Red Blood Count 2.69 M/mm3 (4.2-5.4); White Blood Count 11.1 K/mm3 (4.4-11.0)
[2022-04-19 09:25] LABS: Differential Indicated MANUAL DIFF
[2022-04-19 09:35] LABS: ALB/GLOB Ratio 0.6 RATIO (0.9-2.4); AST(SGOT) 454 U/L (15-37); Alanine Aminotransfer ALT/SGPT 589 U/L (13-56); Albumin, Serum 2.6 g/dL (3.2-5.0); Alkaline Phosphatase 151 U/L (45-117); Anion Gap 12 (5-15); BUN 107 mg/dL (7-18); Calcium,Total 8.8 mg/dL (8.5-10.1); Chloride 109 mmol/L (98-107); Creatinine, Serum 4.28 mg/dL (0.55-1.02); EST Glomerular Filtration Rate 11 mL/min (>60); Est Glom Filt Rate - Afr Amer 13 mL/min (>60); Estimated Creatinine Clearance 9.76 ml/min; Globulin 4.4 g/dL (2.2-4.2); Glucose 292 mg/dL (74-106); Potassium 4.2 mmol/L (3.5-5.1); Sodium Level 137 mmol/L (136-145); Troponin-I HS 375 pg/mL (3.0-54.0)
[2022-04-19 09:35] LABS: Lactic Acid 2.1 mmol/L (0.4-1.9)
[2022-04-19 09:43] LABS: Lymphocyte 10 % (19-41); Metamyelocyte 1 % (0-1); Monocyte 9 % (0-10); Myelocyte 2 % (0-0); Neutrophil-Band 3 % (0-5); Neutrophil-Segmented 75 % (47-70); Platelet Estimate ADEQUATE (ADEQ); Red Cell Morphology NORM C+C NORMAL (NORM C&C); Total Cells Counted 100 (MANUAL DIFF)
[2022-04-19 09:44] LABS: Absolute Lymphocyte Count 1.11 X10^3/uL (0.83-4.51); Absolute Neutrophil Count 8.7 X10^3/uL (2.0-7.7)
--- NOTE | 2022-04-19 10:28 | CCN.REFER ---
PT AND HER FAMILY STATES THEY WANTED A SECOND OPINION FROM [facility]. PT AND FAMILY SIGNED AMA AND PT PLACED IN A WC AND TRANSPORTED FROM ER BY FAMILY
[2022-04-19 13:04] LABS: Reflex Lactate? Y
[2022-04-20 13:33] LABS: Pathologist Review Reviewed
== END 2022-04-19 10:31 | disposition left against medical advice (07) ==
LOC: ED 08:54
PROVIDERS: Emergency Provider Emergency Medicine; PCP Family Medicine; Visit Provider Emergency Medicine
DX: S81.801A Unspecified open wound, right lower leg, initial encounter (principal); E11.51 Type 2 diabetes mellitus with diabetic peripheral angiopathy without gangrene; I50.22 Chronic systolic (congestive) heart failure; E11.65 Type 2 diabetes mellitus with hyperglycemia; E11.22 Type 2 diabetes mellitus with diabetic chronic kidney disease; Z79.4 Long term (current) use of insulin; N18.32 Chronic kidney disease, stage 3b; I25.5 Ischemic cardiomyopathy; I25.10 Atherosclerotic heart disease of native coronary artery without angina pectoris; I25.2 Old myocardial infarction; Z79.02 Long term (current) use of antithrombotics/antiplatelets; Z79.899 Other long term (current) drug therapy; Z95.5 Presence of coronary angioplasty implant and graft; X58.XXXA Exposure to other specified factors, initial encounter
CPT/HCPCS: 80053; 82009; 82962; 83605; 84484; 85025; 96360; 99285